=== PATIENT | male | born 1965 | race Caucasian/White ===

== ENCOUNTER 2021-06-20 12:56 | Inpatient (IN) | payer OTHER ==
[2021-06-20 15:21] LABS: Basophils % (A) 1 %; Eosinophils # (A) 0.4 k/uL (0-0.7); Eosinophils % (A) 6 %; HCT 38.7 % (39.0-53.0); Lymphocytes # (A) 1.4 k/uL (1.0-4.8); Lymphocytes % (A) 26 %; MCHC 33.6 g/dL (31.0-37.0); MCV 89.1 fL (80.0-100.0); Mean Platelet Volume 8.9; Monocytes # (A) 0.5 k/uL (0-1.0); Monocytes % (A) 9 %; Neutrophils # (A) 2.9 k/uL (1.3-7.7); Neutrophils % (A) 53 %; Platelet Count 243 k/uL (150-450); RBC 4.34 m/uL (4.30-5.90); RDW 13.2 % (11.5-15.5); WBC 5.4 k/uL (3.8-10.6)
[2021-06-20 15:29] LABS: African American GFR (CKD) >90 (>60 ml/min/1.73 sqM); Anion Gap 6 mmol/L; Blood Urea Nitrogen 20 mg/dL (9-20); Calcium 9.3 mg/dL (8.4-10.2); Carbon Dioxide 25 mmol/L (22-30); Chloride 102 mmol/L (98-107); Glucose 302 mg/dL (74-99); Magnesium 1.9 mg/dL (1.6-2.3); Non-African American GFR(CKD) 86 (>60 ml/min/1.73 sqM); Potassium 4.5 mmol/L (3.5-5.1); Sodium 133 mmol/L (137-145)
[2021-06-20] MEDS ORDERED: NALOXONE 0.4 MG/ML 1 ML VIAL IV PRN (15:55)
[2021-06-20] MEDS ORDERED: ACETAMINOPHEN TAB 325 MG TAB PO PRN (15:55)
[2021-06-20] MEDS ORDERED: VANCOMYCIN IV PER PHARMACY 1 EACH MISC MISCELLANE PRN (16:01)
[2021-06-20 16:58] LABS: Glucose,Whole Blood 332 mg/dL (75-99)
[2021-06-20] MEDS: INSULIN ASPART (NovoLOG) 100 UNIT/ML VIAL SQ SCH (17:01)
--- NOTE | 2021-06-20 17:26 | ED ---
General Adult HPI - General Chief complaint: Recheck/Abnormal Lab/Rx Stated complaint: IV site evaluation Time Seen by Provider: 06/20/21 14:04 Source: patient, RN notes reviewed, old records reviewed Mode of arrival: ambulatory Limitations: no limitations - History of Present Illness Initial comments: Evaluated the patient when he was placed in a room. Patient is a 56-year-old male with past medical history remarkable for insulin dependent diabetes, recent right big toe amputation, osteomyelitis currently with a PICC line in the right upper extremity on home vancomycin presents emergency Department over concern for PICC line malfunction as well as the concern for requiring placement. Patient states he was at home with his 80-year-old mother and states he cannot take care of himself. He was asked to keep all weight off of his right lower ex tremity by his fireboat operator who did the surgery, and he states it is difficult in the house he isn't is no one to help him move around. He states he feels like he cannot take care of himself. He is seeking placement for rehab facility until he can ambulate normally again. He also states that he knows that his PICC line may be slowing down was concerned for malfunction. His no other acute complaints at this time. He has a chronic chest on the right lower extremity. He denies any dyspnea, chest pain, abdominal pain, nausea, vomiting. Denies any sick contacts and fevers, chills. He has been taking his home vancomycin. He is on no other antibiotics. Patient presents for placement. - Related Data Home Medications Medication Instructions Recorded Confirmed Aspirin EC [Ecotrin Low Dose] 81 mg PO DAILY 06/20/21 06/20/21 Cyanocobalamin [Vitamin B-12] 500 mcg PO DAILY 06/20/21 06/20/21 Insulin Aspart [NovoLOG Flexpen] See Protocol SQ AC-TID 06/20/21 06/20/21 Insulin Glargine,Hum.rec.anlog 24 units SQ HS 06/20/21 06/20/21 [Rico Parkinson] metFORMIN HCL [Glucophage] 1,000 mg PO BID 06/20/21 06/20/21 Allergies Allergy/AdvReac Type Severity Reaction Status Date / Time Penicillins Allergy Rapid Verified 06/20/21 14:57 Heart Rate Review of Systems ROS Statement: Those systems with pertinent positive or pertinent negative responses have been documented in the HPI. Review of Systems: CONST: Denies fever EYES: Denies blurry vision ENT: Denies nasal congestion C/V: Denies Chest pain RESP: Denies shortness of breath GI: Denies abdominal pain : Denies dysuria SKIN: Denies rash. MSK: Endorses chronic right lower extremity osteomyelitis. NEURO: Denies headache ROS Other: All systems not noted in ROS Statement are negative. Past Medical History Past Medical History: Diabetes Mellitus History of Any Multi-Drug Resistant Organisms: None Reported Past Surgical History: Orthopedic Surgery Additional Past Surgical History / Comment(s): Foot surgery, PICC line Past Psychological History: No Psychological Hx Reported Smoking Status: Never smoker Past Alcohol Use History: None Reported Past Drug Use History: None Reported General Exam - General Exam Comments Initial Comments: General: Appears in no acute distress. HEAD: Normal with no signs of head trauma. EYES: PERRLA, EOMI, conjunctiva normal, no discharge. ENT: Hearing grossly intact, normal oropharynx. RESPIRATORY: Clear breath sounds bilaterally. No wheezes, rales, or rhonchi. C/V: Regular rate and rhythm. S1 and S2 auscultated, no edema, peripheral pulses 2+ and intact throughout. Patient is a PICC line in the right upper extremity that flushes without difficulty and is working correctly as the vancomycin is currently instilling. No signs of infection or blockage near the picc line site. ABD: Abd is soft, nontender, nondistended EXT: Chronic right big toe amputation. Cast is in place. Good capillary refill distally. No sensory deficits that are acute. Normal range of motion. SKIN: Chronic right big toe amputation. NEURO: Alert and oriented 4. No focal sensory strength deficits. Limitations: no limitations Course Vital Signs 06/20/21 13:21 Temperature 97.5 F L Pulse Rate 74 Respiratory 20 Rate Blood Pressure 118/75 O2 Sat by Pulse 98 Oximetry Medical Decision Making - Medical Decision Making Based on the patient's presentation and physical exam, she is requesting placement at this time. He also given for PICC line malfunction, which seems to self resolved as is now working. Is requesting placement as he is unable to care for himself at home as he is on IV antibiotics and is forced to remain nonweightbearing on the right lower extremity. He is requesting placement. I do believe this is reasonable. He has no help at home, and was within elderly mother. We will obtain basic laboratory studies and admit the patient to hospital. We will continue his home vancomycin in addition to his home medications per patient was in agreement this plan. laboratory studies were remarkable for a mild hyponatremia of 133 in the setting of hyperglycemia with a point of care blood glucose of 302. Insulin sliding scale was ordered for the patient. I spoke with the admitting physician, Dr. Arellano, who was in agreement with this plan. Patient will be admitted in stable condition to the hospital for eventual placement to rehab facility. Patient was therefore admitted in stable condition. - Lab Data Result diagrams: 06/20/21 14:48 06/20/21 14:48 Lab Results 06/20/21 06/20/21 06/20/21 Range/Units 14:48 14:48 16:56 WBC 5.4 (3.8-10.6) k/uL RBC 4.34 (4.30-5.90) m/uL Hgb 13.0 (13.0-17.5) gm/dL Hct 38.7 L (39.0-53.0) % MCV 89.1 (80.0-100.0) fL MCH 30.0 (25.0-35.0) pg MCHC 33.6 (31.0-37.0) g/dL RDW 13.2 (11.5-15.5) % Plt Count 243 (150-450) k/uL MPV 8.9 Neutrophils % 53 % Lymphocytes % 26 % Monocytes % 9 % Eosinophils % 6 % Basophils % 1 % Neutrophils # 2.9 (1.3-7.7) k/uL Lymphocytes # 1.4 (1.0-4.8) k/uL Monocytes # 0.5 (0-1.0) k/uL Eosinophils # 0.4 (0-0.7) k/uL Basophils # 0.0 (0-0.2) k/uL Sodium 133 L (137-145) mmol/L Potassium 4.5 (3.5-5.1) mmol/L Chloride 102 (98-107) mmol/L Carbon Dioxide 25 (22-30) mmol/L Anion Gap 6 mmol/L BUN 20 (9-20) mg/dL Creatinine 0.97 (0.66-1.25) mg/dL Est GFR (CKD-EPI)AfAm >90 (>60 ml/min/1.73 sqM) Est GFR (CKD-EPI)NonAf 86 (>60 ml/min/1.73 sqM) Glucose 302 H (74-99) mg/dL POC Glucose (mg/dL) 332 H (75-99) mg/dL POC Glu Radio Adjuster ID Chaitanya Redd Calcium 9.3 (8.4-10.2) mg/dL Magnesium 1.9 (1.6-2.3) mg/dL Disposition Clinical Impression: Encounter for rehabilitation evaluation, Osteomyelitis, Status post right foot surgery Disposition: ADMITTED IP TO THIS HOSP Condition: Stable Referrals: [facility],Clinic [Primary Care Provider] - 1-2 days
[2021-06-20] MEDS ORDERED: ALPRAZolam 0.25 MG TAB PO PRN (17:30)
[2021-06-20] MEDS ORDERED: HYDROcodone/APAP 5-325MG 1 EACH TAB PO PRN (17:30)
--- NOTE | 2021-06-20 18:15 | HP ---
HISTORY AND PHYSICAL CHIEF COMPLAINTS: Osteomyelitis of the right foot as well as gait dysfunction. HISTORY OF PRESENT ILLNESS: This 56-year-old gentleman with a past history of diabetes, history of DJD, history of foot surgeries, PICC line, being followed by primary physician in [place], had multiple surgeries at [facility] apparently. Patient had a big toe amputation in [facility] in January this year for osteomyelitis and the patient had a PICC line and treatment. Subsequently patient was suspected to have osteomyelitis between the 2nd and 3rd toes and was on 2nd dose of antibiotics with PICC line in the right arm. The patient apparently was supposed to keep off it but the patient was unable to perform the activities of daily living including taking care of elderly mother. The patient also complaining of blockage of the left PICC line because of the IV antibiotics which are gravity driven, not draining completely according to him. There is no history of fever, rigors. No headache, loss consultations or seizures. The patient is being admitted for further evaluation and treatment. The initial labs showed normal CBC and sodium 133 and glucose elevated at 302. There is no history of fever, rigors, chills. PAST MEDICAL HISTORY: History of diabetes mellitus, diabetic peripheral neuropathy, history of DJD, foot surgery, amputation and PICC line and osteomyelitis. MEDICATIONS: NovoLog FlexPen and 24 units subcu q.h.s. Glucophage 1000 mg p.o. b.i.d. vitamin B12 500 mg daily, Ecotrin 81 mg daily. ALLERGIES: Penicillin. FAMILY HISTORY: No history of heart disease or strokes in the family. SOCIAL HISTORY: No smoking, no alcohol intake. REVIEW OF SYSTEMS: ENT: No diminished hearing or diminished vision. CARDIOVASCULAR: No angina. RESPIRATORY: As mentioned earlier. GI: No nausea. : No dysuria. NERVOUS SYSTEM: As mentioned. ALLERGY: No asthma or hayfever. MUSCULOSKELETAL: As mentioned earlier. HEMATOLOGY/ONCOLOGY: As mentioned earlier. CONSTITUTIONAL: As mentioned earlier. DERMATOLOGY: Negative. PSYCHIATRIC: Negative. PHYSICAL EXAMINATION: Patient is alert, oriented x3. Pulse is 74, blood pressure 118/70, respirations 20, temperature 97.4, pulse ox 98% on room air. HEENT: Conjunctivae normal. Oral mucosa moist. NECK: No jugular. No lymph node enlargement. CARDIOVASCULAR: S1 and S2. RESPIRATORY: Breath sounds diminished in the bases. No rhonchi. No crackles. ABDOMEN: Soft, obese, nontender. No mass. LEGS: Bilateral peripheral neuropathy and right foot tenderness in between the 2nd and 3rd toes also present and status post amputation of the right big toe. SKIN: Significant erythema as well as scaling also present on the right foot. PICC Line present on the right. NERVOUS SYSTEM: As mentioned, features of peripheral neuropathy. No focal motor deficit. LYMPHATICS: No lymph nodes palpable in the neck. SKIN: No ulcers. JOINTS: No active deforming arthropathy. LABS: WBC 5.2, hemoglobin sodium 130 potassium 4.5. Glucose 302. ASSESSMENT: 1. Right foot osteomyelitis on IV antibiotics through a right-sided PICC line. 2. Gait dysfunction. 3. Diabetes mellitus type 2 uncontrolled with hyperglycemia. 4. Hyponatremia. 5. Poor social support. 6. Blocked PICC line right side. 7. History of diabetes type 2. 8. Diabetic peripheral neuropathy. 9. History of amputation of the right big toe. 10.History of previous PICC line and 1 course of antibiotics. 11.FULL CODE. RECOMMENDATIONS AND DISCUSSION: This 56-year-old gentleman who presented with multiple complex medical issues, we will monitor the patient closely, continue the current management and treatment. Recommend continue with IV antibiotics. Infectious disease evaluation, PT and OT evaluation, possible ECF rehab. Resume the home medication. Monitor blood sugars closely. Closely hemoglobin A1c. The patient might need tighter control of the blood sugar as well at this time. The prognosis guarded because of multiple complex medical issues. Further recommendations to follow. MMODL / IJN: [id number] /
[2021-06-20 20:00] LABS: ALT 15 U/L (4-49); AST 20 U/L (17-59); African American GFR (CKD) >90 (>60 ml/min/1.73 sqM); Albumin 4.1 g/dL (3.5-5.0); Alkaline Phosphatase 94 U/L (38-126); Anion Gap 11 mmol/L; Blood Urea Nitrogen 19 mg/dL (9-20); Calcium 9.3 mg/dL (8.4-10.2); Carbon Dioxide 25 mmol/L (22-30); Chloride 99 mmol/L (98-107); Glucose 302 mg/dL (74-99); Non-African American GFR(CKD) 81 (>60 ml/min/1.73 sqM); Potassium 4.4 mmol/L (3.5-5.1); Sodium 135 mmol/L (137-145); Total Bilirubin 0.4 mg/dL (0.2-1.3); Total Protein 6.7 g/dL (6.3-8.2)
[2021-06-20] MEDS ORDERED: metFORMIN 500 MG TAB PO SCH (21:00)
[2021-06-20] MEDS: HEPARIN SODIUM,PORCINE/PF 5,000 UNIT/0.5 ML SYRINGE SQ SCH (21:55)
[2021-06-20] MEDS: VANCOMYCIN 1,000 MG in SODIUM CHLORIDE 0.9% 250 ML IVPB SCH (22:06)
[2021-06-20] MEDS: INSULIN DETEMIR (LEVEMIR) 100 UNIT/ML SYR SQ SCH (22:07)
[2021-06-21 00:08] LABS: Glucose,Whole Blood 183 mg/dL (75-99)
[2021-06-21] MEDS: HEPARIN SODIUM,PORCINE/PF 5,000 UNIT/0.5 ML SYRINGE SQ SCH ×4 (00:27→21:48)
[2021-06-21 06:58] LABS: Glucose,Whole Blood 49 mg/dL (75-99)
[2021-06-21 07:22] LABS: Glucose,Whole Blood 64 mg/dL (75-99)
[2021-06-21 07:42] LABS: Glucose,Whole Blood 110 mg/dL (75-99)
[2021-06-21] MEDS: INSULIN ASPART (NovoLOG) 100 UNIT/ML VIAL SQ SCH ×3 (07:44→17:04)
[2021-06-21] MEDS: VANCOMYCIN 1,000 MG in SODIUM CHLORIDE 0.9% 250 ML IVPB SCH (09:51)
[2021-06-21] MEDS: ASPIRIN 81 MG PO SCH (09:51)
[2021-06-21] MEDS: PANTOPRAZOLE 40 MG TABLET PO SCH (09:51)
[2021-06-21] MEDS: CYANOCOBALAMIN 500 MCG TAB PO SCH (09:51)
[2021-06-21] MEDS: metFORMIN 500 MG TAB PO SCH ×2 (09:51→17:04)
[2021-06-21 11:31] LABS: Glucose,Whole Blood 384 mg/dL (75-99)
[2021-06-21] MEDS: MULTIVITAMINS, THERA 1 EACH TAB PO SCH (11:34)
[2021-06-21 12:04] LABS: African American GFR (CKD) 85.3 (60.0-200.0); Anion Gap 8.9 mmol/L (4.00-12.00); BUN/Creat Ratio 15.45 Ratio (12.00-20.00); Calcium 9.8 mg/dL (8.7-10.3); Carbon Dioxide 30.1 mmol/L (21.6-31.8); Non-African American GFR(CKD) 73.6 (60.0-200.0); Potassium 4.2 mmol/L (3.5-5.5)
[2021-06-21 12:49] LABS: Basophils # (A) 0.05 X 10*3/uL (0.00-0.10); Basophils % (A) 1.2 %; Eosinophils # (A) 0.27 X 10*3/uL (0.04-0.35); Eosinophils % (A) 6.6 %; HGB 13.2 g/dL (13.0-17.0); Lymphocytes # (A) 1.45 X 10*3/uL (0.90-5.00); Lymphocytes % (A) 35.5 %; MCH 29.1 pg (27.0-32.0); MCV 88.1 fL (80.0-97.0); Mean Platelet Volume 10.7 fL (9.5-12.2); Monocytes # (A) 0.71 X 10*3/uL (0.20-1.00); Monocytes % (A) 17.4 %; Neutrophils # (A) 1.61 X 10*3/uL (1.80-7.70); Neutrophils % (A) 39.3 %; Platelet Count 246 X 10*3/uL (140-440); RBC 4.54 X 10*6/uL (4.40-5.60); RDW 13.2 % (11.5-14.5); WBC 4.09 X 10*3/uL (4.50-10.00)
[2021-06-21 16:41] LABS: Glucose,Whole Blood 242 mg/dL (75-99)
--- NOTE | 2021-06-21 19:26 | PN ---
PROGRESS NOTE DATE OF SERVICE: 06/21/2021 This 56-year-old gentleman admitted with history of osteomyelitis and gait dysfunction is being closely monitored. No chest pain. No palpitations. The patient had a previous episode of osteomyelitis also. Patient on broad broad-spectrum IV antibiotics. PHYSICAL EXAMINATION: Alert and oriented x3. Pulse 70, blood pressure 127/70, respiration 16, temperature 100.2, pulse ox 94% on room air HEENT: Conjunctivae normal. Oral mucosa moist. NECK: No jugular venous distention. No lymph node enlargement. CARDIOVASCULAR: S1, S2, muffled. No S3, no S4, RESPIRATORY: Diminished breath sounds at the bases. A few scattered rhonchi. ABDOMEN: Soft, nontender. NERVOUS SYSTEM: No focal deficits. LABS: Accu-Cheks 384 and 242. ASSESSMENT: 1. Acute osteomyelitis of the right foot. 2. Continued fever. 3. Diabetes mellitus type 2 uncontrolled with hyperglycemia. 4. Status post PICC line on the right arm. 5. Gait dysfunction. 6. Diabetes mellitus type 2, uncontrolled with hyperglycemia. 7. Hyponatremia. 8. Poor social support. 9. Blocked PICC line on the right arm. 10.History of diabetic peripheral neuropathy. 11.History of amputation of the right big toe from elsewhere. 12.History of previous PICC line on course of antibiotics. 13.FULL CODE. RECOMMENDATIONS: Recommend to continue current management and symptomatic treatment. Otherwise, at this time continue with IV antibiotics, cultures, Infectious Disease evaluation by Dr. Weems, x-rays. Guarded prognosis. Further recommendations to follow. MMODL / IJN: [id number] /
--- NOTE | 2021-06-21 19:35 | XR ---
EXAMINATION TYPE: XR foot complete RT DATE OF EXAM: 06/21/2021 COMPARISON: NONE HISTORY: Osteomyelitis. Swelling. TECHNIQUE: 3 views FINDINGS: There are old ununited fractures of the second and third metatarsal shafts. I see no acute fracture nor dislocation. There is amputation of the big toe at the level of the MP joints. There is soft tissue ossification around the fractures. IMPRESSION: Old metatarsal fractures. No acute fracture seen. No specific sign of osteomyelitis.
[2021-06-21 20:41] LABS: Glucose,Whole Blood 283 mg/dL (75-99)
[2021-06-21] MEDS: VANCOMYCIN 1,750 MG in SODIUM CHLORIDE 0.9% 500 ML 500 ML IVPB SCH (21:38)
[2021-06-21] MEDS: INSULIN DETEMIR (LEVEMIR) 100 UNIT/ML SYR SQ SCH (21:39)
--- NOTE | 2021-06-21 23:49 | P.CONS ---
History of Present Illness - Reason for Consult Consult date: 06/21/21 right foot osteomyelitis Requesting physician: Deisi Arellano - Chief Complaint right foot infection and malfunction of PICC x days - History of Present Illness History of present illness : Patient is a 56-year female with a past medical history significant for right big toe osteomyelitis status post right big toe amputation in this patient apparently also have wound on the right foot concerning for his second and third metatarsal infection and the patient is cu rrently getting IV vancomycin to help with her mood to the right arm PICC line and local wound care is provided by his local pediatric pathologist Dr. Salgado patient presented to the hospital concerning for PICC line malfunction as well as concern for placement as the patient states he stays at home with his 8-year-old mother indicated to care of himself patient asked to keep all weight off his right foot or he will lose his foot patient currently denies having any fever or any chills patient denies having any chest pain no shortness of breath no cough no nausea vomiting no abdominal pain or any diarrhea denies any pain to his right foot wound area Review of system: CONSTITUTIONAL: Positive for weakness, denies any fever. EYES: No complaint. ENT: No complaint. RESPIRATORY: No complaint. CARDIOVASCULAR: No complaint. GENITOURINARY: No complaint. GASTROINTESTINAL: No complaint. MUSCULOSKELETAL: As per history of present illness. INTEGUMENTARY: No complaint. PSYCHOLOGIC: No complaint. ENDOCRINE: No complaint. NEUROLOGIC: No complaint. Past medical history : Reviewed, documented below Past surgical history : Reviewed, documented below Social history: Reviewed, documented below Medications: Reviewed, as documented below EXAMINATION: Vital sigans= Reviewed and documented below GENERAL DESCRIPTION: Middle-aged male lying in bed, no distress. No tachypnea or accessory muscle of respiration use. HEENT: Shows Pallor , no scleral icterus. Oral mucous membrane is dry. NECK: Trachea central, no thyromegaly. LUNGS: Unlabored breathing. Clear to auscultation anteriorly. No wheeze or crackle. HEART: S1, S2, regular rate and rhythm. ABDOMEN: Soft, no tenderness , guarding or rigidity EXTREMITIES: No edema of feet. Right foot is currently dressed in a special dressing with no evidence of any drainage on the dressing SKIN: No rash, no masses palpable. NEUROLOGICAL: The patient is awake, alert, oriented x3, mood and affect normal. LABS AND RADIOLOGY: Reviewed results see below Assessment : Patient with right foot wound underlying osteomyelitis apparently the patient is getting vancomycin through ID physician at [facility] and the local care has been provided by the pediatric pathologist Dr. Salgado patient currently do not have any fever or elevated white count and x-ray did not show any evidence of osteomyelitis Plan: 1-we will obtain inflammatory markers 2-continue with vancomycin pharmacy to dose 3-dressing will be taken off tomorrow to examine the wound and need for further local wound care, patient was interested in getting another opinion regarding amputation or amputation for which Dr Boone should be consulted We will follow on clinical condition and cultures to further adjust medication if needed Thank you for this consultation we will follow the patient along with you Past Medical History Past Medical History: Diabetes Mellitus History of Any Multi-Drug Resistant Organisms: None Reported Past Surgical History: Orthopedic Surgery Additional Past Surgical History / Comment(s): Foot surgery, PICC line Past Psychological History: No Psychological Hx Reported Smoking Status: Never smoker Past Alcohol Use History: None Reported Past Drug Use History: None Reported Medications and Allergies Home Medications Medication Instructions Recorded Confirmed Type Aspirin EC [Ecotrin Low Dose] 81 mg PO DAILY 06/20/21 06/20/21 History Cyanocobalamin [Vitamin B-12] 500 mcg PO DAILY 06/20/21 06/20/21 History Insulin Aspart [NovoLOG Flexpen] See Protocol SQ AC-TID 06/20/21 06/20/21 Histor y Insulin Glargine,Hum.rec.anlog 24 units SQ HS 06/20/21 06/20/21 History [Toujeo Max Solostar] metFORMIN HCL [Glucophage] 1,000 mg PO BID 06/20/21 06/20/21 History Allergies Allergy/AdvReac Type Severity Reaction Status Date / Time Penicillins Allergy Rapid Verified 06/20/21 14:57 Heart Rate Physical Exam Vitals: Vital Signs Temp Pulse Resp BP Pulse Ox 06/21/21 14:00 100.6 F H 73 16 127/76 94 L 06/21/21 08:28 97.5 F L 68 16 120/71 92 L 06/21/21 00:09 97.7 F 60 15 127/74 96 06/20/21 19:13 97.6 F 99 15 142/86 100 Intake and Output 06/21/21 06/21/2121 06:59 14:59 22:59 Intake Total 850 1080 Balance 850 1080 Intake: Intake, IV Titration 250 Amount Vancomycin 1,000 mg In 250 Sodium Chloride 0.9% 250 ml @ 125 mls/hr IVPB Q12H [facility] Rx#:[id number] Oral 600 1080 Other: # Voids 2 3 Results CBC & Chem 7: 06/21/21 05:22 06/21/21 05:22 Labs: Abnormal Lab Results - Last 24 Hours (Table) 06/20/21 06/20/21 06/21/21 Range/Units 16:56 19:35 00:06 WBC (4.50-10.00) X 10*3/uL Neutrophils # (1.80-7.70) X 10*3/uL Sodium 135 L (137-145) mmol/L Glucose 302 H (74-99) mg/dL POC Glucose (mg/dL) 332 H 183 H (75-99) mg/dL 06/21/21 06/21/21 06/21/21 Range/Units 05:22 05:22 06:57 WBC 4.09 L (4.50-10.00) X 10*3/uL Neutrophils # 1.61 L (1.80-7.70) X 10*3/uL Sodium (137-145) mmol/L Glucose 59 L (74-99) mg/dL POC Glucose (mg/dL) 49 L (75-99) mg/dL 06/21/21 06/21/21 06/21/21 Range/Units 07:21 07:40 11:29 WBC (4.50-10.00) X 10*3/uL Neutrophils # (1.80-7.70) X 10*3/uL Sodium (137-145) mmol/L Glucose (74-99) mg/dL POC Glucose (mg/dL) 64 L 110 H 384 H (75-99) mg/dL
[2021-06-22 06:56] LABS: Glucose,Whole Blood 266 mg/dL (75-99)
[2021-06-22] MEDS: ASPIRIN 81 MG PO SCH (07:27)
[2021-06-22] MEDS: metFORMIN 500 MG TAB PO SCH ×2 (07:27→17:26)
[2021-06-22] MEDS: INSULIN ASPART (NovoLOG) 100 UNIT/ML VIAL SQ SCH ×3 (07:27→17:26)
[2021-06-22] MEDS: MULTIVITAMINS, THERA 1 EACH TAB PO SCH (07:28)
[2021-06-22] MEDS: CYANOCOBALAMIN 500 MCG TAB PO SCH (07:28)
[2021-06-22] MEDS: PANTOPRAZOLE 40 MG TABLET PO SCH (07:28)
[2021-06-22] MEDS: HEPARIN SODIUM,PORCINE/PF 5,000 UNIT/0.5 ML SYRINGE SQ SCH ×3 (07:28→23:37)
[2021-06-22] MEDS ORDERED: VANCOMYCIN TROUGH DUE 1 EACH MISC MISCELLANE ONE (08:00)
[2021-06-22 08:09] LABS: African American GFR (CKD) >90 (>60 ml/min/1.73 sqM); Anion Gap 9 mmol/L; Blood Urea Nitrogen 20 mg/dL (9-20); C Reactive Protein 1.2 mg/dL (<1.0); Calcium 9.6 mg/dL (8.4-10.2); Carbon Dioxide 24 mmol/L (22-30); Chloride 102 mmol/L (98-107); Glucose 254 mg/dL (74-99); Non-African American GFR(CKD) >90 (>60 ml/min/1.73 sqM); Potassium 4.4 mmol/L (3.5-5.1); Sodium 135 mmol/L (137-145)
[2021-06-22] MEDS: VANCOMYCIN 1,750 MG in SODIUM CHLORIDE 0.9% 500 ML 500 ML IVPB SCH ×2 (08:29→23:35)
[2021-06-22 10:35] LABS: Basophils # (A) 0.04 X 10*3/uL (0.00-0.10); Eosinophils % (A) 7.2 %; HCT 37.7 % (39.6-50.0); HGB 12.7 g/dL (13.0-17.0); Lymphocytes # (A) 1.25 X 10*3/uL (0.90-5.00); Lymphocytes % (A) 30.2 %; MCH 29.1 pg (27.0-32.0); MCHC 33.7 g/dL (32.0-37.0); MCV 86.5 fL (80.0-97.0); Mean Platelet Volume 10.9 fL (9.5-12.2); Monocytes # (A) 0.59 X 10*3/uL (0.20-1.00); Monocytes % (A) 14.3 %; Neutrophils # (A) 1.95 X 10*3/uL (1.80-7.70); Neutrophils % (A) 47.1 %; Platelet Count 243 X 10*3/uL (140-440); RBC 4.36 X 10*6/uL (4.40-5.60); RDW 12.9 % (11.5-14.5); WBC 4.14 X 10*3/uL (4.50-10.00)
[2021-06-22 11:48] LABS: Glucose,Whole Blood 183 mg/dL (75-99)
[2021-06-22 12:41] LABS: Erythrocyte Sedimentation Rate 10 mm/Hr (0-20)
[2021-06-22 16:16] LABS: Glucose,Whole Blood 278 mg/dL (75-99)
--- NOTE | 2021-06-22 19:35 | PN ---
PROGRESS NOTE DATE OF SERVICE: 06/22/2021 This 56-year-old gentleman who was admitted with acute osteomyelitis of the right foot is being closely monitored. No chest pain. No palpitations. No fever. The PT/OT evaluation for ECF rehab. X-ray of the foot noted. PHYSICAL EXAMINATION: Alert and oriented x3. Pulse is 69, blood pressure 142/66, respiration 17, temperature 98.6, pulse ox 98% on room air. HEENT: Conjunctivae normal. Oral mucosa moist. NECK: No jugular venous distention. No lymph node enlargement. CARDIOVASCULAR: S1, S2, muffled. No S3, no S4, RESPIRATORY: Diminished breath sounds at the bases. A few rhonchi, no crackles. ABDOMEN: Soft, nontender. LEGS: No edema, no swelling. NERVOUS SYSTEM: No focal deficits. LABS: WBC 4.14, hemoglobin 12.7, glucose 278. ASSESSMENT: 1. Acute osteomyelitis of the right foot. 2. Multiple old metatarsal fractures. 3. Continued fever. 4. Diabetes mellitus type 2, uncontrolled with hyperglycemia. 5. Gait dysfunction. 6. Hyponatremia. 7. Poor social support. 8. Blocked PICC line on the right arm. 9. History of diabetic peripheral neuropathy. 10.History of amputation of the right big toe from elsewhere. 11.History of previous PICC line and a course of antibiotics. 12.FULL CODE. RECOMMENDATIONS AND DISCUSSION: Continue current management, continue symptomatic treatment with antibiotics. Closely follow with Infectious Disease. I would also recommend orthopedic evaluation, PT/OT evaluation, possible ECF rehab. Guarded prognosis. Further recommendations to follow. MMODL / IJN: [id number] /
[2021-06-22 21:17] LABS: Glucose,Whole Blood 298 mg/dL (75-99)
[2021-06-22] MEDS: INSULIN DETEMIR (LEVEMIR) 100 UNIT/ML SYR SQ SCH (23:37)
--- NOTE | 2021-06-23 05:45 | PN ---
PROGRESS NOTE DATE OF SERVICE: 06/22/2021 REASON FOR FOLLOWUP: Right foot osteomyelitis. INTERVAL HISTORY: Patient is afebrile. He is breathing comfortably. Patient denies having any chest pain. No shortness of breath or cough. No abdominal pain. No pain to the right foot. PHYSICAL EXAMINATION: Blood pressure 142/66, pulse 69, temperature 98.6. He is 96% on room air. General description is a middle-aged male lying in bed in no distress. Respiratory system: Unlabored breathing, clear to auscultation anteriorly. Heart S1, S2. Regular rate and rhythm. Abdomen soft, no tenderness. Examination of right foot currently there is no wound. There is no swelling. No redness. LABS: White count is 4.14, sed rate is 10. DIAGNOSTIC IMPRESSION/PLAN: Patient with apparently right foot osteomyelitis. This patient has been told that his second and third and infected and is getting vancomycin through his ID physician out of [place] and local care provided by Dr. Salgado. I do not see any signs of cellulitis. There is no wound. The patient did have a normal sedimentation rate that will make osteomyelitis to be less likely. We will obtain a bone scan. Continue vancomycin for now and monitor clinical course closely. MMODL / IJN: [id number] /
[2021-06-23 07:00] LABS: Glucose,Whole Blood 181 mg/dL (75-99)
[2021-06-23] MEDS: metFORMIN 500 MG TAB PO SCH ×2 (07:22→16:54)
[2021-06-23] MEDS: PANTOPRAZOLE 40 MG TABLET PO SCH (07:23)
[2021-06-23] MEDS: HEPARIN SODIUM,PORCINE/PF 5,000 UNIT/0.5 ML SYRINGE SQ SCH ×2 (07:24→15:50)
[2021-06-23] MEDS: INSULIN ASPART (NovoLOG) 100 UNIT/ML VIAL SQ SCH ×3 (07:25→16:54)
[2021-06-23 07:33] LABS: African American GFR (CKD) >90 (>60 ml/min/1.73 sqM); Non-African American GFR(CKD) >90 (>60 ml/min/1.73 sqM)
[2021-06-23] MEDS: VANCOMYCIN 1,750 MG in SODIUM CHLORIDE 0.9% 500 ML 500 ML IVPB SCH ×2 (09:22→20:56)
[2021-06-23] MEDS: CYANOCOBALAMIN 500 MCG TAB PO SCH (09:22)
[2021-06-23] MEDS: ASPIRIN 81 MG PO SCH (09:22)
--- NOTE | 2021-06-23 10:30 | P.CNOR ---
History of Present Illness - [facility] Consult date: 06/23/21 History of present illness: This patient is a 56-year-old male with past medical history of diabetes that presented to [facility] emergency department on 06/22/21 with complaints of a malfunctioning PICC line. 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 He states the toe became infected, and required an amputation and PICC line placement. He has been treating with infectious disease Dr. Marroquin for this. Patient states he the subsequently fractured his metatarsals sometime in May. Patient states Dr. Salgado has told the patient to remain strictly non weight bearing on the right foot, although he finds this difficult as he lives with his elderly mother. He states he presented to [facility] emergency department because he believed his PICC line was not working, and he is having issues taking care of himself at home. He is admitted under the care of internal medicine with a consult placed to orthopedic surgery for evaluation of his right foot. At the time of my exam, the patient states he has no pain in the right foot. He states he has peripheral neuropathy due to his diabetes. He states he otherwise feels well and denies fevers, chills, nausea, vomiting. He denies noticing any erythema or warmth of the foot. He states he was placed into a splint by Dr. Salgado last week, although he has been walking on the splint despite recommendations to stay nonweightbearing. He states he has an appointment with Dr. Salgado next week. There are no additional complaints at this time. Vital signs stable. Past Medical History Past Medical History: Diabetes Mellitus History of Any Multi-Drug Resistant Organisms: None Reported Past Surgical History: Orthopedic Surgery Additional Past Surgical History / Comment(s): Foot surgery, PICC line Past Psychological History: No Psychological Hx Reported Smoking Status: Never smoker Past Alcohol Use History: None Reported Past Drug Use History: None Reported Medications and Allergies Home Medications Medication Instructions Recorded Confirmed Type Aspirin EC [Ecotrin Low Dose] 81 mg PO DAILY 06/20/21 06/20/21 History Cyanocobalamin [Vitamin B-12] 500 mcg PO DAILY 06/20/21 06/20/21 History Insulin Aspart [NovoLOG Flexpen] See Protocol SQ AC-TID 06/20/21 06/20/21 History Insulin Glargine,Hum.rec.anlog 24 units SQ HS 06/20/21 06/20/21 History [Toujeo Max Solostar] metFORMIN HCL [Glucophage] 1,000 mg PO AC-BID 06/20/21 06/22/21 History Heparin (Unkown Dose) 1 dose SQ DIRECTED 06/22/21 06/22/21 History Vancomycin (Unknown Dose) 1 dose IV DIRECTED 06/22/21 06/22/21 History Allergies Allergy/AdvReac Type Severity Reaction Status Date / Time Penicillins Allergy Rapid Verified 06/20/21 14:57 Heart Rate Physical Examination On examination, the patient is sitting up in bed in no apparent distress. He is alert and on the 3. His head appears normocephalic and atraumatic. His breathing appears nonlabored. Focused examination of the right foot is conducted. On examination of the right foot, there is no erythema, warmth. No fluctuance. Very mild swelling. No signs of infection. There has been an amputation of the great toe at the first MTP joint. Healed incision at the 1st MTP joint. No signs of infection. No pain with palpation of the toes, foot, ankle. Calf is soft and non-tender, no evidence of DVT. Motor function intact. Sensory function decreased due to peripheral neuropathy. The foot is warm and well-perfused. Results Right foot x-ray 06/21/21- Displaced, healing 2nd and 3rd metatarsal fractures. There has been an amputation at the 1st MTP joint. - Labs Labs: Abnormal Lab Results - Last 24 Hours (Table) 06/22/21 06/22/21 06/22/21 Range/Units 07:28 11:46 16:15 WBC 4.14 L (4.50-10.00) X 10*3/uL RBC 4.36 L (4.40-5.60) X 10*6/uL Hgb 12.7 L (13.0-17.0) g/dL Hct 37.7 L (39.6-50.0) % POC Glucose (mg/dL) 183 H 278 H (75-99) mg/dL 06/22/21 06/23/21 Range/Units 21:13 06:59 WBC (4.50-10.00) X 10*3/uL RBC (4.40-5.60) X 10*6/uL Hgb (13.0-17.0) g/dL Hct (39.6-50.0) % POC Glucose (mg/dL) 298 H 181 H (75-99) mg/dL Microbiology - Last 24 Hours (Table) 06/20/21 19:35 Blood Culture - Preliminary Blood No Growth after 48 hours H & H 06/20/21 06/21/21 06/22/21 Range/Units 14:48 05:22 07:28 Hgb 13.0 13.2 12.7 L (13.0-17.5) gm/dL Hct 38.7 L 40.0 37.7 L (39.0-53.0) % Result Diagrams: 06/22/21 07:28 06/23/21 06:50 Assessment and Plan Assessment: Displaced, healing 2nd and 3rd metatarsal fractures History of great toe amputation by Dr. Salgado Current PICC line managed by Dr. Marroquin Plan: - Patient was discussed with Dr. Mccarty. No surgical intervention is planned at this time. Patient was instructed to follow-up with Dr. Salgado after discharge for further management of his healing 2nd and 3rd metatarsal fractures. - PICC line and antibiotic management per Dr. Weems. - Recommended immobilization of the right foot in a tall CAM boot, although patient states he does have a tall CAM boot at home. He will wear the splint he presented the the hospital with. - Patient would like rehab on discharge. Discharge planning per admitting team. - We will sign off the patient and he is instructed to follow-up Dr. Salgado after discharge.
[2021-06-23 11:35] LABS: Glucose,Whole Blood 108 mg/dL (75-99)
[2021-06-23] MEDS: MULTIVITAMINS, THERA 1 EACH TAB PO SCH (11:49)
--- NOTE | 2021-06-23 15:12 | NM ---
EXAMINATION TYPE: NM bone 3 phase DATE OF EXAM: 06/23/2021 COMPARISON: 06/21/2021 right foot plain film HISTORY: Right foot osteomyelitis Triple phase bone scintigraphy was performed following the injection of 26.1 mCi Tc 99m MDP. Immedia te images and 6 hours post injection images acquired. FINDINGS: Blood flow: There is slight increased radiotracer accumulation within the mid right foot. Some increa sed flow is also present through the left foot. Blood pool: There is focal radiotracer accumulation within the mid right foot. Delayed images: There is increased radiotracer accumulation at the first metatarsophalangeal joint of the left foot. Distal increased uptake is at the mid right foot. Appears to be prior amputation of t he right great toe. IMPRESSION: 1. Increased blood flow blood pool and static images within the mid right foot compatible with underl ludy osteomyelitis. Differential diagnosis can include fractures.
--- NOTE | 2021-06-23 15:26 | P.PN ---
Subjective Progress Note Date: 06/23/21 This patient is a 56-year-old male who was recently admitted with acute osteomyelitis of the right foot and is being closely monitored. Infectious disease following and patient is currently maintained on IV antibiotics in the form of vancomycin and patient does have a PICC line. Patient was seen and ev aluated by orthopedics recommending conservative management and no plans for surgical intervention at this time. Patient is currently undergoing nuclear bone scan of the right foot to confirm osteomyelitis. PT/OT following the patient and evaluating the patient for possible ECF placement as patient is to remain nonweightbearing of that right foot and has not been doing so. He follows with Dr. Salgado in the outpatient setting. Review of systems: Constitutional: No reports of fatigue, fever, or chills Cardiovascular: No reports of chest pain or palpitations Respiratory: No reports of shortness of breath or cough GI: No reports of nausea, vomiting, or diarrhea : No reports of dysuria or retention Neurovascular: Reports generalized weakness and pain in the right lower extremity All medications have been reviewed Active Medications Acetaminophen (Acetaminophen Tab 325 Mg Tab) 650 mg PO Q6HR PRN PRN Reason: Mild Pain or Fever > 100.5 Hydrocodone Bitart/Acetaminophen (Hydrocodone/Apap 5-325mg 1 Each Tab) 1 each PO Q6HR PRN PRN Reason: Pain Alprazolam (Alprazolam 0.25 Mg Tab) 0.25 mg PO TID PRN PRN Reason: Anxiety Aspirin (Aspirin 81 Mg) 81 mg PO DAILY [facility] Last Admin: 06/23/21 09:22 Dose: 81 mg Documented by: Cyanocobalamin (Cyanocobalamin 500 Mcg Tab) 500 mcg PO DAILY STEFANIE Last Admin: 06/23/21 09:22 Dose: 500 mcg Documented by: Heparin Sodium (Porcine) (Heparin Sodium,Porcine/Pf 5,000 Unit/0.5 Ml Syringe) 5,000 unit SQ Q8HR STEFANIE Last Admin: 06/23/21 07:24 Dose: 5,000 unit Documented by: Vancomycin HCl 1,750 mg/ (Sodium Chloride) 500 mls @ 167 mls/hr IVPB Q12HR STEFANIE Last Admin: 06/23/21 09:22 Dose: 167 mls/hr Documented by: Insulin Aspart (Insulin Aspart (Novolog) 100 Unit/Ml Vial) 0 unit SQ AC-TID STEFANIE; Protocol Last Admin: 06/23/21 11:49 Dose: Not Given Documented by: Insulin Detemir (Insulin Detemir (Levemir) 100 Unit/Ml Syr) 40 unit SQ HS [facility] Last Admin: 06/22/21 23:37 Dose: 40 unit Documented by: Metformin HCl (Metformin 500 Mg Tab) 1,000 mg PO BID-W/MEALS [facility] Last Admin: 06/23/21 07:22 Dose: 1,000 mg Documented by: Miscellaneous Information (Vancomycin Trough Due 1 Each Misc) 1 each MISCELLANE ONCE ONE Stop: 06/24/21 08:01 Multivitamins (Multivitamins, Thera 1 Each Tab) 1 each PO DAILY@1200 [facility] Last Admin: 06/23/21 11:49 Dose: 1 each Documented by: Naloxone HCl (Naloxone 0.4 Mg/Ml 1 Ml Vial) 0.2 mg IV Q2M PRN PRN Reason: Opioid Reversal Pantoprazole Sodium (Pantoprazole 40 Mg Tablet) 40 mg PO AC-BRKFST [facility] Last Admin: 06/23/21 07:23 Dose: Not Given Documented by: Physical exam: Gen: This is a 56-year-old male awake, alert and oriented 3, well-developed, well-nourished. Temp is 97.7F, pulse is 65, respirations are 16, blood pressure is 119/74, oxygen saturation is 95% on room air. HEENT: Head is atraumatic, normocephalic. Pupils equal, round. Sclerae is anicteric. NECK: Supple. No JVD. No lymphadenopathy. No thyromegaly. LUNGS: Diminished breath sounds bilaterally with no wheezing or rhonchi noted. No intercostal retractions. HEART: S1, S2 are muffled ABDOMEN: Soft. Bowel sounds are present. No masses. No tenderness. EXTREMITIES: No pedal edema. No calf tenderness. Right lower extremity great toe amputation healing noted with no surrounding redness or openings in the skin. Minimal swelling noted of the right lower extremity. NEUROLOGICAL: Patient is awake, alert and oriented x3. Diffusely weak Assessment: Acute osteomyelitis of the right foot Multiple old metatarsal fractures Continued fevers diabetes mellitus 2 with uncontrolled hyperglycemia Gait dysfunction Hyponatremia Poor social support Blocked PICC line in the right arm recently History of diabetic peripheral neuropathy History of amputation of the right great toe at [facility] History of previous PICC line and course of antibiotics Full code Plan: Recommend to continue with IV antibiotic therapy in the form of vancomycin and infectious disease following closely. Patient is scheduled to undergo clear bone scan of the right lower extremity today which is currently pending. Patient does have a PICC line and has been receiving IV antibiotic therapy in the outpatient setting and following closely with Dr. Salgado. Case management and social work following working on possible placement at a [place] accepted ECF for IV antibiotic therapy and physical therapy to maintain strict non-weightbearing to that right lower extremity. Patient was seen and evaluated by orthopedics here recommending conservative management and no surgical interventions at this time also recommend outpatient follow-up with Dr. Salgado as previously scheduled. Objective - Vital Signs Vital signs: Vital Signs Temp 97.7 F 06/23/21 06:57 Pulse 65 06/23/21 07:50 Resp 16 06/23/21 07:50 BP 119/74 06/23/21 06:57 Pulse Ox 95 06/23/21 02:23 Intake & Output 06/22/21 06/23/21 06/23/21 18:59 06:59 18:59 Intake Total 240 Balance 240 Intake: Oral 240 Other: Voiding Method Toilet Toilet Toilet Urinal # Voids 4 0 0 # Bowel Movements 0 - Labs CBC & Chem 7: 06/22/21 07:28 06/23/21 06:50 Labs: Abnormal Lab Results - Last 24 Hours (Table) 06/22/21 06/22/21 06/22/21 Range/Units 11:46 16:15 21:13 POC Glucose (mg/dL) 183 H 278 H 298 H (75-99) mg/dL 06/23/21 Range/Units 06:59 POC Glucose (mg/dL) 181 H (75-99) mg/dL Microbiology - Last 24 Hours (Table) 06/20/21 19:35 Blood Culture - Preliminary Blood No Growth after 48 hours
[2021-06-23 16:53] LABS: Glucose,Whole Blood 248 mg/dL (75-99)
--- NOTE | 2021-06-23 17:33 | PN ---
PROGRESS NOTE DATE OF SERVICE: 06/23/2021 REASON FOR FOLLOWUP: Right foot osteomyelitis. INTERVAL HISTORY: The patient is afebrile. The patient is breathing comfortably. Denies having any chest pain, shortness of breath or cough. No abdominal pain or any worsening pain to the right foot area. PHYSICAL EXAMINATION: Blood 130/79 with a pulse of 74, temperature 98.6. He is 95% on room air. GENERAL DESCRIPTION: General description is a middle-aged male lying in bed in no distress. RESPIRATORY SYSTEM: Unlabored breathing. Clear to auscultation anteriorly. HEART: S1, S2. Regular rate and rhythm. ABDOMEN: Soft. No tenderness. Right foot currently with no swelling, no redness, no warmth or any drainage. LABS: Creatinine 0.93. Bone scan has been completed with mention of increased uptake in the mid foot compatible with osteomyelitis versus fracture. DIAGNOSTIC IMPRESSION AND PLAN: Patient with right fracture with concern for osteomyelitis, and the patient is getting vancomycin through his ID physician out of [facility]. Clinically not behaving as such. However, will recommend continuing patient on vancomycin per his infectious disease physician at the other hospital and follow up with him on discharge. Continue with supportive care. MMODL / IJN: [id number] /
[2021-06-23 20:56] LABS: Glucose,Whole Blood 174 mg/dL (75-99)
[2021-06-23] MEDS: INSULIN DETEMIR (LEVEMIR) 100 UNIT/ML SYR SQ SCH (20:57)
[2021-06-24 07:04] LABS: Glucose,Whole Blood 85 mg/dL (75-99)
[2021-06-24] MEDS: metFORMIN 500 MG TAB PO SCH ×2 (07:19→17:22)
[2021-06-24] MEDS: PANTOPRAZOLE 40 MG TABLET PO SCH (07:20)
[2021-06-24] MEDS: HEPARIN SODIUM,PORCINE/PF 5,000 UNIT/0.5 ML SYRINGE SQ SCH ×3 (07:20→17:22)
[2021-06-24] MEDS: INSULIN ASPART (NovoLOG) 100 UNIT/ML VIAL SQ SCH ×3 (07:23→17:17)
[2021-06-24] MEDS ORDERED: VANCOMYCIN TROUGH DUE 1 EACH MISC MISCELLANE ONE (08:00)
[2021-06-24 09:06] LABS: African American GFR (CKD) >90 (>60 ml/min/1.73 sqM); Non-African American GFR(CKD) 86 (>60 ml/min/1.73 sqM)
[2021-06-24] MEDS: CYANOCOBALAMIN 500 MCG TAB PO SCH (09:39)
[2021-06-24] MEDS: ASPIRIN 81 MG PO SCH (09:39)
[2021-06-24] MEDS: VANCOMYCIN 1,750 MG in SODIUM CHLORIDE 0.9% 500 ML 500 ML IVPB SCH ×2 (09:40→17:22)
[2021-06-24] MEDS: MULTIVITAMINS, THERA 1 EACH TAB PO SCH (11:23)
[2021-06-24 11:24] LABS: Glucose,Whole Blood 232 mg/dL (75-99)
--- NOTE | 2021-06-24 15:48 | PN ---
PROGRESS NOTE DATE OF SERVICE: 06/24/2021 REASON FOR FOLLOWUP: Right foot questionable osteomyelitis. INTERVAL HISTORY: The patient is afebrile. The patient is breathing comfortably. Denies having any chest pain, shortness of breath or cough. No vomiting or any worsening pain to the right foot. PHYSICAL EXAMINATION: Blood pressure is 120/79, pulse of 64, temperature 97.5. He is 95% on room air. GENERAL DESCRIPTION: General description is a middle-aged male up in the chair in no distress. RESPIRATORY SYSTEM: Unlabored breathing. Clear to auscultation anteriorly. HEART: S1, S2. Regular rate and rhythm. ABDOMEN: Soft. No tenderness. Right foot currently with no swelling, no redness, no wound or any drainage. LABS: Blood culture has been negative. Creatinine 0.97. Vancomycin level is therapeutic at 14.2. DIAGNOSTIC IMPRESSION AND PLAN: Patient with right second metatarsal fracture and there was a question of osteomyelitis diagnosed at [facility]. I do not have any access to their information. The patient has been advised to continue vancomycin until he follows up with his ID physician in the outpatient setting. Offloading to the right foot to help heal that fracture. Continue with supportive care. MMODL / IJN: [id number] /
[2021-06-24 17:08] LABS: Glucose,Whole Blood 135 mg/dL (75-99)
[2021-06-24 20:12] LABS: Glucose,Whole Blood 355 mg/dL (75-99)
[2021-06-24] MEDS: INSULIN DETEMIR (LEVEMIR) 100 UNIT/ML SYR SQ SCH (20:32)
[2021-06-24 21:05] VITALS: BP 143/77; PULSE 82; RESP 15; TEMP 98
--- NOTE | 2021-06-29 01:59 | P.DS ---
Providers Date of admission: 06/20/21 15:55 Expected date of discharge: 06/24/21 Attending physician: Deisi Arellano Consults: 06/20/21 17:28 Consult Physician Routine Consulting Provider: Jesse Weems Consult Reason/Comments: osteo Do you want consulting provider notified?: Yes 06/22/21 17:35 Consult Physician Routine Consulting Provider: Driss Mccarty Consult Reason/Comments: right foot pain. old fractures Do you want consulting provider notified?: Yes Primary care physician: [facility] Hospital Course: Final Diagnosis Acute osteomyelitis of the right foot Multiple old metatarsal fractures Continued fevers diabetes mellitus 2 with uncontrolled hyperglycemia Gait dysfunction Hyponatremia Poor social support Blocked PICC line in the right arm recently History of diabetic peripheral neuropathy History of amputation of the right great toe at of [facility] History of previous PICC line and course of antibiotics Full code Discharge disposition Patient is being discharged in a stable condition with guarded prognosis to home. Patient will follow-up with Dr. Sexton in the outpatient setting upon discharge. Patient will also follow up with DR. Salgado outpatient. Patient to continue on IV Vanco. Total time taken is greater than 35 minutes. Hospital course This patient is a 56-year-old male who was recently admitted with acute osteomyelitis of the right foot and is being closely monitored. Infectious disease following and patient is currently maintained on IV antibiotics in the form of vancomycin and patient does have a PICC line. Patient was seen and evaluated by orthopedics recommending conservative management and no plans for surgical intervention at this time. Patient is currently undergoing nuclear bone scan of the right foot to confirm osteomyelitis. PT/OT following the patient and evaluating the patient for possible ECF placement as patient is to remain nonweightbearing of that right foot and has not been doing so. He foll ows with Dr. Salgado in the outpatient setting. 06/24/2021 Patient is seen in follow-up with no acute overnight issues noted. Patient completed bone scan and will continue on IV abx in the form of Vanco and will need close follow up with ID out of [facility] and Dr. Salgado on discharge. Home care continued as patient has no coverage for rehab and will follow with the [place] for further assistance. Patient has PICC line. To continue non-weight bearing of the right lower extremity. Currently no reports of chest pain, shortness of breath, or palpitations. Patient is afebrile. No reports of nausea or vomiting and patient is tolerating diet. Patient will be discharged home. Gen: This is a 56-year-old male awake, alert and oriented 3, well-developed, well-nourished. HEENT: Head is atraumatic, normocephalic. Pupils equal, round. Sclerae is anicteric. NECK: Supple. No JVD. No lymphadenopathy. No thyromegaly. LUNGS: Diminished breath sounds bilaterally with no wheezing or rhonchi noted. No intercostal retractions. HEART: S1, S2 are muffled ABDOMEN: Soft. Bowel sounds are present. No masses. No tenderness. EXTREMITIES: No pedal edema. No calf tenderness. Right lower extremity great toe amputation healing noted with no surrounding redness or openings in the skin. Minimal swelling noted of the right lower extremity. NEUROLOGICAL: Patient is awake, alert and oriented x3. Diffusely weak Please refer to medication reconciliation sheet for a list of medications. Patient Condition at Discharge: Stable Plan - Discharge Summary Discharge Rx Participant: No New Discharge Prescriptions: New Vancomycin 1,750 mg IVPB Q12HR each Multivitamins, Thera [Multivitamin (formulary)] 1 each PO DAILY@1200 30 Days #30 tab Continue Cyanocobalamin [Vitamin B-12] 500 mcg PO DAILY metFORMIN HCL [Glucophage] 1,000 mg PO AC-BID Aspirin EC [Ecotrin Low Dose] 81 mg PO DAILY Insulin Aspart [NovoLOG Flexpen] See Protocol SQ AC-TID Heparin (Unkown Dose) 1 dose SQ DIRECTED Changed Insulin Glargine,Hum.rec.anlog [Herlindao Max Solostar] 30 units SQ HS #0 Discontinued Vancomycin (Unknown Dose) 1 dose IV DIRECTED Discharge Medication List Aspirin EC [Ecotrin Low Dose] 81 mg PO DAILY 06/20/21 [History] Cyanocobalamin [Vitamin B-12] 500 mcg PO DAILY 06/20/21 [History] Insulin Aspart [NovoLOG Flexpen] See Protocol SQ AC-TID 06/20/21 [History] metFORMIN HCL [Glucophage] 1,000 mg PO AC-BID 06/20/21 [History] Heparin (Unkown Dose) 1 dose SQ DIRECTED 06/22/21 [History] Insulin Glargine,Hum.rec.anlog [Toujeo Max Solostar] 30 units SQ HS #0 06/24/21 [Rx] Multivitamins, Thera [Multivitamin (formulary)] 1 each PO DAILY@1200 30 Days #30 tab 06/24/21 [Rx] Vancomycin 1,750 mg IVPB Q12HR each 06/24/21 [Rx] Follow up Appointment(s)/Referral(s): [facility] [NON-STAFF] - ([facility] will call you to arrange the time for your first visit. ) Jose E Marroquin MD [REFERRING] - 07/01/21 1:35 pm (Infectious Disease doctor through [facility] [address] [facility] [id number]) [facility] [REFERRING] - ([facility] will deliver infusion supplies to your home. They will call you before delivery. 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
== END 2021-06-24 21:45 | disposition home health service (06) | DRG 638 ==
LOC: EC 12:56 → 4SSUR 15:55
PROVIDERS: ADMIT Hospitalist; ATTEND Hospitalist
DX: E11.69 Type 2 diabetes mellitus with other specified complication (principal); M86.171 Other acute osteomyelitis, right ankle and foot; E87.1 Hypo-osmolality and hyponatremia; T82.898A Other specified complication of vascular prosthetic devices, implants and grafts, initial encounter; Y82.8 Other medical devices associated with adverse incidents; E11.42 Type 2 diabetes mellitus with diabetic polyneuropathy; E11.65 Type 2 diabetes mellitus with hyperglycemia; R26.9 Unspecified abnormalities of gait and mobility; S92.321A Displaced fracture of second metatarsal bone, right foot, initial encounter for closed fracture; S92.333A Displaced fracture of third metatarsal bone, unspecified foot, initial encounter for closed fracture; Z63.8 Other specified problems related to primary support group; Z79.4 Long term (current) use of insulin; Z79.82 Long term (current) use of aspirin; Z89.411 Acquired absence of right great toe; Z20.822 Contact with and (suspected) exposure to COVID-19; Z88.0 Allergy status to penicillin; Z79.899 Other long term (current) drug therapy; Z98.890 Other specified postprocedural states
CPT/HCPCS: 36415; 78315; 80048; 80053; 80202; 82565; 83735; 85025; 85652; 86140; 87040; 87635; 99284

== ENCOUNTER 2021-07-05 08:26 | Inpatient (IN) | payer OTHER ==
[2021-07-05 08:52] LABS: Glucose,Whole Blood 82 mg/dL (75-99)
[2021-07-05] MEDS ORDERED: DEXTROSE 5%-0.9% NACL 1,000 ML IV SCH (09:00)
--- NOTE | 2021-07-05 09:24 | ED ---
General Adult HPI - General Chief complaint: Psychiatric Symptoms Stated complaint: Mental Health Time Seen by Provider: 07/05/21 08:30 Source: patient, EMS, RN notes reviewed, old records reviewed Mode of arrival: EMS Limitations: no limitations - History of Present Illness Initial comments: This is a 56-year-old male who presents emergency department after having made an attempt to kill himself. Patient states she's normally supposed take 18 units of NovoLog and he took 50 this morning to try to kill himself. Patient states he recently he has been a lifelong problem of bad body odor and he is sick of it. Patient denies any other attempt. Patient denies alcohol patient denies any drug use. Patient denies any symptoms currently. - Related Data Home Medications Medication Instructions Recorded Confirmed Aspirin EC [Ecotrin Low Dose] 81 mg PO DAILY 06/20/21 07/05/21 Cyanocobalamin [Vitamin B-12] 500 mcg PO DAILY 06/20/21 07/05/21 Insulin Aspart [NovoLOG Flexpen] See Protocol SQ AC-TID 06/20/21 07/05/21 metFORMIN HCL [Glucophage] 1,000 mg PO AC-BID 06/20/21 07/05/21 Heparin (Unkown Dose) 1 dose SQ DIRECTED 06/22/21 07/05/21 Multivitamins, Thera [Multivitamin 1 tab PO DAILY@1200 07/05/21 07/05/21 (formulary)] Vancomycin 1,750 mg IVPB Q12H 07/05/21 07/05/21 Previous Rx's Medication Instructions Recorded Insulin Glargine,Hum.rec.anlog 30 units SQ HS #0 06/24/21 [Rico Parkinson] Allergies Allergy/AdvReac Type Severity Reaction Status Date / Time Penicillins Allergy Rapid Verified 07/05/21 10:36 Heart Rate Review of Systems ROS Statement: Those systems with pertinent positive or pertinent negative responses have been documented in the HPI. ROS Other: All systems not noted in ROS Statement are negative. Past Medical History Past Medical History: Diabetes Mellitus History of Any Multi-Drug Resistant Organisms: None Reported Past Surgical History: Orthopedic Surgery Additional Past Surgical History / Comment(s): Foot surgery, PICC line Past Psychological History: No Psychological Hx Reported Smoking Status: Never smoker Past Alcohol Use History: None Reported Past Drug Use History: None Reported General Exam - General Exam Comments Initial Comments: GENERAL: Patient is well-developed and well-nourished. Patient is nontoxic and well- hydrated and is in no acute distress. ENT: Neck is soft and supple. No significant lymphadenopathy is noted. Oropharynx is clear. Moist mucous membranes. Neck has full range of motion without eliciting any pain. EYES: The sclera were anicteric and conjunctiva were pink and moist. Extraocular movements were intact and pupils were equal round and reactive to light. Eyelids were unremarkable. PULMONARY: Unlabored respirations. Good breath sounds bilaterally. No audible rales rhonchi or wheezing was noted. CARDIOVASCULAR: There is a regular rate and rhythm without any murmurs gallops or rubs. ABDOMEN: Soft and nontender with normal bowel sounds. SKIN: Skin is clear with no lesions or rashes and otherwise unremarkable. NEUROLOGIC: Patient is alert and oriented x3. Cranial nerves II through XII are grossly intact. Motor and sensory are also intact. Normal speech, volume and content. Symmetrical smile. MUSCULOSKELETAL: Normal extremities with adequate strength and full range of motion. LYMPHATICS: No significant lymphadenopathy is noted PSYCHIATRIC: Patient states he is suicidal and he did attempt to kill himself with insulin this morning. Limitations: no limitations Course Vital Signs 07/05/21 08:29 Temperature 97.9 F Pulse Rate 72 Respiratory 19 Rate Blood Pressure 121/89 O2 Sat by Pulse 97 Oximetry Medical Decision Making - Medical Decision Making I put the patient on D5 0.9 normal saline. Patient also was eating in the emergency department I spoke with Dr. Elizabeth she agreed to admit the patient admitted the patient wrote admitting orders. Psychiatry will be consulted - Lab Data Result diagrams: 07/05/21 09:32 07/05/21 09:32 Lab Results 07/05/21 07/05/21 07/05/21 Range/Units 08:32 09:32 09:32 WBC 7.0 (3.8-10.6) k/uL RBC 4.56 (4.30-5.90) m/uL Hgb 13.8 (13.0-17.5) gm/dL Hct 40.2 (39.0-53.0) % MCV 88.1 (80.0-100.0) fL MCH 30.3 (25.0-35.0) pg MCHC 34.4 (31.0-37.0) g/dL RDW 13.0 (11.5-15.5) % Plt Count 256 (150-450) k/uL MPV 8.2 Sodium (137-145) mmol/L Potassium (3.5-5.1) mmol/L Chloride (98-107) mmol/L Carbon Dioxide (22-30) mmol/L Anion Gap mmol/L BUN (9-20) mg/dL Creatinine (0.66-1.25) mg/dL Est GFR (CKD-EPI)AfAm (>60 ml/min/1.73 sqM) Est GFR (CKD-EPI)NonAf (>60 ml/min/1.73 sqM) Glucose (74-99) mg/dL POC Glucose (mg/dL) 82 (75-99) mg/dL POC Glu Manager Er ID Isis Milton Calcium (8.4-10.2) mg/dL Magnesium (1.6-2.3) mg/dL Total Bilirubin (0.2-1.3) mg/dL AST (17-59) U/L ALT (4-49) U/L Alkaline Phosphatase (38-126) U/L Total Protein (6.3-8.2) g/dL Albumin (3.5-5.0) g/dL Urine Opiates Screen Not Detected (NotDetected) Ur Oxycodone Screen Not Detected (NotDetected) Urine Methadone Screen Not Detected (NotDetected) Ur Propoxyphene Screen Not Detected (NotDetected) Ur Barbiturates Screen Not Detected (NotDetected) U Tricyclic Antidepress Not Detected (NotDetected) Ur Phencyclidine Scrn Not Detected (NotDetected) Ur Amphetamines Screen Not Detected (NotDetected) U Methamphetamines Scrn Not Detected (NotDetected) U Benzodiazepines Scrn Not Detected (NotDetected) Urine Cocaine Screen Not Detected (NotDetected) U Marijuana (THC) Screen Not Detected (NotDetected) 07/05/21 07/05/21 07/05/21 Range/Units 09:32 09:41 10:30 WBC (3.8-10.6) k/uL RBC (4.30-5.90) m/uL Hgb (13.0-17.5) gm/dL Hct (39.0-53.0) % MCV (80.0-100.0) fL MCH (25.0-35.0) pg MCHC (31.0-37.0) g/dL RDW (11.5-15.5) % Plt Count (150-450) k/uL MPV Sodium 139 (137-145) mmol/L Potassium 3.5 (3.5-5.1) mmol/L Chloride 104 (98-107) mmol/L Carbon Dioxide 26 (22-30) mmol/L Anion Gap 9 mmol/L BUN 16 (9-20) mg/dL Creatinine 0.91 (0.66-1.25) mg/dL Est GFR (CKD-EPI)AfAm >90 (>60 ml/min/1.73 sqM) Est GFR (CKD-EPI)NonAf >90 (>60 ml/min/1.73 sqM) Glucose 37 L* (74-99) mg/dL POC Glucose (mg/dL) 70 L 144 H (75-99) mg/dL POC Glu Manager Er ID Yoan, Isis Yoan, Isis Calcium 10.0 (8.4-10.2) mg/dL Magnesium 1.9 (1.6-2.3) mg/dL Total Bilirubin 0.5 (0.2-1.3) mg/dL AST 23 (17-59) U/L ALT 17 (4-49) U/L Alkaline Phosphatase 94 (38-126) U/L Total Protein 7.2 (6.3-8.2) g/dL Albumin 4.2 (3.5-5.0) g/dL Urine Opiates Screen (NotDetected) Ur Oxycodone Screen (NotDetected) Urine Methadone Screen (NotDetected) Ur Propoxyphene Screen (NotDetected) Ur Barbiturates Screen (NotDetected) U Tricyclic Antidepress (NotDetected) Ur Phencyclidine Scrn (NotDetected) Ur Amphetamines Screen (NotDetected) U Methamphetamines Scrn (NotDetected) U Benzodiazepines Scrn (NotDetected) Urine Cocaine Screen (NotDetected) U Marijuana (THC) Screen (NotDetected) Critical Care Time Critical Care Time: Yes Total Critical Care Time: 35 Disposition Clinical Impression: Depression, Suicide attempt, Hypoglycemia, Insulin overdose Disposition: ADMITTED IP TO THIS HOSP Referrals: [facility],Clinic [Primary Care Provider] - 1-2 days Time of Disposition: 10:54
[2021-07-05 09:47] LABS: Glucose,Whole Blood 70 mg/dL (75-99)
[2021-07-05 10:02] LABS: HCT 40.2 % (39.0-53.0); HGB 13.8 gm/dL (13.0-17.5); MCH 30.3 pg (25.0-35.0); MCHC 34.4 g/dL (31.0-37.0); MCV 88.1 fL (80.0-100.0); Mean Platelet Volume 8.2; Platelet Count 256 k/uL (150-450); RBC 4.56 m/uL (4.30-5.90)
[2021-07-05 10:15] LABS: ALT 17 U/L (4-49); AST 23 U/L (17-59); African American GFR (CKD) >90 (>60 ml/min/1.73 sqM); Albumin 4.2 g/dL (3.5-5.0); Alkaline Phosphatase 94 U/L (38-126); Anion Gap 9 mmol/L; Blood Urea Nitrogen 16 mg/dL (9-20); Carbon Dioxide 26 mmol/L (22-30); Chloride 104 mmol/L (98-107); Magnesium 1.9 mg/dL (1.6-2.3); Non-African American GFR(CKD) >90 (>60 ml/min/1.73 sqM); Potassium 3.5 mmol/L (3.5-5.1); Sodium 139 mmol/L (137-145); Total Protein 7.2 g/dL (6.3-8.2)
[2021-07-05 10:17] LABS: Total Bilirubin 0.5 mg/dL (0.2-1.3)
[2021-07-05 10:19] LABS: Amphetamine Screen,Urine Not Detected (NotDetected); Barbiturate Screen,Urine Not Detected (NotDetected); Benzodiazepines Screen,Urine Not Detected (NotDetected); Cocaine Screen,Urine Not Detected (NotDetected); Methadone Screen, Urine Not Detected (NotDetected); Opiate Screen,Urine Not Detected (NotDetected); Oxycodone Screen, Urine Not Detected (NotDetected); Phencyclidine Screen,Urine Not Detected (NotDetected); Tricyclic Antidepressant,Urine Not Detected (NotDetected); Urn Cannabinoid Scrn Not Detected (NotDetected)
[2021-07-05 10:33] LABS: Glucose,Whole Blood 144 mg/dL (75-99)
[2021-07-05 10:34] LABS: Glucose 37 mg/dL (74-99)
[2021-07-05 11:04] LABS: Eosinophils # (M) 0.07 k/uL (0-0.7); Lymphocytes # (M) 1.89 k/uL (1.0-4.8); Monocytes # (M) 0.56 k/uL (0-1.0); Neutrophils # (M) 4.48 k/uL (1.3-7.7); Neutrophils % (M) 64 %; Nucleated Red Blood Cells 0 /100 WBC (0-0); Total Cells Counted 100
[2021-07-05 11:05] LABS: Anisocytosis (M) Present; Poikilocytosis (M) Present
[2021-07-05 14:29] LABS: Glucose,Whole Blood 162 mg/dL (75-99)
[2021-07-05] MEDS ORDERED: VANCOMYCIN 1,000 MG VIAL IVPB SCH (16:30)
--- NOTE | 2021-07-05 16:35 | P.HPIM ---
History of Present Illness H&P Date: 07/05/21 Chief Complaint: Suicide attempt 56-year-old male with history of diabetes mellitus who presents emergency department after having made an attempt to kill himself. Patient states she's normally supposed take 18 units of NovoLog and he took 50 this morning to try to kill himself. Patient states he recently he has been a lifelong problem of bad body odor and he is sick of it. Patient denies any other attempt. Patient denies alcohol patient denies any drug use. Patient denies any symptoms currently. In the ED patient's blood sugar was found to be 37 and was placed on D5 normal saline with 20 closely monitor blood sugars for next few hours; psych is consulted from ED Review of Systems REVIEW OF SYSTEMS: CONSTITUTIONAL: No fever, no malaise, no fatigue. HEENT: No recent visual problems or hearing problems. Denied any sore throat. CARDIOVASCULAR: No chest pain, orthopnea, PND, no palpitations, no syncope. PULMONARY: No shortness of breath, no cough, no hemoptysis. GASTROINTESTINAL: No diarrhea, no nausea, no vomiting, no abdominal pain. NEUROLOGICAL: No headaches, no weakness, no numbness. HEMATOLOGICAL: Denies any bleeding or petechiae. GENITOURINARY: Denies any burning micturition, frequency, or urgency. MUSCULOSKELETAL/RHEUMATOLOGICAL: Denies any joint pain, swelling, or any muscle pain. ENDOCRINE: Denies any polyuria or polydipsia. The rest of the 14-point review of systems is negative. Past Medical History Past Medical History: Diabetes Mellitus History of Any Multi-Drug Resistant Organisms: None Reported Past Surgical History: Orthopedic Surgery Additional Past Surgical History / Comment(s): Foot surgery, PICC line Past Psychological History: No Psychological Hx Reported Smoking Status: Never smoker Past Alcohol Use History: None Reported Past Drug Use History: None Reported Medications and Allergies Home Medications Medication Instructions Recorded Confirmed Type Aspirin EC [Ecotrin Low Dose] 81 mg PO DAILY 06/20/21 07/05/21 History Cyanocobalamin [Vitamin B-12] 500 mcg PO DAILY 06/20/21 07/05/21 History Insulin Aspart [NovoLOG Flexpen] See Protocol SQ AC-TID 06/20/21 07/05/21 History metFORMIN HCL [Glucophage] 1,000 mg PO AC-BID 06/20/21 07/05/21 History Heparin (Unkown Dose) 1 dose SQ DIRECTED 06/22/21 07/05/21 History Insulin Glargine,Hum.rec.anlog 30 units SQ HS #0 06/24/21 07/05/21 Rx [Toukelly Peña Solostar] Multivitamins, Thera [Multivitamin 1 tab PO DAILY@1200 07/05/21 07/05/21 History (formulary)] Vancomycin 1,750 mg IVPB Q12H 07/05/21 07/05/21 History Allergies Allergy/AdvReac Type Severity Reaction Status Date / Time Penicillins Allergy Rapid Verified 07/05/21 10:36 Heart Rate Physical Exam Vitals: Vital Signs Temp Pulse Resp BP Pulse Ox 07/05/21 08:29 97.9 F 72 19 121/89 97 Intake and Output 07/04/21 07/05/21 07/05/21 22:59 06:59 14:59 Other: Weight 99.79 kg - Constitutional General appearance: Present: average body habitus, cooperative, no acute distress - EENT Eyes: Present: anicteric sclerae, EOMI, PERRLA, normal appearance ENT: Present: hearing grossly normal, normal oropharynx Ears: bilateral: normal - Neck Neck: Present: normal ROM. Absent: lymphadenopathy, rigidity, thyromegaly Carotids: negative: bruit present Thyroid: bilateral: normal size, negative: enlarged, nodule - Respiratory Respiratory: bilateral: CTA, negative: rales, rhonchi, wheezing - Cardiovascular Rhythm: regular Heart sounds: normal: S1, S2 Abnormal Heart Sounds: Absent: systolic murmur, diastolic murmur - Gastrointestinal General gastrointestinal: Present: normal bowel sounds, soft. Absent: distended, organomegaly, tenderness - Genitourinary Genitourinary Comment(s): deferred - Integumentary Integumentary: Present: normal turgor. Absent: jaundiced, rash, ulcer - Neurologic Neurologic: Present: CNII-XII intact. Absent: focal deficits - Musculoskeletal Musculoskeletal: Present: gait normal, strength equal bilaterally - Psychiatric Psychiatric: Present: A&O x's 3, appropriate affect, intact judgment & insight Results CBC & Chem 7: 07/05/21 09:32 07/05/21 09:32 Labs: Abnormal Lab Results - Last 24 Hours (Table) 07/05/21 07/05/21 07/05/21 Range/Units 09:32 09:41 10:30 Glucose 37 L* (74-99) mg/dL POC Glucose (mg/dL) 70 L 144 H (75-99) mg/dL Assessment and Plan Assessment: 1. Suicidal attempt; patient reports having 2 try to kill himself with insulin overdose; was found to be hypoglycemic when presented to ED - We will lace patient on suicidal precaution and consult psych for further evaluation 2. Hypoglycemia; history of diabetes; anticipated due to insulin overdose - We will monitor Accu-Cheks before meals and at bedtime and use insulin sliding scale as needed; continue with dextrose-containing IV fluids at this time until blood glucose is improved 3. Vitamin B12 deficiency; continue with B12 supplement 500 mg daily 4. Right foot chronic wound; patient is currently on vancomycin 1750 mg IV every 12 hours; we will continue with current treatment and consult ID for further evaluation; wound care consult DVT prophylaxis; SCDs/subcu Lovenox CODE STATUS; full code
[2021-07-05] MEDS ORDERED: metFORMIN 500 MG TAB PO SCH (17:30)
[2021-07-05 19:10] LABS: Glucose,Whole Blood 358 mg/dL (75-99)
[2021-07-05] MEDS: INSULIN ASPART (NovoLOG) 100 UNIT/ML VIAL SQ SCH (19:30)
[2021-07-05 19:56] LABS: Glucose,Whole Blood 350 mg/dL (75-99)
[2021-07-05] MEDS: VANCOMYCIN 1,750 MG in SODIUM CHLORIDE 0.9% 500 ML 500 ML IVPB SCH (20:30)
[2021-07-05] MEDS ORDERED: INSULIN DETEMIR (LEVEMIR) 100 UNIT/ML SYR SQ SCH (21:00)
[2021-07-05 21:16] LABS: Glucose,Whole Blood 326 mg/dL (75-99)
[2021-07-05 22:06] LABS: Glucose,Whole Blood 312 mg/dL (75-99)
[2021-07-05 23:00] LABS: Glucose,Whole Blood 288 mg/dL (75-99)
--- NOTE | 2021-07-05 23:23 | P.CONS ---
History of Present Illness - Reason for Consult Consult date: 07/05/21 right foot osteomyelitis/wound Requesting physician: Megan Vargas - Chief Complaint intentional insulin overdoes x 1 day - History of Present Illness History of present illness : Patient is 56-year-old male who with a past medical history significant for diabetes mellitus this patient who did have a history of right third and fourth metatarsal fracture and has been her diagnosis with the possible osteomyelitis currently being treated by his infectious disease physician at [facility] and his local oceanographer geological patient has been brought into the hospital as the patient has been making an attempt to kill himself patient currently supposed to take 18 units of NovoLog however he to 50 this morning to try to kill himself patient denies any other attempt and no drug use patient on presentation to the hospital was afebrile and no fever has been recorded subsequently patient did have a blood sugar of 37 on admission, patient did have a normal white count normal kidney function urine drug screen was negative Vanco random was 10 de la fuente PCR was negative patient has been admitted to the hospital has been continued on vancomycin infectious disease was consulted because of his right foot osteomyelitis and continuation of antibiotic therapy, patient currently did have a offloading dressing to his right foot and leg by his oceanographer geological that was applied on last Tuesday patient currently do not have any open wound to the right foot area patient denies h aving any pain there is no swelling no redness and he denies having a problem with his PICC line Review of system: CONSTITUTIONAL: Positive for weakness denies fever. EYES: No complaint. ENT: No complaint. RESPIRATORY: No complaint. CARDIOVASCULAR: No complaint. GENITOURINARY: No complaint. GASTROINTESTINAL: No complaint. MUSCULOSKELETAL: As per history of present illness INTEGUMENTARY: No complaint. PSYCHOLOGIC: No complaint. ENDOCRINE: No complaint. NEUROLOGIC: No complaint. Past medical history : Reviewed, documented below Past surgical history : Reviewed, documented below Social history: Reviewed, documented below Medications: Reviewed, as documented below EXAMINATION: Vital sigans= Reviewed and documented below GENERAL DESCRIPTION: Middle-aged male lying in bed, no distress. No tachypnea or accessory muscle of respiration use. HEENT: Shows Pallor , no scleral icterus. Oral mucous membrane is dry. NECK: Trachea central, no thyromegaly. LUNGS: Unlabored breathing. Clear to auscultation anteriorly. No wheeze or crackle. HEART: S1, S2, regular rate and rhythm. ABDOMEN: Soft, no tenderness , guarding or rigidity EXTREMITIES: Right foot is currently covered in the dressing there is no drainage on the dressing SKIN: No rash, no masses palpable. NEUROLOGICAL: The patient is awake, alert, oriented x3, mood and affect normal. LABS AND RADIOLOGY: Reviewed results see below Assessment : Patient with right second and third metatarsal fracture and there was concern for possible osteomyelitis that was diagnosed at [facility] for the patient is currently getting vancomycin through his infectious disease physician, patient did have a x-rays and the bone scan done on the last visit with a differential of possible related to fracture versus osteomyelitis patient currently do not have any open wound and no cellulitis and we do not have any microbiological data as initial diagnosis was made at [facility] Plan: 1-patient will continue on vancomycin while inpatient pharmacy to dose to keep trough around 15 2-keep the current offloading dressing to his right foot and leg area 3-check a CRP and ESR We will follow on clinical condition and cultures to further adjust medication if needed Thank you for this consultation we will follow the patient along with you Past Medical History Past Medical History: Diabetes Mellitus History of Any Multi-Drug Resistant Organisms: None Reported Past Surgical History: Orthopedic Surgery Additional Past Surgical History / Comment(s): Foot surgery, PICC line Past Psychological History: No Psychological Hx Reported Smoking Status: Never smoker Past Alcohol Use History: None Reported Past Drug Use History: None Reported Medications and Allergies Home Medications Medication Instructions Recorded Confirmed Type Aspirin EC [Ecotrin Low Dose] 81 mg PO DAILY 06/20/21 07/05/21 History Cyanocobalamin [Vitamin B-12] 500 mcg PO DAILY 06/20/21 07/05/21 History Insulin Aspart [NovoLOG Flexpen] See Protocol SQ AC-TID 06/20/21 07/05/21 History metFORMIN HCL [Glucophage] 1,000 mg PO AC-BID 06/20/21 07/05/21 History Heparin (Unkown Dose) 1 dose SQ DIRECTED 06/22/21 07/05/21 History Insulin Glargine,Hum.rec.anlog 30 units SQ HS #0 06/24/21 07/05/21 Rx [Rico Parkinson] Multivitamins, Thera [Multivitamin 1 tab PO DAILY@1200 07/05/21 07/05/21 History (formulary)] Vancomycin 1,750 mg IVPB Q12H 07/05/21 07/05/21 History Allergies Allergy/AdvReac Type Severity Reaction Status Date / Time Penicillins Allergy Rapid Verified 07/05/21 10:36 Heart Rate Physical Exam Vitals: Vital Signs Temp Pulse Resp BP Pulse Ox 07/05/21 11:30 97.6 F 79 18 134/99 07/05/21 08:29 97.9 F 72 19 121/89 97 Intake and Output 07/05/21 07/05/21 07/05/21 06:59 14:59 22:59 Other: Weight 99.79 kg Results CBC & Chem 7: 07/05/21 09:32 07/05/21 09:32 Labs: Abnormal Lab Results - Last 24 Hours (Table) 07/05/21 07/05/21 07/05/21 Range/Units 09:32 09:41 10:30 Glucose 37 L* (74-99) mg/dL POC Glucose (mg/dL) 70 L 144 H (75-99) mg/dL 07/05/21 Range/Units 14:26 Glucose (74-99) mg/dL POC Glucose (mg/dL) 162 H (75-99) mg/dL
[2021-07-06 00:03] LABS: Glucose,Whole Blood 234 mg/dL (75-99)
[2021-07-06 02:08] LABS: Glucose,Whole Blood 213 mg/dL (75-99)
[2021-07-06 03:55] LABS: Glucose,Whole Blood 207 mg/dL (75-99)
[2021-07-06] MEDS: SODIUM CHLORIDE 0.9% 1,000 ML IV SCH ×3 (05:10→21:13)
[2021-07-06 06:04] LABS: Glucose,Whole Blood 243 mg/dL (75-99)
[2021-07-06 07:05] LABS: African American GFR (CKD) >90 (>60 ml/min/1.73 sqM); C Reactive Protein 1.4 mg/dL (<1.0); Non-African American GFR(CKD) >90 (>60 ml/min/1.73 sqM)
[2021-07-06 08:19] LABS: Glucose,Whole Blood 263 mg/dL (75-99)
[2021-07-06] MEDS: CYANOCOBALAMIN 500 MCG TAB PO SCH (08:45)
[2021-07-06] MEDS: INSULIN ASPART (NovoLOG) 100 UNIT/ML VIAL SQ SCH ×4 (08:45→21:31)
[2021-07-06] MEDS: ASPIRIN 81 MG PO SCH (08:45)
[2021-07-06] MEDS: MULTIVITAMINS, THERA 1 EACH TAB PO SCH (08:45)
[2021-07-06] MEDS: VANCOMYCIN 1,750 MG in SODIUM CHLORIDE 0.9% 500 ML 500 ML IVPB SCH ×2 (08:51→19:09)
[2021-07-06] MEDS ORDERED: ENOXAPARIN 30 MG/0.3 ML SYRINGE SQ SCH (09:00)
[2021-07-06 10:57] LABS: Glucose,Whole Blood 312 mg/dL (75-99)
[2021-07-06 12:36] LABS: Glucose,Whole Blood 217 mg/dL (75-99)
--- NOTE | 2021-07-06 14:58 | P.PN ---
Subjective 56-year-old male with history of diabetes mellitus who presents emergency department after having made an attempt to kill himself. Patient states she's normally supposed take 18 units of NovoLog and he took 50 this morning to try to kill himself. Patient states he recently he has been a lifelong problem of bad body odor and he is sick of it. Patient denies any other attempt. Patient denies alcohol patient denies any drug use. Patient denies any symptoms currently. In the ED patient's blood sugar was found to be 37 and was placed on D5 normal saline with 20 closely monitor blood sugars for next few hours; psych is consulted from ED 07/06/2021 Patient today was lying in bed not in distress, sitter at bedside. Patient denies any physical symptoms. Patient took extra doses of insulin trying to suicidal attempt. The sugar was low on admission and he was placed on D5, there is around 200-300. Confirmed to me he takes metformin 1000 twice a day and Lantus 24 units at bedtime. We going to restart his metformin 500 twice a day and Levemir 10 units daily while keeping on insulin sliding scale ID team following the patient for possible osteomyelitis of the right lower extremity, patient currently on IV vancomycin. His ESR is normal at 12 and C-reactive protein is slightly elevated at 1.4. Objective - Vital Signs Vital signs: Vital Signs Temp 98.1 F 07/06/21 08:20 Pulse 80 07/06/21 08:25 Resp 18 07/06/21 08:25 BP 110/68 07/06/21 08:20 Pulse Ox 98 07/06/21 08:20 Intake & Output 07/05/21 07/06/21 07/06/21 18:59 06:59 18:59 Intake Total 300 Balance 300 Weight 99.79 kg Intake: Oral 300 Other: Voiding Method Toilet Toilet # Voids 3 4 - Exam GENERAL: The patient is alert and oriented x3, not in any acute distress. Well developed, well nourished. HEENT: Pupils are round and equally reacting to light. EOMI. No scleral icterus. No conjunctival pallor. Normocephalic, atraumatic. No pharyngeal erythema. No thyromegaly. CARDIOVASCULAR: S1 and S2 present. No murmurs, rubs, or gallops. PULMONARY: Chest is clear to auscultation, no wheezing or crackles. ABDOMEN: Soft, nontender, nondistended, normoactive bowel sounds. No palpable organomegaly. -MUSCULOSKELETAL: No joint swelling or deformity. Right lower extremity is in dressing EXTREMITIES: No cyanosis, clubbing, or pedal edema. NEUROLOGICAL: Gross neurological examination did not reveal any focal deficits. SKIN: No rashes. no petechiae. - Labs CBC & Chem 7: 07/05/21 09:32 07/06/21 06:00 Labs: Abnormal Lab Results - Last 24 Hours (Table) 07/05/21 07/05/21 07/05/21 Range/Units 19:08 19:55 21:14 POC Glucose (mg/dL) 358 H 350 H 326 H (75-99) mg/dL C-Reactive Protein (<1.0) mg/dL 07/05/21 07/05/21 07/06/21 Range/Units 22:04 22:58 00:01 POC Glucose (mg/dL) 312 H 288 H 234 H (75-99) mg/dL C-Reactive Protein (<1.0) mg/dL 07/06/21 07/06/21 07/06/21 Range/Units 02:07 03:54 06:00 POC Glucose (mg/dL) 213 H 207 H (75-99) mg/dL C-Reactive Protein 1.4 H (<1.0) mg/dL 07/06/21 07/06/21 07/06/21 Range/Units 06:02 08:07 10:56 POC Glucose (mg/dL) 243 H 263 H 312 H (75-99) mg/dL C-Reactive Protein (<1.0) mg/dL 07/06/21 Range/Units 12:25 POC Glucose (mg/dL) 217 H (75-99) mg/dL C-Reactive Protein (<1.0) mg/dL Assessment and Plan Assessment: suicidal attempt severe depression hypoglycemia secondary to insulin overdose Type II diabetes mellitus history of vitamin B12 Plan: This is a pleasant 56 years old male who presents with hyperglycemia secondary to suicidal attempt Resume his metformin and long-acting insulin and half the dose and keep insulin sliding scale. Metformin 500 mg instead of 1000 and Levemir 10 units instead of 24 units Psych consult for his mental health problems. Management of mental health problems is deferred to psych team including suicidal attempt and depression keep sitter at bedside Labs and medication were reviewed.. Continue same treatment. Continue with symptomatic treatment. Resume home medication. Monitor lytes and vitals. DVT and GI prophylaxis. Further recommendationsas per clinical course of the patient DVT prophylaxis: Subcutaneous Lovenox GI Prophylaxis: Pepcid Prognosis is guarded
--- NOTE | 2021-07-06 15:12 | P.CN ---
Psychiatric Consult - . Consult date: 07/06/21 Consult:: 07/06/21 13:16 IDENTIFYING DATA: This patient is a 48-year-old male, single and lives in a house with his mother. 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 HISTORY OF PRESENT ILLNESS: The patient presented to the hospital on 07/05 after a suicide attempt reported in the ER. Patient apparently had told the ER that he normally takes 18 units of insulin but took 50 units instead in his attempt to end his life. Patient's UDS is negative. His blood glucose was 37 on admission. Patient has diabetes mellitus and has been followed by Dr. Alfaro with infection disease for osteomyelitis. Patient's nurse claims that patient is not endorsing any suicidal thoughts and has been more appropriate today. Patient isn't on a one-to-one sitter. Patient was agreeable to speak to keno writer at the bedside and claims that he took too much of his NovoLog. He states that he has been having several stressors at home including taking care of his mother who is elderly and harder to take care of. He claims that he also had a recent fracture of his foot at work and claims that he is not able to get any worker's compensation for it for his injury. He states that he has been having problems getting to his infectious disease doctor who was in [place] as he is not able to drive there. He claims that he is not having good family support at this time. He states that he has a "body odor problem" which has been going on for months now however was vague about what this is related to. He also expressed frustrations with the [facility] and obtaining a travel consult to go to his appointments. He claims that initially when he overdosed on the insulin he wanted to "end it all" however states that since then he is regretted it and claims that he is not having depressed mood at this time. He states that he regrets trying to harm himself. When asked about what he is living for he states that he is living for his future and his health. He claims that his sleep has been "on and off". At this time patient denies any current suicidal or homical ideations, intent or plan. Patient denies any auditory, visual hallucinations and denies any paranoia or delusions. Patients admits to using now recreational drugs or cigarettes. PAST PSYCHIATRIC HISTORY: Patient has no apparent psychiatric history. Patient denies being on any psychiatric medications. Patient denies any previous psychiatric hospitalizations. Patient denies any psychiatric outpatient follow- up. Patient denies any history of suicide attempts in the past. Past Medical History: Diabetes Mellitus History of Any Multi-Drug Resistant Organisms: None Reported ALLERGIES: as per EMR. CHEMICAL DEPENDENCY HISTORY: as per HPI. FAMILY PSYCHIATRIC/SUBSTANCE USE HISTORY: denies SOCIAL HISTORY: Patient was born and raised in [facility]. He claims that he was in the [employer] for 15 years in service. He states that he obtained his high school degree and also an associate's degree. He claims that he has never been to long-term or correction. He has no kids and is never . He currently lives with his mother and is single. MENTAL STATUS EXAM: General Appearance: Patient appears to be wearing glasses, stated age is alert, mildly irritable at times, and attempts to be cooperative. Patient appears to have fair hygiene and grooming wearing hospital gown with fair eye contact. Has a cast on his right foot. Behavior: Patient is calmly lying in bed without any agitated behavior. Mildly irritable at times. Speech: Patient's speech is fluent and nonpressured. Mood/Affect: Patient reports their mood is "better now", affect is congruent Suicidality/Homicidality: Patient denies having any suicidal or homicidal ideation intent or plan. Perceptions: Patient denies any visual hallucinations and denies any auditory hallucinations Though content/process: There is no evidence of any delusional thought content and thought process is linear and goal-directed. Rambles at times. Memory and concentration: AOX3, grossly intact for the purposes of this session. Can spell "WORLD" backwards Judgment and insight: poor IMPRESSIONS: Depressive disorder unspecified, rule out adjustment disorder PLAN: -At this time psychiatry will keep on following patient's case to see IF patient will meet criteria for inpatient psychiatric admission or is better suited for rehab. -Would recommend the following medication changes/additions: Start Cymbalta 30 mg daily for mood/anxiety/pain. We'll start trazodone 25 mg daily at bedtime for insomnia/mood. -Continue 1:1 sitter for safety -Cannot leave AMA at this time. Patient will need a petition and certification if attempting to leave AMA. -Continue with medical treatment of patient's infection and other comorbidities. -Communicated plan to patient's nurse -Will continue to follow along -Please contact with any questions. 07/06/21 15:03
[2021-07-06 17:24] LABS: Glucose,Whole Blood 182 mg/dL (75-99)
[2021-07-06] MEDS: INSULIN DETEMIR (LEVEMIR) 100 UNIT/ML SYR SQ SCH (17:47)
[2021-07-06] MEDS: DULoxetine HCL 30 MG CAPSULE.DR PO SCH (17:50)
[2021-07-06 21:29] LABS: Glucose,Whole Blood 321 mg/dL (75-99)
[2021-07-06] MEDS: traZODone HCL 50 MG TAB PO SCH (21:31)
[2021-07-06] MEDS: FAMOTIDINE 20 MG/2 ML VIAL IV SCH ×2 (21:31→21:39)
[2021-07-07] MEDS: SODIUM CHLORIDE 0.9% 1,000 ML IV SCH ×2 (06:14→17:46)
[2021-07-07] MEDS ORDERED: VANCOMYCIN TROUGH DUE 1 EACH MISC MISCELLANE ONE (07:00)
[2021-07-07 07:01] LABS: African American GFR (CKD) >90 (>60 ml/min/1.73 sqM); Non-African American GFR(CKD) >90 (>60 ml/min/1.73 sqM)
[2021-07-07 07:22] LABS: Glucose,Whole Blood 214 mg/dL (75-99)
[2021-07-07] MEDS: FAMOTIDINE 20 MG/2 ML VIAL IV SCH (08:05)
[2021-07-07] MEDS: INSULIN ASPART (NovoLOG) 100 UNIT/ML VIAL SQ SCH ×4 (08:06→20:30)
[2021-07-07] MEDS: ASPIRIN 81 MG PO SCH (08:06)
[2021-07-07] MEDS: INSULIN DETEMIR (LEVEMIR) 100 UNIT/ML SYR SQ SCH (08:06)
[2021-07-07] MEDS: MULTIVITAMINS, THERA 1 EACH TAB PO SCH (08:07)
[2021-07-07] MEDS: CYANOCOBALAMIN 500 MCG TAB PO SCH (08:07)
[2021-07-07] MEDS: DULoxetine HCL 30 MG CAPSULE.DR PO SCH (08:07)
[2021-07-07] MEDS: ENOXAPARIN 40 MG/0.4 ML SYRINGE SQ SCH (08:07)
[2021-07-07] MEDS: VANCOMYCIN 1,750 MG in SODIUM CHLORIDE 0.9% 500 ML 500 ML IVPB SCH ×2 (08:35→20:30)
[2021-07-07] MEDS: metFORMIN 500 MG TAB PO SCH ×2 (11:00→17:45)
--- NOTE | 2021-07-07 11:35 | PN ---
PROGRESS NOTE DATE OF SERVICE: 07/06/2021 REASON FOR FOLLOWUP: Right foot osteomyelitis, infection. INTERVAL HISTORY: The patient is afebrile. The patient is breathing comfortably. Denies having any chest pain, shortness of breath or cough. No abdominal pain or pain to the right foot. PHYSICAL EXAMINATION: Blood pressure 128/73, pulse of 81, temperature 98.3. He is 92% on room air. General description is a middle-aged male lying in bed in no distress. RESPIRATORY SYSTEM: Unlabored breathing. Clear to auscultation anteriorly. HEART: S1, S2. Regular rate and rhythm. ABDOMEN: Soft. No tenderness. Right foot is currently covered with dressing. There is no drainage on the dressing. LABS: No new labs have been obtained today. DIAGNOSTIC IMPRESSION AND PLAN: Patient with right second and third toe metatarsal fracture, concern for underlying osteomyelitis. Currently treated with vancomycin. That will be continued. Continue with offloading, dressing to the foot and continue supportive care. MMODL / IJN: [id number] /
[2021-07-07 11:45] LABS: Glucose,Whole Blood 263 mg/dL (75-99)
--- NOTE | 2021-07-07 13:15 | P.PN ---
Subjective 56-year-old male with history of diabetes mellitus who presents emergency department after having made an attempt to kill himself. Patient states she's normally supposed take 18 units of NovoLog and he took 50 this morning to try to kill himself. Patient states he recently he has been a lifelong problem of bad body odor and he is sick of it. Patient denies any other attempt. Patient denies alcohol patient denies any drug use. Patient denies any symptoms currently. In the ED patient's blood sugar was found to be 37 and was placed on D5 normal saline with 20 closely monitor blood sugars for next few hours; psych is consulted from ED 07/06/2021 Patient today was lying in bed not in distress, sitter at bedside. Patient denies any physical symptoms. Patient took extra doses of insulin trying to suicidal attempt. The sugar was low on admission and he was placed on D5, there is around 200-300. Confirmed to me he takes metformin 1000 twice a day and Lantus 24 units at bedtime. We going to restart his metformin 500 twice a day and Levemir 10 units daily while keeping on insulin sliding scale ID team following the patient for possible osteomyelitis of the right lower extremity, patient currently on IV vancomycin. His ESR is normal at 12 and C-reactive protein is slightly elevated at 1.4. 07/07/2021 Patient denies any specific symptoms medical today. He is lying in bed comfortable. He thinks his depression is improving after he was started on antidepressant, but think he is suicidal today Vitals and labs are reviewed today looks stable. His glucose is elevated to 214-263. He takes metformin 1000 twice a day, were started on 500 and also increase his Levemir 15 units daily compared to 24 units at bedtime at home. Patient states that he supposed to follow up with his ID doctor Jose E Marroquin today or tomorrow but he missed his appointment. Discussed with staff to reschedule his appointment Also I supposed to follow up with his spiral tube winder Dr. Salgado on 07/25 and in the meantime he will try to see Dr. wall until he sees Dr. Salgado as per patient , once his been discharged and that he remains on IV vancomycin for right foot osteomyelitis and creatinine is stable at 0.8 with infectious disease team on the case Follow-up with recommendation by psychiatrist Objective - Vital Signs Vital signs: Vital Signs Temp 98.9 F 07/07/21 12:16 Pulse 74 07/07/21 12:16 Resp 18 07/07/21 12:16 BP 140/78 07/07/21 12:16 Pulse Ox 95 07/07/21 12:16 Intake & Output 07/06/21 07/07/21 07/07/21 18:59 06:59 18:59 Intake Total 240 400 Balance 240 400 Intake: Oral 240 400 Other: Voiding Method Toilet Toilet Toilet # Voids 4 3 - Exam GENERAL: The patient is alert and oriented x3, not in any acute distress. Well developed, well nourished. HEENT: Pupils are round and equally reacting to light. EOMI. No scleral icterus. No conjunctival pallor. Normocephalic, atraumatic. No pharyngeal erythema. No thyromegaly. CARDIOVASCULAR: S1 and S2 present. No murmurs, rubs, or gallops. PULMONARY: Chest is clear to auscultation, no wheezing or crackles. ABDOMEN: Soft, nontender, nondistended, normoactive bowel sounds. No palpable organomegaly. -MUSCULOSKELETAL: No joint swelling or deformity. Right lower extremity is in dressing EXTREMITIES: No cyanosis, clubbing, or pedal edema. NEUROLOGICAL: Gross neurological examination did not reveal any focal deficits. SKIN: No rashes. no petechiae. - Labs CBC & Chem 7: 07/05/21 09:32 07/07/21 06:35 Labs: Abnormal Lab Results - Last 24 Hours (Table) 07/06/21 07/06/21 07/07/21 Range/Units 17:22 21:26 07:21 POC Glucose (mg/dL) 182 H 321 H 214 H (75-99) mg/dL 07/07/21 Range/Units 11:43 POC Glucose (mg/dL) 263 H (75-99) mg/dL Assessment and Plan Assessment: suicidal attempt severe depression hypoglycemia secondary to insulin overdose Type II diabetes mellitus history of vitamin B12 Plan: This is a pleasant 56 years old male who presents with hyperglycemia secondary to suicidal attempt Resume his metformin and long-acting insulin and half the dose and keep insulin sliding scale. Metformin 500 mg instead of 1000 and Levemir 15 units instead of 24 units Psych consult for his mental health problems. Management of mental health problems is deferred to psych team including suicidal attempt and depression keep sitter at bedside, as per psych team Labs and medication were reviewed.. Continue same treatment. Continue with symptomatic treatment. Resume home medication. Monitor lytes and vitals. DVT and GI prophylaxis. Further recommendationsas per clinical course of the patient DVT prophylaxis: Subcutaneous Lovenox GI Prophylaxis: Pepcid Prognosis is guarded
--- NOTE | 2021-07-07 13:17 | P.PN ---
Progress Note - Text Progress Note Date: 07/07/21 Interval History: Patient was seen today for psychiatric follow-up regarding his depression. Thai payne was sitting on his bed beside his one-to-one sitter today. He appeared to have an improvement in his affect and was more engaged with machine sign writer today. He claims that overall he is doing better since yesterday with regards to his mood and anxiety. He claims that he would like to use his phone as he has a bill to pay today. He claims that he is still thinking about some of the stressors at home including taking care of his mother who he believes has dementia now. He states that he believes the medications have been helping with his stress level and his mood. He claims that he is able to sleep fairly last night on the trazodone and wants to remain on the same dose. Nurse taking care of patient states that he is not endorsing any suicidal thoughts. At this time patient denies any suicidal or homical ideations, intent or plan. Patient denies any auditory, visual hallucinations and denies any paranoia or delusions. Patient denies any side effects from the medications and has been compliant with meds. Mental Status Exam: General Appearance: Patient appears to be wearing glasses, stated age is alert, less irritable at times, and attempts to be cooperative. Patient appears to have fair hygiene and grooming wearing hospital gown with fair eye contact. Has a cast on his right foot. Behavior: Patient is calmly lying in bed without any agitated behavior. more cooperative today Speech: Patient's speech is fluent and nonpressured. Mood/Affect: Patient reports their mood is "bit better", affect is congruent Suicidality/Homicidality: Patient denies having any suicidal or homicidal ideation intent or plan. Perceptions: Patient denies any visual hallucinations and denies any auditory hallucinations Though content/process: There is no evidence of any delusional thought content and thought process is linear and goal-directed. Rambles at times. Memory and concentration: AOX3, grossly intact for the purposes of this session. Judgment and insight: Improving mildly Assessment Depressive disorder unspecified, rule out adjustment disorder Plan: -At this time patient is does not meet criteria for inpatient psych admission however psychiatry will continue to follow along with patient to ensure that he is improving psychiatrically. -Would recommend the following medication changes/additions: increase Cymbalta 60 mg daily for mood/anxiety/pain. Continue with trazodone 25 mg daily at bedtime for insomnia/mood. -can discontinue 1:1 sitter today as patient is not making any suicidal threats and is improving psychiatrically. -Continue with medical treatment of patient's infection and other comorbidities. -Communicated plan to patient's nurse -Will continue to follow along tomorrow and likely sign off tomorrow if patient continues to improve. -Please contact with any questions.
[2021-07-07 17:02] LABS: Glucose,Whole Blood 310 mg/dL (75-99)
[2021-07-07 19:57] LABS: Glucose,Whole Blood 274 mg/dL (75-99)
[2021-07-07] MEDS: FAMOTIDINE 20 MG TAB PO SCH (20:30)
[2021-07-07] MEDS: traZODone HCL 50 MG TAB PO SCH (20:30)
--- NOTE | 2021-07-08 06:09 | PN ---
PROGRESS NOTE DATE OF SERVICE: 07/07/2021 REASON FOR FOLLOWUP: Right foot osteomyelitis infection. INTERVAL HISTORY: Patient is afebrile, breathing comfortably. Denies any chest pain, shortness of breath, cough, abdominal pain, no worsening pain in the right foot area. PHYSICAL EXAMINATION: Blood pressure 134/84, pulse of 65. Temperature 98.7. He is 95% on room air. General description is a middle-aged male lying in bed in no distress. Respiratory system: Unlabored breathing, clear to auscultation anteriorly. Heart S1, S2. Regular rate and rhythm. Abdomen soft, no tenderness. The right foot is currently dressed. LABS: Creatinine 0.97. White count Vanco trough is 16.9. DIAGNOSTIC IMPRESSION AND PLAN: Patient with right foot osteomyelitis [QAMARKER the patient is currently getting vancomycin, continue for now while monitor clinical course closely. Continue supportive care. MMODL / IJN: [id number] /
[2021-07-08] MEDS ORDERED: INSULIN DETEMIR (LEVEMIR) 100 UNIT/ML SYR SQ SCH (07:00)
[2021-07-08 07:14] LABS: Glucose,Whole Blood 295 mg/dL (75-99)
[2021-07-08] MEDS: CYANOCOBALAMIN 500 MCG TAB PO SCH (07:57)
[2021-07-08] MEDS: ASPIRIN 81 MG PO SCH (07:57)
[2021-07-08] MEDS: MULTIVITAMINS, THERA 1 EACH TAB PO SCH (07:57)
[2021-07-08] MEDS: VANCOMYCIN 1,750 MG in SODIUM CHLORIDE 0.9% 500 ML 500 ML IVPB SCH (07:57)
[2021-07-08] MEDS: INSULIN ASPART (NovoLOG) 100 UNIT/ML VIAL SQ SCH ×2 (07:59→13:11)
[2021-07-08] MEDS: ENOXAPARIN 40 MG/0.4 ML SYRINGE SQ SCH (08:00)
[2021-07-08] MEDS ORDERED: metFORMIN 500 MG TAB PO SCH ×2 (08:00→17:30)
[2021-07-08] MEDS: FAMOTIDINE 20 MG TAB PO SCH (08:00)
[2021-07-08] MEDS ORDERED: DULoxetine HCL 60 MG CAPSULE.DR PO SCH (09:00)
[2021-07-08] MEDS: metFORMIN 500 MG TAB PO SCH (09:19)
[2021-07-08] MEDS: SODIUM CHLORIDE 0.9% 1,000 ML IV SCH (10:27)
[2021-07-08 12:32] LABS: Glucose,Whole Blood 288 mg/dL (75-99)
[2021-07-08 12:53] VITALS: BP 126/76; PULSE 66; RESP 17; TEMP 97.8
--- NOTE | 2021-07-08 13:57 | P.PN ---
Progress Note - Text Progress Note Date: 07/08/21 Interval History: Patient was seen today for psychiatric follow-up regarding his depression and medication management. Patient was sitting on his bed and watching television. He claims that he is doing better overall today with the medications. He is denying any side effects from the Cymbalta or the trazodone. He states that he was able to sleep fairly last night and wants to remain on the same dose of his medications. He claims that he will be taking his medications regularly when he is discharged. He claims that he feels he is ready to go home today however is concerned about getting a ride home..He appears to be less irritable during conversation and more directable today. At this time patient denies any suicidal or homical ideations, intent or plan. Patient denies any auditory, visual hallucinations and denies any paranoia or delusions. Patient denies any side effects from the medications and has been compliant with meds. Mental Status Exam: General Appearance: Patient appears to be wearing glasses, stated age is alert, attempts to be cooperative. Patient appears to have fair hygiene and grooming wearing hospital gown with fair eye contact. Has a cast on his right foot. Behavior: Patient is calmly lying in bed without any agitated behavior. more cooperative today Speech: Patient's speech is fluent and nonpressured. Mood/Affect: Patient reports their mood is "better", affect is congruent, not irritable today Suicidality/Homicidality: Patient denies having any suicidal or homicidal ideation intent or plan. Perceptions: Patient denies any visual hallucinations and denies any auditory hallucinations Though content/process: There is no evidence of any delusional thought content and thought process is linear and goal-directed. Rambles at times. Memory and concentration: AOX3, grossly intact for the purposes of this session. Judgment and insight: Improving mildly Assessment Depressive disorder unspecified, rule out adjustment disorder Plan: -At this time patient is does NOT meet criteria for inpatient psych admission -Would recommend the following medication changes/additions: Continue with Cymbalta 60 mg daily for mood/anxiety/pain. Continue with trazodone 25 mg daily at bedtime for insomnia/mood. -Communicated plan to patient's nurse -At this time psychiatry will sign off. Please provide patient with referral for outpatient psychiatric follow-up. -Please contact with any questions.
--- NOTE | 2021-07-08 14:43 | PN ---
PROGRESS NOTE DATE OF SERVICE: 07/08/2021 REASON FOR FOLLOWUP: Right foot osteomyelitis. INTERVAL HISTORY: The patient is afebrile. The patient is breathing comfortably. Denies having any chest pain, shortness of breath or cough. No abdominal pain or any worsening pain in the right foot. PHYSICAL EXAMINATION: Blood pressure 126/76, pulse of 66. Temperature is 97.8. He is 94% on room air. General description is a middle-aged male lying in bed in no distress. Respiratory system: Unlabored breathing, clear to auscultation anteriorly. Heart S1, S2. Regular rate and rhythm. Abdomen soft. No tenderness. Right foot is currently covered in offloading dressing. LABS: No new labs have been obtained today. DIAGNOSTIC IMPRESSION AND PLAN: Patient with right foot fracture and has been diagnosed with osteomyelitis at [facility]. The patient is currently getting vancomycin that will continue to finish a 6 week course of therapy. Continue with offloading dressing to the right foot and monitor clinical course closely. MMODL / IJN: [id number] /
--- NOTE | 2021-07-08 21:35 | P.DS ---
Providers Date of admission: 07/07/21 14:51 Attending physician: Megan Vargas MD Consults: 07/05/21 10:54 Consult Physician Urgent Consulting Provider: Vish Noriega Consult Reason/Comments: Depression, suicide attempts Do you want consulting provider notified?: Yes 07/05/21 16:36 Consult Physician Routine Consulting Provider: Jesse Weems Consult Reason/Comments: Right foot wound Do you want consulting provider notified?: Yes Primary care physician: [facility] Hospital Course: Diagnoses suicidal attempt with severe depression. Completely resolved and patient was cleared by psychiatrist for discharge hypoglycemia secondary to insulin overdose. Sugar is better controlled upon discharge Ongoing right ankle osteomyelitis on IV vancomycin from home, to continue upon discharge and follow-up with his ID team as an outpatient Type II diabetes mellitus history of vitamin B12 Hospital course: 56-year-old male with history of diabetes mellitus who presents emergency department after having made an attempt to kill himself. Patient states he's normally supposed take 18 units of NovoLog and he took 50 in the morning to try to kill himself. Patient states he recently he has been a lifelong problem of bad body odor and he is sick of it. Patient denies any other attempt. Patient denies alcohol patient denies any drug use. Patient denies any symptoms currently. Patient was placed on suicidal ideation and sitter was placed at bedside, patient was started on Cymbalta and trazodone for psychiatrist evaluated and followed the patient closely. Patient showed interval improvement and his depression symptoms significantly improved and on the day of discharge he denies any suicidal ideation, no active depressive symptoms and he was cleared by psychiatrist for discharge and follow-up as an outpatient in one week and patient agrees Also patient evaluated by infectious disease team recommended to continue with IV vancomycin until he sees his primary doctor. He follows up with his infectious diseases specialist Dr. Marroquin, office was contacted by our staff and they asked for patient to continue with his IV vancomycin until he sees his ID doctor on 07/21. An earlier appointment made for the patient on 07/15 and 07/16 however he declined these appointments stating he has no transportation. But he agrees that appointment on 07/21. Also he told me he supposed to see his oil and gas recruiter on 07/15 so he wants to keep this appointment and to send off ID team on this day.I discussed the case with Dr. Weems today and he agrees with recommendation to continue with IV vancomycin until he sees his ID doctor on 07/21 Also patient was informed to follow up with his other oil and gas recruiter Dr. Salgado and he stated he has an appointment on 07/25 that he tends to follow-up with. On the day of discharge patient back to baseline and he denies any other symptoms. Denies chest pain or dyspnea. No change in urine or bowel habits. No fever. Patient was cleared for discharge by psychiatrist and ID team Problems and management plan were discussed with the patient and he verbalized understanding and acceptance Patient was found stable and can be discharged home however he needs follow-up as an outpatient. [facility] was [facility] and patient agrees Patient was instructed to follow up with his ID doctor randi on 07/21 and he agrees also he will follow-up with his oil and gas recruiter on 07/15 and 07/25 as above. Physical exam Gen: patient is a AAOx3, no distress CVS: S1-S2, RRR, no murmur Lungs: B/L CTA, no wheezing Abdomen: soft, no distention, no tenderness, positive bowel sounds Extremity: no leg edema or induration. Right ankle is in a dressing Time spent more than 35 minutes Patient Condition at Discharge: Good Plan - Discharge Summary Discharge Rx Participant: No New Discharge Prescriptions: New RX: DULoxetine HCL [Cymbalta] 60 mg PO DAILY #30 tab RX: traZODone HCL [Desyrel] 25 mg PO HS #15 tab Continue RX: Cyanocobalamin [Vitamin B-12] 500 mcg PO DAILY RX: Multivitamins, Thera [Multivitamin (formulary)] 1 tab PO DAILY@1200 RX: metFORMIN HCL [Glucophage] 1,000 mg PO AC-BID RX: Aspirin EC [Ecotrin Low Dose] 81 mg PO DAILY RX: Insulin Aspart [NovoLOG Flexpen] See Protocol SQ AC-TID Heparin (Unkown Dose) 1 dose SQ DIRECTED Changed RX: Insulin Glargine,Hum.rec.anlog [Toujeo Max Solostar] 24 units SQ HS #0 Discontinued RX: Vancomycin/0.9 % Sod Chloride [Vanco 750 mg/250 ml-0.9% NaCl] 750 mg IV Q12H Discharge Medication List RX: Aspirin EC [Ecotrin Low Dose] 81 mg PO DAILY 06/20/21 [History] RX: Cyanocobalamin [Vitamin B-12] 500 mcg PO DAILY 06/20/21 [History] RX: Insulin Aspart [NovoLOG Flexpen] See Protocol SQ AC-TID 06/20/21 [History] RX: metFORMIN HCL [Glucophage] 1,000 mg PO AC-BID 06/20/21 [History] Heparin (Unkown Dose) 1 dose SQ DIRECTED 06/22/21 [History] RX: Multivitamins, Thera [Multivitamin (formulary)] 1 tab PO DAILY@1200 07/05/21 [History] RX: DULoxetine HCL [Cymbalta] 60 mg PO DAILY #30 tab 07/08/21 [Rx] RX: Insulin Glargine,Hum.rec.anlog [Toujeo Max Solostar] 24 units SQ HS #0 07/08/21 [Rx] RX: traZODone HCL [Desyrel] 25 mg PO HS #15 tab 07/08/21 [Rx] Follow up Appointment(s)/Referral(s): [facility] [NON-STAFF] - 1 Week Jose E Marroquin MD [REFERRING] - 07/21/21 1:15 pm (patient will be seen in the [facility] office) [facility],Clinic [Primary Care Provider] - 1-2 days Activity/Diet/Wound Care/Special Instructions: Low carbohydrate 1800 kcal per day Activity is restricted till you see your doctor We recommend to check your glucose 4 times a day, before each meal and at bedtime, keep the results in a log book and bring it to your doctor on your appointment date If her glucose is less than 70 or more than 400 then call 911 and come to emergency room [facility] to resume services with home nursing care. [facility] to continue with pharmacy delivery of antibiotic. per pita Fontanez at [facility]. Discharge Disposition: HOME SELF-CARE
[2021-07-09] MEDS ORDERED: INSULIN DETEMIR (LEVEMIR) 100 UNIT/ML SYR SQ SCH (07:00)
== END 2021-07-08 17:30 | disposition home or self-care (01) | DRG 918 ==
LOC: EC 08:26 → 5NMEDONC 11:09 → OBSVTOIN 07-07 14:51
PROVIDERS: ADMIT Internal Medicine; ATTEND Internal Medicine
DX: T38.3X2A Poisoning by insulin and oral hypoglycemic [antidiabetic] drugs, intentional self-harm, initial encounter (principal); M86.8X7 Other osteomyelitis, ankle and foot; E11.649 Type 2 diabetes mellitus with hypoglycemia without coma; E11.69 Type 2 diabetes mellitus with other specified complication; E53.8 Deficiency of other specified B group vitamins; Z20.822 Contact with and (suspected) exposure to COVID-19; F03.90 Unspecified dementia, unspecified severity, without behavioral disturbance, psychotic disturbance, mood disturbance, and anxiety; F32.9 Major depressive disorder, single episode, unspecified; F41.9 Anxiety disorder, unspecified; Z88.0 Allergy status to penicillin; Z79.82 Long term (current) use of aspirin; Z79.4 Long term (current) use of insulin
CPT/HCPCS: 36415; 80053; 80202; 80306; 82075; 82565; 83735; 85025; 85652; 86140; 87635; 99291

== ENCOUNTER 2021-12-25 17:34 | Emergency (ER) | payer OTHER ==
[2021-12-25 17:54] VITALS: BP 133/75; PULSE 81; RESP 18; TEMP 98.2
[2021-12-25 19:08] LABS: Glucose,Whole Blood 277 mg/dL (75-99)
--- NOTE | 2021-12-25 19:10 | ED ---
Skin/Abscess/FB HPI - General Chief complaint: Skin/Abscess/Foreign Body Stated complaint: cellulitis Time Seen by Provider: 12/25/21 18:53 Source: patient, RN notes reviewed Mode of arrival: ambulatory - History of Present Illness Initial comments: This is a pleasant, 56-year-old diabetic patient presents to emergency department with symptoms of intertrigo which has been present for 2 or 3 weeks. Patient was seen at urgent care and put on antifungal cream as well as a topical steroid. She states that the rash seemed to spread to his buttock area. He still having some irritation and burning. Patient denies any fever or chills. He denies any discharge. Involves his groin area and gluteal fold area to a lesser extent. No headache, no fever or chills, no changes in vision or hearing, no sore throat or difficulty with speech, no neck pain, no chest pain or shortness of breath, no abdominal pain, no nausea or vomiting, no changes in urination or bowel movements, no numbness or tingling, no extremity pain, He states that his blood sugars were running in the 160 range. - Related Data Home Medications Medication Instructions Recorded Confirmed Aspirin EC [Ecotrin Low Dose] 81 mg PO DAILY 06/20/21 07/05/21 Cyanocobalamin [Vitamin B-12] 500 mcg PO DAILY 06/20/21 07/05/21 Insulin Aspart [NovoLOG Flexpen] See Protocol SQ AC-TID 06/20/21 07/05/21 metFORMIN HCL [Glucophage] 1,000 mg PO AC-BID 06/20/21 07/05/21 Heparin (Unkown Dose) 1 dose SQ DIRECTED 06/22/21 07/05/21 Multivitamins, Thera [Multivitamin 1 tab PO DAILY@1200 07/05/21 07/05/21 (formulary)] Previous Rx's Medication Instructions Recorded DULoxetine HCL [Cymbalta] 60 mg PO DAILY #30 tab 07/08/21 Insulin Glargine,Hum.rec.anlog 24 units SQ HS #0 07/08/21 [Toujeo Max Solostar] traZODone HCL [Desyrel] 25 mg PO HS #15 tab 07/08/21 Clotrimazole Cream [Lotrimin Cream] 1 applic TOPICAL TID #45 gm 12/25/21 Fluconazole [Diflucan] 200 mg PO DAILY #3 tab 12/25/21 Allergies Allergy/AdvReac Type Severity Reaction Status Date / Time Penicillins Allergy Rapid Verified 12/25/21 17:54 Heart Rate Review of Systems ROS Statement: Those systems with pertinent positive or pertinent negative responses have been documented in the HPI. ROS Other: All systems not noted in ROS Statement are negative. Past Medical History Past Medical History: Diabetes Mellitus History of Any Multi-Drug Resistant Organisms: None Reported Past Surgical History: Orthopedic Surgery Additional Past Surgical History / Comment(s): Foot surgery, PICC line Past Psychological History: No Psychological Hx Reported Smoking Status: Never smoker Past Alcohol Use History: None Reported Past Drug Use History: None Reported General Exam - General Exam Comments Initial Comments: Patient in no distress. Does not appear to be ill or toxic. Vital signs reviewed. Blood sugar is 277. General appearance: alert, in no apparent distress Head exam: Present: atraumatic, normocephalic, normal inspection Eye exam: Present: normal appearance, EOMI. Absent: scleral icterus, conjunctival injection, periorbital swelling ENT exam: Present: normal exam, mucous membranes moist Neck exam: Present: normal inspection. Absent: tenderness, meningismus, lymphadenopathy Respiratory exam: Present: normal lung sounds bilaterally. Absent: respiratory distress, wheezes, rales, rhonchi, stridor Cardiovascular Exam: Present: regular rate, normal rhythm, normal heart sounds. Absent: systolic murmur, diastolic murmur, rubs, gallop, clicks GI/Abdominal exam: Present: soft, normal bowel sounds. Absent: distended, tenderness, guarding, rebound, rigid exam: Present: circumcision. Absent: testicular tenderness, urethral discharge, scrotal swelling External exam: Absent: swelling, lacerations, ecchymosis Extremities exam: Present: normal inspection, full ROM, normal capillary refill. Absent: tenderness, pedal edema, joint swelling, calf tenderness Back exam: Present: normal inspection Neurological exam: Present: alert, oriented X3, CN II-XII intact Psychiatric exam: Present: normal affect, normal mood Skin exam: Present: warm, dry, intact, rash. Absent: normal color (Patient has a mildly erythematous, well-demarcated rash in the groin and to a lesser centrically across which is bilateral, consistent with tinea cruris.), cyanosis, diaphoretic, erythema, urticaria, vesicles, petechiae, pallor, mottled, abrasion Course Vital Signs 12/25/21 17:50 Temperature 98.2 F Pulse Rate 81 Respiratory 18 Rate Blood Pressure 133/75 O2 Sat by Pulse 98 Oximetry Medical Decision Making - Medical Decision Making I'm going to continue the antifungal cream and have him increase it to 3 times daily. We will also augment with Diflucan 200 mg for 3 days. We'll have him stop the corticosteroid cream. Follow-up with his regular physician regarding the blood sugar. Patient did not appear to be ill or toxic. Concurs with this treatment plan. All questions answered. Disposition Clinical Impression: Tinea corporis Disposition: HOME SELF-CARE Condition: Good Instructions (If sedation given, give patient instructions): Diabetic Hyperglycemia (ED) Additional Instructions: Increase the Clotrimazole cream to 3 times daily. stop betamethsone. Prescriptions: Fluconazole [Diflucan] 200 mg PO DAILY #3 tab Clotrimazole Cream [Lotrimin Cream] 1 applic TOPICAL TID #45 gm Is patient prescribed a controlled substance at d/c from ED?: No Referrals: [facility],Clinic [Primary Care Provider] - 1-2 days Time of Disposition: 19:09
== END 2021-12-25 19:45 | disposition home or self-care (01) ==
LOC: EC 17:34 → SUPCPDRO 17:34 → EC 19:45
DX: B35.4 Tinea corporis (principal); E11.9 Type 2 diabetes mellitus without complications; Z88.0 Allergy status to penicillin
CPT/HCPCS: 36415; 99283

== ENCOUNTER 2022-01-31 11:49 | Emergency (ER) | payer OTHER ==
[2022-01-31] MEDS ORDERED: KETOROLAC 15 MG/ML 1 ML VIAL IVP STA (12:12)
[2022-01-31] MEDS ORDERED: ONDANSETRON 4 MG/2 ML VIAL IVP STA (12:12)
[2022-01-31] MEDS ORDERED: SODIUM CHLORIDE 0.9% 1,000 ML IV STA (12:12)
[2022-01-31 12:26] LABS: Basophils % (A) 0 %; Eosinophils % (A) 0 %; HCT 37.4 % (39.0-53.0); HGB 12.3 gm/dL (13.0-17.5); Lymphocytes # (A) 0.3 k/uL (1.0-4.8); Lymphocytes % (A) 4 %; MCH 29.8 pg (25.0-35.0); MCV 90.3 fL (80.0-100.0); Mean Platelet Volume 8.7; Monocytes # (A) 0.3 k/uL (0-1.0); Monocytes % (A) 3 %; Neutrophils # (A) 6.8 k/uL (1.3-7.7); Neutrophils % (A) 90 %; Platelet Count 159 k/uL (150-450); RBC 4.14 m/uL (4.30-5.90); RDW 12.3 % (11.5-15.5); WBC 7.6 k/uL (3.8-10.6)
--- NOTE | 2022-01-31 12:33 | ED ---
Nausea/Vomiting/Diarrhea HPI - General Chief complaint: Nausea/Vomiting/Diarrhea Stated complaint: Weakness Time Seen by Provider: 01/31/22 11:57 Source: patient, RN notes reviewed Mode of arrival: ambulatory Limitations: no limitations - History of Present Illness Initial comments: This a 56-year-old male presents emergency Department with chief complaint of nausea vomiting. Patient states that he was recently started on Bactrim for 40 infection. Patient states she's taken 2 days and started having emesis. Patient states they also started some [id number] diabetic management is unsure 47 reaction. Patient has no chest pain no shortness of breath no difficulty swelling no semen diarrhea no localized abdominal pain. - Related Data Home Medications Medication Instructions Recorded Confirmed Aspirin EC [Ecotrin Low Dose] 81 mg PO DAILY 06/20/21 07/05/21 Cyanocobalamin [Vitamin B-12] 500 mcg PO DAILY 06/20/21 07/05/21 Insulin Aspart [NovoLOG Flexpen] See Protocol SQ AC-TID 06/20/21 07/05/21 metFORMIN HCL [Glucophage] 1,000 mg PO AC-BID 06/20/21 07/05/21 Heparin (Unkown Dose) 1 dose SQ DIRECTED 06/22/21 07/05/21 Multivitamins, Thera [Multivitamin 1 tab PO DAILY@1200 07/05/21 07/05/21 (formulary)] Previous Rx's Medication Instructions Recorded DULoxetine HCL [Cymbalta] 60 mg PO DAILY #30 tab 07/08/21 Insulin Glargine,Hum.rec.anlog 24 units SQ HS #0 07/08/21 [Tofelisa Parkinson] traZODone HCL [Desyrel] 25 mg PO HS #15 tab 07/08/21 Clotrimazole Cream [Lotrimin Cream] 1 applic TOPICAL TID #45 gm 12/25/21 Fluconazole [Diflucan] 200 mg PO DAILY #3 tab 12/25/21 Cephalexin [Keflex] 500 mg PO Q6HR #40 cap 01/31/22 Ondansetron Odt [Zofran Odt] 4 mg PO Q8HR PRN #10 tab 01/31/22 Allergies Allergy/AdvReac Type Severity Reaction Status Date / Time Penicillins Allergy Rapid Verified 01/31/22 11:56 Heart Rate Review of Systems ROS Statement: Those systems with pertinent positive or pertinent negative responses have been documented in the HPI. ROS Other: All systems not noted in ROS Statement are negative. Past Medical History Past Medical History: Diabetes Mellitus History of Any Multi-Drug Resistant Organisms: None Reported Past Surgical History: Orthopedic Surgery Additional Past Surgical History / Comment(s): Foot surgery, PICC line Past Psychological History: No Psychological Hx Reported Smoking Status: Never smoker Past Alcohol Use History: None Reported Past Drug Use History: None Reported General Exam Limitations: no limitations General appearance: alert, in no apparent distress Head exam: Present: atraumatic, normocephalic, normal inspection Eye exam: Present: normal appearance, PERRL, EOMI. Absent: scleral icterus, conjunctival injection, periorbital swelling ENT exam: Present: normal exam, normal oropharynx, mucous membranes moist Neck exam: Present: normal inspection, full ROM. Absent: tenderness, meningism us, lymphadenopathy Respiratory exam: Present: normal lung sounds bilaterally. Absent: respiratory distress, wheezes, rales, rhonchi, stridor Cardiovascular Exam: Present: regular rate, normal rhythm, normal heart sounds. Absent: systolic murmur, diastolic murmur, rubs, gallop, clicks GI/Abdominal exam: Present: soft, normal bowel sounds. Absent: distended, tenderness, guarding, rebound, rigid Extremities exam: Present: other (Left foot second digit there is mild erythema, minimal tenderness neurovascular intact) Neurological exam: Present: alert, oriented X3 Skin exam: Present: warm, dry, intact, normal color. Absent: rash Course Vital Signs 01/31/22 01/31/22 01/31/22 11:50 12:30 13:00 Temperature 98.7 F Pulse Rate 103 H Respiratory 18 Rate Blood Pressure 119/61 129/68 100/72 O2 Sat by Pulse 96 98 94 L Oximetry 01/31/22 01/31/22 01/31/22 13:23 13:30 14:30 Temperature 99.0 F 98.2 F Pulse Rate 85 82 Respiratory 18 28 H Rate Blood Pressure 104/64 104/64 110/63 O2 Sat by Pulse 95 87 L 97 Oximetry Medical Decision Making - Medical Decision Making 56-year-old male presented from for nausea vomiting this may be medication induced as started when he started the medication. Patient discharged with Zofran, switching antibiotics return parameters were discussed. - Lab Data Result diagrams: 01/31/22 12:18 01/31/22 12:18 Lab Results 01/31/22 01/31/22 01/31/22 Range/Units 12:18 12:18 12:18 WBC 7.6 (3.8-10.6) k/uL RBC 4.14 L (4.30-5.90) m/uL Hgb 12.3 L (13.0-17.5) gm/dL Hct 37.4 L (39.0-53.0) % MCV 90.3 (80.0-100.0) fL MCH 29.8 (25.0-35.0) pg MCHC 33.0 (31.0-37.0) g/dL RDW 12.3 (11.5-15.5) % Plt Count 159 (150-450) k/uL MPV 8.7 Neutrophils % 90 % Lymphocytes % 4 % Monocytes % 3 % Eosinophils % 0 % Basophils % 0 % Neutrophils # 6.8 (1.3-7.7) k/uL Lymphocytes # 0.3 L (1.0-4.8) k/uL Monocytes # 0.3 (0-1.0) k/uL Eosinophils # 0.0 (0-0.7) k/uL Basophils # 0.0 (0-0.2) k/uL Sodium 128 L (137-145) mmol/L Potassium 4.5 (3.5-5.1) mmol/L Chloride 94 L (98-107) mmol/L Carbon Dioxide 22 (22-30) mmol/L Anion Gap 12 mmol/L BUN 21 H (9-20) mg/dL Creatinine 1.29 H (0.66-1.25) mg/dL Est GFR (CKD-EPI)AfAm 70 (>60 ml/min/1.73 sqM) Est GFR (CKD-EPI)NonAf 61 (>60 ml/min/1.73 sqM) Glucose 354 H (74-99) mg/dL POC Glucose (mg/dL) (75-99) mg/dL POC Glu Order Processing Clerk ID Calcium 8.6 (8.4-10.2) mg/dL Total Bilirubin 1.1 (0.2-1.3) mg/dL AST 62 H (17-59) U/L ALT 36 (4-49) U/L Alkaline Phosphatase 99 (38-126) U/L Total Protein 6.5 (6.3-8.2) g/dL Albumin 3.7 (3.5-5.0) g/dL Amylase 45 (30-110) U/L Lipase 152 (23-300) U/L Urine Color Yellow Urine Appearance Clear (Clear) Urine pH 5.5 (5.0-8.0) Ur Specific Sharon 1.031 (1.001-1.035) Urine Protein Trace H (Negative) Urine Glucose (UA) 4+ H (Negative) Urine Ketones 3+ H (Negative) Urine Blood Negative (Negative) Urine Nitrite Negative (Negative) Urine Bilirubin Negative (Negative) Urine Urobilinogen <2.0 (<2.0) mg/dL Ur Leukocyte Esterase Negative (Negative) 01/31/22 Range/Units 14:06 WBC (3.8-10.6) k/uL RBC (4.30-5.90) m/uL Hgb (13.0-17.5) gm/dL Hct (39.0-53.0) % MCV (80.0-100.0) fL MCH (25.0-35.0) pg MCHC (31.0-37.0) g/dL RDW (11.5-15.5) % Plt Count (150-450) k/uL MPV Neutrophils % % Lymphocytes % % Monocytes % % Eosinophils % % Basophils % % Neutrophils # (1.3-7.7) k/uL Lymphocytes # (1.0-4.8) k/uL Monocytes # (0-1.0) k/uL Eosinophils # (0-0.7) k/uL Basophils # (0-0.2) k/uL Sodium (137-145) mmol/L Potassium (3.5-5.1) mmol/L Chloride (98-107) mmol/L Carbon Dioxide (22-30) mmol/L Anion Gap mmol/L BUN (9-20) mg/dL Creatinine (0.66-1.25) mg/dL Est GFR (CKD-EPI)AfAm (>60 ml/min/1.73 sqM) Est GFR (CKD-EPI)NonAf (>60 ml/min/1.73 sqM) Glucose (74-99) mg/dL POC Glucose (mg/dL) 331 H (75-99) mg/dL POC Glu Order Processing Clerk ID Padmini Hicks T Calcium (8.4-10.2) mg/dL Total Bilirubin (0.2-1.3) mg/dL AST (17-59) U/L ALT (4-49) U/L Alkaline Phosphatase (38-126) U/L Total Protein (6.3-8.2) g/dL Albumin (3.5-5.0) g/dL Amylase (30-110) U/L Lipase (23-300) U/L Urine Color Urine Appearance (Clear) Urine pH (5.0-8.0) Ur Specific Sharon (1.001-1.035) Urine Protein (Negative) Urine Glucose (UA) (Negative) Urine Ketones (Negative) Urine Blood (Negative) Urine Nitrite (Negative) Urine Bilirubin (Negative) Urine Urobilinogen (<2.0) mg/dL Ur Leukocyte Esterase (Negative) Disposition Clinical Impression: Nausea & vomiting Disposition: HOME SELF-CARE Condition: Stable Instructions (If sedation given, give patient instructions): Acute Nausea and Vomiting (ED) Additional Instructions: Please return to the Emergency Department if symptoms worsen or any other concerns. Prescriptions: Cephalexin [Keflex] 500 mg PO Q6HR #40 cap Ondansetron Odt [Zofran Odt] 4 mg PO Q8HR PRN #10 tab PRN Reason: Nausea Is patient prescribed a controlled substance at d/c from ED?: No Referrals: [facility],Clinic [Primary Care Provider] - 1-2 days Time of Disposition: 15:23
[2022-01-31 12:40] LABS: Albumin 3.7 g/dL (3.5-5.0); Calcium 8.6 mg/dL (8.4-10.2); Potassium 4.5 mmol/L (3.5-5.1); Total Bilirubin 1.1 mg/dL (0.2-1.3); Total Protein 6.5 g/dL (6.3-8.2)
[2022-01-31] MEDS ORDERED: INSULIN ASPART (NovoLOG) 100 UNIT/ML VIAL SQ ONE (12:45)
[2022-01-31 14:09] LABS: Glucose,Whole Blood 331 mg/dL (75-99)
[2022-01-31 14:36] LABS: Appearance,Urine Clear (Clear); Bilirubin,Urine Negative (Negative); Blood,Urine Negative (Negative); Color,Urine Yellow; Glucose,Urine (UA) 4+ (Negative); Leukocyte Esterase,Urine Negative (Negative); Nitrite,Urine Negative (Negative); PH, Urine 5.5 (5.0-8.0); Protein,Urine Trace (Negative); Specific Gravity,Urine 1.031 (1.001-1.035); Urobilinogen,Urine <2.0 mg/dL (<2.0)
[2022-01-31 14:38] VITALS: TEMP 98.2
[2022-01-31 14:39] LABS: Ketones,Urine 3+ (Negative)
[2022-01-31] MEDS ORDERED: SODIUM CHLORIDE 0.9% 1,000 ML IV ONE (14:44)
[2022-01-31 16:13] VITALS: BP 147/78; PULSE 78; RESP 16
== END 2022-01-31 16:11 | disposition home or self-care (01) ==
LOC: EC 11:49
DX: R11.2 Nausea with vomiting, unspecified (principal); R53.1 Weakness; E11.9 Type 2 diabetes mellitus without complications; Z88.0 Allergy status to penicillin; Z79.4 Long term (current) use of insulin; Z79.84 Long term (current) use of oral hypoglycemic drugs
CPT/HCPCS: 36415; 93005; 80053; 82150; 83690; 85025; 81003; 99285; 96374; 96375; 96361; J2405; J1885

== ENCOUNTER 2022-02-15 16:22 | Inpatient (IN) | payer OTHER ==
[2022-02-16] MEDS ORDERED: VANCOMYCIN IV PER PHARMACY 1 EACH MISC MISCELLANE PRN (04:58)
--- NOTE | 2022-02-16 05:03 | ED ---
Extremity Problem HPI - General Chief complaint: Extremity Problem,Nontraumatic Stated complaint: Left foot infection Time Seen by Provider: 02/16/22 04:50 Source: patient Mode of arrival: wheelchair Limitations: no limitations - History of Present Illness Initial comments: This patient is a 56-year-old man who states he was directed to come here by his physician in relation to a left second toe infection. Patient states this has been going on weeks to months. He had been on antibiotics and his foot was looking better until last week. He states that the infection came back and has worsened over the weekend. He is having some chills, but denies other systemic symptoms. MD Complaint: extremity pain, extremity swelling -: days(s) Location: left, toe History of Same: Yes Quality: dull Consistency: constant Improves with: nothing Worsens with: nothing - Related Data Home Medications Medication Instructions Recorded Confirmed Aspirin EC [Ecotrin Low Dose] 81 mg PO DAILY 06/20/21 07/05/21 Cyanocobalamin [Vitamin B-12] 500 mcg PO DAILY 06/20/21 07/05/21 Insulin Aspart [NovoLOG Flexpen] See Protocol SQ AC-TID 06/20/21 07/05/21 metFORMIN HCL [Glucophage] 1,000 mg PO AC-BID 06/20/21 07/05/21 Heparin (Unkown Dose) 1 dose SQ DIRECTED 06/22/21 07/05/21 Multivitamins, Thera [Multivitamin 1 tab PO DAILY@1200 07/05/21 07/05/21 (formulary)] Previous Rx's Medication Instructions Recorded DULoxetine HCL [Cymbalta] 60 mg PO DAILY #30 tab 07/08/21 Insulin Glargine,Hum.rec.anlog 24 units SQ HS #0 07/08/21 [Toujeo Max Solostar] traZODone HCL [Desyrel] 25 mg PO HS #15 tab 07/08/21 Clotrimazole Cream [Lotrimin Cream] 1 applic TOPICAL TID #45 gm 12/25/21 Fluconazole [Diflucan] 200 mg PO DAILY #3 tab 12/25/21 Cephalexin [Keflex] 500 mg PO Q6HR #40 cap 01/31/22 Ondansetron Odt [Zofran Odt] 4 mg PO Q8HR PRN #10 tab 01/31/22 Allergies Allergy/AdvReac Type Severity Reaction Status Date / Time Penicillins Allergy Rapid Verified 02/15/22 17:46 Heart Rate Review of Systems ROS Statement: Those systems with pertinent positive or pertinent negative responses have been documented in the HPI. ROS Other: All systems not noted in ROS Statement are negative. Constitutional: Reports: chills. Denies: fever, weakness Respiratory: Denies: cough, dyspnea Cardiovascular: Denies: chest pain, palpitations, edema Gastrointestinal: Denies: abdominal pain, vomiting Musculoskeletal: Reports: as per HPI Skin: Reports: change in color. Denies: rash Neurological: Denies: weakness, numbness Past Medical History Past Medical History: Diabetes Mellitus History of Any Multi-Drug Resistant Organisms: None Reported Past Surgical History: Orthopedic Surgery Additional Past Surgical History / Comment(s): Foot surgery, PICC line Past Psychological History: No Psychological Hx Reported Smoking Status: Never smoker Past Alcohol Use History: None Reported Past Drug Use History: None Reported General Exam Limitations: no limitations General appearance: alert, in no apparent distress Head exam: Present: atraumatic, normocephalic Eye exam: Present: normal appearance Respiratory exam: Present: normal lung sounds bilaterally. Absent: respiratory distress, wheezes, rales, rhonchi Cardiovascular Exam: Present: regular rate, normal rhythm, normal heart sounds. Absent: systolic murmur, diastolic murmur, rubs, gallop GI/Abdominal exam: Present: soft. Absent: tenderness Extremities exam: Present: other (Patient has swelling erythema and warmth of the left second toe and to the adjacent forefoot. There is ulceration of the toe as well. ) Neurological exam: Present: alert. Absent: motor sensory deficit Skin exam: Present: warm, dry, erythema. Absent: normal color Course Vital Signs 02/15/22 02/16/22 17:46 03:52 Temperature 97.6 F 97.8 F Pulse Rate 100 83 Respiratory 16 16 Rate Blood Pressure 122/71 133/81 O2 Sat by Pulse 97 98 Oximetry Medical Decision Making - Lab Data Result diagrams: 02/16/22 05:15 Lab Results 02/16/22 Range/Units 05:15 WBC 8.9 (3.8-10.6) k/uL RBC 3.70 L (4.30-5.90) m/uL Hgb 10.9 L (13.0-17.5) gm/dL Hct 33.9 L (39.0-53.0) % MCV 91.6 (80.0-100.0) fL MCH 29.4 (25.0-35.0) pg MCHC 32.1 (31.0-37.0) g/dL RDW 12.3 (11.5-15.5) % Plt Count 375 D (150-450) k/uL MPV 8.7 Neutrophils % 65 % Lymphocytes % 20 % Monocytes % 9 % Eosinophils % 2 % Basophils % 1 % Neutrophils # 5.8 (1.3-7.7) k/uL Lymphocytes # 1.8 (1.0-4.8) k/uL Monocytes # 0.8 (0-1.0) k/uL Eosinophils # 0.2 (0-0.7) k/uL Basophils # 0.1 (0-0.2) k/uL Disposition Clinical Impression: Diabetic infection of left foot Disposition: ADMITTED IP TO THIS HOSP Condition: Fair Is patient prescribed a controlled substance at d/c from ED?: No Referrals: [facility],Clinic [Primary Care Provider] - 1-2 days
[2022-02-16] MEDS ORDERED: VANCOMYCIN 1,500 MG in SODIUM CHLORIDE 0.9% 250 ML IVPB ONE (05:15)
--- NOTE | 2022-02-16 05:23 | XR ---
EXAMINATION TYPE: XR foot limited LT DATE OF EXAM: 02/16/2022 COMPARISON: NONE HISTORY: Infection TECHNIQUE: 2 views FINDINGS: There is soft tissue swelling around the second toe. There is some soft tissue air also hiral und the proximal phalanx. I see no fracture nor dislocation. There is soft tissue swelling on the darron sum of the foot. IMPRESSION: Soft tissue swelling and air consistent with cellulitis. No focal bone destruction.
[2022-02-16] MEDS ORDERED: HYDROcodone/APAP 5-325MG 1 EACH TAB PO PRN (06:08)
[2022-02-16] MEDS ORDERED: NALOXONE 0.4 MG/ML 1 ML VIAL IV PRN (06:08)
[2022-02-16] MEDS ORDERED: MORPHINE SULFATE 4 MG/ML SYRINGE IV PRN (06:08)
[2022-02-16] MEDS ORDERED: ACETAMINOPHEN TAB 325 MG TAB PO PRN (06:08)
[2022-02-16] MEDS ORDERED: ONDANSETRON 4 MG/2 ML VIAL IVP PRN (06:08)
[2022-02-16] MEDS ORDERED: ONDANSETRON ODT 4 MG TAB PO PRN (06:10)
[2022-02-16 06:14] LABS: Basophils # (A) 0.1 k/uL (0-0.2); Basophils % (A) 1 %; Eosinophils # (A) 0.2 k/uL (0-0.7); Eosinophils % (A) 2 %; HCT 33.9 % (39.0-53.0); HGB 10.9 gm/dL (13.0-17.5); Lymphocytes # (A) 1.8 k/uL (1.0-4.8); Lymphocytes % (A) 20 %; MCH 29.4 pg (25.0-35.0); MCHC 32.1 g/dL (31.0-37.0); MCV 91.6 fL (80.0-100.0); Mean Platelet Volume 8.7; Monocytes # (A) 0.8 k/uL (0-1.0); Monocytes % (A) 9 %; Neutrophils # (A) 5.8 k/uL (1.3-7.7); Neutrophils % (A) 65 %; RDW 12.3 % (11.5-15.5); WBC 8.9 k/uL (3.8-10.6)
[2022-02-16 06:18] LABS: Platelet Count 375 k/uL (150-450)
[2022-02-16] MEDS: SODIUM CHLORIDE 0.9% 1,000 ML IV SCH ×2 (06:31→19:38)
[2022-02-16 06:33] LABS: African American GFR (CKD) >90 (>60 ml/min/1.73 sqM); Anion Gap 11 mmol/L; Blood Urea Nitrogen 21 mg/dL (9-20); Calcium 8.6 mg/dL (8.4-10.2); Carbon Dioxide 21 mmol/L (22-30); Chloride 96 mmol/L (98-107); Glucose 427 mg/dL (74-99); Non-African American GFR(CKD) >90 (>60 ml/min/1.73 sqM); Potassium 4.9 mmol/L (3.5-5.1); Sodium 128 mmol/L (137-145)
[2022-02-16] MEDS: metFORMIN 500 MG TAB PO SCH ×2 (07:03→19:16)
[2022-02-16 07:13] LABS: C Reactive Protein 21.6 mg/dL (<1.0)
[2022-02-16] MEDS: ASPIRIN 81 MG PO SCH (08:30)
[2022-02-16] MEDS ORDERED: CYANOCOBALAMIN 500 MCG TAB PO SCH (09:00)
[2022-02-16] MEDS ORDERED: DULoxetine HCL 60 MG CAPSULE.DR PO SCH (09:00)
[2022-02-16] MEDS ORDERED: FLUCONAZOLE 100 MG TAB PO SCH (09:00)
--- NOTE | 2022-02-16 10:18 | P.CNOR ---
History of Present Illness - HPI Consult date: 02/16/22 History of present illness: This patient is a 56-year-old male with past medical history of diabetes that presented to [facility] emergency department yesterday with complaints of a left second toe infection. The patient states he follows with Dr. Salgado at [facility] weekly every . Patient states he was being followed for a healing ulceration to the dorsal second toe. He states he has been dealing with this ulceration for a few months now. He states he has been on antibiotics including Bactrim and clindamycin. Patient states the ulcer was healing very well up until this past week. He states over the weekend, he developed increased swelling and erythema, as well as drainage to the dorsal second toe. He states there is no injury he is aware of. He states he works 8 hours a day on his feet. He states Dr. Salgado was out of town this past , and he was not evaluated until this Tuesday by another stave bolt equalizer in her office. They recommended the patient present immediately to the emergency department. Upon presentation to the emergency department, the patient was started on vancomycin and admitted to the care of internal medicine with a consult placed to infectious disease and orthopedic surgery. At the time of my exam, the patient is resting comfortably in bed. He states he is not having any pain in the left foot as he has diabetic peripheral neuropathy. He states he otherwise feels well and denies fevers, chills, nausea, vomiting, generalized malaise. WBC is normal on admission, he is afebrile. Vital signs stable. Past Medical History Past Medical History: Diabetes Mellitus History of Any Multi-Drug Resistant Organisms: None Reported Past Surgical History: Orthopedic Surgery Additional Past Surgical History / Comment(s): Foot surgery, PICC line Past Psychological History: No Psychological Hx Reported Smoking Status: Never smoker Past Alcohol Use History: None Reported Past Drug Use History: None Reported Medications and Allergies Home Medications Medication Instructions Recorded Confirmed Type Aspirin EC [Ecotrin Low Dose] 81 mg PO DAILY 06/20/21 02/16/22 History Insulin Aspart [NovoLOG Flexpen] See Protocol SQ AC-TID 06/20/21 02/16/22 History metFORMIN HCL [Glucophage] 1,000 mg PO AC-BID 06/20/21 02/16/22 History Multivitamins, Thera [Multivitamin 1 tab PO DAILY 07/05/21 02/16/22 History (formulary)] Cephalexin [Keflex] 500 mg PO Q6HR #40 cap 01/31/22 02/16/22 Rx Insulin Glargine,Hum.rec.anlog 26 unit SQ HS 02/16/22 02/16/22 History [Lantus Solostar Pen] Allergies Allergy/AdvReac Type Severity Reaction Status Date / Time Penicillins Allergy Rash/Hives Verified 02/16/22 07:11 Physical Examination On examination, the patient is sitting up in bed in no apparent distress. He is alert and oriented 3. His head appears normocephalic and atraumatic. His breathing appears nonlabored. A focused examination of the left foot is conducted. On inspection of the left foot, there is diffuse swelling and robson thema localized to the second toe and dorsal foot. No fluctuance with palpation of the foot. No pain with palpation of the foot secondary to diabetic peripheral neuropathy. There is ulceration to the dorsal second toe. The foot and second toe are warm and well perfused with brisk capillary refill. Motor and sensory function intact LLE. Calf is soft and nontender to palpation. Results left foot x-ray 02/14/22: No acute fractures. No evidence of osteomyelitis. - Labs Labs: Abnormal Lab Results - Last 24 Hours (Table) 02/16/22 02/16/22 Range/Units 05:15 05:15 RBC 3.70 L (4.30-5.90) m/uL Hgb 10.9 L (13.0-17.5) gm/dL Hct 33.9 L (39.0-53.0) % Sodium 128 L (137-145) mmol/L Chloride 96 L (98-107) mmol/L Carbon Dioxide 21 L (22-30) mmol/L BUN 21 H (9-20) mg/dL Glucose 427 H (74-99) mg/dL C-Reactive Protein 21.6 H (<1.0) mg/dL H & H 02/16/22 Range/Units 05:15 Hgb 10.9 L (13.0-17.5) gm/dL Hct 33.9 L (39.0-53.0) % Result Diagrams: 02/16/22 05:15 02/16/22 05:15 Assessment and Plan Assessment: Diabetic left 2nd toe infection Plan: - The patient was discussed in detail with Dr. Mccarty. We have no plans for surgical intervention. Antibiotics and local wound care per infectious disease. Patient should follow closely with Dr. Salgado following discharge. - If surgical intervention is requested by primary team during this hospital stay, recommend consultation with vascular surgery.
--- NOTE | 2022-02-16 11:35 | P.HPIM ---
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 Patient states that he noticed the wound on his left toe second digit 4 days ago and it was worsening yesterday so he went to go see his tear down worker would then told to come in. Patient states that he has neuropathy so does not feel any pain. Patient is also not aware of any trauma. Patient denies any fever chills nausea vomiting. Patient states that at home his blood glucose ranges in the 200s and 300s. Patient states that he was once on topical penicillin cream and it causes some irritation so he was told by the doctor that is ALLERGIC to penicillins. Patient denies any drug ALLERGY with anaphylaxis or hives. Review of Systems 10 ROS reviewed and are negative except as noted in HPI Past Medical History Past Medical History: Diabetes Mellitus History of Any Multi-Drug Resistant Organisms: None Reported Past Surgical History: Orthopedic Surgery Additional Past Surgical History / Comment(s): Foot surgery, PICC line Past Psychological History: No Psychological Hx Reported Smoking Status: Never smoker Past Alcohol Use History: None Reported Past Drug Use History: None Reported Medications and Allergies Home Medications Medication Instructions Recorded Confirmed Type Aspirin EC [Ecotrin Low Dose] 81 mg PO DAILY 06/20/21 02/16/22 History Insulin Aspart [NovoLOG Flexpen] See Protocol SQ AC-TID 06/20/21 02/16/22 History metFORMIN HCL [Glucophage] 1,000 mg PO AC-BID 06/20/21 02/16/22 History Multivitamins, Thera [Multivitamin 1 tab PO DAILY 07/05/21 02/16/22 History (formulary)] Cephalexin [Keflex] 500 mg PO Q6HR #40 cap 01/31/22 02/16/22 Rx Insulin Glargine,Hum.rec.anlog 26 unit SQ HS 02/16/22 02/16/22 History [Lantus Solostar Pen] Allergies Allergy/AdvReac Type Severity Reaction Status Date / Time Penicillins Allergy Rash/Hives Verified 02/16/22 07:11 Physical Exam Osteopathic Statement: *. No significant issues noted on an osteopathic structural exam other than those noted in the History and Physical/Consult. Vitals: Vital Signs Temp Pulse Resp BP Pulse Ox 02/16/22 08:30 80 18 122/76 96 02/16/22 06:48 83 16 124/75 99 02/16/22 03:52 97.8 F 83 16 133/81 98 02/15/22 17:46 97.6 F 100 16 122/71 97 Intake and Output 02/15/22 02/16/22 02/16/22 22:59 06:59 14:59 Other: Weight 96.615 kg General: [Alert and oriented, well nourished, no acute distress]. Eye: [PERRL, EOMI, normal conjunctiva]. HENT: [Normocephalic, clear tympanic membranes, normal hearing, moist oral mucosa, no scleral icterus, no sinus tenderness]. Neck: [Supple, non-tender, no carotid bruits, no JVD, no lymphadenopathy]. Lungs: [Clear to auscultation and percussion, non-labored respiration]. Heart: [Normal rate, regular rhythm, no murmur, gallop or edema]. Abdomen: [Soft, non-tender, non-distended, normal bowel sounds, no masses]. Musculoskeletal: [Normal range of motion and strength, no tenderness or swelling]. Skin: [(digit with ulcer on the plantar aspect that has purulent drainage. Thai payne also has a ulcer on the dorsal side. There is surrounding erythema that extends to the ankle.]. Neurologic: [Awake, alert, and oriented X3, CN II-XII intact]. Psychiatric: [Cooperative, appropriate mood and affect]. Results CBC & Chem 7: 02/16/22 05:15 02/16/22 05:15 Labs: Abnormal Lab Results - Last 24 Hours (Table) 02/16/22 02/16/22 Range/Units 05:15 05:15 RBC 3.70 L (4.30-5.90) m/uL Hgb 10.9 L (13.0-17.5) gm/dL Hct 33.9 L (39.0-53.0) % Sodium 128 L (137-145) mmol/L Chloride 96 L (98-107) mmol/L Carbon Dioxide 21 L (22-30) mmol/L BUN 21 H (9-20) mg/dL Glucose 427 H (74-99) mg/dL C-Reactive Protein 21.6 H (<1.0) mg/dL Assessment and Plan Assessment: Left toe diabetic ulcer with cellulitis -Resume IV vancomycin. Will add cefepime and Flagyl. Doubt patient has a true penicillin ALLERGY -Obtain wound cultures -Follow up on blood cultures -Patient possibly needs amputation. We'll consult vascular surgery. Unfortunately patient's primary tear down worker does not come to the hospital. -I will also consult infectious disease. -Check bone scan to rule out osteomyelitis. -Tylenol for pain Diabetes mellitus -Uncontrolled -Resume Levemir and sliding scale insulin Mild pseudohyponatremia -We'll fluid improved by controlling blood glucose - Trend BMP DVT prophylaxis Subcu heparin CODE STATUS:full code DVT prophylaxis: Subcu heparin Discussed with: Patient, ER, rn Anticipated length of stay > than [address]: home A total of 50 minutes was spent on the care of this complex patient more than 50% of the time was spent in counseling and care coordination.
[2022-02-16] MEDS ORDERED: CEFEPIME 1 GM in SODIUM CHLORIDE 0.9% 50 ML IVPB SCH (12:00)
[2022-02-16 12:38] LABS: Glucose,Whole Blood 401 mg/dL (75-99)
[2022-02-16] MEDS: INSULIN ASPART (NovoLOG) 100 UNIT/ML VIAL SQ SCH ×3 (13:25→21:54)
--- NOTE | 2022-02-16 14:58 | P.GSCN ---
History of Present Illness Consult date: 02/16/22 Reason for Consult: Diabetic foot ulcer Requesting physician: Domonique Abreu History of present illness: This is a 56-year-old male with past medical history of diabetes mellitus who was sent in by his web site admin for infected diabetic ulcer. Has a past medical history of diabetes mellitus with neuropathy. He has undergone a right great toe amputation related to a broken toe with infected hardware. This occurred approximately one year ago. He has been following with his web site admin Dr. Salgado on for a diabetic ulcer. States he's had the ulcer for a couple months now however a few days ago he started noticing it becoming more red and swelling with increased drainage. He denies any fevers or chills. No shortness of breath chest pain or abdominal pain. No nausea or vomiting. Vascular surger y was consulted for diabetic foot ulcer. Foot x-ray reported soft tissue swelling around the second toe and air consistent with cellulitis. No focal bony distraction. Review of Systems A 14 point review systems was completed all pertinent positives and negatives as stated in the HPI. Past Medical History Past Medical History: Diabetes Mellitus History of Any Multi-Drug Resistant Organisms: None Reported Past Surgical History: Orthopedic Surgery Additional Past Surgical History / Comment(s): Foot surgery, PICC line Past Psychological History: No Psychological Hx Reported Smoking Status: Never smoker Past Alcohol Use History: None Reported Past Drug Use History: None Reported Medications and Allergies Home Medications Medication Instructions Recorded Confirmed Type Aspirin EC [Ecotrin Low Dose] 81 mg PO DAILY 06/20/21 02/16/22 History Insulin Aspart [NovoLOG Flexpen] See Protocol SQ AC-TID 06/20/21 02/16/22 History metFORMIN HCL [Glucophage] 1,000 mg PO AC-BID 06/20/21 02/16/22 History Multivitamins, Thera [Multivitamin 1 tab PO DAILY 07/05/21 02/16/22 History (formulary)] Cephalexin [Keflex] 500 mg PO Q6HR #40 cap 01/31/22 02/16/22 Rx Insulin Glargine,Hum.rec.anlog 26 unit SQ HS 02/16/22 02/16/22 History [Lantus Solostar Pen] Allergies Allergy/AdvReac Type Severity Reaction Status Date / Time Penicillins Allergy Rash/Hives Verified 02/16/22 07:11 Surgical - Exam Vital Signs Temp Pulse Resp BP Pulse Ox 97.6 F 100 16 122/71 97 02/15/22 17:46 02/15/22 17:46 02/15/22 17:46 02/15/22 17:46 02/15/22 17:46 General appearance: The patient is alert, oriented, appears in no acute distress. HET: Head is normocephalic and atraumatic. Pupils are equal and reactive. Neck: Supple without lymphadenopathy. Trachea midline. No audible carotid bruit. Heart: S1 S2. Regular rate and rhythm. Lungs: Clear to auscultation bilaterally. Abdomen: Soft, nontender, nondistended. Extremities: Normal skin color and turgor. Left foot diffuse swelling and erythema localized to the second toe and mid dorsal and plantar foot. Diabetic ulcer noted to the dorsal aspect of the second toe, as well as plantar aspect with drainage noted. Right great toe amputation. Palpable bilateral +2 dorsalis pedis pulses. Good capillary refill, warm to the touch. Neurological: No focal deficits. Decreased sensation to bilateral feet due to peripheral neuropathy. Results - Labs 02/16/22 05:15 02/16/22 05:15 Abnormal Lab Results - Last 24 Hours (Table) 02/16/22 02/16/22 02/16/22 Range/Units 05:15 05:15 12:37 RBC 3.70 L (4.30-5.90) m/uL Hgb 10.9 L (13.0-17.5) gm/dL Hct 33.9 L (39.0-53.0) % Sodium 128 L (137-145) mmol/L Chloride 96 L (98-107) mmol/L Carbon Dioxide 21 L (22-30) mmol/L BUN 21 H (9-20) mg/dL Glucose 427 H (74-99) mg/dL POC Glucose (mg/dL) 401 H (75-99) mg/dL C-Reactive Protein 21.6 H (<1.0) mg/dL Diabetes panel 02/16/22 Range/Units 05:15 Sodium 128 L (137-145) mmol/L Potassium 4.9 (3.5-5.1) mmol/L Chloride 96 L (98-107) mmol/L Carbon Dioxide 21 L (22-30) mmol/L BUN 21 H (9-20) mg/dL Creatinine 0.86 (0.66-1.25) mg/dL Glucose 427 H (74-99) mg/dL Calcium 8.6 (8.4-10.2) mg/dL Calcium panel 02/16/22 Range/Units 05:15 Calcium 8.6 (8.4-10.2) mg/dL Pituitary panel 02/16/22 Range/Units 05:15 Sodium 128 L (137-145) mmol/L Potassium 4.9 (3.5-5.1) mmol/L Chloride 96 L (98-107) mmol/L Carbon Dioxide 21 L (22-30) mmol/L BUN 21 H (9-20) mg/dL Creatinine 0.86 (0.66-1.25) mg/dL Glucose 427 H (74-99) mg/dL Calcium 8.6 (8.4-10.2) mg/dL Adrenal panel 02/16/22 Range/Units 05:15 Sodium 128 L (137-145) mmol/L Potassium 4.9 (3.5-5.1) mmol/L Chloride 96 L (98-107) mmol/L Carbon Dioxide 21 L (22-30) mmol/L BUN 21 H (9-20) mg/dL Creatinine 0.86 (0.66-1.25) mg/dL Glucose 427 H (74-99) mg/dL Calcium 8.6 (8.4-10.2) mg/dL - Imaging Comments: Foot x-ray reported soft tissue swelling around the second toe and air consistent with cellulitis. No focal bony distraction. Assessment and Plan Assessment: 1. Infected Diabetic ulcer to the left second toe 2. Diabetes mellitus with peripheral neuropathy Plan: 1. Antibiotics and local wound care per recommendations from infectious disease 2. Elevate left lower extremity 3. Plan for amputation of left second toe on . Will obtain deep tissue cultures. Thank you for this consultation, we will continue to follow. The impression and plan of care has been dictated as directed. I performed a history and examination of this patient, discussed the same with the dictator. I agree with the dictator's note ,documented as a scribe. Any additional findings or plans will be noted.
[2022-02-16] MEDS ORDERED: CEFEPIME 1 GM in SODIUM CHLORIDE 0.9% 50 ML IVPB ONE (16:00)
[2022-02-16] MEDS: metroNIDAZOLE-NS PMX 500 MG in SALINE 1 100ML.BAG IVPB SCH ×2 (17:27→23:10)
[2022-02-16] MEDS: HEPARIN SODIUM,PORCINE/PF 5,000 UNIT/0.5 ML SYRINGE SQ SCH ×2 (19:16→23:05)
[2022-02-16 19:35] LABS: Glucose,Whole Blood 394 mg/dL (75-99)
[2022-02-16] MEDS: VANCOMYCIN 1,500 MG in SODIUM CHLORIDE 0.9% 250 ML IVPB SCH (19:55)
[2022-02-16] MEDS ORDERED: traZODone HCL 50 MG TAB PO SCH (21:00)
[2022-02-16] MEDS ORDERED: NON FORMULARY DRUG (Insulin Glargine,Hum.Rec.Anlog [Lantus Solostar Pen] 100 UNIT/ML Each) SQ SCH (21:00)
[2022-02-16 21:08] LABS: Glucose,Whole Blood 352 mg/dL (75-99)
[2022-02-16] MEDS: INSULIN DETEMIR (LEVEMIR) 100 UNIT/ML SYR SQ SCH (21:53)
[2022-02-16] MEDS: CEFEPIME 2 GM in SODIUM CHLORIDE 0.9% 100 ML IVPB SCH (23:04)
[2022-02-17 05:49] LABS: Basophils % (A) 1 %; Eosinophils # (A) 0.3 k/uL (0-0.7); Eosinophils % (A) 5 %; HCT 31.3 % (39.0-53.0); HGB 10.2 gm/dL (13.0-17.5); Lymphocytes # (A) 0.8 k/uL (1.0-4.8); Lymphocytes % (A) 13 %; MCH 29.8 pg (25.0-35.0); MCHC 32.4 g/dL (31.0-37.0); MCV 91.8 fL (80.0-100.0); Mean Platelet Volume 7.6; Monocytes # (A) 0.4 k/uL (0-1.0); Monocytes % (A) 6 %; Neutrophils # (A) 4.4 k/uL (1.3-7.7); Neutrophils % (A) 72 %; Platelet Count 380 k/uL (150-450); RBC 3.41 m/uL (4.30-5.90); RDW 12.2 % (11.5-15.5); WBC 6.1 k/uL (3.8-10.6)
[2022-02-17 05:57] LABS: African American GFR (CKD) >90 (>60 ml/min/1.73 sqM); Anion Gap 8 mmol/L; Blood Urea Nitrogen 18 mg/dL (9-20); Calcium 8.6 mg/dL (8.4-10.2); Carbon Dioxide 24 mmol/L (22-30); Chloride 102 mmol/L (98-107); Glucose 179 mg/dL (74-99); Non-African American GFR(CKD) >90 (>60 ml/min/1.73 sqM); Potassium 4.3 mmol/L (3.5-5.1); Sodium 134 mmol/L (137-145)
[2022-02-17] MEDS: VANCOMYCIN 1,500 MG in SODIUM CHLORIDE 0.9% 250 ML IVPB SCH ×2 (06:09→16:45)
[2022-02-17 07:01] LABS: Glucose,Whole Blood 168 mg/dL (75-99)
--- NOTE | 2022-02-17 07:03 | P.CONS ---
History of Present Illness - Reason for Consult Consult date: 02/16/22 - History of Present Illness Patient is a 56-year male with a past medical history significant for diabetes mellitus presenting to the ER early this morning for evaluation of a left second toe infection this patient apparently started having a problem with the left second toe more than a week ago and apparently has been on antibiotic by his primary care physician however the patient did not have any improvement hence he was sent to the ER patient denies having history of any trauma has been complaining of pain to the left second toe more of a sharp iris except in orientation with associated swelling redness and drainage on presentation to the hospital patient was afebrile and no fever had been recorded subsequently patient did have a normal white count kidney function was normal CRP was elevated blood cultures were drawn which are currently pending patient did have a x-ray of the foot soft tissue swelling and air consistent with cellulitis no focal bone destruction patient was started on cefepime and vancomycin admitted to the hospital infectious disease consulted for further management of antibio tic therapy has been evaluated by foot and ankle surgery Past Medical History Past Medical History: Diabetes Mellitus History of Any Multi-Drug Resistant Organisms: None Reported Past Surgical History: Orthopedic Surgery Additional Past Surgical History / Comment(s): Foot surgery, PICC line Past Psychological History: No Psychological Hx Reported Smoking Status: Never smoker Past Alcohol Use History: None Reported Past Drug Use History: None Reported - Past Family History Father Family Medical History: Cancer Additional Family Medical History / Comment(s): stomach and lung CA, smoker Medications and Allergies Home Medications Medication Instructions Recorded Confirmed Type Aspirin EC [Ecotrin Low Dose] 81 mg PO DAILY 06/20/21 02/16/22 History Insulin Aspart [NovoLOG Flexpen] See Protocol SQ AC-TID 06/20/21 02/16/22 History metFORMIN HCL [Glucophage] 1,000 mg PO AC-BID 06/20/21 02/16/22 History Multivitamins, Thera [Multivitamin 1 tab PO DAILY 07/05/21 02/16/22 History (formulary)] Cephalexin [Keflex] 500 mg PO Q6HR #40 cap 01/31/22 02/16/22 Rx Insulin Glargine,Hum.rec.anlog 26 unit SQ HS 02/16/22 02/16/22 History [Lantus Solostar Pen] Allergies Allergy/AdvReac Type Severity Reaction Status Date / Time Penicillins Allergy Rash/Hives Verified 02/16/22 07:11 Physical Exam Vitals: Vital Signs Temp Pulse Resp BP Pulse Ox 02/16/22 08:30 80 18 122/76 96 02/16/22 06:48 83 16 124/75 99 02/16/22 03:52 97.8 F 83 16 133/81 98 02/15/22 17:46 97.6 F 100 16 122/71 97 Intake and Output 02/15/22 02/16/22 02/16/22 22:59 06:59 14:59 Other: Weight 96.615 kg Results CBC & Chem 7: 02/17/22 05:28 02/17/22 05:28 Labs: Abnormal Lab Results - Last 24 Hours (Table) 02/16/22 02/16/22 Range/Units 05:15 05:15 RBC 3.70 L (4.30-5.90) m/uL Hgb 10.9 L (13.0-17.5) gm/dL Hct 33.9 L (39.0-53.0) % Sodium 128 L (137-145) mmol/L Chloride 96 L (98-107) mmol/L Carbon Dioxide 21 L (22-30) mmol/L BUN 21 H (9-20) mg/dL Glucose 427 H (74-99) mg/dL C-Reactive Protein 21.6 H (<1.0) mg/dL Assessment and Plan Plan: 1patient presented to hospital with extensive left diabetic foot infection involving his left second toe concerning for underlying osteomyelitis and a deep abscess need to cover for the polymicrobial onesimo usually associated with diabetic foot infection. 2penicillin allergy that would limit the number of antibiotics safe to use. 3await surgical evaluation and drainage of this abscess along with deep culture. 4vancomycin pharmacy to dose target trough of 15 while watching kidney f unction and vancomycin trough closely increase the dose of cefepime to 2 g every 8 hour. We will follow on clinical condition and cultures to further adjust medication if needed Thank you for this consultation will follow this patient along with you
[2022-02-17] MEDS: HEPARIN SODIUM,PORCINE/PF 5,000 UNIT/0.5 ML SYRINGE SQ SCH ×3 (07:38→23:03)
[2022-02-17] MEDS: INSULIN ASPART (NovoLOG) 100 UNIT/ML VIAL SQ SCH ×4 (08:13→20:59)
[2022-02-17] MEDS: MULTIVITAMINS, THERA 1 EACH TAB PO SCH (08:14)
[2022-02-17] MEDS: ASPIRIN 81 MG PO SCH (08:14)
[2022-02-17] MEDS: metFORMIN 500 MG TAB PO SCH ×2 (08:14→17:56)
[2022-02-17] MEDS: metroNIDAZOLE-NS PMX 500 MG in SALINE 1 100ML.BAG IVPB SCH ×3 (08:15→23:03)
[2022-02-17] MEDS: CEFEPIME 2 GM in SODIUM CHLORIDE 0.9% 100 ML IVPB SCH ×3 (10:22→23:03)
[2022-02-17 11:57] LABS: Glucose,Whole Blood 328 mg/dL (75-99)
[2022-02-17] MEDS: SODIUM CHLORIDE 0.9% 1,000 ML IV SCH ×2 (12:47→23:03)
--- NOTE | 2022-02-17 13:36 | P.PN ---
Subjective Progress Note Date: 02/17/22 Principal diagnosis: L foot Osteomyelitis Patient denies any acute complaints today. He is overweight that the plan is for amputation tomorrow. Patient denies any fever or chills. He is wondering when he can return to work after the surgery. I told him it depend on how well he recovers from the surgery. Objective - Vital Signs Vital signs: Vital Signs Temp 98.1 F 02/17/22 12:19 Pulse 79 02/17/22 12:19 Resp 16 02/17/22 12:19 BP 122/78 02/17/22 12:19 Pulse Ox 100 02/17/22 12:19 Intake & Output 02/16/22 02/17/22 02/17/22 18:59 06:59 18:59 Weight 96.615 kg Other: # Voids 1 - Exam General examination - Alert and Oriented 3 in NAD Heart - + S1S2 no murmurs Lungs - Clear to auscultation Abdomen soft NT ND +ve BS Extremities - left foot second digit erythematous and swollen with erythema extending to mid foot. Patient has a ulcer on the dorsal aspect that is not draining. Patient also has an ulcer on the plantar aspect that is draining purulent. SHOVELER - Moving all 4 extremities spontaneously Psych - Calm and cooperative - Labs CBC & Chem 7: 02/17/22 05:28 02/17/22 05:28 Labs: Abnormal Lab Results - Last 24 Hours (Table) 02/16/22 02/16/22 02/17/22 Range/Units 19:33 21:04 05:28 RBC (4.30-5.90) m/uL Hgb (13.0-17.5) gm/dL Hct (39.0-53.0) % Lymphocytes # (1.0-4.8) k/uL Sodium 134 L (137-145) mmol/L Glucose 179 H (74-99) mg/dL POC Glucose (mg/dL) 394 H 352 H (75-99) mg/dL 02/17/22 02/17/22 02/17/22 Range/Units 05:28 06:59 11:55 RBC 3.41 L (4.30-5.90) m/uL Hgb 10.2 L (13.0-17.5) gm/dL Hct 31.3 L (39.0-53.0) % Lymphocytes # 0.8 L (1.0-4.8) k/uL Sodium (137-145) mmol/L Glucose (74-99) mg/dL POC Glucose (mg/dL) 168 H 328 H (75-99) mg/dL Microbiology - Last 24 Hours (Table) 02/16/22 05:15 Blood Culture - Preliminary Blood No Growth after 24 hours 02/16/22 05:30 Blood Culture - Preliminary Blood No Growth after 24 hours Assessment and Plan Assessment: Left toe diabetic ulcer with cellulitis -Resume IV vancomycin and cefepime and Flagyl (penicillin ALLERGY) -Obtain wound cultures -Follow up on blood cultures -Patient scheduled for amputation tomorrow -I will also consult infectious disease. -Check bone scan to rule out osteomyelitis. -Tylenol for pain Diabetes mellitus -Uncontrolled -Resume Levemir and sliding scale insulin Mild pseudohyponatremia -Resolved DVT prophylaxis Subcu heparin CODE STATUS:full code DVT prophylaxis: Subcu heparin Anticipated length of stay > than [address]: home A total of 50 minutes was spent on the care of this complex patient more than 50% of the time was spent in counseling and care coordination.
--- NOTE | 2022-02-17 14:04 | NM ---
EXAMINATION TYPE: NM bone 3 phase DATE OF EXAM: 02/17/2022 COMPARISON: 02/16/2022 three-view x-ray, bone scan 06/23/2021 HISTORY: Osteomyelitis Triple phase bone scintigraphy was performed following the injection of 23.8 mCi Tc 99m MDP. Immedia te images and 5 hours post injection images acquired. FINDINGS: Blood flow: There is increased radiotracer to the distal left forefoot compared to the left on blood flow images. Blood pool: There is focal increased radiotracer accumulation within the distal left foot compared to the right Static images: There is focal radiotracer accumulation in the region of the second or third metatarsa l and phalanx of the left foot compared to the right. Some increased radiotracer accumulation at the first metatarsophalangeal joint space may be degenerative in nature. COMPARISON: This appears more focal and increased suspicion compared to the prior bone scan. IMPRESSION: 1. Increased radiotracer accumulation within the distal left foot on 3 phase bone scan can be compati ble with acute osteomyelitis.
--- NOTE | 2022-02-17 15:45 | P.PN ---
Subjective Progress Note Date: 02/17/22 Principal diagnosis: Infected Diabetic ulcer Patient seen and examined is a follow-up for diabetic foot ulcer. On 3 phase bone scan can be compatible with acute osteomyelitis. He is currently on cefepime, vancomycin and Flagyl. Objective - Vital Signs Vital signs: Vital Signs Temp 98.1 F 02/17/22 12:19 Pulse 79 02/17/22 12:19 Resp 16 02/17/22 12:19 BP 122/78 02/17/22 12:19 Pulse Ox 100 02/17/22 12:19 Intake & Output 02/16/22 02/17/22 02/17/22 18:59 06:59 18:59 Weight 96.615 kg Other: # Voids 1 - Exam General appearance: The patient is alert, oriented, appears in no acute distress. HET: Head is normocephalic and atraumatic. Pupils are equal and reactive. Neck: Supple without lymphadenopathy. Trachea midline. Extremities: Normal skin color and turgor. Left foot diffuse swelling and erythema localized to the second toe and mid dorsal and plantar foot. Diabetic ulcer noted to the dorsal aspect of the second toe, as well as plantar aspect with drainage noted. Right great toe amputation. Palpable bilateral +2 d orsalis pedis pulses. Good capillary refill, warm to the touch. Neurological: No focal deficits. Decreased sensation to bilateral feet due to peripheral neuropathy. - Labs CBC & Chem 7: 02/17/22 05:28 02/17/22 05:28 Labs: Abnormal Lab Results - Last 24 Hours (Table) 02/16/22 02/16/22 02/17/22 Range/Units 19:33 21:04 05:28 RBC (4.30-5.90) m/uL Hgb (13.0-17.5) gm/dL Hct (39.0-53.0) % Lymphocytes # (1.0-4.8) k/uL Sodium 134 L (137-145) mmol/L Glucose 179 H (74-99) mg/dL POC Glucose (mg/dL) 394 H 352 H (75-99) mg/dL 02/17/22 02/17/22 02/17/22 Range/Units 05:28 06:59 11:55 RBC 3.41 L (4.30-5.90) m/uL Hgb 10.2 L (13.0-17.5) gm/dL Hct 31.3 L (39.0-53.0) % Lymphocytes # 0.8 L (1.0-4.8) k/uL Sodium (137-145) mmol/L Glucose (74-99) mg/dL POC Glucose (mg/dL) 168 H 328 H (75-99) mg/dL Microbiology - Last 24 Hours (Table) 02/16/22 05:15 Blood Culture - Preliminary Blood No Growth after 24 hours 02/16/22 05:30 Blood Culture - Preliminary Blood No Growth after 24 hours Assessment and Plan Assessment: 1. Infected Diabetic ulcer to the left second toe, osteomyelitis 2. Diabetes mellitus with peripheral neuropathy Plan: 1. Antibiotics and local wound care per recommendations from infectious disease 2. Elevate left lower extremity 3. Plan for amputation of left second toe on . Will obtain deep tissue cultures. 4. Nothing by mouth after midnight Thank you for this consultation, we will continue to follow. The above dictated assessment and findings were discussed with Dr. Burgess. The impression and plan of care have been directed as dictated.
[2022-02-17 17:03] LABS: Glucose,Whole Blood 187 mg/dL (75-99)
[2022-02-17 20:43] LABS: Glucose,Whole Blood 197 mg/dL (75-99)
[2022-02-17] MEDS: INSULIN DETEMIR (LEVEMIR) 100 UNIT/ML SYR SQ SCH (20:59)
[2022-02-18] MEDS ORDERED: VANCOMYCIN TROUGH DUE 1 EACH MISC MISCELLANE ONE (05:00)
[2022-02-18] MEDS: VANCOMYCIN 1,500 MG in SODIUM CHLORIDE 0.9% 250 ML IVPB SCH ×3 (05:45→22:25)
[2022-02-18 05:50] LABS: Basophils # (A) 0.1 k/uL (0-0.2); Basophils % (A) 2 %; Eosinophils # (A) 0.2 k/uL (0-0.7); Eosinophils % (A) 5 %; HGB 11.7 gm/dL (13.0-17.5); Lymphocytes # (A) 0.7 k/uL (1.0-4.8); Lymphocytes % (A) 15 %; MCH 29.3 pg (25.0-35.0); MCHC 32.5 g/dL (31.0-37.0); MCV 90.4 fL (80.0-100.0); Mean Platelet Volume 8.1; Monocytes # (A) 0.5 k/uL (0-1.0); Monocytes % (A) 10 %; Neutrophils % (A) 65 %; Platelet Count 335 k/uL (150-450); RBC 3.99 m/uL (4.30-5.90); RDW 12.1 % (11.5-15.5); WBC 4.6 k/uL (3.8-10.6)
[2022-02-18 06:05] LABS: African American GFR (CKD) >90 (>60 ml/min/1.73 sqM); Anion Gap 9 mmol/L; Blood Urea Nitrogen 14 mg/dL (9-20); Calcium 8.7 mg/dL (8.4-10.2); Carbon Dioxide 21 mmol/L (22-30); Chloride 105 mmol/L (98-107); Glucose 206 mg/dL (74-99); Non-African American GFR(CKD) >90 (>60 ml/min/1.73 sqM); Sodium 135 mmol/L (137-145)
[2022-02-18 06:33] LABS: Potassium 4.8 mmol/L (3.5-5.1)
[2022-02-18 07:09] LABS: Glucose,Whole Blood 150 mg/dL (75-99)
[2022-02-18] MEDS: HEPARIN SODIUM,PORCINE/PF 5,000 UNIT/0.5 ML SYRINGE SQ SCH ×2 (07:51→17:01)
[2022-02-18] MEDS: INSULIN ASPART (NovoLOG) 100 UNIT/ML VIAL SQ SCH ×4 (09:07→20:46)
[2022-02-18] MEDS: metFORMIN 500 MG TAB PO SCH ×2 (09:07→17:45)
[2022-02-18] MEDS: ASPIRIN 81 MG PO SCH (09:08)
[2022-02-18] MEDS: MULTIVITAMINS, THERA 1 EACH TAB PO SCH (09:08)
[2022-02-18] MEDS: metroNIDAZOLE-NS PMX 500 MG in SALINE 1 100ML.BAG IVPB SCH ×2 (09:09→17:01)
[2022-02-18] MEDS: CEFEPIME 2 GM in SODIUM CHLORIDE 0.9% 100 ML IVPB SCH ×2 (10:14→18:10)
[2022-02-18 11:51] LABS: Glucose,Whole Blood 159 mg/dL (75-99)
[2022-02-18] MEDS: SODIUM CHLORIDE 0.9% 1,000 ML IV SCH (13:37)
--- NOTE | 2022-02-18 13:42 | P.PN ---
Subjective Progress Note Date: 02/18/22 Principal diagnosis: Infected Diabetic ulcer Patient seen and examined is a follow-up for diabetic foot ulcer. She was scheduled to undergo left second toe amputation however the operating room is back On cases today. Patient is rescheduled for tomorrow. Continue IV antibiotics. Continue elevating the lower extremity. Objective - Vital Signs Vital signs: Vital Signs Temp 97.8 F 02/18/22 05:00 Pulse 67 02/18/22 05:00 Resp 18 02/18/22 05:00 BP 124/78 02/18/22 05:00 Pulse Ox 96 02/18/22 05:00 Intake & Output 02/17/22 02/18/22 02/18/22 18:59 06:59 18:59 Intake Total 450 Balance 450 Intake: Intake, IV Titration 450 Amount Cefepime 2 gm In Sodium 100 Chloride 0.9% 100 ml @ 25 mls/hr IVPB Q8HR [facility] Rx# :[id number] Vancomycin 1,500 mg In 250 Sodium Chloride 0.9% 250 ml @ 125 mls/hr IVPB Q12H [facility] Rx#:[id number] metroNIDAZOLE-NS PMX 500 100 mg In Saline 1 100ml.bag @ 100 mls/hr IVPB Q8HR [facility] Rx#:[id number] Other: # Voids 4 3 - Exam General appearance: The patient is alert, oriented, appears in no acute distres s. HET: Head is normocephalic and atraumatic. Pupils are equal and reactive. Neck: Supple without lymphadenopathy. Trachea midline. Extremities: Normal skin color and turgor. Left foot diffuse swelling and erythema localized to the second toe and mid dorsal and plantar foot. Diabetic ulcer noted to the dorsal aspect of the second toe, as well as plantar aspect with drainage noted. Right great toe amputation. Palpable bilateral +2 dorsalis pedis pulses. Good capillary refill, warm to the touch. Neurological: No focal deficits. Decreased sensation to bilateral feet due to peripheral neuropathy. - Labs CBC & Chem 7: 02/18/22 05:06 02/18/22 05:06 Labs: Abnormal Lab Results - Last 24 Hours (Table) 02/17/22 02/17/22 02/18/22 Range/Units 17:01 20:41 05:06 RBC (4.30-5.90) m/uL Hgb (13.0-17.5) gm/dL Hct (39.0-53.0) % Lymphocytes # (1.0-4.8) k/uL Sodium 135 L (137-145) mmol/L Carbon Dioxide 21 L (22-30) mmol/L Glucose 206 H (74-99) mg/dL POC Glucose (mg/dL) 187 H 197 H (75-99) mg/dL 02/18/22 02/18/22 02/18/22 Range/Units 05:06 07:07 11:50 RBC 3.99 L (4.30-5.90) m/uL Hgb 11.7 L (13.0-17.5) gm/dL Hct 36.0 L (39.0-53.0) % Lymphocytes # 0.7 L (1.0-4.8) k/uL Sodium (137-145) mmol/L Carbon Dioxide (22-30) mmol/L Glucose (74-99) mg/dL POC Glucose (mg/dL) 150 H 159 H (75-99) mg/dL Microbiology - Last 24 Hours (Table) 02/16/22 05:15 Blood Culture - Preliminary Blood No Growth after 48 hours 02/16/22 05:30 Blood Culture - Preliminary Blood No Growth after 48 hours Assessment and Plan Assessment: 1. Infected Diabetic ulcer to the left second toe, osteomyelitis 2. Diabetes mellitus with peripheral neuropathy Plan: 1. Antibiotics and local wound care per recommendations from infectious disease 2. Elevate left lower extremity 3. Plan for amputation of left second toe tomorrow. Will obtain deep tissue cultures. 4. Nothing by mouth after midnight Thank you for this consultation, we will continue to follow. The impression and plan of care has been dictated as directed. Dr. Burgess I performed a history and examination of this patient, discussed the same with the dictator. I agree with the dictator's note ,documented as a scribe. Any additional findings or plans will be noted.
--- NOTE | 2022-02-18 14:09 | P.PN ---
Subjective Progress Note Date: 02/18/22 Principal diagnosis: L foot Osteomyelitis Patient denies any acute complaints. No acute issues now overnight. Patient states that he is nothing by mouth for surgery today. He states that he is 98 anything since this morning. Objective - Vital Signs Vital signs: Vital Signs Temp 98.3 F 02/18/22 13:00 Pulse 87 02/18/22 13:00 Resp 16 02/18/22 13:00 BP 130/89 02/18/22 13:00 Pulse Ox 98 02/18/22 13:00 Intake & Output 02/17/22 02/18/22 02/18/22 18:59 06:59 18:59 Intake Total 450 Balance 450 Intake: Intake, IV Titration 450 Amount Cefepime 2 gm In Sodium 100 Chloride 0.9% 100 ml @ 25 mls/hr IVPB Q8HR [facility] Rx# :[id number] Vancomycin 1,500 mg In 250 Sodium Chloride 0.9% 250 ml @ 125 mls/hr IVPB Q12H [facility] Rx#:[id number] metroNIDAZOLE-NS PMX 500 100 mg In Saline 1 100ml.bag @ 100 mls/hr IVPB Q8HR [facility] Rx#:[id number] Other: # Voids 4 3 - Exam General examination - Alert and Oriented 3 in NAD Heart - + S1S2 no murmurs Lungs - Clear to auscultation Abdomen soft NT ND +ve BS Extremities - left foot second digit erythematous and swollen with erythema extending to mid foot. Patient has a ulcer on the dorsal aspect that is not draining. Patient also has an ulcer on the plantar aspect that is draining purulent. 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 Psych - Calm and cooperative - Labs CBC & Chem 7: 02/18/22 05:06 02/18/22 05:06 Labs: Abnormal Lab Results - Last 24 Hours (Table) 02/17/22 02/17/22 02/18/22 Range/Units 17:01 20:41 05:06 RBC (4.30-5.90) m/uL Hgb (13.0-17.5) gm/dL Hct (39.0-53.0) % Lymphocytes # (1.0-4.8) k/uL Sodium 135 L (137-145) mmol/L Carbon Dioxide 21 L (22-30) mmol/L Glucose 206 H (74-99) mg/dL POC Glucose (mg/dL) 187 H 197 H (75-99) mg/dL 02/18/22 02/18/22 02/18/22 Range/Units 05:06 07:07 11:50 RBC 3.99 L (4.30-5.90) m/uL Hgb 11.7 L (13.0-17.5) gm/dL Hct 36.0 L (39.0-53.0) % Lymphocytes # 0.7 L (1.0-4.8) k/uL Sodium (137-145) mmol/L Carbon Dioxide (22-30) mmol/L Glucose (74-99) mg/dL POC Glucose (mg/dL) 150 H 159 H (75-99) mg/dL Microbiology - Last 24 Hours (Table) 02/16/22 05:15 Blood Culture - Preliminary Blood No Growth after 48 hours 02/16/22 05:30 Blood Culture - Preliminary Blood No Growth after 48 hours Assessment and Plan Assessment: Left toe diabetic ulcer with cellulitis -Resume IV vancomycin and cefepime and Flagyl (penicillin ALLERGY) -Obtain wound cultures -Follow up on blood cultures -Patient scheduled for amputation tomorrow -Infectious disease on board and manage antibiotics -Scan positive for osteomyelitis -Tylenol for pain Diabetes mellitus -Uncontrolled -Resume Levemir and sliding scale insulin Mild pseudohyponatremia -Resolved DVT prophylaxis Subcu heparin CODE STATUS:full code DVT prophylaxis: Subcu heparin Anticipated length of stay > than [address]: home A total of 50 minutes was spent on the care of this complex patient more than 50% of the time was spent in counseling and care coordination.
[2022-02-18 17:39] LABS: Glucose,Whole Blood 218 mg/dL (75-99)
[2022-02-18 19:59] LABS: Glucose,Whole Blood 280 mg/dL (75-99)
[2022-02-18] MEDS: INSULIN DETEMIR (LEVEMIR) 100 UNIT/ML SYR SQ SCH (20:46)
[2022-02-19] MEDS: HEPARIN SODIUM,PORCINE/PF 5,000 UNIT/0.5 ML SYRINGE SQ SCH ×3 (00:42→17:15)
[2022-02-19] MEDS: metroNIDAZOLE-NS PMX 500 MG in SALINE 1 100ML.BAG IVPB SCH ×4 (00:42→21:32)
[2022-02-19] MEDS: CEFEPIME 2 GM in SODIUM CHLORIDE 0.9% 100 ML IVPB SCH ×3 (01:44→17:16)
[2022-02-19] MEDS ORDERED: VANCOMYCIN TROUGH DUE 1 EACH MISC MISCELLANE ONE (05:00)
[2022-02-19] MEDS: VANCOMYCIN 1,500 MG in SODIUM CHLORIDE 0.9% 250 ML IVPB SCH ×3 (06:21→22:55)
[2022-02-19 06:58] LABS: African American GFR (CKD) >90 (>60 ml/min/1.73 sqM); Anion Gap 8 mmol/L; Blood Urea Nitrogen 12 mg/dL (9-20); Calcium 8.7 mg/dL (8.4-10.2); Carbon Dioxide 25 mmol/L (22-30); Chloride 103 mmol/L (98-107); Glucose 170 mg/dL (74-99); Non-African American GFR(CKD) >90 (>60 ml/min/1.73 sqM); Potassium 4.5 mmol/L (3.5-5.1); Sodium 136 mmol/L (137-145)
[2022-02-19 07:17] LABS: Glucose,Whole Blood 172 mg/dL (75-99)
[2022-02-19] MEDS: ASPIRIN 81 MG PO SCH (07:24)
[2022-02-19 08:49] LABS: Basophils # (A) 0.05 X 10*3/uL (0.00-0.10); Basophils % (A) 1.2 %; Eosinophils # (A) 0.21 X 10*3/uL (0.04-0.35); Eosinophils % (A) 5.1 %; HCT 32.4 % (39.6-50.0); HGB 10.5 g/dL (13.0-17.0); Immature Grans, Automated 0.7 %; Lymphocytes # (A) 0.88 X 10*3/uL (0.90-5.00); Lymphocytes % (A) 21.5 %; MCH 28.7 pg (27.0-32.0); MCHC 32.4 g/dL (32.0-37.0); MCV 88.5 fL (80.0-97.0); Mean Platelet Volume 9.9 fL (9.5-12.2); Monocytes # (A) 0.43 X 10*3/uL (0.20-1.00); Monocytes % (A) 10.5 %; NRBC Per 100 WBC 0 /100 WBCS (0.0-0.0); Platelet Count 402 X 10*3/uL (140-440); RBC 3.66 X 10*6/uL (4.40-5.60); RDW 12.3 % (11.5-14.5)
[2022-02-19] MEDS: LACTATED RINGERS 1,000 ML IV SCH (09:18)
[2022-02-19] MEDS: INSULIN ASPART (NovoLOG) 100 UNIT/ML VIAL SQ SCH ×4 (09:18→21:31)
[2022-02-19] MEDS: SODIUM CHLORIDE 0.9% 1,000 ML IV SCH ×3 (09:19→21:32)
[2022-02-19] MEDS: metFORMIN 500 MG TAB PO SCH ×2 (09:26→17:18)
[2022-02-19] MEDS: MULTIVITAMINS, THERA 1 EACH TAB PO SCH (10:13)
[2022-02-19] MEDS ORDERED: IV FLUID CONTINUATION 1,000 ML IV ONE (10:26)
[2022-02-19 10:42] LABS: Glucose,Whole Blood 138 mg/dL (75-99)
[2022-02-19] MEDS ORDERED: ONDANSETRON 4 MG/2 ML VIAL ONE (10:49)
[2022-02-19] MEDS ORDERED: ONDANSETRON 4 MG/2 ML VIAL IVP ONE (10:51)
[2022-02-19] MEDS ORDERED: KETAMINE 10 MG/ML 20 ML VIAL ONE (11:03)
[2022-02-19] MEDS ORDERED: PROPOFOL 10 MG/ML 20 ML VIAL IV ONE (11:03)
[2022-02-19] MEDS ORDERED: fentaNYL (PF) 50 MCG/ML 2 ML AMP ONE (11:03)
[2022-02-19] MEDS ORDERED: MIDAZOLAM 2 MG/2 ML VIAL ONE (11:03)
[2022-02-19] MEDS ORDERED: LIDOCAINE 2% INJ 20 MG/ML SQ ONE ×2 (11:21)
--- NOTE | 2022-02-19 11:59 | P.OP ---
Date of Procedure: 02/19/22 Preoperative Diagnosis: Irreversible ischemia left second toe. Postoperative Diagnosis: Same. Procedure(s) Performed: Transmetatarsal amputation left second toe. Implants: None. Anesthesia: MAC (With 2% Xylocaine for local anesthesia.) Surgeon: Ck Burgess Estimated Blood Loss (ml): 5 Urine output (ml): 0 Pathology: other (Amputated second toe left foot) Condition: stable Disposition: no change Indications for Procedure: Patient is a 56-year-old male with a long-standing history of diabetes mellitus who presented with irreversible ischemia of the second toe left foot. Overall the patient has good perfusion of the foot with palpable posterior tibial pulse. It is felt the patient does not require any additional revascularization and that the amputation site should heal Description of Procedure: Patient was brought the upper and placed in the supine position and administered attended anesthesia delivered by the department of anesthesiology. The patient's left foot was sterilely prepped and draped in usual manner. Patient was maintained on his current IV antibiotic regimen. Racquet-type incision was made and carried down through the subcutaneous tissues. Hemostasis was achieved using electrocautery. The incision was deepened to the level of bone. The bone was then transected with a bone cutter. [place] was then utilized to complete the amputation. Tendons were removed as far proximally as possible. The wound was then irrigated. Hemostasis was felt to be appropriate. The wound was closed with 3-0 nylon suture. Proper dressings were applied. Patient tolerated the procedure well and was taken to the recovery area in satisfactory and stable condition.
[2022-02-19 12:04] LABS: Glucose,Whole Blood 132 mg/dL (75-99)
--- NOTE | 2022-02-19 13:27 | P.PN ---
Subjective Progress Note Date: 02/19/22 Principal diagnosis: L foot Osteomyelitis Patient denies any acute complaints. No acute issues overnight. Patient is scheduled for surgery today Objective - Vital Signs Vital signs: Vital Signs Temp 97.1 F L 02/19/22 11:53 Pulse 72 02/19/22 12:30 Resp 16 02/19/22 12:30 BP 109/79 02/19/22 12:30 Pulse Ox 100 02/19/22 12:30 Intake & Output 02/18/22 02/19/22 02/19/22 18:59 06:59 18:59 Intake Total 1200 500 Output Total 10 Balance 1200 490 Weight 96.615 kg Intake: IV 500 Intake, IV Titration 1200 Amount Cefepime 2 gm In Sodium 200 Chloride 0.9% 100 ml @ 25 mls/hr IVPB Q8HR [facility] Rx# :[id number] Sodium Chloride 0.9% 1, 300 000 ml @ 75 mls/hr IV . [id number] [facility] Rx#:[id number] Vancomycin 1,500 mg In 500 Sodium Chloride 0.9% 250 ml @ 125 mls/hr IVPB Q8H [facility] Rx#:[id number] metroNIDAZOLE-NS PMX 500 200 mg In Saline 1 100ml.bag @ 100 mls/hr IVPB Q8HR [facility] Rx#:[id number] Output: Estimated Blood Loss 10 Other: # Voids 6 3 # Bowel Movements 2 - Exam General examination - Alert and Oriented 3 in NAD Heart - + S1S2 no murmurs Lungs - Clear to auscultation Abdomen soft NT ND +ve BS Extremities - left foot second digit erythematous and swollen with erythema extending to mid foot. Patient has a ulcer on the dorsal aspect that is not draining. Patient also has an ulcer on the plantar aspect that is draining purulent. 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 Psych - Calm and cooperative - Labs CBC & Chem 7: 02/19/22 06:12 02/19/22 06:12 Labs: Abnormal Lab Results - Last 24 Hours (Table) 02/18/22 02/18/22 02/19/22 Range/Units 17:38 19:58 06:12 WBC (4.50-10.00) X 10*3/uL RBC (4.40-5.60) X 10*6/uL Hgb (13.0-17.0) g/dL Hct (39.6-50.0) % Lymphocytes # (0.90-5.00) X 10*3/uL Sodium 136 L (137-145) mmol/L Glucose 170 H (74-99) mg/dL POC Glucose (mg/dL) 218 H 280 H (75-99) mg/dL 02/19/22 02/19/22 02/19/22 Range/Units 06:12 07:16 10:39 WBC 4.10 L (4.50-10.00) X 10*3/uL RBC 3.66 L (4.40-5.60) X 10*6/uL Hgb 10.5 L (13.0-17.0) g/dL Hct 32.4 L (39.6-50.0) % Lymphocytes # 0.88 L (0.90-5.00) X 10*3/uL Sodium (137-145) mmol/L Glucose (74-99) mg/dL POC Glucose (mg/dL) 172 H 138 H (75-99) mg/dL 02/19/22 Range/Units 12:03 WBC (4.50-10.00) X 10*3/uL RBC (4.40-5.60) X 10*6/uL Hgb (13.0-17.0) g/dL Hct (39.6-50.0) % Lymphocytes # (0.90-5.00) X 10*3/uL Sodium (137-145) mmol/L Glucose (74-99) mg/dL POC Glucose (mg/dL) 132 H (75-99) mg/dL Microbiology - Last 24 Hours (Table) 02/16/22 05:15 Blood Culture - Preliminary Blood No Growth after 72 hours 02/16/22 05:30 Blood Culture - Preliminary Blood No Growth after 72 hours Assessment and Plan Assessment: Left toe diabetic ulcer with cellulitis -Resume IV vancomycin and cefepime and Flagyl (penicillin ALLERGY) -Obtain wound cultures -Follow up on blood cultures -Patient scheduled for amputation today -Infectious disease on board and manage antibiotics -Bone Scan positive for osteomyelitis -Tylenol for pain Diabetes mellitus -Uncontrolled -Resume Levemir and sliding scale insulin Mild pseudohyponatremia -Resolved DVT prophylaxis Subcu heparin CODE STATUS:full code DVT prophylaxis: Subcu heparin Anticipated length of stay > than [address]: home .
[2022-02-19 17:12] LABS: Glucose,Whole Blood 306 mg/dL (75-99)
[2022-02-19 20:29] LABS: Glucose,Whole Blood 338 mg/dL (75-99)
[2022-02-19] MEDS: INSULIN DETEMIR (LEVEMIR) 100 UNIT/ML SYR SQ SCH (21:31)
[2022-02-20] MEDS: CEFEPIME 2 GM in SODIUM CHLORIDE 0.9% 100 ML IVPB SCH ×3 (01:24→15:01)
[2022-02-20] MEDS: HEPARIN SODIUM,PORCINE/PF 5,000 UNIT/0.5 ML SYRINGE SQ SCH ×3 (01:25→15:24)
[2022-02-20] MEDS: VANCOMYCIN 1,500 MG in SODIUM CHLORIDE 0.9% 250 ML IVPB SCH ×3 (05:41→22:20)
[2022-02-20] MEDS: LACTATED RINGERS 1,000 ML IV SCH (05:41)
[2022-02-20 07:04] LABS: Glucose,Whole Blood 86 mg/dL (75-99)
[2022-02-20] MEDS: metroNIDAZOLE-NS PMX 500 MG in SALINE 1 100ML.BAG IVPB SCH ×3 (07:41→20:31)
[2022-02-20] MEDS: MULTIVITAMINS, THERA 1 EACH TAB PO SCH (07:41)
[2022-02-20] MEDS: metFORMIN 500 MG TAB PO SCH ×2 (07:41→17:46)
[2022-02-20] MEDS: ASPIRIN 81 MG PO SCH (07:42)
[2022-02-20] MEDS: INSULIN ASPART (NovoLOG) 100 UNIT/ML VIAL SQ SCH ×6 (07:42→20:30)
[2022-02-20 11:25] LABS: Glucose,Whole Blood 322 mg/dL (75-99)
--- NOTE | 2022-02-20 12:14 | P.PN ---
Subjective Progress Note Date: 02/20/22 Principal diagnosis: L foot Osteomyelitis Patient is wondering how much weight he can put on his leg and is also wondering when he is safe to return to work. I told him to discuss this with vascular surgery. Patient otherwise denies any acute complaints. Objective - Vital Signs Vital signs: Vital Signs Temp 97.9 F 02/20/22 05:00 Pulse 77 02/20/22 05:00 Resp 18 02/20/22 05:00 BP 119/76 02/20/22 05:00 Pulse Ox 97 02/20/22 05:00 Intake & Output 02/19/22 02/20/22 02/20/22 18:59 06:59 18:59 Intake Total 1300 1800 Output Total 10 Balance 1290 1800 Weight 96.615 kg Intake: IV 500 Intake, IV Titration 1050 Amount Cefepime 2 gm In Sodium 100 Chloride 0.9% 100 ml @ 25 mls/hr IVPB Q8HR [facility] Rx# :[id number] Sodium Chloride 0.9% 1, 600 000 ml @ 75 mls/hr IV . 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 Psych - Calm and cooperative - Labs CBC & Chem 7: 02/19/22 06:12 02/19/22 06:12 Labs: Abnormal Lab Results - Last 24 Hours (Table) 02/19/22 02/19/22 02/20/22 Range/Units 17:11 20:20 11:18 POC Glucose (mg/dL) 306 H 338 H 322 H (75-99) mg/dL Microbiology - Last 24 Hours (Table) 02/19/22 11:44 Gram Stain - Preliminary Toe - Left Second Tissue Culture - Preliminary 02/16/22 05:15 Blood Culture - Preliminary Blood No Growth after 96 hours 02/16/22 05:30 Blood Culture - Preliminary Blood No Growth after 96 hours 02/19/22 11:44 Anaerobic Culture - Preliminary Toe - Left Second Assessment and Plan Assessment: Left toe diabetic ulcer with cellulitis and osteomyelitis -Resume IV vancomycin and cefepime and Flagyl (penicillin ALLERGY) -Follow up on blood cultures -Bone Scan positive for osteomyelitis -Status post amputation of second digit left foot -Follow up on deep cultures from surgery -Infectious disease on board and manage antibiotics -Tylenol for pain Diabetes mellitus -Uncontrolled -Resume Levemir and sliding scale insulin -Increase Levemir and add additional 5 units aspart with each meal Mild pseudohyponatremia -Resolved DVT prophylaxis Subcu heparin Awaiting for deep cultures to finalize. CODE STATUS:full code DVT prophylaxis: Subcu heparin Anticipated length of stay > than [address]: home .
[2022-02-20] MEDS ORDERED: ACETAMINOPHEN TAB 325 MG TAB PO PRN (12:15)
[2022-02-20 12:35] LABS: Basophils # (A) 0.04 X 10*3/uL (0.00-0.10); Basophils % (A) 0.7 %; Eosinophils # (A) 0.28 X 10*3/uL (0.04-0.35); Eosinophils % (A) 5.2 %; HCT 33.8 % (39.6-50.0); HGB 10.8 g/dL (13.0-17.0); Immature Grans, Automated 0.6 %; Lymphocytes % (A) 22.4 %; MCH 28.5 pg (27.0-32.0); MCV 89.2 fL (80.0-97.0); Mean Platelet Volume 10.1 fL (9.5-12.2); Monocytes # (A) 0.65 X 10*3/uL (0.20-1.00); Monocytes % (A) 12.1 %; NRBC Per 100 WBC 0 /100 WBCS (0.0-0.0); Neutrophils # (A) 3.15 X 10*3/uL (1.80-7.70); Platelet Count 412 X 10*3/uL (140-440); RBC 3.79 X 10*6/uL (4.40-5.60); RDW 12.3 % (11.5-14.5); WBC 5.35 X 10*3/uL (4.50-10.00)
[2022-02-20 12:47] LABS: African American GFR (CKD) 108.2 (60.0-200.0); Anion Gap 9.9 mmol/L (10.00-18.00); BUN/Creat Ratio 10.02 Ratio (12.00-20.00); Blood Urea Nitrogen 9.1 mg/dL (9.0-27.0); Calcium 9.2 mg/dL (8.7-10.3); Carbon Dioxide 25.1 mmol/L (20.0-27.5); Non-African American GFR(CKD) 93.3 (60.0-200.0); Potassium 4.4 mmol/L (3.5-5.5)
[2022-02-20 13:14] VITALS: BMI 28.8
[2022-02-20 17:00] LABS: Glucose,Whole Blood 266 mg/dL (75-99)
[2022-02-20] MEDS: SODIUM CHLORIDE 0.9% 1,000 ML IV SCH ×2 (17:49→22:20)
[2022-02-20 20:16] LABS: Glucose,Whole Blood 241 mg/dL (75-99)
[2022-02-20] MEDS: INSULIN DETEMIR (LEVEMIR) 100 UNIT/ML SYR SQ SCH (20:31)
--- NOTE | 2022-02-20 23:11 | P.PN ---
Subjective Progress Note Date: 02/17/22 Principal diagnosis: Left diabetic foot infection Patient is a 50-year-old male presenting to the hospital with left second toe pain swelling redness and drainage has been diagnosed with diabetic foot infection concerning for underlying abscess symptomsOsteomyelitis. On today's evaluation that is 02/17/2022, the patient denies having any fever or any chills, patient pain to the left second toe is currently controlled no chest pain shortness of breath or cough no nausea no vomiting no abdominal pain or diarrhea Objective - Vital Signs Vital signs: Vital Signs Temp 97.8 F 02/17/22 06:16 Pulse 77 02/17/22 06:16 Resp 18 02/17/22 06:16 BP 117/73 02/17/22 06:16 Pulse Ox 96 02/17/22 06:16 Intake & Output 02/16/22 02/17/22 02/17/22 18:59 06:59 18:59 Weight 96.615 kg Other: # Voids 1 - Exam GENERAL DESCRIPTION: Middle-aged male lying in bed in no distress RESPIRATORY SYSTEM: Unlabored breathing , decreased breath sounds at bases HEART: S1 S2 regular rate and rhythm , ABDOMEN: Soft , no tenderness EXTREMITIES: Left second toe swollen and red with some fluctuance At the base and drainage - Labs CBC & Chem 7: 02/20/22 06:30 02/20/22 06:30 Labs: Abnormal Lab Results - Last 24 Hours (Table) 02/16/22 02/16/22 02/16/22 Range/Units 12:37 19:33 21:04 RBC (4.30-5.90) m/uL Hgb (13.0-17.5) gm/dL Hct (39.0-53.0) % Lymphocytes # (1.0-4.8) k/uL Sodium (137-145) mmol/L Glucose (74-99) mg/dL POC Glucose (mg/dL) 401 H 394 H 352 H (75-99) mg/dL 02/17/22 02/17/22 02/17/22 Range/Units 05:28 05:28 06:59 RBC 3.41 L (4.30-5.90) m/uL Hgb 10.2 L (13.0-17.5) gm/dL Hct 31.3 L (39.0-53.0) % Lymphocytes # 0.8 L (1.0-4.8) k/uL Sodium 134 L (137-145) mmol/L Glucose 179 H (74-99) mg/dL POC Glucose (mg/dL) 168 H (75-99) mg/dL 02/17/22 Range/Units 11:55 RBC (4.30-5.90) m/uL Hgb (13.0-17.5) gm/dL Hct (39.0-53.0) % Lymphocytes # (1.0-4.8) k/uL Sodium (137-145) mmol/L Glucose (74-99) mg/dL POC Glucose (mg/dL) 328 H (75-99) mg/dL Microbiology - Last 24 Hours (Table) 02/16/22 05:15 Blood Culture - Preliminary Blood No Growth after 24 hours 02/16/22 05:30 Blood Culture - Preliminary Blood No Growth after 24 hours Assessment and Plan (1) Diabetic infection of left foot Current Visit: Yes Status: Acute Code(s): E11.628 - TYPE 2 DIABETES MELLITUS WITH OTHER SKIN COMPLICATIONS; L08.9 - LOCAL INFECTION OF THE SKIN AND SUBCUTANEOUS TISSUE, UNSP SNOMED Code(s): 21169164 Plan: 1patient presented to hospital with extensive left diabetic foot infection involving his left second toe concerning for underlying osteomyelitis and a deep abscess need to cover for the polymicrobial onesimo usually associated with diabetic foot infection. 2penicillin allergy that would limit the number of antibiotics safe to use. 3await surgical evaluation and drainage of this abscess along with deep cultu re. 4patient continue with vancomycin pharmacy to dose target trough of 15 while watching kidney function and vancomycin trough closely along with cefepime to 2 g every 8 hour and Flagyl Time with Patient: Less than 30
--- NOTE | 2022-02-20 23:14 | P.PN ---
Subjective Progress Note Date: 02/18/22 Principal diagnosis: Left diabetic foot infection Patient is a 50-year-old male presenting to the hospital with left second toe pain swelling redness and drainage has been diagnosed with diabetic foot infection concerning for underlying abscess symptomsOsteomyelitis. On today's evaluation that is 02/18/2022, the patient remains to be afebrile, patient denies any worsening pain to the left second toe, the patient denies chest pain shortness of breath or cough no nausea no vomiting no abdominal pain or diarrhea Objective - Vital Signs Vital signs: Vital Signs Temp 98.3 F 02/18/22 13:00 Pulse 87 02/18/22 13:00 Resp 16 02/18/22 13:00 BP 130/89 02/18/22 13:00 Pulse Ox 98 02/18/22 13:00 Intake & Output 02/17/22 02/18/22 02/18/22 18:59 06:59 18:59 Intake Total 450 Balance 450 Intake: Intake, IV Titration 450 Amount Cefepime 2 gm In Sodium 100 Chloride 0.9% 100 ml @ 25 mls/hr IVPB Q8HR [facility] Rx# :[id number] Vancomycin 1,500 mg In 250 Sodium Chloride 0.9% 250 ml @ 125 mls/hr IVPB Q12H [facility] Rx#:[id number] metroNIDAZOLE-NS PMX 500 100 mg In Saline 1 100ml.bag @ 100 mls/hr IVPB Q8HR [facility] Rx#:[id number] Other: # Voids 4 3 - Exam GENERAL DESCRIPTION: Middle-aged male lying in bed in no distress RESPIRATORY SYSTEM: Unlabored breathing , decreased breath sounds at bases HEART: S1 S2 regular rate and rhythm , ABDOMEN: Soft , no tenderness EXTREMITIES: Left second toe swollen and red with some drainage - Labs CBC & Chem 7: 02/20/22 06:30 02/20/22 06:30 Labs: Abnormal Lab Results - Last 24 Hours (Table) 02/17/22 02/17/22 02/18/22 Range/Units 17:01 20:41 05:06 RBC (4.30-5.90) m/uL Hgb (13.0-17.5) gm/dL Hct (39.0-53.0) % Lymphocytes # (1.0-4.8) k/uL Sodium 135 L (137-145) mmol/L Carbon Dioxide 21 L (22-30) mmol/L Glucose 206 H (74-99) mg/dL POC Glucose (mg/dL) 187 H 197 H (75-99) mg/dL 02/18/22 02/18/22 02/18/22 Range/Units 05:06 07:07 11:50 RBC 3.99 L (4.30-5.90) m/uL Hgb 11.7 L (13.0-17.5) gm/dL Hct 36.0 L (39.0-53.0) % Lymphocytes # 0.7 L (1.0-4.8) k/uL Sodium (137-145) mmol/L Carbon Dioxide (22-30) mmol/L Glucose (74-99) mg/dL POC Glucose (mg/dL) 150 H 159 H (75-99) mg/dL Microbiology - Last 24 Hours (Table) 02/16/22 05:15 Blood Culture - Preliminary Blood No Growth after 48 hours 02/16/22 05:30 Blood Culture - Preliminary Blood No Growth after 48 hours Assessment and Plan (1) Diabetic infection of left foot Current Visit: Yes Status: Acute Code(s): E11.628 - TYPE 2 DIABETES MELLITUS WITH OTHER SKIN COMPLICATIONS; L08.9 - LOCAL INFECTION OF THE SKIN AND SUBCUTANEOUS TISSUE, UNSP SNOMED Code(s): 73549625 Plan: 1patient presented to hospital with extensive left diabetic foot infection involving his left second toe concerning for underlying osteomyelitis and a deep abscess need to cover for the polymicrobial onesimo usually associated with diabetic foot infection. 2penicillin allergy that would limit the number of antibiotics safe to use. 3patient has been evaluated by vascular surgery planning for surgical drainage possible amputation tomorrow 4patient continue with vancomycin pharmacy to dose target trough of 15 while watching kidney function and vancomycin trough closely along with cefepime to 2 g every 8 hour and Flagyl, continue local wound care as ordered Time with Patient: Less than 30
--- NOTE | 2022-02-20 23:16 | P.PN ---
Subjective Progress Note Date: 02/19/22 Principal diagnosis: Left diabetic foot infection Patient is a 50-year-old male presenting to the hospital with left second toe pain swelling redness and drainage has been diagnosed with diabetic foot infection concerning for underlying abscess/Osteomyelitis. Patient is status post transmetatarsal amputation of the left second toe amputated on 02/19/2022 On today's evaluation that is 02/19/2022, the patient is afebrile, patient pain to the left second toe amputation site is currently controlled, the patient denies chest pain shortness of breath or cough no nausea no vomiting no abdominal pain or diarrhea Objective - Vital Signs Vital signs: Vital Signs Temp 97.1 F L 02/19/22 11:53 Pulse 72 02/19/22 12:30 Resp 16 02/19/22 12:30 BP 109/79 02/19/22 12:30 Pulse Ox 100 02/19/22 12:30 Intake & Output 02/18/22 02/19/22 02/19/22 18:59 06:59 18:59 Intake Total 1200 500 Output Total 10 Balance 1200 490 Weight 96.615 kg Intake: IV 500 Intake, IV Titration 1200 Amount Cefepime 2 gm In Sodium 200 Chloride 0.9% 100 ml @ 25 mls/hr IVPB Q8HR [facility] Rx# :[id number] Sodium Chloride 0.9% 1, 300 000 ml @ 75 mls/hr IV . [id number] [facility] Rx#:[id number] Vancomycin 1,500 mg In 500 Sodium Chloride 0.9% 250 ml @ 125 mls/hr IVPB Q8H [facility] Rx#:[id number] metroNIDAZOLE-NS PMX 500 200 mg In Saline 1 100ml.bag @ 100 mls/hr IVPB Q8HR [facility] Rx#:[id number] Output: Estimated Blood Loss 10 Other: # Voids 6 3 # Bowel Movements 2 - Exam GENERAL DESCRIPTION: Middle-aged male lying in bed in no distress RESPIRATORY SYSTEM: Unlabored breathing , decreased breath sounds at bases HEART: S1 S2 regular rate and rhythm , ABDOMEN: Soft , no tenderness EXTREMITIES: Left second toe swollen and red with some drainage - Labs CBC & Chem 7: 02/20/22 06:30 02/20/22 06:30 Labs: Abnormal Lab Results - Last 24 Hours (Table) 02/18/22 02/18/22 02/19/22 Range/Units 17:38 19:58 06:12 WBC (4.50-10.00) X 10*3/uL RBC (4.40-5.60) X 10*6/uL Hgb (13.0-17.0) g/dL Hct (39.6-50.0) % Lymphocytes # (0.90-5.00) X 10*3/uL Sodium 136 L (137-145) mmol/L Glucose 170 H (74-99) mg/dL POC Glucose (mg/dL) 218 H 280 H (75-99) mg/dL 02/19/22 02/19/22 02/19/22 Range/Units 06:12 07:16 10:39 WBC 4.10 L (4.50-10.00) X 10*3/uL RBC 3.66 L (4.40-5.60) X 10*6/uL Hgb 10.5 L (13.0-17.0) g/dL Hct 32.4 L (39.6-50.0) % Lymphocytes # 0.88 L (0.90-5.00) X 10*3/uL Sodium (137-145) mmol/L Glucose (74-99) mg/dL POC Glucose (mg/dL) 172 H 138 H (75-99) mg/dL 02/19/22 Range/Units 12:03 WBC (4.50-10.00) X 10*3/uL RBC (4.40-5.60) X 10*6/uL Hgb (13.0-17.0) g/dL Hct (39.6-50.0) % Lymphocytes # (0.90-5.00) X 10*3/uL Sodium (137-145) mmol/L Glucose (74-99) mg/dL POC Glucose (mg/dL) 132 H (75-99) mg/dL Microbiology - Last 24 Hours (Table) 02/16/22 05:15 Blood Culture - Preliminary Blood No Growth after 72 hours 02/16/22 05:30 Blood Culture - Preliminary Blood No Growth after 72 hours Assessment and Plan (1) Diabetic infection of left foot Current Visit: Yes Status: Acute Code(s): E11.628 - TYPE 2 DIABETES MELLITUS WITH OTHER SKIN COMPLICATIONS; L08.9 - LOCAL INFECTION OF THE SKIN AND SUBCUTANEOUS TISSUE, UNSP SNOMED Code(s): 09400967 Plan: 1patient presented to hospital with extensive left diabetic foot infection involving his left second toe concerning for underlying osteomyelitis and a deep abscess need to cover for the polymicrobial onesimo usually associated with diabetic foot infection. 2penicillin allergy that would limit the number of antibiotics safe to use. 3patient has been evaluated by vascular surgery and is status post transmetatarsal amputation of the left second toe along with deep cultures which are currently pending 4patient continue with vancomycin pharmacy to dose target trough of 15 while watching kidney function and vancomycin trough closely along with cefepime to 2 g every 8 hour and Flagyl, while waiting for the culture to be finalize Time with Patient: Less than 30
--- NOTE | 2022-02-20 23:18 | P.PN ---
Subjective Progress Note Date: 02/20/22 Principal diagnosis: Left diabetic foot infection Patient is a 50-year-old male presenting to the hospital with left second toe pain swelling redness and drainage has been diagnosed with diabetic foot infection concerning for underlying abscess/Osteomyelitis. Patient is status post transmetatarsal amputation of the left second toe amputated on 02/19/2022 On today's evaluation that is 02/20/2022, the patient remains to be afebrile, patient denies any worsening pain to the left second toe amputation site, the patient denies chest pain shortness of breath or cough no nausea no vomiting no abdominal pain or diarrhea with antibiotic therapy Objective - Vital Signs Vital signs: Vital Signs Temp 97.5 F L 02/20/22 12:24 Pulse 71 02/20/22 12:24 Resp 16 02/20/22 12:24 BP 126/83 02/20/22 12:24 Pulse Ox 96 02/20/22 12:24 Intake & Output 02/20/22 02/20/22 02/21/22 06:59 18:59 06:59 Intake Total 1800 825 Balance 1800 825 Weight 96.615 kg Intake: Intake, IV Titration 1050 825 Amount Cefepime 2 gm In Sodium 100 100 Chloride 0.9% 100 ml @ 25 mls/hr IVPB Q8HR [facility] Rx# :[id number] Sodium Chloride 0.9% 1, 600 375 000 ml @ 75 mls/hr IV . [id number] [facility] Rx#:[id number] Vancomycin 1,500 mg In 250 250 Sodium Chloride 0.9% 250 ml @ 125 mls/hr IVPB Q8H [facility] Rx#:[id number] metroNIDAZOLE-NS PMX 500 100 100 mg In Saline 1 100ml.bag @ 100 mls/hr IVPB Q8H [facility] Rx#:[id number] Oral 750 Other: Voiding Method Toilet # Voids 3 - Exam GENERAL DESCRIPTION: Middle-aged male lying in bed in no distress RESPIRATORY SYSTEM: Unlabored breathing , decreased breath sounds at bases HEART: S1 S2 regular rate and rhythm , ABDOMEN: Soft , no tenderness EXTREMITIES: Left second toe amputation site is currently dressed no drainage on the dressing - Labs CBC & Chem 7: 02/20/22 06:30 02/20/22 06:30 Labs: Abnormal Lab Results - Last 24 Hours (Table) 02/20/22 02/20/22 02/20/22 Range/Units 06:30 06:30 11:18 RBC 3.79 L (4.40-5.60) X 10*6/uL Hgb 10.8 L (13.0-17.0) g/dL Hct 33.8 L (39.6-50.0) % Anion Gap 9.90 L (10.00-18.00) mmol/L BUN/Creatinine Ratio 10.02 L (12.00-20.00) Ratio POC Glucose (mg/dL) 322 H (75-99) mg/dL 02/20/22 02/20/22 Range/Units 16:55 20:01 RBC (4.40-5.60) X 10*6/uL Hgb (13.0-17.0) g/dL Hct (39.6-50.0) % Anion Gap (10.00-18.00) mmol/L BUN/Creatinine Ratio (12.00-20.00) Ratio POC Glucose (mg/dL) 266 H 241 H (75-99) mg/dL Microbiology - Last 24 Hours (Table) 02/19/22 11:44 Gram Stain - Preliminary Toe - Left Second Tissue Culture - Preliminary 02/16/22 05:15 Blood Culture - Preliminary Blood No Growth after 96 hours 02/16/22 05:30 Blood Culture - Preliminary Blood No Growth after 96 hours 02/19/22 11:44 Anaerobic Culture - Preliminary Toe - Left Second Assessment and Plan (1) Diabetic infection of left foot Current Visit: Yes Status: Acute Code(s): E11.628 - TYPE 2 DIABETES MELLITUS WITH OTHER SKIN COMPLICATIONS; L08.9 - LOCAL INFECTION OF THE SKIN AND SUBCUTANEOUS TISSUE, UNSP SNOMED Code(s): 88689772 Plan: 1patient presented to hospital with extensive left diabetic foot infection involving his left second toe concerning for underlying osteomyelitis and a deep abscess need to cover for the polymicrobial onesimo usually associated with diabetic foot infection. 2penicillin allergy that would limit the number of antibiotics safe to use. 3patient has been evaluated by vascular surgery and is status post transmetatarsal amputation of the left second toe along with deep cultures which are so far pending 4patient will continue with vancomycin pharmacy to dose along with cefepime to 2 g every 8 hour and Flagyl, while waiting for the culture to be finalize Time with Patient: Less than 30
[2022-02-21] MEDS: HEPARIN SODIUM,PORCINE/PF 5,000 UNIT/0.5 ML SYRINGE SQ SCH ×4 (01:25→23:34)
[2022-02-21] MEDS: CEFEPIME 2 GM in SODIUM CHLORIDE 0.9% 100 ML IVPB SCH ×4 (01:27→23:34)
[2022-02-21] MEDS: metroNIDAZOLE-NS PMX 500 MG in SALINE 1 100ML.BAG IVPB SCH ×2 (04:29→13:30)
[2022-02-21] MEDS ORDERED: VANCOMYCIN TROUGH DUE 1 EACH MISC MISCELLANE ONE (05:00)
[2022-02-21] MEDS: VANCOMYCIN 1,500 MG in SODIUM CHLORIDE 0.9% 250 ML IVPB SCH ×2 (06:01→21:22)
[2022-02-21] MEDS: LACTATED RINGERS 1,000 ML IV SCH (06:02)
[2022-02-21 06:45] LABS: African American GFR (CKD) >90 (>60 ml/min/1.73 sqM); Anion Gap 6 mmol/L; Blood Urea Nitrogen 10 mg/dL (9-20); Calcium 8.7 mg/dL (8.4-10.2); Carbon Dioxide 28 mmol/L (22-30); Chloride 102 mmol/L (98-107); Glucose 59 mg/dL (74-99); Non-African American GFR(CKD) >90 (>60 ml/min/1.73 sqM); Potassium 4.2 mmol/L (3.5-5.1); Sodium 136 mmol/L (137-145)
[2022-02-21 07:13] LABS: Glucose,Whole Blood 60 mg/dL (75-99)
[2022-02-21] MEDS: INSULIN ASPART (NovoLOG) 100 UNIT/ML VIAL SQ SCH ×7 (07:16→21:19)
[2022-02-21 07:29] LABS: Glucose,Whole Blood 66 mg/dL (75-99)
[2022-02-21 07:42] LABS: Glucose,Whole Blood 85 mg/dL (75-99)
[2022-02-21] MEDS: metFORMIN 500 MG TAB PO SCH ×2 (08:46→17:31)
[2022-02-21] MEDS: MULTIVITAMINS, THERA 1 EACH TAB PO SCH (08:48)
[2022-02-21] MEDS: ASPIRIN 81 MG PO SCH (08:48)
[2022-02-21 09:34] LABS: Basophils # (A) 0.04 X 10*3/uL (0.00-0.10); Basophils % (A) 0.7 %; Eosinophils # (A) 0.29 X 10*3/uL (0.04-0.35); Eosinophils % (A) 5.4 %; HCT 33.2 % (39.6-50.0); HGB 10.8 g/dL (13.0-17.0); Immature Grans, Automated 0.6 %; Lymphocytes % (A) 18.6 %; MCH 28.8 pg (27.0-32.0); MCHC 32.5 g/dL (32.0-37.0); MCV 88.5 fL (80.0-97.0); Mean Platelet Volume 9.7 fL (9.5-12.2); Monocytes # (A) 0.62 X 10*3/uL (0.20-1.00); Monocytes % (A) 11.5 %; NRBC Per 100 WBC 0 /100 WBCS (0.0-0.0); Neutrophils % (A) 63.2 %; Platelet Count 387 X 10*3/uL (140-440); RBC 3.75 X 10*6/uL (4.40-5.60); RDW 12.4 % (11.5-14.5); WBC 5.38 X 10*3/uL (4.50-10.00)
[2022-02-21 12:37] LABS: Glucose,Whole Blood 287 mg/dL (75-99)
--- NOTE | 2022-02-21 13:10 | P.PN ---
Subjective Progress Note Date: 02/21/22 Principal diagnosis: L foot Osteomyelitis Patient denies any acute complaints. No acute issues overnight. Objective - Vital Signs Vital signs: Vital Signs Temp 98.1 F 02/21/22 04:29 Pulse 79 02/21/22 04:29 Resp 18 02/21/22 04:29 BP 111/71 02/21/22 04:29 Pulse Ox 93 L 02/21/22 04:29 Intake & Output 02/20/22 02/21/22 02/21/22 18:59 06:59 18:59 Intake Total 825 2200 118 Balance 825 2200 118 Weight 96.615 kg Intake: Intake, IV Titration 825 1700 Amount Cefepime 2 gm In Sodium 100 100 Chloride 0.9% 100 ml @ 25 mls/hr IVPB Q8HR [facility] Rx# :[id number] Sodium Chloride 0.9% 1, 375 900 000 ml @ 75 mls/hr IV . 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 Psych - Calm and cooperative - Labs CBC & Chem 7: 02/21/22 05:38 02/21/22 05:38 Labs: Abnormal Lab Results - Last 24 Hours (Table) 02/20/22 02/20/22 02/21/22 Range/Units 16:55 20:01 05:38 RBC (4.40-5.60) X 10*6/uL Hgb (13.0-17.0) g/dL Hct (39.6-50.0) % Sodium 136 L (137-145) mmol/L Glucose 59 L (74-99) mg/dL POC Glucose (mg/dL) 266 H 241 H (75-99) mg/dL 02/21/22 02/21/22 02/21/22 Range/Units 05:38 07:11 07:25 RBC 3.75 L (4.40-5.60) X 10*6/uL Hgb 10.8 L (13.0-17.0) g/dL Hct 33.2 L (39.6-50.0) % Sodium (137-145) mmol/L Glucose (74-99) mg/dL POC Glucose (mg/dL) 60 L 66 L (75-99) mg/dL 02/21/22 Range/Units 12:34 RBC (4.40-5.60) X 10*6/uL Hgb (13.0-17.0) g/dL Hct (39.6-50.0) % Sodium (137-145) mmol/L Glucose (74-99) mg/dL POC Glucose (mg/dL) 287 H (75-99) mg/dL Microbiology - Last 24 Hours (Table) 02/16/22 05:30 Blood Culture - Preliminary Blood No Growth after 120 hours 02/16/22 05:15 Blood Culture - Preliminary Blood No Growth after 120 hours Assessment and Plan Assessment: Left toe diabetic ulcer with cellulitis and osteomyelitis -Resume IV vancomycin and cefepime and Flagyl (penicillin ALLERGY) -Follow up on blood cultures -Bone Scan positive for osteomyelitis -Status post amputation of second digit left foot -Follow up on deep cultures from surgery -Infectious disease on board and managing antibiotics -> ID will wait for the deep cultures to be finalized before making antibiotic recommendations then we will need to wait for 2 more days to have the [facility] -Tylenol for pain Diabetes mellitus -Uncontrolled -Resume Levemir and sliding scale insulin -Increase Levemir and add additional 5 units aspart with each meal Mild pseudohyponatremia -Resolved DVT prophylaxis Subcu heparin Awaiting for deep cultures to finalize. CODE STATUS:full code DVT prophylaxis: Subcu heparin Anticipated length of stay > than [address]: home .
--- NOTE | 2022-02-21 16:23 | P.PN ---
Subjective Progress Note Date: 02/21/22 Principal diagnosis: left 2nd toe ischemia, diabetic wound doing well. Pain controlled. No fevers, chills, chest pain or shortness of breath. Objective - Vital Signs Vital signs: Vital Signs Temp 98.3 F 02/21/22 13:59 Pulse 75 02/21/22 13:59 Resp 18 02/21/22 13:59 BP 133/84 02/21/22 13:59 Pulse Ox 99 02/21/22 13:59 Intake & Output 02/20/22 02/21/22 02/21/22 18:59 06:59 18:59 Intake Total 825 2200 236 Balance 825 2200 236 Weight 96.615 kg Intake: Intake, IV Titration 825 1700 Amount Cefepime 2 gm In Sodium 100 100 Chloride 0.9% 100 ml @ 25 mls/hr IVPB Q8HR [facility] Rx# :[id number] Sodium Chloride 0.9% 1, 375 900 000 ml @ 75 mls/hr IV . [id number] [facility] Rx#:[id number] Vancomycin 1,500 mg In 250 500 Sodium Chloride 0.9% 250 ml @ 125 mls/hr IVPB Q8H [facility] Rx#:[id number] metroNIDAZOLE-NS PMX 500 100 200 mg In Saline 1 100ml.bag @ 100 mls/hr IVPB Q8H [facility] Rx#:[id number] Oral 500 236 Other: Voiding Method Toilet Toilet # Voids 3 - Exam left 2nd toe amputation site with sutures intact, minimal oozing. Good capillary refill. Palpable dp and pt pulses. - Labs CBC & Chem 7: 02/21/22 05:38 02/21/22 05:38 Labs: Abnormal Lab Results - Last 24 Hours (Table) 02/20/22 02/20/22 02/21/22 Range/Units 16:55 20:01 05:38 RBC (4.40-5.60) X 10*6/uL Hgb (13.0-17.0) g/dL Hct (39.6-50.0) % Sodium 136 L (137-145) mmol/L Glucose 59 L (74-99) mg/dL POC Glucose (mg/dL) 266 H 241 H (75-99) mg/dL 02/21/22 02/21/22 02/21/22 Range/Units 05:38 07:11 07:25 RBC 3.75 L (4.40-5.60) X 10*6/uL Hgb 10.8 L (13.0-17.0) g/dL Hct 33.2 L (39.6-50.0) % Sodium (137-145) mmol/L Glucose (74-99) mg/dL POC Glucose (mg/dL) 60 L 66 L (75-99) mg/dL 02/21/22 Range/Units 12:34 RBC (4.40-5.60) X 10*6/uL Hgb (13.0-17.0) g/dL Hct (39.6-50.0) % Sodium (137-145) mmol/L Glucose (74-99) mg/dL POC Glucose (mg/dL) 287 H (75-99) mg/dL Microbiology - Last 24 Hours (Table) 02/19/22 11:44 Anaerobic Culture - Preliminary Toe - Left Second 02/19/22 11:44 Gram Stain - Preliminary Toe - Left Second Tissue Culture - Preliminary Enterobacter aerogenes Strep agalactiae - (group b) Group D Enterococcus 02/16/22 05:30 Blood Culture - Preliminary Blood No Growth after 120 hours 02/16/22 05:15 Blood Culture - Preliminary Blood No Growth after 120 hours Assessment and Plan Assessment: 1. Left 2nd toe gangrene and reversible ischemia 2. POD 2 left 2nd toe amputation 3. DM Plan: Off load left foot. Dressings changed today. Awaiting final cultures. ID recs. No further surgical intervention at this time.
[2022-02-21 17:10] LABS: Glucose,Whole Blood 164 mg/dL (75-99)
--- NOTE | 2022-02-21 17:28 | P.PN ---
Subjective Progress Note Date: 02/21/22 Principal diagnosis: Left diabetic foot infection Patient is a 50-year-old male presenting to the hospital with left second toe pain swelling redness and drainage has been diagnosed with diabetic foot infection concerning for underlying abscess/Osteomyelitis. Patient is status post transmetatarsal amputation of the left second toe amputated on 02/19/2022 On today's evaluation that is 02/21/2022, the patient continues to be afebrile, patient pain to the left second toe amputation site is currently controlled, the patient denies chest pain shortness of breath or cough no nausea no vomiting no abdominal pain or diarrhea with antibiotic therapy Objective - Vital Signs Vital signs: Vital Signs Temp 98.3 F 02/21/22 13:59 Pulse 75 02/21/22 13:59 Resp 18 02/21/22 13:59 BP 133/84 02/21/22 13:59 Pulse Ox 99 02/21/22 13:59 Intake & Output 02/20/22 02/21/22 02/21/22 18:59 06:59 18:59 Intake Total 825 2200 236 Balance 825 2200 236 Weight 96.615 kg Intake: Intake, IV Titration 825 1700 Amount Cefepime 2 gm In Sodium 100 100 Chloride 0.9% 100 ml @ 25 mls/hr IVPB Q8HR [facility] Rx# :[id number] Sodium Chloride 0.9% 1, 375 900 000 ml @ 75 mls/hr IV . [id number] [facility] Rx#:[id number] Vancomycin 1,500 mg In 250 500 Sodium Chloride 0.9% 250 ml @ 125 mls/hr IVPB Q8H [facility] Rx#:[id number] metroNIDAZOLE-NS PMX 500 100 200 mg In Saline 1 100ml.bag @ 100 mls/hr IVPB Q8H [facility] Rx#:[id number] Oral 500 236 Other: Voiding Method Toilet Toilet # Voids 3 - Exam GENERAL DESCRIPTION: Middle-aged male lying in bed in no distress RESPIRATORY SYSTEM: Unlabored breathing , decreased breath sounds at bases HEART: S1 S2 regular rate and rhythm , ABDOMEN: Soft , no tenderness EXTREMITIES: Left second toe amputation site wound stitches intact with minimal wheezing per the vascular notes - Labs CBC & Chem 7: 02/21/22 05:38 02/21/22 05:38 Labs: Abnormal Lab Results - Last 24 Hours (Table) 02/20/22 02/20/22 02/21/22 Range/Units 16:55 20:01 05:38 RBC (4.40-5.60) X 10*6/uL Hgb (13.0-17.0) g/dL Hct (39.6-50.0) % Sodium 136 L (137-145) mmol/L Glucose 59 L (74-99) mg/dL POC Glucose (mg/dL) 266 H 241 H (75-99) mg/dL 02/21/22 02/21/22 02/21/22 Range/Units 05:38 07:11 07:25 RBC 3.75 L (4.40-5.60) X 10*6/uL Hgb 10.8 L (13.0-17.0) g/dL Hct 33.2 L (39.6-50.0) % Sodium (137-145) mmol/L Glucose (74-99) mg/dL POC Glucose (mg/dL) 60 L 66 L (75-99) mg/dL 02/21/22 Range/Units 12:34 RBC (4.40-5.60) X 10*6/uL Hgb (13.0-17.0) g/dL Hct (39.6-50.0) % Sodium (137-145) mmol/L Glucose (74-99) mg/dL POC Glucose (mg/dL) 287 H (75-99) mg/dL Microbiology - Last 24 Hours (Table) 02/19/22 11:44 Anaerobic Culture - Preliminary Toe - Left Second 02/19/22 11:44 Gram Stain - Preliminary Toe - Left Second Tissue Culture - Preliminary Enterobacter aerogenes Strep agalactiae - (group b) Group D Enterococcus 02/16/22 05:30 Blood Culture - Preliminary Blood No Growth after 120 hours 02/16/22 05:15 Blood Culture - Preliminary Blood No Growth after 120 hours Assessment and Plan (1) Diabetic infection of left foot Current Visit: Yes Status: Acute Code(s): E11.628 - TYPE 2 DIABETES MELLITUS WITH OTHER SKIN COMPLICATIONS; L08.9 - LOCAL INFECTION OF THE SKIN AND SUBCUTANEOUS TISSUE, UNSP SNOMED Code(s): 30696586 Plan: 1patient presented to hospital with extensive left diabetic foot infection involving his left second toe concerning for underlying osteomyelitis and a deep abscess need to cover for the polymicrobial onesimo usually associated with diabetic foot infection. 2penicillin allergy that would limit the number of antibiotics safe to use. 3patient has been evaluated by vascular surgery and is status post transmetatarsal amputation of the left second toe along with deep cultures which are growing Klebsiella strep and enterococcus 4patient will continue with vancomycin pharmacy to dose along with cefepime to 2 g every 8 hour and Flagyl, will benefit from a short course of IV antibiotic on discharge Time with Patient: Less than 30
[2022-02-21] MEDS: INSULIN DETEMIR (LEVEMIR) 100 UNIT/ML SYR SQ SCH (21:21)
[2022-02-21] MEDS: metroNIDAZOLE 500 MG TAB PO SCH (21:21)
[2022-02-21 21:23] LABS: Glucose,Whole Blood 62 mg/dL (75-99)
[2022-02-21 21:23] LABS: Glucose,Whole Blood 66 mg/dL (75-99)
[2022-02-21] MEDS: SODIUM CHLORIDE 0.9% 1,000 ML IV SCH (21:23)
[2022-02-21 21:35] LABS: Glucose,Whole Blood 54 mg/dL (75-99)
[2022-02-21 21:51] LABS: Glucose,Whole Blood 60 mg/dL (75-99)
[2022-02-21 22:15] LABS: Glucose,Whole Blood 75 mg/dL (75-99)
[2022-02-22 02:07] LABS: Glucose,Whole Blood 196 mg/dL (75-99)
[2022-02-22] MEDS: metroNIDAZOLE 500 MG TAB PO SCH ×3 (06:10→20:56)
[2022-02-22 07:14] LABS: Glucose,Whole Blood 82 mg/dL (75-99)
[2022-02-22] MEDS: MULTIVITAMINS, THERA 1 EACH TAB PO SCH (07:50)
[2022-02-22] MEDS: ASPIRIN 81 MG PO SCH (07:50)
[2022-02-22] MEDS: metFORMIN 500 MG TAB PO SCH ×2 (07:50→17:37)
[2022-02-22] MEDS: INSULIN ASPART (NovoLOG) 100 UNIT/ML VIAL SQ SCH ×5 (07:50→20:55)
[2022-02-22] MEDS: HEPARIN SODIUM,PORCINE/PF 5,000 UNIT/0.5 ML SYRINGE SQ SCH ×2 (07:50→16:32)
[2022-02-22] MEDS: CEFEPIME 2 GM in SODIUM CHLORIDE 0.9% 100 ML IVPB SCH ×2 (07:50→16:32)
[2022-02-22] MEDS: LACTATED RINGERS 1,000 ML IV SCH (07:54)
--- NOTE | 2022-02-22 10:54 | P.PN ---
Subjective Progress Note Date: 02/22/22 Principal diagnosis: L foot Osteomyelitis Patient denies any acute complaints. No acute issues overnight. Patient is wondering how long he can take off from work. I told him that he cannot go to work until he completes his antibiotics. I told that awaiting for ID to give recommendations on the duration of antibiotics. Patient states that he spoke to vascular surgery who told him to put as much pressure on his heels when he walks. Objective - Vital Signs Vital signs: Vital Signs Temp 98.4 F 02/22/22 05:00 Pulse 85 02/22/22 05:00 Resp 18 02/22/22 05:00 BP 109/66 02/22/22 05:00 Pulse Ox 96 02/22/22 05:00 FiO2 Intake & Output 02/21/22 02/22/22 02/22/22 18:59 06:59 18:59 Intake Total 1454 800 Balance 1454 800 Intake: Intake, IV Titration 1100 Amount Cefepime 2 gm In Sodium 100 Chloride 0.9% 100 ml @ 25 mls/hr IVPB Q8HR [facility] Rx# :[id number] Sodium Chloride 0.9% 1, 900 000 ml @ 75 mls/hr IV . 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 Psych - Calm and cooperative - Labs CBC & Chem 7: 02/21/22 05:38 02/21/22 05:38 Labs: Abnormal Lab Results - Last 24 Hours (Table) 02/21/22 02/21/22 02/21/22 Range/Units 12:34 17:08 21:05 POC Glucose (mg/dL) 287 H 164 H 66 L (75-99) mg/dL C-Reactive Protein (0.00-0.80) mg/dL 02/21/22 02/21/22 02/21/22 Range/Units 21:08 21:25 21:41 POC Glucose (mg/dL) 62 L 54 L 60 L (75-99) mg/dL C-Reactive Protein (0.00-0.80) mg/dL 02/22/22 02/22/22 Range/Units 02:02 05:39 POC Glucose (mg/dL) 196 H (75-99) mg/dL C-Reactive Protein 2.10 H (0.00-0.80) mg/dL Microbiology - Last 24 Hours (Table) 02/19/22 11:44 Gram Stain - Preliminary Toe - Left Second Tissue Culture - Preliminary Enterobacter aerogenes Strep agalactiae - (group b) Group D Enterococcus Coagulase Negative Staph 02/16/22 05:15 Blood Culture - Final Blood No Growth after 144 hours 02/16/22 05:30 Blood Culture - Final Blood No Growth after 144 hours 02/19/22 11:44 Anaerobic Culture - Preliminary Toe - Left Second Assessment and Plan Assessment: Left toe diabetic ulcer with cellulitis and osteomyelitis -Resume IV vancomycin and cefepime and Flagyl (penicillin ALLERGY) -Follow up on blood cultures -Bone Scan positive for osteomyelitis -Status post amputation of second digit left foot -Follow up on deep cultures from surgery -Infectious disease on board and managing antibiotics -> ID will wait for the deep cultures to be finalized before making antibiotic recommendations then we will need to wait for 2 more days to have [facility] -Tylenol for pain Diabetes mellitus -Uncontrolled -Resume Levemir and sliding scale insulin -Increase Levemir and add additional 5 units aspart with each meal Mild pseudohyponatremia -Resolved DVT prophylaxis Subcu heparin Awaiting for deep cultures to finalize. CODE STATUS:full code DVT prophylaxis: Subcu heparin Anticipated length of stay > than [address]: home .
[2022-02-22] MEDS: SODIUM CHLORIDE 0.9% 1,000 ML IV SCH ×2 (11:16→20:55)
[2022-02-22 11:44] LABS: Glucose,Whole Blood 124 mg/dL (75-99)
--- NOTE | 2022-02-22 11:45 | P.PN ---
Subjective Progress Note Date: 02/22/22 Principal diagnosis: Infected Diabetic ulcer Patient is seen as a follow-up for a left second toe ischemia, status postop day #34 second toe amputation. Patient overall is doing well. Has dressing clean dry and intact. He's been afebrile. Await recommendations from infectious disease on antibiotic therapy based on tissue culture. Patient states pain is well managed. Objective - Vital Signs Vital signs: Vital Signs Temp 98.4 F 02/22/22 05:00 Pulse 85 02/22/22 05:00 Resp 18 02/22/22 05:00 BP 109/66 02/22/22 05:00 Pulse Ox 96 02/22/22 05:00 FiO2 Intake & Output 02/21/22 02/22/22 02/22/22 18:59 06:59 18:59 Intake Total 1454 800 Balance 1454 800 Intake: Intake, IV Titration 1100 Amount Cefepime 2 gm In Sodium 100 Chloride 0.9% 100 ml @ 25 mls/hr IVPB Q8HR [facility] Rx# :[id number] Sodium Chloride 0.9% 1, 900 000 ml @ 75 mls/hr IV . [id number] [facility] Rx#:[id number] metroNIDAZOLE-NS PMX 500 100 mg In Saline 1 100ml.bag @ 100 mls/hr IVPB Q8H [facility] Rx#:[id number] Oral 354 800 Other: Voiding Method Toilet Toilet # Voids 2 - Exam General appearance: The patient is alert, oriented, appears in no acute distress. HET: Head is normocephalic and atraumatic. Pupils are equal and reactive. Neck: Supple without lymphadenopathy. Trachea midline. Extremities: Left foot with dressing clean dry and intact. Good capillary refill. Toes warm to touch. Neurological: No focal deficits. Decreased sensation to bilateral feet due to peripheral neuropathy. - Labs CBC & Chem 7: 02/21/22 05:38 02/21/22 05:38 Labs: Abnormal Lab Results - Last 24 Hours (Table) 02/21/22 02/21/22 02/21/22 Range/Units 12:34 17:08 21:05 ESR (0-20) mm/Hr POC Glucose (mg/dL) 287 H 164 H 66 L (75-99) mg/dL C-Reactive Protein (0.00-0.80) mg/dL 02/21/22 02/21/22 02/21/22 Range/Units 21:08 21:25 21:41 ESR (0-20) mm/Hr POC Glucose (mg/dL) 62 L 54 L 60 L (75-99) mg/dL C-Reactive Protein (0.00-0.80) mg/dL 02/22/22 02/22/22 02/22/22 Range/Units 02:02 05:39 05:39 ESR 49 H (0-20) mm/Hr POC Glucose (mg/dL) 196 H (75-99) mg/dL C-Reactive Protein 2.10 H (0.00-0.80) mg/dL Microbiology - Last 24 Hours (Table) 02/19/22 11:44 Gram Stain - Preliminary Toe - Left Second Tissue Culture - Preliminary Enterobacter aerogenes Strep agalactiae - (group b) Group D Enterococcus Coagulase Negative Staph 02/16/22 05:15 Blood Culture - Final Blood No Growth after 144 hours 02/16/22 05:30 Blood Culture - Final Blood No Growth after 144 hours 02/19/22 11:44 Anaerobic Culture - Preliminary Toe - Left Second Assessment and Plan Assessment: 1. Postop day #3 for left second toe amputation 2. Infected Diabetic ulcer, left second toe ischemia 3. Diabetes mellitus with peripheral neuropathy Plan: 1. Antibiotics per recommendations from infectious disease 2. Offload left foot. 3. Dressing change with the Adaptic, 4 x 4 with gauze daily 4. Physical therapy ordered to assist with the offloading on left foot 5. Patient is cleared for discharge from vascular surgery once otherwise medically stable and infectious disease clears patient Thank you for this consultation, we will continue to follow. The impression and plan of care has been dictated as directed. Dr. Noonan I performed a history and examination of this patient, discussed the same with the dictator. I agree with the dictator's note ,documented as a scribe. Any additional findings or plans will be noted.
[2022-02-22] MEDS: VANCOMYCIN 1,500 MG in SODIUM CHLORIDE 0.9% 250 ML IVPB SCH ×2 (12:19→20:56)
[2022-02-22 17:36] LABS: Glucose,Whole Blood 378 mg/dL (75-99)
[2022-02-22 20:23] LABS: Glucose,Whole Blood 365 mg/dL (75-99)
[2022-02-22] MEDS: INSULIN DETEMIR (LEVEMIR) 100 UNIT/ML SYR SQ SCH (20:56)
[2022-02-23] MEDS: HEPARIN SODIUM,PORCINE/PF 5,000 UNIT/0.5 ML SYRINGE SQ SCH ×4 (01:16→23:40)
[2022-02-23] MEDS: CEFEPIME 2 GM in SODIUM CHLORIDE 0.9% 100 ML IVPB SCH ×4 (01:17→23:39)
[2022-02-23] MEDS: metroNIDAZOLE 500 MG TAB PO SCH ×3 (04:59→20:42)
[2022-02-23] MEDS: LACTATED RINGERS 1,000 ML IV SCH (05:00)
[2022-02-23 05:37] LABS: Glucose,Whole Blood 44 mg/dL (75-99)
[2022-02-23 05:58] LABS: Glucose,Whole Blood 58 mg/dL (75-99)
[2022-02-23 06:18] LABS: Glucose,Whole Blood 79 mg/dL (75-99)
[2022-02-23 06:51] LABS: African American GFR (CKD) >90 (>60 ml/min/1.73 sqM); Non-African American GFR(CKD) 89 (>60 ml/min/1.73 sqM)
[2022-02-23 07:27] LABS: Glucose,Whole Blood 205 mg/dL (75-99)
--- NOTE | 2022-02-23 07:27 | P.PN ---
Subjective Progress Note Date: 02/22/22 Principal diagnosis: Left diabetic foot infection Patient is a 50-year-old male presenting to the hospital with left second toe pain swelling redness and drainage has been diagnosed with diabetic foot infection concerning for underlying abscess/Osteomyelitis. Patient is status post transmetatarsal amputation of the left second toe amputated on 02/19/2022 On today's evaluation that is 02/22/2022, the patient remains to be afebrile, patient pain to the left second toe amputation site is currently controlled, the patient denies chest pain shortness of breath or cough the patient denies nausea no vomiting no abdominal pain or diarrhea with antibiotic therapy Objective - Vital Signs Vital signs: Vital Signs Temp 98.4 F 02/22/22 05:00 Pulse 85 02/22/22 05:00 Resp 18 02/22/22 05:00 BP 109/66 02/22/22 05:00 Pulse Ox 96 02/22/22 05:00 FiO2 Intake & Output 02/21/22 02/22/22 02/22/22 18:59 06:59 18:59 Intake Total 1454 800 Balance 1454 800 Intake: Intake, IV Titration 1100 Amount Cefepime 2 gm In Sodium 100 Chloride 0.9% 100 ml @ 25 mls/hr IVPB Q8HR [facility] Rx# :[id number] Sodium Chloride 0.9% 1, 900 000 ml @ 75 mls/hr IV . [id number] [facility] Rx#:[id number] metroNIDAZOLE-NS PMX 500 100 mg In Saline 1 100ml.bag @ 100 mls/hr IVPB Q8H [facility] Rx#:[id number] Oral 354 800 Other: Voiding Method Toilet Toilet # Voids 2 - Exam GENERAL DESCRIPTION: Middle-aged male lying in bed in no distress RESPIRATORY SYSTEM: Unlabored breathing , decreased breath sounds at bases HEART: S1 S2 regular rate and rhythm , ABDOMEN: Soft , no tenderness EXTREMITIES: Left second toe amputation site wound stitches intact with minimal wheezing per the vascular notes - Labs CBC & Chem 7: 02/21/22 05:38 02/23/22 05:56 Labs: Abnormal Lab Results - Last 24 Hours (Table) 02/21/22 02/21/22 02/21/22 Range/Units 17:08 21:05 21:08 ESR (0-20) mm/Hr POC Glucose (mg/dL) 164 H 66 L 62 L (75-99) mg/dL C-Reactive Protein (0.00-0.80) mg/dL 02/21/22 02/21/22 02/22/22 Range/Units 21:25 21:41 02:02 ESR (0-20) mm/Hr POC Glucose (mg/dL) 54 L 60 L 196 H (75-99) mg/dL C-Reactive Protein (0.00-0.80) mg/dL 02/22/22 02/22/22 02/22/22 Range/Units 05:39 05:39 11:42 ESR 49 H (0-20) mm/Hr POC Glucose (mg/dL) 124 H (75-99) mg/dL C-Reactive Protein 2.10 H (0.00-0.80) mg/dL Microbiology - Last 24 Hours (Table) 02/19/22 11:44 Gram Stain - Preliminary Toe - Left Second Tissue Culture - Preliminary Enterobacter aerogenes Strep agalactiae - (group b) Group D Enterococcus Coagulase Negative Staph 02/16/22 05:15 Blood Culture - Final Blood No Growth after 144 hours 02/16/22 05:30 Blood Culture - Final Blood No Growth after 144 hours 02/19/22 11:44 Anaerobic Culture - Preliminary Toe - Left Second Assessment and Plan (1) Diabetic infection of left foot Current Visit: Yes Status: Acute Code(s): E11.628 - TYPE 2 DIABETES MELLITUS WITH OTHER SKIN COMPLICATIONS; L08.9 - LOCAL INFECTION OF THE SKIN AND SUBCUTANEOUS TISSUE, UNSP SNOMED Code(s): 14080973 Plan: 1patient presented to hospital with extensive left diabetic foot infection invo lving his left second toe concerning for underlying osteomyelitis and a deep abscess need to cover for the polymicrobial onesimo usually associated with diabetic foot infection. 2penicillin allergy that would limit the number of antibiotics safe to use. 3patient has been evaluated by vascular surgery and is status post transmetatarsal amputation of the left second toe along with deep cultures which are growing Klebsiella strep and enterococcus with sensitivities currently pending 4patient will continue with vancomycin pharmacy to dose along with cefepime to 2 g every 8 hour and Flagyl, will benefit from a short course of IV antibiotic on discharge for the PICC line will be placed Time with Patient: Less than 30
[2022-02-23] MEDS: ASPIRIN 81 MG PO SCH (09:38)
[2022-02-23] MEDS: metFORMIN 500 MG TAB PO SCH ×2 (09:39→17:31)
[2022-02-23] MEDS: MULTIVITAMINS, THERA 1 EACH TAB PO SCH (09:39)
[2022-02-23] MEDS: INSULIN ASPART (NovoLOG) 100 UNIT/ML VIAL SQ SCH ×4 (09:43→20:41)
[2022-02-23] MEDS ORDERED: LIDOCAINE 1% INJ 10MG/ML (5 ML VIAL-PF) SQ ONE (10:13)
--- NOTE | 2022-02-23 10:27 | P.PN ---
Subjective Progress Note Date: 02/23/22 Principal diagnosis: Infected Diabetic ulcer Patient is seen as a follow-up for a left second toe ischemia, status postop day #4 second toe amputation. Patient overall is doing well. Has dressing clean dry and intact. He's been afebrile. Deep tissue cultures growing Klebsiella strep and enterococcus with sensitivities currently pending. Patient scheduled to undergo PICC line placement. He remains on IV antibiotics per recommendations from infectious disease. Objective - Vital Signs Vital signs: Vital Signs Temp 98.5 F 02/23/22 05:00 Pulse 72 02/23/22 05:00 Resp 16 02/23/22 05:00 BP 116/65 02/23/22 05:00 Pulse Ox 97 02/23/22 05:00 FiO2 Intake & Output 02/22/22 02/23/22 02/23/22 18:59 06:59 18:59 Intake Total 900 Balance 900 Intake: Intake, IV Titration 900 Amount Sodium Chloride 0.9% 1, 900 000 ml @ 75 mls/hr IV . [id number] [facility] Rx#:[id number] Other: Voiding Method Toilet # Voids 3 - Exam General appearance: The patient is alert, oriented, appears in no acute distress. HET: Head is normocephalic and atraumatic. Pupils are equal and reactive. Neck: Supple without lymphadenopathy. Trachea midline. Extremities: Left second toe amputation site well approximated with sutures. No erythema. Minimal serosanguineous drainage. Neurological: No focal deficits. Decreased sensation to bilateral feet due to peripheral neuropathy. - Labs CBC & Chem 7: 02/21/22 05:38 02/23/22 05:56 Labs: Abnormal Lab Results - Last 24 Hours (Table) 02/22/22 02/22/22 02/22/22 Range/Units 05:39 05:39 11:42 ESR 49 H (0-20) mm/Hr POC Glucose (mg/dL) 124 H (75-99) mg/dL C-Reactive Protein 2.10 H (0.00-0.80) mg/dL 02/22/22 02/22/22 02/23/22 Range/Units 17:34 20:21 05:36 ESR (0-20) mm/Hr POC Glucose (mg/dL) 378 H 365 H 44 L (75-99) mg/dL C-Reactive Protein (0.00-0.80) mg/dL 02/23/22 02/23/22 02/23/22 Range/Units 05:56 07:25 07:25 ESR (0-20) mm/Hr POC Glucose (mg/dL) 58 L 205 H 205 H (75-99) mg/dL C-Reactive Protein (0.00-0.80) mg/dL Microbiology - Last 24 Hours (Table) 02/19/22 11:44 Gram Stain - Final Toe - Left Second Tissue Culture - Final Enterobacter aerogenes Strep agalactiae - (group b) Enterococcus faecalis Coagulase Negative Staph 02/16/22 05:15 Blood Culture - Final Blood No Growth after 144 hours 02/16/22 05:30 Blood Culture - Final Blood No Growth after 144 hours Assessment and Plan Assessment: 1. Postop day #4 for left second toe amputation 2. Infected Diabetic ulcer, left second toe ischemia 3. Diabetes mellitus with peripheral neuropathy Plan: 1. Antibiotics per recommendations from infectious disease 2. Offload left foot. 3. Dressing change with the Adaptic, 4 x 4 with gauze daily 4. Physical therapy ordered to assist with the offloading on left foot 5. Patient is cleared for discharge from vascular surgery once otherwise medically stable and infectious disease clears patient Thank you for this consultation. The impression and plan of care has been dictated as directed. Dr. Noonan I performed a history and examination of this patient, discussed the same with the dictator. I agree with the dictator's note ,documented as a scribe. Any additional findings or plans will be noted.
[2022-02-23] MEDS: VANCOMYCIN 1,500 MG in SODIUM CHLORIDE 0.9% 250 ML IVPB SCH ×2 (10:55→20:42)
--- NOTE | 2022-02-23 10:57 | IR ---
EXAMINATION TYPE: IR cvc insert >=5 years DATE OF EXAM: 02/23/2022 COMPARISON: NONE CLINICAL HISTORY: Infection Needs long-term intravenous access for antibiotics. PROCEDURE: Hand hygiene obtained with soap and water and alcohol-based hand rub. After informed consent, the skin overlying the right basilic vein was localized with ultrasound and n oted to be compressible and patent. An ultrasound image was obtained and submitted on the patient's chart. The overlying skin was prepped and draped and Lidocaine was used for local anesthesia. A ski n khushbu was made with a scalpel. Access was gained to the vein under ultrasound guidance with a 21 ga uge needle and a 0.018 inch wire was advanced. Access site was dilated with Peel-Away sheath and cat heter tailored to the appropriate length and advanced such that the distal tip is at the cavoatrial j unction. Spot image was obtained verifying placement. Catheter was fixed to the skin and a sterile dressing was placed following hemostasis. Catheter was aspirated and flushed with saline. Patient w as discharged in stable condition without complication.Maximal barrier technique is utilized. Ultras ound image is documented on the chart. Ultrasound used with sterile technique. Fluoro time and fluoroscopic images submitted to document procedure: 122 intraoperative C-arm images, 0.4 minutes fluoroscopy time IMPRESSION: STATUS POST ULTRASOUND AND FLUOROSCOPIC GUIDED PICC LINE PLACEMENT, READY FOR USE. THIS PROCEDURE WAS PERFORMED BY THE UNDERSIGNED.
[2022-02-23] MEDS: SODIUM CHLORIDE 0.9% 1,000 ML IV SCH ×2 (11:09→23:40)
[2022-02-23 11:42] LABS: Glucose,Whole Blood 238 mg/dL (75-99)
--- NOTE | 2022-02-23 13:46 | P.PN ---
Subjective Progress Note Date: 02/23/22 Feels okay today, no chest pain no abdominal pain nausea no vomiting no dizziness no shortness of breath. Remains afebrile Received PICC line today. Objective - Vital Signs Vital signs: Vital Signs Temp 98.3 F 02/23/22 11:38 Pulse 74 02/23/22 11:38 Resp 18 02/23/22 11:38 BP 113/77 02/23/22 11:38 Pulse Ox 97 02/23/22 11:38 FiO2 Intake & Output 02/22/22 02/23/22 02/23/22 18:59 06:59 18:59 Intake Total 900 Balance 900 Intake: Intake, IV Titration 900 Amount Sodium Chloride 0.9% 1, 900 000 ml @ 75 mls/hr IV . [id number] [facility] Rx#:[id number] Other: Voiding Method Toilet Toilet # Voids 3 1 - Exam General examination - Alert and Oriented 3 in NAD Heart - + S1S2 no murmurs Lungs - Clear to auscultation Abdomen soft NT ND +ve BS, no wheezing. 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 Psych - Calm and cooperative - Labs CBC & Chem 7: 02/21/22 05:38 02/23/22 05:56 Labs: Abnormal Lab Results - Last 24 Hours (Table) 02/22/22 02/22/22 02/23/22 Range/Units 17:34 20:21 05:36 POC Glucose (mg/dL) 378 H 365 H 44 L (75-99) mg/dL 02/23/22 02/23/22 02/23/22 Range/Units 05:56 07:25 07:25 POC Glucose (mg/dL) 58 L 205 H 205 H (75-99) mg/dL 02/23/22 Range/Units 11:40 POC Glucose (mg/dL) 238 H (75-99) mg/dL Microbiology - Last 24 Hours (Table) 02/19/22 11:44 Anaerobic Culture - Final Toe - Left Second 02/19/22 11:44 Gram Stain - Final Toe - Left Second Tissue Culture - Final Enterobacter aerogenes Strep agalactiae - (group b) Enterococcus faecalis Coagulase Negative Staph Assessment and Plan Plan: Left toe diabetic ulcer with cellulitis and osteomyelitis -Continue IV vancomycin and cefepime and Flagyl (penicillin ALLERGY) -Follow up on blood cultures -Bone Scan positive for osteomyelitis -Status post amputation of second digit left foot -Follow up on deep cultures from surgery -Infectious disease on board and managing antibiotics -> ID growing Klebsiella strep and enterococcus , continue Vanc and cefepime pending [facility] for the antibiotics -Tylenol for pain Diabetes mellitus type 2 -Uncontrolled -Resume Levemir and sliding scale insulin -Increase Levemir and add additional 5 units aspart with each meal Mild pseudohyponatremia -Resolved DVT prophylaxis Subcu heparin CODE STATUS:full code DVT prophylaxis: Subcu heparin Anticipated length of stay > than [address]: home
--- NOTE | 2022-02-23 15:15 | XR ---
EXAMINATION TYPE: XR chest 1V DATE OF EXAM: 02/23/2022 COMPARISON: PICC line placement same date HISTORY: PICC line placement TECHNIQUE: Single frontal view of the chest is obtained. FINDINGS: There is no focal air space opacity, pleural effusion, or pneumothorax seen. The cardiac silhouette size is within normal limits. PICC line shows the distal tip at the cavoatrial junction as previously reported. There is eventration of the right hemidiaphragm. The osseous structures are in tact. IMPRESSION: No acute process. PICC line ready for use.
[2022-02-23 17:12] LABS: Glucose,Whole Blood 238 mg/dL (75-99)
[2022-02-23 20:31] LABS: Glucose,Whole Blood 222 mg/dL (75-99)
[2022-02-23] MEDS: INSULIN DETEMIR (LEVEMIR) 100 UNIT/ML SYR SQ SCH (20:41)
[2022-02-24 04:31] LABS: Glucose,Whole Blood 85 mg/dL (75-99)
[2022-02-24] MEDS: metroNIDAZOLE 500 MG TAB PO SCH ×3 (05:52→21:11)
[2022-02-24] MEDS: LACTATED RINGERS 1,000 ML IV SCH (05:54)
[2022-02-24 07:02] LABS: Glucose,Whole Blood 77 mg/dL (75-99)
[2022-02-24] MEDS: INSULIN ASPART (NovoLOG) 100 UNIT/ML VIAL SQ SCH ×4 (07:21→21:10)
[2022-02-24] MEDS: metFORMIN 500 MG TAB PO SCH ×2 (07:55→16:40)
[2022-02-24] MEDS: HEPARIN SODIUM,PORCINE/PF 5,000 UNIT/0.5 ML SYRINGE SQ SCH ×2 (07:56→16:39)
[2022-02-24] MEDS: CEFEPIME 2 GM in SODIUM CHLORIDE 0.9% 100 ML IVPB SCH ×2 (07:56→16:38)
[2022-02-24] MEDS: ASPIRIN 81 MG PO SCH (07:56)
[2022-02-24] MEDS: MULTIVITAMINS, THERA 1 EACH TAB PO SCH (07:56)
[2022-02-24] MEDS ORDERED: VANCOMYCIN TROUGH DUE 1 EACH MISC MISCELLANE ONE (09:00)
--- NOTE | 2022-02-24 09:11 | P.PN ---
Subjective Progress Note Date: 02/24/22 Principal diagnosis: Infected Diabetic ulcer Patient is seen today as a follow-up for left second toe amputation. Still awaiting sensitivities from deep tissue culture. He's been seen and evaluated by physical therapy recommended to offload left foot and given a walker. Patie nt's been afebrile. Pain is well controlled. Objective - Vital Signs Vital signs: Vital Signs Temp 97.8 F 02/24/22 04:19 Pulse 66 02/24/22 04:19 Resp 17 02/24/22 04:19 BP 113/70 02/24/22 04:19 Pulse Ox 99 02/24/22 04:19 FiO2 Intake & Output 02/23/22 02/24/22 02/24/22 18:59 06:59 18:59 Intake Total 450 800 Balance 450 800 Intake: Intake, IV Titration 450 800 Amount Cefepime 2 gm In Sodium 200 100 Chloride 0.9% 100 ml @ 25 mls/hr IVPB Q8HR [facility] Rx# :[id number] Sodium Chloride 0.9% 1, 450 000 ml @ 75 mls/hr IV . [id number] [facility] Rx#:[id number] Vancomycin 1,500 mg In 250 250 Sodium Chloride 0.9% 250 ml @ 125 mls/hr IVPB Q12H [facility] Rx#:[id number] Other: Voiding Method Toilet Toilet Toilet # Voids 1 - Exam General appearance: The patient is alert, oriented, appears in no acute distress. HET: Head is normocephalic and atraumatic. Pupils are equal and reactive. Neck: Supple without lymphadenopathy. Trachea midline. Extremities: Left foot with dressing clean dry and intact. Neurological: No focal deficits. Decreased sensation to bilateral feet due to peripheral neuropathy. - Labs CBC & Chem 7: 02/21/22 05:38 02/23/22 05:56 Labs: Abnormal Lab Results - Last 24 Hours (Table) 02/23/22 02/23/22 02/23/22 Range/Units 11:40 17:11 20:30 POC Glucose (mg/dL) 238 H 238 H 222 H (75-99) mg/dL Microbiology - Last 24 Hours (Table) 02/19/22 11:44 Anaerobic Culture - Final Toe - Left Second Assessment and Plan Assessment: 1. Postop day #5 for left second toe amputation 2. Infected Diabetic ulcer, left second toe ischemia 3. Diabetes mellitus with peripheral neuropathy Plan: 1. Antibiotics per recommendations from infectious disease 2. Offload left foot. 3. Dressing change with the Adaptic, 4 x 4 with gauze daily 4. Physical therapy ordered to assist with the offloading on left foot 5. Patient is cleared for discharge from vascular surgery once otherwise medically stable and infectious disease clears patient Thank you for this consultation. The impression and plan of care has been dictated as directed. Dr. Ventura I performed a history and examination of this patient, discussed the same with the dictator. I agree with the dictator's note ,documented as a scribe. Any additional findings or plans will be noted.
[2022-02-24 09:17] LABS: Basophils % (A) 1 %; Eosinophils # (A) 0.4 k/uL (0-0.7); Eosinophils % (A) 7 %; HCT 40.6 % (39.0-53.0); HGB 12.8 gm/dL (13.0-17.5); Lymphocytes # (A) 1.4 k/uL (1.0-4.8); Lymphocytes % (A) 23 %; MCH 28.9 pg (25.0-35.0); MCHC 31.6 g/dL (31.0-37.0); MCV 91.4 fL (80.0-100.0); Mean Platelet Volume 7.4; Monocytes # (A) 0.4 k/uL (0-1.0); Monocytes % (A) 6 %; Neutrophils # (A) 3.6 k/uL (1.3-7.7); Neutrophils % (A) 60 %; Platelet Count 386 k/uL (150-450); RBC 4.44 m/uL (4.30-5.90); RDW 13.3 % (11.5-15.5); WBC 6.1 k/uL (3.8-10.6)
[2022-02-24 09:23] LABS: ALT 27 U/L (4-49); AST 36 U/L (17-59); African American GFR (CKD) >90 (>60 ml/min/1.73 sqM); Albumin 3.8 g/dL (3.5-5.0); Albumin/Globulin Ratio 1.1; Alkaline Phosphatase 108 U/L (38-126); Anion Gap 8 mmol/L; Blood Urea Nitrogen 11 mg/dL (9-20); Calcium 9.2 mg/dL (8.4-10.2); Carbon Dioxide 28 mmol/L (22-30); Chloride 100 mmol/L (98-107); Globulin 3.4 g/dL; Glucose 72 mg/dL (74-99); Non-African American GFR(CKD) >90 (>60 ml/min/1.73 sqM); Sodium 136 mmol/L (137-145); Total Bilirubin 0.4 mg/dL (0.2-1.3); Total Protein 7.2 g/dL (6.3-8.2)
[2022-02-24 09:45] LABS: Potassium 4.5 mmol/L (3.5-5.1)
[2022-02-24 11:17] LABS: Glucose,Whole Blood 237 mg/dL (75-99)
[2022-02-24] MEDS: VANCOMYCIN 1,500 MG in SODIUM CHLORIDE 0.9% 250 ML IVPB SCH ×2 (11:23→21:12)
[2022-02-24] MEDS: SODIUM CHLORIDE 0.9% 1,000 ML IV SCH (14:35)
--- NOTE | 2022-02-24 14:40 | P.PN ---
Subjective Progress Note Date: 02/24/22 Pt doing well, pending insurance auth prior to abx. Gen: awake, alert HEENT: normocephalic, atraumatic, good hearing acuity, moist mucous membranes Resp: good air exchange, breathing comfortably with no accessory muscle use CVS: good distal perfusion x 4, GI: soft, NTTP, ND : no SPT, no CVAT, angel catheter not present MSK: no pitting edema, no clubbing Neuro: non-focal, moving all extremities Psych: cooperative, euthymic mood Assessment/plan: Left toe diabetic ulcer with cellulitis and osteomyelitis -Continue IV vancomycin and cefepime and Flagyl (penicillin ALLERGY) -Follow up on blood cultures -Bone Scan positive for osteomyelitis -Status post amputation of second digit left foot -Follow up on deep cultures from surgery -Infectious disease on board and managing antibiotics -> ID growing Klebsiella strep and enterococcus , continue Vanc and cefepime pending [facility] approval for the antibiotics -Tylenol for pain Diabetes mellitus type 2 -Uncontrolled -Resume Levemir and sliding scale insulin -Increase Levemir and add additional 5 units aspart with each meal Mild pseudohyponatremia -Resolved DVT prophylaxis Subcu heparin CODE STATUS:full code DVT prophylaxis: Subcu heparin Anticipated length of stay > than [address]: home Objective - Vital Signs Vital signs: Vital Signs Temp 98.4 F 02/24/22 12:38 Pulse 86 02/24/22 12:38 Resp 14 02/24/22 12:38 BP 122/75 02/24/22 12:38 Pulse Ox 98 02/24/22 12:38 FiO2 Intake & Output 02/23/22 02/24/22 02/24/22 18:59 06:59 18:59 Intake Total 450 800 Balance 450 800 Intake: Intake, IV Titration 450 800 Amount Cefepime 2 gm In Sodium 200 100 Chloride 0.9% 100 ml @ 25 mls/hr IVPB Q8HR [facility] Rx# :[id number] Sodium Chloride 0.9% 1, 450 000 ml @ 75 mls/hr IV . [id number] [facility] Rx#:[id number] Vancomycin 1,500 mg In 250 250 Sodium Chloride 0.9% 250 ml @ 125 mls/hr IVPB Q12H [facility] Rx#:[id number] Other: Voiding Method Toilet Toilet Toilet # Voids 1 - Labs CBC & Chem 7: 02/24/22 08:19 02/24/22 08:19 Labs: Abnormal Lab Results - Last 24 Hours (Table) 02/23/22 02/23/22 02/24/22 Range/Units 17:11 20:30 08:19 Hgb 12.8 L (13.0-17.5) gm/dL Sodium (137-145) mmol/L Glucose (74-99) mg/dL POC Glucose (mg/dL) 238 H 222 H (75-99) mg/dL 02/24/22 02/24/22 Range/Units 08:19 11:14 Hgb (13.0-17.5) gm/dL Sodium 136 L (137-145) mmol/L Glucose 72 L (74-99) mg/dL POC Glucose (mg/dL) 237 H (75-99) mg/dL Microbiology - Last 24 Hours (Table) 02/19/22 11:44 Anaerobic Culture - Final Toe - Left Second
[2022-02-24 17:08] LABS: Glucose,Whole Blood 283 mg/dL (75-99)
[2022-02-24 20:46] LABS: Glucose,Whole Blood 289 mg/dL (75-99)
[2022-02-24] MEDS: INSULIN DETEMIR (LEVEMIR) 100 UNIT/ML SYR SQ SCH (21:10)
[2022-02-25] MEDS: HEPARIN SODIUM,PORCINE/PF 5,000 UNIT/0.5 ML SYRINGE SQ SCH ×3 (00:25→17:17)
[2022-02-25] MEDS: CEFEPIME 2 GM in SODIUM CHLORIDE 0.9% 100 ML IVPB SCH ×3 (00:27→17:18)
[2022-02-25] MEDS: metroNIDAZOLE 500 MG TAB PO SCH ×3 (04:24→21:24)
[2022-02-25] MEDS: SODIUM CHLORIDE 0.9% 1,000 ML IV SCH ×2 (04:25→17:18)
[2022-02-25] MEDS: LACTATED RINGERS 1,000 ML IV SCH (05:25)
[2022-02-25 07:04] LABS: Glucose,Whole Blood 95 mg/dL (75-99)
[2022-02-25] MEDS: INSULIN ASPART (NovoLOG) 100 UNIT/ML VIAL SQ SCH ×4 (07:23→21:24)
[2022-02-25] MEDS: metFORMIN 500 MG TAB PO SCH ×2 (08:08→17:18)
[2022-02-25] MEDS: ASPIRIN 81 MG PO SCH (08:08)
[2022-02-25] MEDS: MULTIVITAMINS, THERA 1 EACH TAB PO SCH (08:08)
--- NOTE | 2022-02-25 08:25 | P.PN ---
Subjective Progress Note Date: 02/23/22 Principal diagnosis: Left diabetic foot infection Patient is a 50-year-old male presenting to the hospital with left second toe pain swelling redness and drainage has been diagnosed with diabetic foot infection concerning for underlying abscess/Osteomyelitis. Patient is status post transmetatarsal amputation of the left second toe amputated on 02/19/2022 On today's evaluation that is 02/23/2022, the patient continues to be afebrile, patient denies pain to the left second toe amputation site, the patient denies chest pain shortness of breath or cough the patient denies nausea no vomiting no abdominal pain and no diarrhea with antibiotic therapy Objective - Vital Signs Vital signs: Vital Signs Temp 98.5 F 02/23/22 05:00 Pulse 72 02/23/22 05:00 Resp 16 02/23/22 05:00 BP 116/65 02/23/22 05:00 Pulse Ox 97 02/23/22 05:00 FiO2 Intake & Output 02/22/22 02/23/22 02/23/22 18:59 06:59 18:59 Intake Total 900 Balance 900 Intake: Intake, IV Titration 900 Amount Sodium Chloride 0.9% 1, 900 000 ml @ 75 mls/hr IV . [id number] [facility] Rx#:[id number] Other: Voiding Method Toilet Toilet # Voids 3 1 - Exam GENERAL DESCRIPTION: Middle-aged male lying in bed in no distress RESPIRATORY SYSTEM: Unlabored breathing , decreased breath sounds at bases HEART: S1 S2 regular rate and rhythm , ABDOMEN: Soft , no tenderness EXTREMITIES: Left second toe amputation site wound stitches intact with minimal wheezing per the vascular notes - Labs CBC & Chem 7: 02/24/22 08:19 02/24/22 08:19 Labs: Abnormal Lab Results - Last 24 Hours (Table) 02/22/22 02/22/22 02/23/22 Range/Units 17:34 20:21 05:36 POC Glucose (mg/dL) 378 H 365 H 44 L (75-99) mg/dL 02/23/22 02/23/22 02/23/22 Range/Units 05:56 07:25 07:25 POC Glucose (mg/dL) 58 L 205 H 205 H (75-99) mg/dL 02/23/22 Range/Units 11:40 POC Glucose (mg/dL) 238 H (75-99) mg/dL Microbiology - Last 24 Hours (Table) 02/19/22 11:44 Gram Stain - Final Toe - Left Second Tissue Culture - Final Enterobacter aerogenes Strep agalactiae - (group b) Enterococcus faecalis Coagulase Negative Staph Assessment and Plan (1) Diabetic infection of left foot Current Visit: Yes Status: Acute Code(s): E11.628 - TYPE 2 DIABETES MELLITUS WITH OTHER SKIN COMPLICATIONS; L08.9 - LOCAL INFECTION OF THE SKIN AND SUBCUTANEOUS TISSUE, UNSP SNOMED Code(s): 21385626 Plan: 1patient presented to hospital with extensive left diabetic foot infection involving his left second toe concerning for underlying osteomyelitis and a deep abscess need to cover for the polymicrobial onesimo usually associated with diabetic foot infection. 2penicillin allergy that would limit the number of antibiotics safe to use. 3patient has been evaluated by vascular surgery and is status post transmetatarsal amputation of the left second toe along with deep cultures which are growing Klebsiella strep and enterococcus, patient did have penicillin ALLERGY 4patient will continue with vancomycin pharmacy to dose along with cefepime to 2 g every 8 hour and Flagyl, and two-week course of IV antibiotic therapy on discharged Time with Patient: Less than 30
--- NOTE | 2022-02-25 08:27 | P.PN ---
Subjective Progress Note Date: 02/24/22 Principal diagnosis: Left diabetic foot infection Patient is a 50-year-old male presenting to the hospital with left second toe pain swelling redness and drainage has been diagnosed with diabetic foot infection concerning for underlying abscess/Osteomyelitis. Patient is status post transmetatarsal amputation of the left second toe amputated on 02/19/2022 On today's evaluation that is 02/24/2022, the patient remains to be afebrile, patient denies pain to the left second toe amputation site, the patient denies chest pain shortness of breath or cough the patient denies nausea no vomiting no abdominal pain and no diarrhea Objective - Vital Signs Vital signs: Vital Signs Temp 97.8 F 02/24/22 04:19 Pulse 66 02/24/22 04:19 Resp 17 02/24/22 04:19 BP 113/70 02/24/22 04:19 Pulse Ox 99 02/24/22 04:19 FiO2 Intake & Output 02/23/22 02/24/22 02/24/22 18:59 06:59 18:59 Intake Total 450 800 Balance 450 800 Intake: Intake, IV Titration 450 800 Amount Cefepime 2 gm In Sodium 200 100 Chloride 0.9% 100 ml @ 25 mls/hr IVPB Q8HR [facility] Rx# :[id number] Sodium Chloride 0.9% 1, 450 000 ml @ 75 mls/hr IV . [id number] [facility] Rx#:[id number] Vancomycin 1,500 mg In 250 250 Sodium Chloride 0.9% 250 ml @ 125 mls/hr IVPB Q12H [facility] Rx#:[id number] Other: Voiding Method Toilet Toilet Toilet # Voids 1 - Exam GENERAL DESCRIPTION: Middle-aged male lying in bed in no distress RESPIRATORY SYSTEM: Unlabored breathing , decreased breath sounds at bases HEART: S1 S2 regular rate and rhythm , ABDOMEN: Soft , no tenderness EXTREMITIES: Left second toe amputation site wound stitches intact with minimal wheezing per the vascular notes - Labs CBC & Chem 7: 02/24/22 08:19 02/24/22 08:19 Labs: Abnormal Lab Results - Last 24 Hours (Table) 02/23/22 02/23/22 02/23/22 Range/Units 11:40 17:11 20:30 Hgb (13.0-17.5) gm/dL Sodium (137-145) mmol/L Glucose (74-99) mg/dL POC Glucose (mg/dL) 238 H 238 H 222 H (75-99) mg/dL 02/24/22 02/24/22 02/24/22 Range/Units 08:19 08:19 11:14 Hgb 12.8 L (13.0-17.5) gm/dL Sodium 136 L (137-145) mmol/L Glucose 72 L (74-99) mg/dL POC Glucose (mg/dL) 237 H (75-99) mg/dL Microbiology - Last 24 Hours (Table) 02/19/22 11:44 Anaerobic Culture - Final Toe - Left Second Assessment and Plan (1) Diabetic infection of left foot Current Visit: Yes Status: Acute Code(s): E11.628 - TYPE 2 DIABETES MELLITUS WITH OTHER SKIN COMPLICATIONS; L08.9 - LOCAL INFECTION OF THE SKIN AND SUBCUTANEOUS TISSUE, UNSP SNOMED Code(s): 25019684 Plan: 1patient presented to hospital with extensive left diabetic foot infection involving his left second toe concerning for underlying osteomyelitis and a deep abscess need to cover for the polymicrobial onesimo usually associated with d iabetic foot infection. 2penicillin allergy that would limit the number of antibiotics safe to use. 3patient has been evaluated by vascular surgery and is status post transmetatarsal amputation of the left second toe along with deep cultures which are growing Klebsiella strep and enterococcus, patient did have penicillin ALLERGY 4patient has shown clinical improvement and will continue with vancomycin pharmacy to dose along with cefepime to 2 g every 8 hour and Flagyl, currently waiting for outpatient IV antibiotic arrangement Time with Patient: Less than 30
[2022-02-25] MEDS: VANCOMYCIN 1,500 MG in SODIUM CHLORIDE 0.9% 250 ML IVPB SCH ×2 (09:34→21:56)
[2022-02-25] MEDS ORDERED: metroNIDAZOLE 500 MG TAB ONE (14:00)
[2022-02-25 14:49] LABS: Glucose,Whole Blood 226 mg/dL (75-99)
--- NOTE | 2022-02-25 16:44 | P.PN ---
Subjective Progress Note Date: 02/25/22 Pt doing well, pending insurance auth prior to abx. Gen: awake, alert HEENT: normocephalic, atraumatic, good hearing acuity, moist mucous membranes Resp: good air exchange, breathing comfortably with no accessory muscle use CVS: good distal perfusion x 4, GI: soft, NTTP, ND : no SPT, no CVAT, angel catheter not present MSK: no pitting edema, no clubbing Neuro: non-focal, moving all extremities Psych: cooperative, euthymic mood Assessment/plan: Left toe diabetic ulcer with cellulitis and osteomyelitis -Continue IV vancomycin and cefepime and Flagyl (penicillin ALLERGY) -Follow up on blood cultures -Bone Scan positive for osteomyelitis -Status post amputation of second digit left foot -Follow up on deep cultures from surgery -Infectious disease on board and managing antibiotics -> ID growing Klebsiella strep and enterococcus , continue Vanc and cefepime pending [facility] approval for the antibiotics -Tylenol for pain Diabetes mellitus type 2 -Uncontrolled -Resume Levemir and sliding scale insulin -Increase Levemir and add additional 5 units aspart with each meal Mild pseudohyponatremia -Resolved DVT prophylaxis Subcu heparin CODE STATUS:full code DVT prophylaxis: Subcu heparin Anticipated length of stay > than [address]: home Objective - Vital Signs Vital signs: Vital Signs Temp 97.7 F 02/25/22 04:29 Pulse 65 02/25/22 04:29 Resp 18 02/25/22 04:29 BP 118/71 02/25/22 04:29 Pulse Ox 96 02/25/22 04:29 FiO2 Intake & Output 02/24/22 02/25/22 02/25/22 18:59 06:59 18:59 Intake Total 450 800 Balance 450 800 Intake: Intake, IV Titration 450 800 Amount Cefepime 2 gm In Sodium 200 100 Chloride 0.9% 100 ml @ 25 mls/hr IVPB Q8HR [facility] Rx# :[id number] Sodium Chloride 0.9% 1, 450 000 ml @ 75 mls/hr IV . [id number] [facility] Rx#:[id number] Vancomycin 1,500 mg In 250 250 Sodium Chloride 0.9% 250 ml @ 125 mls/hr IVPB Q12H [facility] Rx#:[id number] Other: Voiding Method Toilet Toilet Toilet - Labs CBC & Chem 7: 02/24/22 08:19 02/24/22 08:19 Labs: Abnormal Lab Results - Last 24 Hours (Table) 02/24/22 02/24/22 02/25/22 Range/Units 17:07 20:45 11:41 POC Glucose (mg/dL) 283 H 289 H 226 H (75-99) mg/dL
[2022-02-25 17:10] LABS: Glucose,Whole Blood 285 mg/dL (75-99)
[2022-02-25 21:04] LABS: Glucose,Whole Blood 288 mg/dL (75-99)
[2022-02-25] MEDS: INSULIN DETEMIR (LEVEMIR) 100 UNIT/ML SYR SQ SCH (21:24)
[2022-02-25 22:03] VITALS: RESP 16
[2022-02-26] MEDS: HEPARIN SODIUM,PORCINE/PF 5,000 UNIT/0.5 ML SYRINGE SQ SCH ×2 (00:34→07:52)
[2022-02-26] MEDS: CEFEPIME 2 GM in SODIUM CHLORIDE 0.9% 100 ML IVPB SCH ×2 (00:34→07:54)
[2022-02-26 04:47] VITALS: BP 119/74; PULSE 77; TEMP 98.1
[2022-02-26] MEDS: metroNIDAZOLE 500 MG TAB PO SCH (05:59)
[2022-02-26 06:08] LABS: African American GFR (CKD) >90 (>60 ml/min/1.73 sqM); Non-African American GFR(CKD) >90 (>60 ml/min/1.73 sqM)
[2022-02-26 07:05] LABS: Glucose,Whole Blood 108 mg/dL (75-99)
[2022-02-26] MEDS: INSULIN ASPART (NovoLOG) 100 UNIT/ML VIAL SQ SCH (07:40)
[2022-02-26] MEDS: metFORMIN 500 MG TAB PO SCH (07:52)
[2022-02-26] MEDS: MULTIVITAMINS, THERA 1 EACH TAB PO SCH (07:52)
[2022-02-26] MEDS: ASPIRIN 81 MG PO SCH (07:52)
[2022-02-26] MEDS: SODIUM CHLORIDE 0.9% 1,000 ML IV SCH (07:53)
[2022-02-26] MEDS: LACTATED RINGERS 1,000 ML IV SCH (07:53)
--- NOTE | 2022-02-26 08:12 | P.DS ---
Providers Date of admission: 02/16/22 11:49 Expected date of discharge: 02/26/22 Attending physician: Darius Vargas MD Consults: 02/16/22 06:08 Consult Physician Routine Consulting Provider: Driss Mccarty Consult Reason/Comments: Diabetic foot infection Do you want consulting provider notified?: Yes 02/16/22 07:30 Consult Physician Routine Consulting Provider: Jesse Weems Consult Reason/Comments: diabetic foot infection Do you want consulting provider notified?: Yes 02/16/22 11:23 Consult Physician Routine Consulting Provider: Isacc Noonan Consult Reason/Comments: diabetic foot ulcer Do you want consulting provider notified?: Yes Primary care physician: [facility] Hospital Course: Discharge Diagnosis: Hospital Course: Patient is a very pleasant 38-year-old male with a past medical history of alcohol abuse disorder with last reported alcoholic beverage being consumed October 2021, and alcoholic liver cirrhosis. He presented to the emergency department on 03/26/22 with a chief complaint of abdominal pain and distention. He underwent full evaluation in the emergency department and was found to have mild leukocytosis with WBC count of 15.3,mild hyponatremia with sodium 133, elevated bilirubin 5.1, AST 115, ALT 34, and alkaline phosphatase of 163 with an elevated ammonia level of 53. CT abdomen and pelvis revealed massive abdominal ascites with edema around the umbilicus, infiltrate and atelectasis at bilateral lung bases, and splenomegaly. Patient's MELD score is 21. Patient is admitted under services with consultation to gastroenterology and interventional radiology for paracentesis. Patient underwent paracentesis 02/24/22 with removal of a reported 10.5 L of serous fluid. Physical exam: Patient was seen and fully evaluated at bedside this afternoon. Patient reports continued fatigue and slight left-sided abdominal pain/decreased discomfort remainin WBCs were elevated yesterday at 18.45, awaiting ascites culture results. Due to elevation in WBCs, will give patient a prophylactic dose of Rocephin pending culture results. Repeat CBC and CMP were ordered and awaiting results at this time. Patient is tolerating oral intake and denies having any episodes of nausea or vomiting, denies any chest pain, palpitations, or shortn ess of breath. Patient remains afebrile with vital signs stable. Vital signs reviewed and stable. General: Nontoxic, no distress and appears stated age. Derm: Skin warm and dry, normal coloration for ethnicity. Head: Atraumatic, normocephalic and symmetric. Eyes: EOMs intact, no lid lag, and icteric sclera Mouth: no lip lesions, mucus membranes moist Cardiovascular: regular rate and rhythm with normal S1S2, no murmur, positive posterior tibial pulses bilaterally, and cap refill < 2 seconds. Lungs: Respirations even, regular, and unlabored on room air. Lungs CTA bilaterally, no rhonchi, no rales, no wheezing, and no accessory muscle usage. Abdominal: Cirrhotic abdomen that is distended. nontender to palpation, no guarding, no appreciable organomegaly Ext: ROM intact. No gross muscle atrophy, no edema, no contractures Neuro: Speech clear, face symmetrical and CN II-XII grossly intact with no noted focal neuro deficits Psych: Alert and oriented to person, place, time, and situation. Appropriate and pleasant affect. Assessment and Plan of Care: Abdominal pain Decompensated alcoholic liver cirrhosis with ascites Hyperammonemia Splenomegaly -MELD score is 21 -IR consulted, patient underwent paracentesis 02/24/22 with removal of 10.5 L of fluid -IV antibiotics: Rocephin may discontinue if ascites culture results are negative. -GI consulted, agreed with paracentesis and continuation of lactulose/spironolactone/Lasix and recommending outpatient follow-up in their office. -Continue spironolactone and Lasix -Continue daily lactulose -Morphine for pain control Alcohol abuse disorder -Continue to encourage cessation, patient reports last drink October 2021 -Recommend outpatient follow-up with armed security professional to be evaluated for possibility of transplant in the future CODE STATUS: full code DVT prophylaxis: heparin Discussed with: patient and RN Anticipated discharge date: clinical course to determine, likely tomorrow morning Anticipated discharge place: home A total of 35 minutes was spent on the care of this complex patient more than 50% of the time was spent in counseling and care coordination. A total of [ ] minutes of time were spent preparing this complex discharge summary. Pt was discharged on [ ] at [ ] Patient Condition at Discharge: Stable Plan - Discharge Summary Discharge Rx Participant: No New Discharge Prescriptions: New Cefepime [Maxipime] 2 gm IVPB Q8H #42 each Vancomycin HCl in 5 % Dextrose [Vancomycin 1 Gram/250 ml-D5w] 1.5 gm IV Q12HR #28 each Discontinued Cephalexin [Keflex] 500 mg PO Q6HR #40 cap No Action Multivitamins, Thera [Multivitamin (formulary)] 1 tab PO DAILY Insulin Glargine,Hum.rec.anlog [Lantus Solostar Pen] 26 unit SQ HS metFORMIN HCL [Glucophage] 1,000 mg PO AC-BID Aspirin EC [Ecotrin Low Dose] 81 mg PO DAILY Insulin Aspart [NovoLOG Flexpen] See Protocol SQ AC-TID Discharge Medication List Aspirin EC [Ecotrin Low Dose] 81 mg PO DAILY 06/20/21 [History] Insulin Aspart [NovoLOG Flexpen] See Protocol SQ AC-TID 06/20/21 [History] metFORMIN HCL [Glucophage] 1,000 mg PO AC-BID 06/20/21 [History] Multivitamins, Thera [Multivitamin (formulary)] 1 tab PO DAILY 07/05/21 [History] Insulin Glargine,Hum.rec.anlog [Lantus Solostar Pen] 26 unit SQ HS 02/16/22 [History] Cefepime [Maxipime] 2 gm IVPB Q8H #42 each 02/23/22 [Rx] Vancomycin HCl in 5 % Dextrose [Vancomycin 1 Gram/250 ml-D5w] 1.5 gm IV Q12HR #28 each 02/23/22 [Rx] Follow up Appointment(s)/Referral(s): [facility] [NON-STAFF] - 1 Week Ck Burgess DO [Doctor of Osteopathic Medicine] - 03/11/22 9:15 am Jesse Weems MD [STAFF PHYSICIAN] - 1 Week [facility] [Primary Care Provider] - 1-2 days Activity/Diet/Wound Care/Special Instructions: Pascualeleazar larose -
[2022-02-26] MEDS: VANCOMYCIN 1,500 MG in SODIUM CHLORIDE 0.9% 250 ML IVPB SCH (09:47)
--- NOTE | 2022-02-26 11:32 | P.DS ---
Providers Date of admission: 02/16/22 11:49 Expected date of discharge: 02/26/22 Attending physician: Darius Vargas MD Consults: 02/16/22 06:08 Consult Physician Routine Consulting Provider: Driss Mccarty Consult Reason/Comments: Diabetic foot infection Do you want consulting provider notified?: Yes 02/16/22 07:30 Consult Physician Routine Consulting Provider: Jesse Weems Consult Reason/Comments: diabetic foot infection Do you want consulting provider notified?: Yes Primary care physician: 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 Pt underwent nuclear medicine exam which showed evidence of acute osteomyelitis. Pt was seen in consultation with ID and surgery. He underwent transmetatarsal second toe amputation on 02/19 with good results. ID recommended ongoing vancomycin and cefepime bc of polymicrobial growth from OR culture. Pt d/c'd home with home abx. Doing well overall. F/u with PCP and ID arranged. I spent 32 minutes coordinating this discharge. Gen: awake, alert HEENT: normocephalic, atraumatic, good hearing acuity, moist mucous membranes Resp: good air exchange, breathing comfortably with no accessory muscle use CVS: good distal perfusion x 4, GI: soft, NTTP, ND : no SPT, no CVAT, angel catheter not present MSK: no pitting edema, no clubbing Neuro: non-focal, moving all extremities Psych: cooperative, euthymic mood Patient Condition at Discharge: Good Plan - Discharge Summary Discharge Rx Participant: No New Discharge Prescriptions: New Cefepime [Maxipime] 2 gm IVPB Q8H #42 each metroNIDAZOLE [Flagyl] 500 mg PO Q8H #42 tab Vancomycin HCl in 5 % Dextrose [Vancomycin 1 Gram/250 ml-D5w] 1.5 gm IV Q12HR #28 each Acetaminophen Tab [Tylenol] 650 mg PO Q6HR PRN tab PRN Reason: Mild Pain Or Fever > 100.5 Continue Multivitamins, Thera [Multivitamin (formulary)] 1 tab PO DAILY metFORMIN HCL [Glucophage] 1,000 mg PO AC-BID Aspirin EC [Ecotrin Low Dose] 81 mg PO DAILY Insulin Aspart [NovoLOG Flexpen] See Protocol SQ AC-TID Changed Insulin Glargine,Hum.rec.anlog [Lantus Solostar Pen] 35 unit SQ HS #0 Discontinued Cephalexin [Keflex] 500 mg PO Q6HR #40 cap Discharge Medication List Aspirin EC [Ecotrin Low Dose] 81 mg PO DAILY 06/20/21 [History] Insulin Aspart [NovoLOG Flexpen] See Protocol SQ AC-TID 06/20/21 [History] metFORMIN HCL [Glucophage] 1,000 mg PO AC-BID 06/20/21 [History] Multivitamins, Thera [Multivitamin (formulary)] 1 tab PO DAILY 07/05/21 [History] Cefepime [Maxipime] 2 gm IVPB Q8H #42 each 02/23/22 [Rx] Vancomycin HCl in 5 % Dextrose [Vancomycin 1 Gram/250 ml-D5w] 1.5 gm IV Q12HR #28 each 02/23/22 [Rx] Acetaminophen Tab [Tylenol] 650 mg PO Q6HR PRN tab 02/26/22 [Rx] Insulin Glargine,Hum.rec.anlog [Lantus Solostar Pen] 35 unit SQ HS #0 02/26/22 [Rx] metroNIDAZOLE [Flagyl] 500 mg PO Q8H #42 tab 02/26/22 [Rx] Follow up Appointment(s)/Referral(s): [facility] [NON-STAFF] - 1 Week Ck Burgess DO [Doctor of Osteopathic Medicine] - 03/11/22 9:15 am Jesse Weems MD [STAFF PHYSICIAN] - 1 Week [facility] [Primary Care Provider] - 1-2 days Activity/Diet/Wound Care/Special Instructions: Pascual larose - Discharge Disposition: HOME WITH HOME HEALTH SERVICES
[2022-02-27] MEDS ORDERED: VANCOMYCIN TROUGH DUE 1 EACH MISC MISCELLANE ONE (09:00)
== END 2022-02-26 12:01 | disposition home health service (06) | DRG 617 ==
LOC: EC 16:22 → 6NMEDSUR 02-16 06:08 → OBSVTOIN 02-16 11:49 → 5NMEDONC 02-16 11:50
PROVIDERS: ADMIT Internal Medicine; ATTEND Internal Medicine
PROC: 0Y6N0ZB Detachment at Left Foot, Partial 2nd Ray, Open Approach (ICD-10-PCS; principal; 2022-02-19 11:00)
PROC: 02HV33Z Insertion of Infusion Device into Superior Vena Cava, Percutaneous Approach (ICD-10-PCS; 2022-02-23)
DX: E11.69 Type 2 diabetes mellitus with other specified complication (principal); M86.172 Other acute osteomyelitis, left ankle and foot; E11.52 Type 2 diabetes mellitus with diabetic peripheral angiopathy with gangrene; E11.621 Type 2 diabetes mellitus with foot ulcer; E11.42 Type 2 diabetes mellitus with diabetic polyneuropathy; E11.628 Type 2 diabetes mellitus with other skin complications; L97.529 Non-pressure chronic ulcer of other part of left foot with unspecified severity; E11.65 Type 2 diabetes mellitus with hyperglycemia; L03.032 Cellulitis of left toe; B95.1 Streptococcus, group B, as the cause of diseases classified elsewhere; Z89.411 Acquired absence of right great toe; Z79.4 Long term (current) use of insulin; B95.2 Enterococcus as the cause of diseases classified elsewhere; B96.1 Klebsiella pneumoniae [K. pneumoniae] as the cause of diseases classified elsewhere; E66.3 Overweight; Z68.28 Body mass index [BMI] 28.0-28.9, adult; Z79.82 Long term (current) use of aspirin; Z79.84 Long term (current) use of oral hypoglycemic drugs; Z79.899 Other long term (current) drug therapy; Z87.39 Personal history of other diseases of the musculoskeletal system and connective tissue; Z98.890 Other specified postprocedural states; Z71.3 Dietary counseling and surveillance; Z88.0 Allergy status to penicillin; Z80.1 Family history of malignant neoplasm of trachea, bronchus and lung; Z80.0 Family history of malignant neoplasm of digestive organs; Z81.2 Family history of tobacco abuse and dependence
CPT/HCPCS: 36415; 36573; 71045; 78315; 80048; 80053; 80202; 82565; 85025; 85652; 86140; 87040; 87070; 87075; 87077; 87186; 87205; 96365; 96366; 96367; 96368; 99285

== ENCOUNTER 2022-02-28 02:53 | Emergency (ER) | payer OTHER ==
[2022-02-28 03:01] VITALS: RESP 18; TEMP 98.3
[2022-02-28] MEDS ORDERED: DEXAMETHASONE SOD PHOSPHATE 10 MG/ML 1 ML VIAL IM STA (03:45)
[2022-02-28] MEDS ORDERED: TRIAMCINOLONE 0.1% CREAM 80 GM TUBE TOPICAL STA (03:45)
[2022-02-28] MEDS ORDERED: hydrOXYzine HCL 25 MG TAB PO STA (03:45)
[2022-02-28] MEDS ORDERED: FAMOTIDINE 20 MG TAB PO STA (03:45)
--- NOTE | 2022-02-28 03:47 | ED ---
Skin/Abscess/FB HPI - General Chief complaint: Skin/Abscess/Foreign Body Stated complaint: Rash Time Seen by Provider: 02/28/22 03:29 Source: patient, RN notes reviewed, old records reviewed Mode of arrival: ambulatory Limitations: no limitations - History of Present Illness Initial comments: This is a 56-year-old male to the emergency department for evaluation patient resents today for evaluation regarding rash rash anterior chest mildly and arms. Recent started on multiple different antibiotics no shortness of breath, no weakness. No other significant complaints recently of want hospital admission and again denying current antibiotic treatment. Had no problems with his antibiotics in the hospital. Rashes began it is itchy is the anterior neck and chest. MD complaint: rash -: hour(s) Tetanus Up to Date: yes Location: chest, back, LUE, RUE Severity: mild Severity scale (1-10): 2 Quality: other (Itching) Consistency: constant Improves with: none Worsens with: none Context: new medication Associated symptoms: denies other symptoms Treatments Prior to Arrival: none - Related Data Home Medications Medication Instructions Recorded Confirmed Aspirin EC [Ecotrin Low Dose] 81 mg PO DAILY 06/20/21 02/16/22 Insulin Aspart [NovoLOG Flexpen] See Protocol SQ AC-TID 06/20/21 02/16/22 metFORMIN HCL [Glucophage] 1,000 mg PO AC-BID 06/20/21 02/16/22 Multivitamins, Thera [Multivitamin 1 tab PO DAILY 07/05/21 02/16/22 (formulary)] Previous Rx's Medication Instructions Recorded Cefepime [Maxipime] 2 gm IVPB Q8H #42 each 02/23/22 Vancomycin HCl in 5 % Dextrose 1.5 gm IV Q12HR #28 each 02/23/22 [Vancomycin 1 Gram/250 ml-D5w] Acetaminophen Tab [Tylenol] 650 mg PO Q6HR PRN tab 02/26/22 Insulin Glargine,Hum.rec.anlog 35 unit SQ HS #0 02/26/22 [Lantus Solostar Pen] metroNIDAZOLE [Flagyl] 500 mg PO Q8H #42 tab 02/26/22 Famotidine [Pepcid] 20 mg PO BID #28 tablet 02/28/22 hydrOXYzine HCL [Atarax] 25 mg PO TID PRN #15 tab 02/28/22 Allergies Allergy/AdvReac Type Severity Reaction Status Date / Time Penicillins Allergy Rash/Hives Verified 02/16/22 07:11 Review of Systems ROS Statement: Those systems with pertinent positive or pertinent negative responses have been documented in the HPI. ROS Other: All systems not noted in ROS Statement are negative. Past Medical History Past Medical History: Diabetes Mellitus History of Any Multi-Drug Resistant Organisms: None Reported Past Surgical History: Orthopedic Surgery Additional Past Surgical History / Comment(s): Foot surgery, PICC line Past Anesthesia/Blood Transfusion Reactions: No Reported Reaction Past Psychological History: No Psychological Hx Reported Smoking Status: Never smoker Past Alcohol Use History: None Reported Past Drug Use History: None Reported - Past Family History Father Family Medical History: Cancer Additional Family Medical History / Comment(s): stomach and lung CA, smoker General Exam - General Exam Comments Initial Comments: Urticarial reaction to the anterior chest Limitations: no limitations General appearance: alert, in no apparent distress Head exam: Present: atraumatic, normocephalic, normal inspection Eye exam: Present: normal appearance, PERRL, EOMI. Absent: scleral icterus, conjunctival injection, periorbital swelling ENT exam: Present: normal exam, mucous membranes moist Neck exam: Present: normal inspection. Absent: tenderness, meningismus, lymphadenopathy Respiratory exam: Present: normal lung sounds bilaterally. Absent: respiratory distress, wheezes, rales, rhonchi, stridor Cardiovascular Exam: Present: regular rate, normal rhythm, normal heart sounds. Absent: systolic murmur, diastolic murmur, rubs, gallop, clicks GI/Abdominal exam: Present: soft, normal bowel sounds. Absent: distended, tenderness, guarding, rebound, rigid Extremities exam: Present: normal inspection, full ROM, normal capillary refill. Absent: tenderness, pedal edema, joint swelling, calf tenderness Back exam: Present: normal inspection Neurological exam: Present: alert, oriented X3, CN II-XII intact Psychiatric exam: Present: normal affect, normal mood Skin exam: Present: warm, dry, intact, normal color. Absent: rash Course Vital Signs 02/28/22 02/28/22 02:55 04:11 Temperature 98.3 F Pulse Rate 101 H 76 Respiratory 18 18 Rate Blood Pressure 119/78 145/67 O2 Sat by Pulse 98 97 Oximetry - Reevaluation(s) Reevaluation #1: 02/28/22 Medical record is reviewed Reevaluation #2: 02/28/22 Patient informed of results and questions answered Reevaluation #3: 02/28/22 Patient feels good for discharge home Patient continue on ANTIBIOTICS Medical Decision Making - Medical Decision Making 56 male to the emergency department for evaluation of ALLERGIC reaction or ur ticarial reaction, symptoms are improved here in the ER the can be discharged home Disposition Clinical Impression: Urticaria, Allergic reaction Disposition: HOME SELF-CARE Condition: Good Instructions (If sedation given, give patient instructions): Urticaria (ED) Prescriptions: hydrOXYzine HCL [Atarax] 25 mg PO TID PRN #15 tab PRN Reason: Itching Famotidine [Pepcid] 20 mg PO BID #28 tablet Is patient prescribed a controlled substance at d/c from ED?: No Referrals: [facility] [Primary Care Provider] - 1-2 days Time of Disposition: 04:00
[2022-02-28 04:12] VITALS: BP 145/67; PULSE 76
== END 2022-02-28 04:27 | disposition home or self-care (01) ==
LOC: EC 02:53
DX: T78.40XA Allergy, unspecified, initial encounter (principal); L50.9 Urticaria, unspecified; E11.9 Type 2 diabetes mellitus without complications; Z88.0 Allergy status to penicillin
CPT/HCPCS: 99282; 96372; J1100

== ENCOUNTER 2022-03-15 10:17 | Emergency (ER) | payer OTHER ==
[2022-03-15 10:46] VITALS: RESP 18
--- NOTE | 2022-03-15 12:48 | ED ---
General Adult HPI - General Chief complaint: Recheck/Abnormal Lab/Rx Stated complaint: PICC line problems Time Seen by Provider: 03/15/22 12:04 Source: patient Mode of arrival: ambulatory Limitations: no limitations - History of Present Illness Initial comments: 56-year-old male with past medical history of diabetes mellitus presents to the emergency department after he pulled his PICC line out. He reported that he received his infusion last night and had no issues. He awoke this morning, took a shower and when he got out he noted that his PICC line was externalized approximately 8 cm. He receives vancomycin twice daily for a wound on his left second toe. Denies any missed doses currently. His home care nurse instructed him to come to the emergency department after they were unable to facilitate his PICC line at home. The patient denies any fevers, chills, increased pain or pustular drainage from his surgical site. No other alleviating, precipitating or modifying factors - Related Data Home Medications Medication Instructions Recorded Confirmed Aspirin EC [Ecotrin Low Dose] 81 mg PO DAILY 06/20/21 03/15/22 Insulin Aspart [NovoLOG Flexpen] See Protocol SQ AC-TID 06/20/21 03/15/22 metFORMIN HCL [Glucophage] 1,000 mg PO AC-BID 06/20/21 03/15/22 Multivitamins, Thera [Multivitamin 1 tab PO DAILY 07/05/21 03/15/22 (formulary)] Previous Rx's Medication Instructions Recorded Vancomycin HCl in 5 % Dextrose 1.5 gm IV Q12HR #28 each 02/23/22 [Vancomycin 1 Gram/250 ml-D5w] Acetaminophen Tab [Tylenol] 650 mg PO Q6HR PRN tab 02/26/22 Insulin Glargine,Hum.rec.anlog 35 unit SQ HS #0 02/26/22 [Lantus Solostar Pen] Allergies Allergy/AdvReac Type Severity Reaction Status Date / Time Penicillins Allergy Rash/Hives Verified 03/15/22 12:55 Review of Systems ROS Statement: Those systems with pertinent positive or pertinent negative responses have been documented in the HPI. ROS Other: All systems not noted in ROS Statement are negative. Past Medical History Past Medical History: Diabetes Mellitus History of Any Multi-Drug Resistant Organisms: None Reported Past Surgical History: Orthopedic Surgery Additional Past Surgical History / Comment(s): Foot surgery, PICC line Past Anesthesia/Blood Transfusion Reactions: No Reported Reaction Past Psychological History: No Psychological Hx Reported Smoking Status: Never smoker Past Alcohol Use History: None Reported Past Drug Use History: None Reported - Past Family History Father Family Medical History: Cancer Additional Family Medical History / Comment(s): stomach and lung CA, smoker General Exam Limitations: no limitations General appearance: alert, in no apparent distress Head exam: Present: atraumatic, normocephalic, normal inspection Eye exam: Present: normal appearance, PERRL, EOMI. Absent: scleral icterus, conjunctival injection, periorbital swelling ENT exam: Present: normal exam, mucous membranes moist Neck exam: Present: normal inspection. Absent: tenderness, meningismus, lymphadenopathy Respiratory exam: Present: normal lung sounds bilaterally. Absent: respiratory distress, wheezes, rales, rhonchi, stridor Cardiovascular Exam: Present: regular rate, normal rhythm, normal heart sounds. Absent: systolic murmur, diastolic murmur, rubs, gallop, clicks GI/Abdominal exam: Present: soft, normal bowel sounds. Absent: distended, tenderness, guarding, rebound, rigid Extremities exam: Present: full ROM, normal capillary refill, other (PICC line right upper extremity. Mild redness around insertion site. Externalized 8 cm.). Absent: tenderness, pedal edema, joint swelling, calf tenderness Back exam: Present: normal inspection Neurological exam: Present: alert, oriented X3, CN II-XII intact Psychiatric exam: Present: normal affect, normal mood Skin exam: Present: warm, dry, intact, normal color. Absent: rash Course Vital Signs 03/15/22 03/15/22 10:41 12:51 Temperature 98.0 F 97.3 F L Pulse Rate 73 71 Respiratory 18 18 Rate Blood Pressure 116/79 120/78 O2 Sat by Pulse 97 98 Oximetry Medical Decision Making - Medical Decision Making Upon arrival the patient is placed into room 29. We did call the [facility] was able to facilitate the patient's PICC line and one hour. Patient is discharged and instructed to infuse twice today once PICC line is in place. Follow up with his doctor in 2-4 days and return for any new or worsening symptoms. He agreed to plan was discharged home in stable condition Disposition Clinical Impression: Diabetic infection of left foot, PICC line infiltration Disposition: HOME SELF-CARE Condition: Stable Instructions (If sedation given, give patient instructions): PICC (Peripherally Inserted Central Catheter) (DC) Additional Instructions: Please do your infusion today. Follow up with your doctor and return for any new or worsening symptoms. Is patient prescribed a controlled substance at d/c from ED?: No Referrals: [facility],Clinic [Primary Care Provider] - 1-2 days Time of Disposition: 12:48
[2022-03-15 12:51] VITALS: BP 120/78; PULSE 71; TEMP 97.3
[2022-03-15] MEDS ORDERED: LIDOCAINE 1% INJ 10MG/ML (5 ML VIAL-PF) SQ ONE (13:49)
--- NOTE | 2022-03-16 11:04 | IR ---
EXAMINATION TYPE: IR cvc insert >=5 years DATE OF EXAM: 03/15/2022 COMPARISON: NONE CLINICAL HISTORY: Infection Needs long-term intravenous access for antibiotics. PROCEDURE: Hand hygiene obtained with soap and water and alcohol-based hand rub. After informed consent, the skin overlying the right basilic vein was localized with ultrasound and n oted to be compressible and patent. An ultrasound image was obtained and submitted on the patient's chart. The overlying skin was prepped and draped and Lidocaine was used for local anesthesia. A ski n khushbu was made with a scalpel. Access was gained to the vein under ultrasound guidance with a 21 ga uge needle and a 0.018 inch wire was advanced. Access site was dilated with Peel-Away sheath and cat heter tailored to the appropriate length and advanced such that the distal tip is at the cavoatrial j unction. Spot image was obtained verifying placement. Catheter was fixed to the skin and a sterile dressing was placed following hemostasis. Catheter was aspirated and flushed with saline. Patient w as discharged in stable condition without complication.Maximal barrier technique is utilized. Ultras ound image is documented on the chart. Ultrasound used with sterile technique. Fluoro time and fluoroscopic images submitted to document procedure: 11 intraoperative C-arm images, 0.8 minutes fluoroscopy time IMPRESSION: STATUS POST ULTRASOUND AND FLUOROSCOPIC GUIDED PICC LINE PLACEMENT, READY FOR USE. THIS PROCEDURE WAS PERFORMED BY THE UNDERSIGNED.
== END 2022-03-15 14:17 | disposition home or self-care (01) ==
LOC: EC 10:17
DX: T82.594A Other mechanical complication of infusion catheter, initial encounter (principal); E11.621 Type 2 diabetes mellitus with foot ulcer; E11.9 Type 2 diabetes mellitus without complications; Z88.0 Allergy status to penicillin
CPT/HCPCS: 99283; J2001; 36573

== ENCOUNTER 2022-03-29 02:43 | Emergency (ER) | payer OTHER ==
[2022-03-29 02:58] VITALS: BP 128/81; TEMP 98.1
--- NOTE | 2022-03-29 05:10 | ED ---
URI HPI - General Chief Complaint: Upper Respiratory Infection Stated Complaint: Scratchy throat Time Seen by Provider: 03/29/22 03:10 Source: patient Mode of arrival: ambulatory Limitations: no limitations - History of Present Illness MD Complaint: sore throat, rhinorrhea -: days(s) Severity: moderate Quality: burning Consistency: constant Improves With: nothing Worsens With: nothing - Related Data Home Medications Medication Instructions Recorded Confirmed Aspirin EC [Ecotrin Low Dose] 81 mg PO DAILY 06/20/21 03/15/22 Insulin Aspart [NovoLOG Flexpen] See Protocol SQ AC-TID 06/20/21 03/15/22 metFORMIN HCL [Glucophage] 1,000 mg PO AC-BID 06/20/21 03/15/22 Multivitamins, Thera [Multivitamin 1 tab PO DAILY 07/05/21 03/15/22 (formulary)] Previous Rx's Medication Instructions Recorded Vancomycin HCl in 5 % Dextrose 1.5 gm IV Q12HR #28 each 02/23/22 [Vancomycin 1 Gram/250 ml-D5w] Acetaminophen Tab [Tylenol] 650 mg PO Q6HR PRN tab 02/26/22 Insulin Glargine,Hum.rec.anlog 35 unit SQ HS #0 02/26/22 [Lantus Solostar Pen] Allergies Allergy/AdvReac Type Severity Reaction Status Date / Time Penicillins Allergy Rash/Hives Verified 03/29/22 02:54 Review of Systems ROS Statement: Those systems with pertinent positive or pertinent negative responses have been documented in the HPI. ROS Other: All systems not noted in ROS Statement are negative. Constitutional: Denies: fever, chills ENT: Reports: throat pain, congestion Respiratory: Denies: cough, dyspnea, wheezes Cardiovascular: Denies: chest pain Gastrointestinal: Denies: abdominal pain, vomiting Skin: Denies: rash Neurological: Denies: headache Past Medical History Past Medical History: Diabetes Mellitus History of Any Multi-Drug Resistant Organisms: None Reported Past Surgical History: Orthopedic Surgery Additional Past Surgical History / Comment(s): Foot surgery, PICC line, toe amputation Past Anesthesia/Blood Transfusion Reactions: No Reported Reaction Past Psychological History: No Psychological Hx Reported Smoking Status: Never smoker Past Alcohol Use History: None Reported Past Drug Use History: None Reported - Past Family History Father Family Medical History: Cancer Additional Family Medical History / Comment(s): stomach and lung CA, smoker General Exam Limitations: no limitations General appearance: alert, in no apparent distress Head exam: Present: atraumatic, normocephalic Eye exam: Present: normal appearance. Absent: scleral icterus, conjunctival injection ENT exam: Present: other (Mild injection of the pharynx. Uvula midline with no edema.) Neck exam: Present: normal inspection, full ROM, lymphadenopathy. Absent: tenderness, meningismus Respiratory exam: Present: normal lung sounds bilaterally. Absent: respiratory distress, wheezes, rales, rhonchi, stridor Cardiovascular Exam: Present: regular rate, normal rhythm, normal heart sounds. Absent: systolic murmur, diastolic murmur, rubs, gallop Skin exam: Present: warm, dry, intact, normal color. Absent: rash Course Vital Signs 03/29/22 03/29/22 02:54 05:56 Temperature 98.1 F Pulse Rate 90 85 Respiratory 16 18 Rate Blood Pressure 128/81 O2 Sat by Pulse 97 97 Oximetry Medical Decision Making - Lab Data Lab Results 03/29/22 03/29/22 Range/Units 03:00 04:27 Coronavirus (PCR) Not Detected (Not Detectd) Group A Strep Rapid Negative (Negative) Disposition Clinical Impression: Pharyngitis Disposition: HOME SELF-CARE Condition: Good Instructions (If sedation given, give patient instructions): Pharyngitis (ED) Is patient prescribed a controlled substance at d/c from ED?: No Referrals: [facility],Clinic [Primary Care Provider] - 1-2 days
[2022-03-29 05:57] VITALS: PULSE 85; RESP 18
== END 2022-03-29 05:57 | disposition home or self-care (01) ==
LOC: EC 02:43
DX: J02.9 Acute pharyngitis, unspecified (principal); Z20.822 Contact with and (suspected) exposure to COVID-19; E11.9 Type 2 diabetes mellitus without complications; Z79.84 Long term (current) use of oral hypoglycemic drugs; Z79.4 Long term (current) use of insulin; Z88.0 Allergy status to penicillin
CPT/HCPCS: 87081; 87430; 87635; 99283

== ENCOUNTER → 2022-05-18 | Outpatient (CLI) | payer OTHER ==
--- NOTE | 2022-05-19 02:43 | MR ---
EXAMINATION TYPE: MR foot RT wo con DATE OF EXAM: 05/18/2022 COMPARISON: None HISTORY: Evaluate for 2nd toe osteomyelitis. 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 Multiplanar multiecho imaging of the right foot without contrast. There is increased soft tissue fluid signal in the forefoot involving the second and third metatarsal s. There is amputation deformity of the big toe. The metatarsals are intact. On the STIR images there is increased signal in the tuft of the distal phalanx of the second toe best seen on the sagittal ST IR images and measures 6 mm. The tarsal bones appear intact. No fracture line seen. There are small d egenerative cysts in the anterior calcaneus. Achilles tendon is intact. Plantar fascia is intact. The medial and lateral flexor tendons are intact. IMPRESSION: Amputation deformity of the big toe. Mild increased signal in the tuft of the distal phalanx of the s econd toe suspicious for focal osteomyelitis. Mild subcutaneous edema in the dorsum of the forefoot. There is some mild soft tissue edema around th e mid shaft of the second and third metatarsals.
== END | disposition home or self-care (01) ==
LOC: RADMRIMAIN 14:51
PROVIDERS: ATTEND Podiatrist Foot & Ankle Surgery
DX: M86.9 Osteomyelitis, unspecified (principal)

== ENCOUNTER 2022-09-02 06:33 | Emergency (ER) | payer OTHER ==
[2022-09-02 07:11] VITALS: RESP 18
--- NOTE | 2022-09-02 07:43 | ED ---
General Adult HPI - General Chief complaint: ENT Stated complaint: cough,sore throat Time Seen by Provider: 09/02/22 07:06 Source: patient Mode of arrival: ambulatory Limitations: no limitations - History of Present Illness Initial comments: Dictation was produced using [employer] dictation software. please excuse any grammatical, word or spelling errors. Chief Complaint: 57-year-old male past medical history diabetes presents emergency department for sore throat and chest congestion History of Present Illness: Is 57-year-old male who presents with 2 days of sore throat and chest congestion. It is a slight cough that is nonproductive. Patient complains of chills. Denies any fevers. No other complaints at this time. The ROS documented in this emergency department record has been reviewed and confirmed by me. Those systems with pertinent positive or negative responses have been documented in the HPI. All other systems are other negative and/or noncontributory. PHYSICAL EXAM: General Impression: Alert and oriented x3, not in acute distress HEENT: Normocephalic atraumatic, extra-ocular movements intact, pupils equal and reactive to light bilaterally, mucous membranes moist, no tonsillar swelling, mild oropharyngeal erythema, no exudates Cardiovascular: Heart regular rate and rhythm Chest: Able to complete full sentences, no retractions, no tachypnea Abdomen: abdomen soft, non-tender, non-distended, no organomegaly Musculoskeletal: Pulses present and equal in all extremities, no peripheral edema Motor: no focal deficits noted Neurological: CN II-XII grossly intact, no focal motor or sensory deficits noted Skin: Intact with no visualized rashes Psych: Normal affect and mood ED course: 27-year-old well-appearing male presents emergency department for 1-2 days of scratchy throat, cough congestion. Vital Signs upon arrival are within acceptable limits. Physical examination shows well-appearing male with mild oropharyngeal erythema. He has clear lung sounds. Nursing notes and chart review was performed Patient positive for coronavirus. Negative for influenza, RSV and strep. Patient reevaluated bedside a 40 5 AM found with stable medical condition. Patient hypoxic not showing signs of respiratory distress. Patient given prescription for antivirals discharge. Return precautions discussed. Patient is agreeable. Critical Care: no Critical Care time: n/a - Related Data Home Medications Medication Instructions Recorded Confirmed Aspirin EC [Ecotrin Low Dose] 81 mg PO DAILY 06/20/21 03/15/22 Insulin Aspart [NovoLOG Flexpen] See Protocol SQ AC-TID 06/20/21 03/15/22 metFORMIN HCL [Glucophage] 1,000 mg PO AC-BID 06/20/21 03/15/22 Multivitamins, Thera [Multivitamin 1 tab PO DAILY 07/05/21 03/15/22 (formulary)] Previous Rx's Medication Instructions Recorded Vancomycin HCl in 5 % Dextrose 1.5 gm IV Q12HR #28 each 02/23/22 [Vancomycin 1 Gram/250 ml-D5w] Acetaminophen Tab [Tylenol] 650 mg PO Q6HR PRN tab 02/26/22 Insulin Glargine,Hum.rec.anlog 35 unit SQ HS #0 02/26/22 [Lantus Solostar Pen] Molnupiravir [Lagevrio (Eua)] 800 mg PO BID 5 Days #40 cap 09/02/22 Allergies Allergy/AdvReac Type Severity Reaction Status Date / Time Penicillins Allergy Rash/Hives Verified 09/02/22 07:11 Review of Systems ROS Statement: Those systems with pertinent positive or pertinent negative responses have been documented in the HPI. ROS Other: All systems not noted in ROS Statement are negative. Past Medical History Past Medical History: Diabetes Mellitus History of Any Multi-Drug Resistant Organisms: None Reported Past Surgical History: Orthopedic Surgery Additional Past Surgical History / Comment(s): Foot surgery, PICC line, toe amputation Past Anesthesia/Blood Transfusion Reactions: No Reported Reaction Past Psychological History: No Psychological Hx Reported Smoking Status: Never smoker Past Alcohol Use History: None Reported Past Drug Use History: None Reported - Past Family History Father Family Medical History: Cancer Additional Family Medical History / Comment(s): stomach and lung CA, smoker General Exam Limitations: no limitations Course Vital Signs 09/02/22 07:07 Temperature 98.2 F Pulse Rate 96 Respiratory 18 Rate Blood Pressure 119/78 O2 Sat by Pulse 96 Oximetry Medical Decision Making - Lab Data Lab Results 09/02/22 09/02/22 Range/Units 07:20 07:20 Influenza Type A (PCR) Not Detected (Not Detectd) Influenza Type B (PCR) Not Detected (Not Detectd) RSV (PCR) Not Detected (Not Detectd) SARS-CoV-2 (PCR) Detected A (Not Detectd) Group A Strep (PCR) NOT DETECTED (Not Detectd) Disposition Clinical Impression: Coronavirus infection Disposition: HOME SELF-CARE Condition: Good Instructions (If sedation given, give patient instructions): Coronavirus Disease 2019 (COVID-19) Prescriptions: Molnupiravir [Lagevrio (Eua)] 800 mg PO BID 5 Days #40 cap Is patient prescribed a controlled substance at d/c from ED?: No Referrals: [facility],Clinic [Primary Care Provider] - 1-2 days Time of Disposition: 08:47
[2022-09-02 09:27] VITALS: BP 131/79; PULSE 84; TEMP 98.3
== END 2022-09-02 09:27 | disposition home or self-care (01) ==
LOC: EC 06:33
DX: U07.1 COVID-19 (principal); E11.9 Type 2 diabetes mellitus without complications; Z88.0 Allergy status to penicillin; Z79.82 Long term (current) use of aspirin; Z79.4 Long term (current) use of insulin; Z79.84 Long term (current) use of oral hypoglycemic drugs
CPT/HCPCS: 87636; 87651; 99283

== ENCOUNTER 2022-09-19 11:48 | Emergency (ER) | payer OTHER ==
[2022-09-19] MEDS ORDERED: ACETAMINOPHEN TAB 500 MG TAB PO STA (12:04)
--- NOTE | 2022-09-19 12:27 | ED ---
General Adult HPI - General Chief complaint: Upper Respiratory Infection Stated complaint: Vomiting,L hand numbness Time Seen by Provider: 09/19/22 11:57 Source: patient, RN notes reviewed, old records reviewed Mode of arrival: ambulatory Limitations: no limitations - History of Present Illness Initial comments: Patient is a 57-year-old male with past medical history remarkable for diabetes, current right toe infection on Bactrim who presents to the emergency Department complaining of cough, congestion for multiple days. Does have history diabetes. Denies sick contacts. He endorses mild fever. Endorses mild nasal congestion. Denies shortness of breath, chest pain, abdominal pain, diarrhea. States one episode of emesis that was clear, nonbloody, nonbilious. His no other acute complaints at this time. Denies chest pain. Presents for further evaluation due to his upper respiratory symptoms. He was vaccinated for COVID-19 and flu. - Related Data Home Medications Medication Instructions Recorded Confirmed Aspirin EC [Ecotrin Low Dose] 81 mg PO DAILY 06/20/21 03/15/22 Insulin Aspart [NovoLOG Flexpen] See Protocol SQ AC-TID 06/20/21 03/15/22 metFORMIN HCL [Glucophage] 1,000 mg PO AC-BID 06/20/21 03/15/22 Multivitamins, Thera [Multivitamin 1 tab PO DAILY 07/05/21 03/15/22 (formulary)] Previous Rx's Medication Instructions Recorded Vancomycin HCl in 5 % Dextrose 1.5 gm IV Q12HR #28 each 02/23/22 [Vancomycin 1 Gram/250 ml-D5w] Acetaminophen Tab [Tylenol] 650 mg PO Q6HR PRN tab 02/26/22 Insulin Glargine,Hum.rec.anlog 35 unit SQ HS #0 02/26/22 [Lantus Solostar Pen] Molnupiravir [Lagevrio (Eua)] 800 mg PO BID 5 Days #40 cap 09/02/22 Allergies Allergy/AdvReac Type Severity Reaction Status Date / Time Penicillins Allergy Rash/Hives Verified 09/19/22 11:55 Review of Systems ROS Statement: Those systems with pertinent positive or pertinent negative responses have been documented in the HPI. Review of Systems: CONST: Endorses fever EYES: Denies blurry vision ENT: Endorses nasal congestion C/V: Denies Chest pain RESP: Denies shortness of breath GI: Denies abdominal pain : Denies dysuria SKIN: Endorses right toe infection. MSK: Denies joint pain. NEURO: Denies headache ROS Other: All systems not noted in ROS Statement are negative. Past Medical History Past Medical History: Diabetes Mellitus History of Any Multi-Drug Resistant Organisms: None Reported Past Surgical History: Orthopedic Surgery Additional Past Surgical History / Comment(s): Foot surgery, PICC line, toe amputation Past Anesthesia/Blood Transfusion Reactions: No Reported Reaction Past Psychological History: No Psychological Hx Reported Smoking Status: Never smoker Past Alcohol Use History: None Reported Past Drug Use History: None Reported - Past Family History Father Family Medical History: Cancer Additional Family Medical History / Comment(s): stomach and lung CA, smoker General Exam - General Exam Comments Initial Comments: General: Appears in no acute distress. Febrile. HEAD: Normal with no signs of head trauma. EYES: EOMI ENT: Hearing grossly intact, normal oropharynx. RESPIRATORY: Clear breath sounds bilaterally. No wheezes, rales, or rhonchi. No hypoxia. No respiratory distress. C/V: Regular rate and rhythm. S1 and S2 auscultated, no edema, peripheral pulses 2+ and intact throughout ABD: Abd is soft, nontender, nondistended EXT: Normal range of motion, no obvious deformity. Right great toe amputation. SKIN: Wound over the right second toe, clean. No surrounding erythema or fluctuance. Already on antibiotics. NEURO: Alert and oriented 4. No focal deficits. Limitations: no limitations Course Vital Signs 09/19/22 09/19/22 09/19/22 11:52 13:26 14:00 Temperature 100.8 F H 101.5 F H 99.7 F H Pulse Rate 102 H 90 Respiratory 18 16 Rate Blood Pressure 128/70 111/65 O2 Sat by Pulse 96 97 Oximetry Medical Decision Making - Medical Decision Making Based on the patient's presentation and physical exam, I'm concerned for upper respiratory infection at this time. Would like to obtain a chest x-ray as well as viral swabs. Patient was in agreement this plan. He will be given Tylenol for his low-grade fever. Vital signs within acceptable limits except for fever. Patient was in agreement with this plan.Chest x-ray as interpreted by myself reveals no evidence of acute cardio pulmonary process, infiltrate. Patient's viral swabs are remarkable for positive Covid test. Negative flu and RSV. On reevaluation, patient is feeling improved. I did discuss with him his workup. Fever is improved at this time as well. Patient declines Paxlovid therapy at this time. He'll be given a single dose of Decadron prior to discharge and discharged home with strict return precautions. Patient was in agreement this plan. I answered all questions that he had. I did recommend quarantine for 5 days from symptom onset, and then ensure that he is 24 hours fever free. Expressed understanding. Recommended obtain pulse oximeter as well. I instructed the patient to follow up with their PCP in the next 1-3 days. I explained that the patient should return to the emergency department if they experience any worsening symptoms. Strict return precautions were discussed with the patient. The patient expressed understanding of these instructions. I answered all questions that the patient had. The patient was discharged home in good condition with their prescriptions and follow up information. - Lab Data Lab Results 09/19/22 Range/Units 12:42 Influenza Type A (PCR) Not Detected (Not Detectd) Influenza Type B (PCR) Not Detected (Not Detectd) RSV (PCR) Not Detected (Not Detectd) SARS-CoV-2 (PCR) Detected A (Not Detectd) Disposition Clinical Impression: COVID-19 Disposition: HOME SELF-CARE Condition: Good Instructions (If sedation given, give patient instructions): Upper Respiratory Infection (ED), COVID-19 (Coronavirus Disease 2019) (ED) Is patient prescribed a controlled substance at d/c from ED?: No Referrals: [facility],Clinic [Primary Care Provider] - 1-2 days Time of Disposition: 13:40
--- NOTE | 2022-09-19 13:07 | XR ---
EXAMINATION TYPE: XR chest 2V DATE OF EXAM: 09/19/2022 1:01 PM COMPARISON: Chest radiographs from 02/23/2022 TECHNIQUE: XR chest 2V Frontal and lateral views of the chest. CLINICAL INDICATION:Male, 57 years old with history of cough; FINDINGS: Lungs/Pleura: There is no evidence of pleural effusion, focal consolidation, or pneumothorax. Pulmonary vascularity: Unremarkable. Heart/mediastinum: Cardiomediastinal silhouette is unremarkable. Musculoskeletal: No acute osseous pathology. IMPRESSION: No acute cardiopulmonary disease/process.
[2022-09-19] MEDS ORDERED: dexAMETHasone 4 MG TAB PO STA (13:57)
[2022-09-19 14:04] VITALS: BP 111/65; PULSE 90; RESP 16; TEMP 99.7
== END 2022-09-19 14:09 | disposition home or self-care (01) ==
LOC: EC 11:48
DX: U07.1 COVID-19 (principal); E11.9 Type 2 diabetes mellitus without complications; Z88.0 Allergy status to penicillin; Z79.4 Long term (current) use of insulin; Z79.84 Long term (current) use of oral hypoglycemic drugs
CPT/HCPCS: 87636; 71046; 99284; J8540

== ENCOUNTER 2022-09-21 12:55 | Emergency (ER) | payer OTHER ==
[2022-09-21 13:24] VITALS: RESP 18
--- NOTE | 2022-09-21 13:31 | XR ---
EXAMINATION TYPE: XR chest 2V DATE OF EXAM: 09/21/2022 COMPARISON: 09/19/2022 INDICATION: Difficulty in breathing cough congestion TECHNIQUE: Frontal and lateral views of the chest are obtained. FINDINGS: The heart size is normal. The pulmonary vasculature is normal. The lungs are clear. IMPRESSION: 1. No acute pulmonary process.
--- NOTE | 2022-09-21 13:48 | ED ---
General Adult HPI - General Chief complaint: Upper Respiratory Infection Stated complaint: URI Time Seen by Provider: 09/21/22 13:00 Source: patient, RN notes reviewed, old records reviewed Mode of arrival: ambulatory Limitations: no limitations - History of Present Illness Initial comments: This a 57-year-old male presents emergency department stating that he was recently diagnosed with COVID and given one dose of steroid and he was feeling little bit better but he was not sent home with any steroid he's continued to have a cough and just feeling a little worse so he came in to get reevaluated. Patient denies shortness of breath or chest pain. Patient denies any fevers states she's just coughing and still not feeling quite back to his baseline. Patient states he does have a sore throat. Patient denies any other issues at this time. - Related Data Home Medications Medication Instructions Recorded Confirmed Aspirin EC [Ecotrin Low Dose] 81 mg PO DAILY 06/20/21 03/15/22 Insulin Aspart [NovoLOG Flexpen] See Protocol SQ AC-TID 06/20/21 03/15/22 metFORMIN HCL [Glucophage] 1,000 mg PO AC-BID 06/20/21 03/15/22 Multivitamins, Thera [Multivitamin 1 tab PO DAILY 07/05/21 03/15/22 (formulary)] Previous Rx's Medication Instructions Recorded Vancomycin HCl in 5 % Dextrose 1.5 gm IV Q12HR #28 each 02/23/22 [Vancomycin 1 Gram/250 ml-D5w] Acetaminophen Tab [Tylenol] 650 mg PO Q6HR PRN tab 02/26/22 Insulin Glargine,Hum.rec.anlog 35 unit SQ HS #0 02/26/22 [Lantus Solostar Pen] Molnupiravir [Lagevrio (Eua)] 800 mg PO BID 5 Days #40 cap 09/02/22 Allergies Allergy/AdvReac Type Severity Reaction Status Date / Time Penicillins Allergy Rash/Hives Verified 09/19/22 11:55 Review of Systems ROS Statement: Those systems with pertinent positive or pertinent negative responses have been documented in the HPI. ROS Other: All systems not noted in ROS Statement are negative. Past Medical History Past Medical History: Diabetes Mellitus History of Any Multi-Drug Resistant Organisms: None Reported Past Surgical History: Orthopedic Surgery Additional Past Surgical History / Comment(s): Foot surgery, PICC line, toe amputation Past Anesthesia/Blood Transfusion Reactions: No Reported Reaction Past Psychological History: No Psychological Hx Reported Smoking Status: Never smoker Past Alcohol Use History: None Reported Past Drug Use History: None Reported - Past Family History Father Family Medical History: Cancer Additional Family Medical History / Comment(s): stomach and lung CA, smoker General Exam - General Exam Comments Initial Comments: GENERAL: Patient is well-developed and well-nourished. Patient is nontoxic and well- hydrated and is in no acute distress. ENT: Neck is soft and supple. No significant lymphadenopathy is noted. Oropharynx is clear. Moist mucous membranes. Neck has full range of motion without eliciting any pain. EYES: The sclera were anicteric and conjunctiva were pink and moist. Extraocular movements were intact and pupils were equal round and reactive to light. Eyelids were unremarkable. PULMONARY: Unlabored respirations. Good breath sounds bilaterally. No audible rales rhonchi or wheezing was noted. CARDIOVASCULAR: There is a regular rate and rhythm without any murmurs gallops or rubs. ABDOMEN: Soft and nontender with normal bowel sounds. SKIN: Skin is clear with no lesions or rashes and otherwise unremarkable. NEUROLOGIC: Patient is alert and oriented x3. Cranial nerves II through XII are grossly intact. Motor and sensory are also intact. Normal speech, volume and content. Symmetrical smile. MUSCULOSKELETAL: Normal extremities with adequate strength and full range of motion. LYMPHATICS: No significant lymphadenopathy is noted PSYCHIATRIC: Normal psychiatric evaluation Limitations: no limitations Course Vital Signs 09/21/22 09/21/22 12:56 13:19 Temperature 98 F Pulse Rate 64 Respiratory 16 18 Rate Blood Pressure 120/74 O2 Sat by Pulse 93 L Oximetry Medical Decision Making - Medical Decision Making I interpreted the chest x-ray showed no acute abnormality. Patient stated that the steroid seemed to help a little so I will give him 1 dose. Prior to discharge. Disposition Clinical Impression: COVID-19 Disposition: HOME SELF-CARE Condition: Good Instructions (If sedation given, give patient instructions): COVID-19 (Coronavirus Disease 2019) (ED) Is patient prescribed a controlled substance at d/c from ED?: No Referrals: [facility],Clinic [Primary Care Provider] - 1-2 days Time of Disposition: 13:54
[2022-09-21] MEDS ORDERED: dexAMETHasone 2 MG TAB PO STA (14:14)
[2022-09-21 14:22] VITALS: BP 113/72; PULSE 96; TEMP 98.4
== END 2022-09-21 14:22 | disposition home or self-care (01) ==
LOC: EC 12:55
DX: U07.1 COVID-19 (principal); E11.9 Type 2 diabetes mellitus without complications; Z88.0 Allergy status to penicillin; Z79.4 Long term (current) use of insulin; Z79.84 Long term (current) use of oral hypoglycemic drugs; Z79.899 Other long term (current) drug therapy
CPT/HCPCS: 71046; 99283; J8540

== ENCOUNTER 2022-10-19 06:47 | Emergency (ER) | payer OTHER ==
[2022-10-19] MEDS ORDERED: ONDANSETRON ODT 4 MG TAB PO STA (07:22)
--- NOTE | 2022-10-19 07:37 | ED ---
General Adult HPI - General Chief complaint: Recheck/Abnormal Lab/Rx Stated complaint: Nausea Time Seen by Provider: 10/19/22 07:00 Source: patient, RN notes reviewed, old records reviewed Mode of arrival: ambulatory Limitations: no limitations - History of Present Illness Initial comments: This a 57-year-old male presents emergency Department complaining of nausea since been patient denies any vomiting or diarrhea. Patient's abdominal pain. Patient any difficulty breathing shortness of breath per patient denies any cough or sore throat. Patient states he mainly came in because he's had cold before and lacerating feeling" he wanted to be checked out. Patient denies headache patient denies numbness weakness. Patient denies any back pain. Pa tient denies lightheadedness or near syncopal episode. Patient denies any chest pain or palpitations. - Related Data Home Medications Medication Instructions Recorded Confirmed Aspirin EC [Ecotrin Low Dose] 81 mg PO DAILY 06/20/21 03/15/22 Insulin Aspart [NovoLOG Flexpen] See Protocol SQ AC-TID 06/20/21 03/15/22 metFORMIN HCL [Glucophage] 1,000 mg PO AC-BID 06/20/21 03/15/22 Multivitamins, Thera [Multivitamin 1 tab PO DAILY 07/05/21 03/15/22 (formulary)] Previous Rx's Medication Instructions Recorded Vancomycin HCl in 5 % Dextrose 1.5 gm IV Q12HR #28 each 02/23/22 [Vancomycin 1 Gram/250 ml-D5w] Acetaminophen Tab [Tylenol] 650 mg PO Q6HR PRN tab 02/26/22 Insulin Glargine,Hum.rec.anlog 35 unit SQ HS #0 02/26/22 [Lantus Solostar Pen] Molnupiravir [Lagevrio (Eua)] 800 mg PO BID 5 Days #40 cap 09/02/22 Allergies Allergy/AdvReac Type Severity Reaction Status Date / Time Penicillins Allergy Rash/Hives Verified 10/19/22 06:50 Review of Systems ROS Statement: Those systems with pertinent positive or pertinent negative responses have been documented in the HPI. ROS Other: All systems not noted in ROS Statement are negative. Past Medical History Past Medical History: Diabetes Mellitus History of Any Multi-Drug Resistant Organisms: None Reported Past Surgical History: Orthopedic Surgery Additional Past Surgical History / Comment(s): Foot surgery, PICC line, toe amputation Past Anesthesia/Blood Transfusion Reactions: No Reported Reaction Past Psychological History: No Psychological Hx Reported Smoking Status: Never smoker Past Alcohol Use History: None Reported Past Drug Use History: None Reported - Past Family History Father Family Medical History: Cancer Additional Family Medical History / Comment(s): stomach and lung CA, smoker General Exam - General Exam Comments Initial Comments: GENERAL: Patient is well-developed and well-nourished. Patient is nontoxic and well- hydrated and is in no acute distress. ENT: Neck is soft and supple. No significant lymphadenopathy is noted. Oropharynx is clear. Moist mucous membranes. Neck has full range of motion without eliciting any pain. EYES: The sclera were anicteric and conjunctiva were pink and moist. Extraocular movements were intact and pupils were equal round and reactive to light. Eyelids were unremarkable. PULMONARY: Unlabored respirations. Good breath sounds bilaterally. No audible rales rhonchi or wheezing was noted. CARDIOVASCULAR: There is a regular rate and rhythm without any murmurs gallops or rubs. ABDOMEN: Soft and nontender with normal bowel sounds. SKIN: Skin is clear with no lesions or rashes and otherwise unremarkable. NEUROLOGIC: Patient is alert and oriented x3. Cranial nerves II through XII are grossly intact. Motor and sensory are also intact. Normal speech, volume and content. Symmetrical smile. MUSCULOSKELETAL: Normal extremities with adequate strength and full range of motion. No lower extremity swelling or edema. No calf tenderness. LYMPHATICS: No significant lymphadenopathy is noted PSYCHIATRIC: Normal psychiatric evaluation. Limitations: no limitations Course Vital Signs 10/19/22 06:50 Temperature 98.1 F Pulse Rate 85 Respiratory 16 Rate Blood Pressure 152/92 O2 Sat by Pulse 97 Oximetry Medical Decision Making - Medical Decision Making Was pt. sent in by a medical professional or institution (, [facility], [facility], urgent care, hospital, or senior living...) When possible be specific @ -No Did you speak to anyone other than the patient for history (EMS, parent, family, police, friend...)? What history was obtained from this source @ -No Did you review nursing and triage notes (agree or disagree)? Why? @ -I reviewed and agree with nursing and triage notes Were old charts reviewed (outside hosp., previous admission, EMS record, old EKG, old radiological studies, urgent care reports/EKG's, senior living records)? Report findings @ -I did review patient's old admission charts. Differential Diagnosis (chest pain, altered mental status, abdominal pain women, abdominal pain men, vaginal bleeding, weakness, fever, dyspnea, syncope, headache, dizziness, GI bleed, back pain, seizure, CVA, palpatations, mental health)? @ -Differential Abdominal Pain Men: Appendicitis, cholecystitis, diverticulosis, ischemic bowel, pancreatitis, he patitis, UTI, gastroenteritis, AAA, incarcerated hernia, bowel obstruction, constipation, inflammatory bowel, hepatitis, peptic ulcer disease, splenic infarction, perforated viscus, testicular torsion, this is not meant to be an all-inclusive list EKG interpreted by me (3pts min.). @ -As above X-rays interpreted by me (1pt min.). @ -None done CT interpreted by me (1pt min.). @ -None done U/S interpreted by me (1pt. min.). @ -None done What testing was considered but not performed or refused? (CT, X-rays, U/S, labs)? Why? @ -None What meds were considered but not given or refused? Why? @ -None Did you discuss the management of the patient with other professionals (professionals i.e. , PA, [facility], lab, RT, psych nurse, director of social services, account review specialist, teacher, energy control officer, pillowcase sewer)? Give summary @ -No Was smoking cessation discussed for >3mins.? @ -No Was critical care preformed (if so, how long)? @ -No Were there social determinants of health that impacted care today? How? (Homelessness, low income, unemployed, alcoholism, drug addiction, transportation, low edu. Level, literacy, decrease access to med. care, halfway, rehab)? @ -No Was there de-escalation of care discussed even if they declined (Discuss DNR or withdrawal of care, Hospice)? DNR status @ -No What co-morbidities impacted this encounter? (DM, HTN, Smoking, COPD, CAD, Cancer, CVA, ARF, Chemo, Hep., AIDS, mental health diagnosis, sleep apnea, morbid obesity)? @ -None Was patient admitted / discharged? Hospital course, mention meds given and route , prescriptions, significant lab abnormalities, going to OR and other pertinent info. @ -Patient's only complaint was nausea since midnight so patient did receive some Zofran. Patient was asking for coffee but we didn't give any coughing emergency department. Patient also wanted to test for COVID which turned out to be negative. Patient was sent home with some Zofran Undiagnosed new problem with uncertain prognosis? @ -No Drug Therapy requiring intensive monitoring for toxicity (Heparin, Nitro, Insulin, Cardizem)? @ -No Were any procedures done? @ -No Diagnosis/symptom? @ -Acute nausea Acute, or Chronic, or Acute on Chronic? @ -Acute Uncomplicated (without systemic symptoms) or Complicated (systemic symptoms)? @ -Uncomplicated Side effects of treatment? @ -No Exacerbation, Progression, or Severe Exacerbation? @ -No Poses a threat to life or bodily function? How? (Chest pain, [place], [place], pneumonia, PE, COPD, DKA, ARF, appy, cholecystitis, CVA, Diverticulitis, Homicidal, Suicidal, threat to staff... and all critical care pts) @ -No - Lab Data Lab Results 10/19/22 10/19/22 Range/Units 07:15 07:15 Coronavirus (PCR) Not Detected (Not Detectd) Influenza Type A RNA Not Detected (Not Detectd) Influenza Type B (PCR) Not Detected (Not Detectd) Disposition Clinical Impression: Nausea Disposition: HOME SELF-CARE Condition: Good Additional Instructions: Patient should take Zofran as prescribed Is patient prescribed a controlled substance at d/c from ED?: No Referrals: [facility],Clinic [Primary Care Provider] - 1-2 days Time of Disposition: 08:02
[2022-10-19] MEDS ORDERED: ONDANSETRON 4 MG ODT STARTER PACK 2 TAB BTL PO STA (08:02)
[2022-10-19 08:16] VITALS: BP 116/70; PULSE 77; RESP 18; TEMP 98
== END 2022-10-19 08:12 | disposition home or self-care (01) ==
LOC: EC 06:47
DX: R11.0 Nausea (principal); E11.9 Type 2 diabetes mellitus without complications; Z79.4 Long term (current) use of insulin; Z79.82 Long term (current) use of aspirin; Z79.84 Long term (current) use of oral hypoglycemic drugs; Z88.0 Allergy status to penicillin; Z79.899 Other long term (current) drug therapy; Z20.822 Contact with and (suspected) exposure to COVID-19
CPT/HCPCS: 87502; 87635; 99283; S0119

== ENCOUNTER 2022-12-18 10:59 | Emergency (ER) | payer OTHER, BC ==
[2022-12-18 11:14] VITALS: BP 127/77; PULSE 70; RESP 18; TEMP 97.6
--- NOTE | 2022-12-18 11:50 | ED ---
Recheck HPI - General Chief Complaint: Recheck/Abnormal Lab/Rx Stated Complaint: Needs bloodwork for Dr Time Seen by Provider: 12/18/22 11:17 Source: patient, RN notes reviewed Mode of arrival: ambulatory Limitations: no limitations - History of Present Illness Initial Comments: This is a 57-year-old male who presents to the emergency department requesting blood work. Patient states that he is unable to get blood work done today at the [facility], and requests that it be done here. States that he needs his hemoglobin A1c and cholesterol checked as part of this. He is currently being treated for diabetes. Patient otherwise denies any concerns or complaints. Denies any fevers, chills, sore throat, cough, dyspnea, chest pain, palpitations, abdominal pain, nausea, vomiting, diarrhea, back pain, or headaches. MD Complaint: other (Requests blood work) - Related Data Home Medications Medication Instructions Recorded Confirmed Aspirin EC [Ecotrin Low Dose] 81 mg PO DAILY 06/20/21 03/15/22 Insulin Aspart [NovoLOG Flexpen] See Protocol SQ AC-TID 06/20/21 03/15/22 metFORMIN HCL [Glucophage] 1,000 mg PO AC-BID 06/20/21 03/15/22 Multivitamins, Thera [Multivitamin 1 tab PO DAILY 07/05/21 03/15/22 (formulary)] Previous Rx's Medication Instructions Recorded Vancomycin HCl in 5 % Dextrose 1.5 gm IV Q12HR #28 each 02/23/22 [Vancomycin 1 Gram/250 ml-D5w] Acetaminophen Tab [Tylenol] 650 mg PO Q6HR PRN tab 02/26/22 Insulin Glargine,Hum.rec.anlog 35 unit SQ HS #0 02/26/22 [Lantus Solostar Pen] Molnupiravir [Lagevrio (Eua)] 800 mg PO BID 5 Days #40 cap 09/02/22 Allergies Allergy/AdvReac Type Severity Reaction Status Date / Time Penicillins Allergy Rash/Hives Verified 12/18/22 11:14 Review of Systems ROS Statement: Those systems with pertinent positive or pertinent negative responses have been documented in the HPI. ROS Other: All systems not noted in ROS Statement are negative. Past Medical History Past Medical History: Diabetes Mellitus History of Any Multi-Drug Resistant Organisms: None Reported Past Surgical History: Orthopedic Surgery Additional Past Surgical History / Comment(s): Foot surgery, PICC line, toe amputation Past Anesthesia/Blood Transfusion Reactions: No Reported Reaction Past Psychological History: No Psychological Hx Reported Smoking Status: Never smoker Past Alcohol Use History: Occasional Past Drug Use History: None Reported - Past Family History Father Family Medical History: Cancer Additional Family Medical History / Comment(s): stomach and lung CA, smoker General Exam Limitations: no limitations General appearance: alert, in no apparent distress Head exam: Present: atraumatic, normocephalic, normal inspection Respiratory exam: Present: normal lung sounds bilaterally. Absent: respiratory distress, wheezes, rales, rhonchi, stridor Cardiovascular Exam: Present: regular rate, normal rhythm, normal heart sounds. Absent: systolic murmur, diastolic murmur, rubs, gallop, clicks Neurological exam: Present: alert, oriented X3, CN II-XII intact Psychiatric exam: Present: normal affect, normal mood Skin exam: Present: warm, dry, intact, normal color. Absent: rash Course Vital Signs 12/18/22 12/18/22 11:12 12:06 Temperature 97.6 F 97.6 F Pulse Rate 70 70 Respiratory 18 18 Rate Blood Pressure 127/77 127/77 O2 Sat by Pulse 99 99 Oximetry Medical Decision Making - Medical Decision Making This is a 57-year-old male who presents to the emergency department requesting blood work. Was pt. sent in by a medical professional or institution? @ -No Did you speak to anyone other than the patient for history? @ -No Did you review nursing and triage notes? @ -Yes, and I agree, it is accurate with regards to the patient's symptoms. Were old charts reviewed? @ -No Differential Diagnosis? @ -Not applicable What testing was considered but not performed? (CT, X-rays, U/S, labs)? Why? @ -None What meds were considered but not given? Why? @ -None Did you discuss the management of the patient with other professionals? @ -No Did you reconcile home meds? @ -No Was smoking cessation discussed for >3mins.? @ -No Was critical care preformed (if so, how long)? @ -No Were there social determinants of health that impacted care today? How? (Homelessness, low income, unemployed, alcoholism, drug addiction, transportation, low edu. Level, literacy, decrease access to med. care, snf, rehab)? @ -No Was there de-escalation of care discussed even if they declined? (Discuss DNR or withdrawal of care, Hospice)? @ -No What co-morbidities impacted this encounter? (DM, HTN, Smoking, COPD, CAD, Cancer, CVA, Hep., AIDS, mental health diagnosis, sleep apnea, morbid obesity)? @ -DM Was patient admitted / discharged? @ -Discharged. Screening lab work obtained including a CBC, CMP, hemoglobin A1c, and lipid panel. Advised the patient that I am unable to follow-up on these results for him and he needs to request that they be sent to his primary care provider or view them in the patient portal. Patient expresses understanding and was discharged home. Undiagnosed new problem with uncertain prognosis? @ -None Drug Therapy requiring intensive monitoring for toxicity (Heparin, Nitro, I nsulin, Cardizem)? @ -None Were any procedures done? @ -None Diagnosis/symptom? @ -DM Acute, or Chronic, or Acute on Chronic? @ -Chronic Uncomplicated (without systemic symptoms) or Complicated (systemic symptoms)? @ -Uncomplicated Side effects of treatment? @ -None Exacerbation, Progression, or Severe Exacerbation] @ -Not applicable Poses a threat to life or bodily function? @ -Not at this time Diagnosis/symptom? @ -Encounter for routine laboratory testing Acute, or Chronic, or Acute on Chronic? @ -Acute Uncomplicated (without systemic symptoms) or Complicated (systemic symptoms)? @ -Uncomplicated Side effects of treatment? @ -None Exacerbation, Progression, or Severe Exacerbation] @ -Not applicable Poses a threat to life or bodily function? @ -No Return precautions reviewed in depth, the patient is instructed to return to the emergency department with any new, worsening, or concerning symptoms. Patient verbalized understanding. This case was discussed in detail with the attending ED physician, Dr. Rice. Presentation, findings, and treatment plan discussed in detail as well. - Lab Data Result diagrams: 12/18/22 11:53 12/18/22 11:53 Lab Results 12/18/22 12/18/22 Range/Units 11:53 11:53 WBC 5.8 (3.8-10.6) k/uL RBC 4.48 (4.30-5.90) m/uL Hgb 13.7 (13.0-17.5) gm/dL Hct 40.7 (39.0-53.0) % MCV 90.9 (80.0-100.0) fL MCH 30.6 (25.0-35.0) pg MCHC 33.7 (31.0-37.0) g/dL RDW 13.1 (11.5-15.5) % Plt Count 245 (150-450) k/uL MPV 8.4 Neutrophils % 56 % Lymphocytes % 31 % Monocytes % 6 % Eosinophils % 4 % Basophils % 1 % Neutrophils # 3.2 (1.3-7.7) k/uL Lymphocytes # 1.8 (1.0-4.8) k/uL Monocytes # 0.3 (0-1.0) k/uL Eosinophils # 0.2 (0-0.7) k/uL Basophils # 0.0 (0-0.2) k/uL Sodium 136 L (137-145) mmol/L Potassium 4.5 (3.5-5.1) mmol/L Chloride 103 (98-107) mmol/L Carbon Dioxide 26 (22-30) mmol/L Anion Gap 7 mmol/L BUN 17 (9-20) mg/dL Creatinine 0.71 (0.66-1.25) mg/dL Est GFR (CKD-EPI)AfAm >90 (>60 ml/min/1.73 sqM) Est GFR (CKD-EPI)NonAf >90 (>60 ml/min/1.73 sqM) Glucose 300 H (74-99) mg/dL Calcium 9.1 (8.4-10.2) mg/dL Total Bilirubin 0.4 (0.2-1.3) mg/dL AST 18 (17-59) U/L ALT 18 (4-49) U/L Alkaline Phosphatase 78 (38-126) U/L Total Protein 6.7 (6.3-8.2) g/dL Albumin 4.1 (3.5-5.0) g/dL Disposition Clinical Impression: Encounter for routine laboratory testing, Diabetes mellitus Disposition: HOME SELF-CARE Is patient prescribed a controlled substance at d/c from ED?: No Referrals: [facility],Clinic [Primary Care Provider] - 1-2 days
[2022-12-18 12:10] LABS: Basophils % (A) 1 %; Eosinophils # (A) 0.2 k/uL (0-0.7); Eosinophils % (A) 4 %; HCT 40.7 % (39.0-53.0); HGB 13.7 gm/dL (13.0-17.5); Lymphocytes # (A) 1.8 k/uL (1.0-4.8); Lymphocytes % (A) 31 %; MCH 30.6 pg (25.0-35.0); MCHC 33.7 g/dL (31.0-37.0); MCV 90.9 fL (80.0-100.0); Mean Platelet Volume 8.4; Monocytes # (A) 0.3 k/uL (0-1.0); Monocytes % (A) 6 %; Neutrophils # (A) 3.2 k/uL (1.3-7.7); Neutrophils % (A) 56 %; Platelet Count 245 k/uL (150-450); RBC 4.48 m/uL (4.30-5.90); RDW 13.1 % (11.5-15.5); WBC 5.8 k/uL (3.8-10.6)
[2022-12-18 12:17] LABS: ALT 18 U/L (4-49); AST 18 U/L (17-59); African American GFR (CKD) >90 (>60 ml/min/1.73 sqM); Albumin 4.1 g/dL (3.5-5.0); Alkaline Phosphatase 78 U/L (38-126); Anion Gap 7 mmol/L; Blood Urea Nitrogen 17 mg/dL (9-20); Calcium 9.1 mg/dL (8.4-10.2); Carbon Dioxide 26 mmol/L (22-30); Chloride 103 mmol/L (98-107); Glucose 300 mg/dL (74-99); Non-African American GFR(CKD) >90 (>60 ml/min/1.73 sqM); Potassium 4.5 mmol/L (3.5-5.1); Sodium 136 mmol/L (137-145); Total Bilirubin 0.4 mg/dL (0.2-1.3); Total Protein 6.7 g/dL (6.3-8.2)
[2022-12-18 22:51] LABS: Chol/HDL Ratio 3.33 Ratio; LDL Cholesterol,Calculated 114.8 mg/dL (0.0-131.0)
== END 2022-12-18 12:07 | disposition home or self-care (01) ==
LOC: EC 10:59
DX: Z00.00 Encounter for general adult medical examination without abnormal findings (principal); E11.9 Type 2 diabetes mellitus without complications; Z79.84 Long term (current) use of oral hypoglycemic drugs; Z79.4 Long term (current) use of insulin; Z79.82 Long term (current) use of aspirin; Z88.0 Allergy status to penicillin
CPT/HCPCS: 36415; 80053; 80061; 83036; 85025; 99283

== ENCOUNTER 2023-10-23 08:05 | Emergency (ER) | payer BC, OTHER ==
[2023-10-23 08:48] VITALS: BP 123/70; PULSE 94; RESP 18; TEMP 98.1
--- NOTE | 2023-10-23 09:01 | ED ---
General Adult HPI - General Chief complaint: Recheck/Abnormal Lab/Rx Stated complaint: fatigue runny nose Time Seen by Provider: 10/23/23 08:09 Source: patient, RN notes reviewed, old records reviewed Mode of arrival: ambulatory Limitations: no limitations - History of Present Illness Initial comments: 58-year-old male presenting with rhinorrhea, cough, chest congestion and fatigue. Symptoms have been present for the past 24 hours. Denies central chest pain. Denies measured fever. No vomiting. No chest or abdominal pain. - Related Data Home Medications Medication Instructions Recorded Confirmed Aspirin EC [Ecotrin Low Dose] 81 mg PO DAILY 06/20/21 03/15/22 Insulin Aspart [NovoLOG Flexpen] See Protocol SQ AC-TID 06/20/21 03/15/22 metFORMIN HCL [Glucophage] 1,000 mg PO AC-BID 06/20/21 03/15/22 Multivitamins, Thera [Multivitamin 1 tab PO DAILY 07/05/21 03/15/22 (formulary)] Previous Rx's Medication Instructions Recorded Vancomycin HCl in 5 % Dextrose 1.5 gm IV Q12HR #28 each 02/23/22 [Vancomycin 1 Gram/250 ml-D5w] Acetaminophen Tab [Tylenol] 650 mg PO Q6HR PRN tab 02/26/22 Insulin Glargine,Hum.rec.anlog 35 unit SQ HS #0 02/26/22 [Lantus Solostar Pen] Molnupiravir [Lagevrio (Eua)] 800 mg PO BID 5 Days #40 cap 09/02/22 Nirmatrelvir/Ritonavir [Paxlovid 1 each PO BID #1 each 10/23/23 300-100 mg Pack (Eua)] Allergies Allergy/AdvReac Type Severity Reaction Status Date / Time Penicillins Allergy Rash/Hives Verified 10/23/23 08:25 Review of Systems ROS Statement: Those systems with pertinent positive or pertinent negative responses have been documented in the HPI. ROS Other: All systems not noted in ROS Statement are negative. Past Medical History Past Medical History: Diabetes Mellitus History of Any Multi-Drug Resistant Organisms: None Reported Past Surgical History: Orthopedic Surgery Additional Past Surgical History / Comment(s): Foot surgery, PICC line, toe amputation Past Anesthesia/Blood Transfusion Reactions: No Reported Reaction Past Psychological History: No Psychological Hx Reported Smoking Status: Never smoker Past Alcohol Use History: Occasional Past Drug Use History: None Reported - Past Family History Father Family Medical History: Cancer Additional Family Medical History / Comment(s): stomach and lung CA, smoker General Exam Limitations: no limitations General appearance: alert, in no apparent distress Head exam: Present: atraumatic, normocephalic Eye exam: Present: normal appearance, PERRL ENT exam: Present: mucous membranes moist Neck exam: Present: normal inspection. Absent: tenderness, meningismus Respiratory exam: Present: normal lung sounds bilaterally. Absent: respiratory distress, wheezes Cardiovascular Exam: Present: regular rate, normal rhythm GI/Abdominal exam: Present: soft. Absent: distended, tenderness, guarding Extremities exam: Present: normal inspection, normal capillary refill Neurological exam: Present: alert, oriented X3, CN II-XII intact. Absent: motor sensory deficit Psychiatric exam: Present: normal affect, normal mood Skin exam: Present: warm, dry, intact. Absent: cyanosis, diaphoretic Course Vital Signs 10/23/23 08:22 Temperature 98.1 F Pulse Rate 94 Respiratory 18 Rate Blood Pressure 123/70 O2 Sat by Pulse 94 L Oximetry Medical Decision Making - Medical Decision Making Was pt. sent in by a medical professional or institution (, JADA, DATABASE DESIGN ANALYST, urgent care, hospital, or senior care...) When possible be specific @ -No Did you speak to anyone other than the patient for history (EMS, parent, family, police, friend...)? What history was obtained from this source @ -No Did you review nursing and triage notes (agree or disagree)? Why? @ -I reviewed and agree with nursing and triage notes Were old charts reviewed (outside hosp., previous admission, EMS record, old EKG, old radiological studies, urgent care reports/EKG's, senior care records)? Report findings @ -No old charts were reviewed Differential Diagnosis (chest pain, altered mental status, abdominal pain women, abdominal pain men, vaginal bleeding, weakness, fever, dyspnea, syncope, headache, dizziness, GI bleed, back pain, seizure, CVA, palpatations, mental health, musculoskeletal)? @ -Differential Weakness: Hypoglycemia, shock, sepsis, hyponatremia, anemia, infection, TN, ETOH, adverse medicine reaction, overdose, stroke, this is not meant to be an all-inclusive list. EKG interpreted by me (3pts min.). @ -As above X-rays interpreted by me (1pt min.). @cxr x-ray negative for focal pneumonia CT interpreted by me (1pt min.). @ -None done U/S interpreted by me (1pt. min.). @ -None done What testing was considered but not performed or refused? (CT, X-rays, U/S, labs)? Why? @ -None What meds were considered but not given or refused? Why? @ -None Did you discuss the management of the patient with other professionals (professionals i.e. , PA, DATABASE DESIGN ANALYST, lab, RT, psych nurse, community mental health social worker, finding fastener, teacher, geographic area intelligence officer, case management coordinator)? Give summary @ -No Was smoking cessation discussed for >3mins.? @ -No Was critical care preformed (if so, how long)? @ -No Were there social determinants of health that impacted care today? How? (Homelessness, low income, unemployed, alcoholism, drug addiction, transportation, low edu. Level, literacy, decrease access to med. care, fpc, rehab)? @ -No Was there de-escalation of care discussed even if they declined (Discuss DNR or withdrawal of care, Hospice)? DNR status @ -No What co-morbidities impacted this encounter? (DM, HTN, Smoking, COPD, CAD, Cancer, CVA, ARF, Chemo, Hep., AIDS, mental health diagnosis, sleep apnea, mor bid obesity)? @ -[Diabetes Was patient admitted / discharged? Hospital course, mention meds given and route, prescriptions, significant lab abnormalities, going to OR and other pertinent info. @58-year-old male with upper respiratory symptoms and fatigue. Patient has positive for coronavirus. Will be treated with oral antivirals. Return p arameters discussed. Undiagnosed new problem with uncertain prognosis? @ -No Drug Therapy requiring intensive monitoring for toxicity (Heparin, Nitro, Insulin, Cardizem)? @ -No Were any procedures done? @ -No Diagnosis/symptom? @ -COVID-19 Acute, or Chronic, or Acute on Chronic? @Acute Uncomplicated (without systemic symptoms) or Complicated (systemic symptoms)? @ -default Side effects of treatment? @ -No Exacerbation, Progression, or Severe Exacerbation? @ -No Poses a threat to life or bodily function? How? (Chest pain, USA, [place], pneumonia, PE, COPD, DKA, ARF, appy, cholecystitis, CVA, Diverticulitis, Homicidal, Suicidal, threat to staff... and all critical care pts) @Low risk at this time - Lab Data Lab Results 10/23/23 Range/Units 08:41 Influenza Type A (PCR) Not Detected (Not Detectd) Influenza Type B (PCR) Not Detected (Not Detectd) RSV (PCR) Not Detected (Not Detectd) SARS-CoV-2 (PCR) Detected A (Not Detectd) Disposition Clinical Impression: COVID-19 Disposition: HOME SELF-CARE Condition: Good Instructions (If sedation given, give patient instructions): COVID-19 (Coronavirus Disease 2019) (ED) Prescriptions: Nirmatrelvir/Ritonavir [Paxlovid 300-100 mg Pack (Eua)] 1 each PO BID #1 each Is patient prescribed a controlled substance at d/c from ED?: No Referrals: [facility],Clinic [Primary Care Provider] - 1-2 days Time of Disposition: 09:54
--- NOTE | 2023-10-23 09:07 | XR ---
EXAMINATION TYPE: XR chest 2V DATE OF EXAM: 10/23/2023 COMPARISON: 09/21/2022 HISTORY: Cough TECHNIQUE: Frontal and lateral views of the chest are obtained. FINDINGS: There is no focal air space opacity, pleural effusion, or pneumothorax seen. The cardiac silhouette size is within normal limits. The osseous structures are intact. IMPRESSION: No acute cardiopulmonary process.
== END 2023-10-23 10:42 | disposition home or self-care (01) ==
LOC: EC 08:05
DX: U07.1 COVID-19 (principal); E11.9 Type 2 diabetes mellitus without complications; Z79.4 Long term (current) use of insulin; Z79.84 Long term (current) use of oral hypoglycemic drugs; Z88.0 Allergy status to penicillin
CPT/HCPCS: 71046; 87636; 99283

== ENCOUNTER 2023-10-30 18:11 | Emergency (ER) | payer OTHER ==
--- NOTE | 2023-10-30 20:41 | ED ---
General Adult HPI - General Source: patient Mode of arrival: ambulatory Limitations: no limitations <Ángel Robles - Last Filed: 10/30/23 20:42> <Soheila Chase - Last Filed: 10/31/23 00:14> - General Chief complaint: Nausea/Vomiting/Diarrhea Stated complaint: nasal drainage; sour stomach Time Seen by Provider: 10/30/23 20:40 - History of Present Illness Initial comments: 58-year-old male presenting to the ED with a chief complaint of nausea States he started to experience this while at rest today. Also notes some post nasal drainage. Denies changes in bowel or bladder habits. Denies abdominal pain. (Ángel Robles) Uziel is a healthy 58-year-old male who presents to the emergency department today via private vehicle for treatment of nausea. Patient states he woke up between 10 and 11 AM, he did dishes and not to the grocery store upon returning home he began to feel nauseated. Patient states that he just has persistent nausea he feels like he is going to throw up though he has not vomited. Patient states he hasn't tried to eat since the onset of this. He did have a normal bowel movement approximately 30 minutes prior to my evaluation. He denies any pain in the abdomen. Denies any chest pain palpitations or shortness of breath. Patient has no previous abdominal surgeries no previous abdominal pathology or inflammatory or irritable bowel disease. She denies any suspicious food intake states that he ate his usual oatmeal for breakfast. (Soheila Chase) - Related Data Home Medications Medication Instructions Recorded Confirmed Aspirin EC [Ecotrin Low Dose] 81 mg PO DAILY 06/20/21 03/15/22 Insulin Aspart [NovoLOG Flexpen] See Protocol SQ AC-TID 06/20/21 03/15/22 metFORMIN HCL [Glucophage] 1,000 mg PO AC-BID 06/20/21 03/15/22 Multivitamins, Thera [Multivitamin 1 tab PO DAILY 07/05/21 03/15/22 (formulary)] Previous Rx's Medication Instructions Recorded Vancomycin HCl in 5 % Dextrose 1.5 gm IV Q12HR #28 each 02/23/22 [Vancomycin 1 Gram/250 ml-D5w] Acetaminophen Tab [Tylenol] 650 mg PO Q6HR PRN tab 02/26/22 Insulin Glargine,Hum.rec.anlog 35 unit SQ HS #0 02/26/22 [Lantus Solostar Pen] Molnupiravir [Lagevrio (Eua)] 800 mg PO BID 5 Days #40 cap 09/02/22 Nirmatrelvir/Ritonavir [Paxlovid 1 each PO BID #1 each 10/23/23 300-100 mg Pack (Eua)] Ondansetron Odt [Zofran Odt] 4 mg PO Q8HR PRN #12 tab 10/30/23 Allergies Allergy/AdvReac Type Severity Reaction Status Date / Time Penicillins Allergy Rash/Hives Verified 10/30/23 18:54 Review of Systems ROS Other: All systems not noted in ROS Statement are negative. <Ángel Robles - Last Filed: 10/30/23 20:42> ROS Other: All systems not noted in ROS Statement are negative. <Soheila Chase - Last Filed: 10/31/23 00:14> ROS Statement: Those systems with pertinent positive or pertinent negative responses have been documented in the HPI. Past Medical History Past Medical History: Diabetes Mellitus History of Any Multi-Drug Resistant Organisms: None Reported Past Surgical History: Orthopedic Surgery Additional Past Surgical History / Comment(s): Foot surgery, PICC line, toe amputation Past Anesthesia/Blood Transfusion Reactions: No Reported Reaction Past Psychological History: No Psychological Hx Reported Smoking Status: Never smoker Past Alcohol Use History: Occasional Past Drug Use History: None Reported - Past Family History Father Family Medical History: Cancer Additional Family Medical History / Comment(s): stomach and lung CA, smoker <Ángel Robles - Last Filed: 10/30/23 20:42> General Exam Limitations: no limitations <Ángel Robles - Last Filed: 10/30/23 20:42> General appearance: alert, in no apparent distress Head exam: Present: atraumatic, normocephalic Eye exam: Present: normal appearance ENT exam: Present: normal exam Respiratory exam: Present: normal lung sounds bilaterally. Absent: respiratory distress Cardiovascular Exam: Present: regular rate, normal rhythm GI/Abdominal exam: Present: soft, normal bowel sounds. Absent: distended, tenderness, guarding, rebound Rectal exam: Present: deferred Neurological exam: Present: alert, oriented X3 Psychiatric exam: Present: normal affect, normal mood Skin exam: Present: warm, dry, intact <Soheila Chase - Last Filed: 10/31/23 00:14> - General Exam Comments Initial Comments: Visual Physical Exam Vital signs reviewed General: Well-appearing, nontoxic, no acute distress. Head: Normocephalic, atraumatic Eyes: PERRLA, EOMI ENT: Airway patent Chest: Nonlabored breathing Skin: No visual rash, normal skin tone Neuro: Alert and oriented 3 Musculoskeletal: No gross abnormalities (Ángel Robles) Course Vital Signs 10/30/23 10/30/23 18:50 21:33 Temperature 98.1 F 98.3 F Pulse Rate 75 70 Respiratory 16 18 Rate Blood Pressure 149/89 136/94 O2 Sat by Pulse 97 98 Oximetry EKG Findings - EKG Comments: EKG Findings:: EKG interpreted by me, EKG obtained due to complaint of nausea, EKG obtained at -24 rate is 66 rhythm is sinus there is a normal axis, normal intervals, AL 169, QRS 96, QTC 390, there are no acute ST elevations or depressions there is no evidence of acute ischemia or infarction <Soheila Chase - Last Filed: 10/31/23 00:14> Medical Decision Making <Ángel Robles - Last Filed: 10/30/23 20:42> - Lab Data Result diagrams: 10/30/23 22:20 10/30/23 22:20 <Soheila Chase - Last Filed: 10/31/23 00:14> - Medical Decision Making Quicknote portion performed. Signed Ángel Robles PA-C (Ángel Robles) Was pt. sent in by a medical professional or institution (, PA, ENGLISH HORN PLAYER, urgent care, hospital, or half-way...) When possible be specific @ -No Did you speak to anyone other than the patient for history (EMS, parent, family, police, friend...)? What history was obtained from this source @ -No Did you review nursing and triage notes (agree or disagree)? Why? @ -I reviewed and agree with nursing and triage notes Were old charts reviewed (outside hosp., previous admission, EMS record, old E KG, old radiological studies, urgent care reports/EKG's, half-way records)? Report findings @ -No old charts were reviewed Differential Diagnosis (chest pain, altered mental status, abdominal pain women, abdominal pain men, vaginal bleeding, weakness, fever, dyspnea, syncope, headache, dizziness, GI bleed, back pain, seizure, CVA, palpatations, mental hea lth)? @ -Differential Abdominal Pain Men: Appendicitis, cholecystitis, diverticulosis, ischemic bowel, pancreatitis, hepatitis, UTI, gastroenteritis, AAA, incarcerated hernia, bowel obstruction, constipation, inflammatory bowel, hepatitis, peptic ulcer disease, splenic infarction, perforated viscus, testicular torsion, this is not meant to be an all-inclusive list EKG interpreted by me (3pts min.). @ -As above X-rays interpreted by me (1pt min.). @ -None done CT interpreted by me (1pt min.). @ -None done U/S interpreted by me (1pt. min.). @ -None done What testing was considered but not performed or refused? (CT, X-rays, U/S, labs)? Why? @ -None What meds were considered but not given or refused? Why? @ -None Did you discuss the management of the patient with other professionals (professionals i.e. , PA, ENGLISH HORN PLAYER, lab, RT, psych nurse, criminal justice social worker, chief controller tower, teacher, legal officer, case checker)? Give summary @ -No Was smoking cessation discussed for >3mins.? @ -No Was critical care preformed (if so, how long)? @ -No Were there social determinants of health that impacted care today? How? (Homelessness, low income, unemployed, alcoholism, drug addiction, transportation, low edu. Level, literacy, decrease access to med. care, correction, rehab)? @ -No Was there de-escalation of care discussed even if they declined (Discuss DNR or withdrawal of care, Hospice)? DNR status @ -No What co-morbidities impacted this encounter? (DM, HTN, Smoking, COPD, CAD, Cancer, CVA, ARF, Chemo, Hep., AIDS, mental health diagnosis, sleep apnea, morb id obesity)? @ -None Was patient admitted / discharged? Hospital course, mention meds given and route, prescriptions, significant lab abnormalities, going to OR and other pertinent info. @ -Discharged home The patient was seen and evaluated in exam room 7, patient with hours of nausea without vomiting. No chest pain palpitations or shortness of breath. EKG was nonischemic. Labs were unremarkable. Patient's symptoms resolved with Zofran and he was comfortable with plan for discharge home with when necessary Zofran. Undiagnosed new problem with uncertain prognosis? @ -No Drug Therapy requiring intensive monitoring for toxicity (Heparin, Nitro, Insulin, Cardizem)? @ -No Were any procedures done? @ -No Diagnosis/symptom? @ -Nausea Acute, or Chronic, or Acute on Chronic? @ -Acute Uncomplicated (without systemic symptoms) or Complicated (systemic symptoms)? @ -Uncomplicated Side effects of treatment? @ -No Exacerbation, Progression, or Severe Exacerbation? @ -No Poses a threat to life or bodily function? How? (Chest pain, [place], [place], pneumonia, PE, COPD, DKA, ARF, appy, cholecystitis, CVA, Diverticulitis, Homicidal, Suicidal, threat to staff... and all critical care pts) @ -No (Soheila Chase) - Lab Data Lab Results 10/30/23 10/30/23 10/30/23 Range/Units 21:32 22:20 22:20 WBC 5.7 (3.8-10.6) k/uL RBC 4.37 (4.30-5.90) m/uL Hgb 13.2 (13.0-17.5) gm/dL Hct 38.2 L (39.0-53.0) % MCV 87.6 (80.0-100.0) fL MCH 30.1 (25.0-35.0) pg MCHC 34.4 (31.0-37.0) g/dL RDW 12.5 (11.5-15.5) % Plt Count 214 (150-450) k/uL MPV 9.1 Neutrophils % 43 % Lymphocytes % 44 % Monocytes % 6 % Eosinophils % 5 % Basophils % 1 % Neutrophils # 2.4 (1.3-7.7) k/uL Lymphocytes # 2.5 (1.0-4.8) k/uL Monocytes # 0.3 (0-1.0) k/uL Eosinophils # 0.3 (0-0.7) k/uL Basophils # 0.0 (0-0.2) k/uL Sodium 133 L (137-145) mmol/L Potassium 4.0 (3.5-5.1) mmol/L Chloride 102 (98-107) mmol/L Carbon Dioxide 24 (22-30) mmol/L Anion Gap 7 mmol/L BUN 15 (9-20) mg/dL Creatinine 0.79 (0.66-1.25) mg/dL Est GFR (CKD-EPI)AfAm >90 (>60 ml/min/1.73 sqM) Est GFR (CKD-EPI)NonAf >90 (>60 ml/min/1.73 sqM) Glucose 119 H (74-99) mg/dL Calcium 9.1 (8.4-10.2) mg/dL Total Bilirubin 0.5 (0.2-1.3) mg/dL AST 21 (17-59) U/L ALT 21 (4-49) U/L Alkaline Phosphatase 112 (38-126) U/L Troponin I (0.000-0.034) ng/mL Total Protein 6.8 (6.3-8.2) g/dL Albumin 3.9 (3.5-5.0) g/dL Influenza Type A (PCR) Not Detected (Not Detectd) Influenza Type B (PCR) Not Detected (Not Detectd) RSV (PCR) Not Detected (Not Detectd) SARS-CoV-2 (PCR) Not Detected (Not Detectd) 10/30/23 Range/Units 22:20 WBC (3.8-10.6) k/uL RBC (4.30-5.90) m/uL Hgb (13.0-17.5) gm/dL Hct (39.0-53.0) % MCV (80.0-100.0) fL MCH (25.0-35.0) pg MCHC (31.0-37.0) g/dL RDW (11.5-15.5) % Plt Count (150-450) k/uL MPV Neutrophils % % Lymphocytes % % Monocytes % % Eosinophils % % Basophils % % Neutrophils # (1.3-7.7) k/uL Lymphocytes # (1.0-4.8) k/uL Monocytes # (0-1.0) k/uL Eosinophils # (0-0.7) k/uL Basophils # (0-0.2) k/uL Sodium (137-145) mmol/L Potassium (3.5-5.1) mmol/L Chloride (98-107) mmol/L Carbon Dioxide (22-30) mmol/L Anion Gap mmol/L BUN (9-20) mg/dL Creatinine (0.66-1.25) mg/dL Est GFR (CKD-EPI)AfAm (>60 ml/min/1.73 sqM) Est GFR (CKD-EPI)NonAf (>60 ml/min/1.73 sqM) Glucose (74-99) mg/dL Calcium (8.4-10.2) mg/dL Total Bilirubin (0.2-1.3) mg/dL AST (17-59) U/L ALT (4-49) U/L Alkaline Phosphatase (38-126) U/L Troponin I <0.012 (0.000-0.034) ng/mL Total Protein (6.3-8.2) g/dL Albumin (3.5-5.0) g/dL Influenza Type A (PCR) (Not Detectd) Influenza Type B (PCR) (Not Detectd) RSV (PCR) (Not Detectd) SARS-CoV-2 (PCR) (Not Detectd) Disposition <Ángel Robles - Last Filed: 10/30/23 20:42> Is patient prescribed a controlled substance at d/c from ED?: No <Soheila Chase - Last Filed: 10/31/23 00:14> Clinical Impression: Nausea Disposition: HOME SELF-CARE Condition: Stable Instructions (If sedation given, give patient instructions): Acute Nausea and Vomiting (ED) Prescriptions: Ondansetron Odt [Zofran Odt] 4 mg PO Q8HR PRN #12 tab PRN Reason: Nausea Referrals: [facility],Clinic [Primary Care Provider] - 1-2 days
[2023-10-30] MEDS ORDERED: SODIUM CHLORIDE 0.9% 1,000 ML IV ONE (21:51)
[2023-10-30] MEDS ORDERED: ONDANSETRON 4 MG/2 ML VIAL IVP STA (21:51)
[2023-10-30 22:21] VITALS: BP 136/94; PULSE 70; RESP 18; TEMP 98.3
[2023-10-30 22:50] LABS: Basophils % (A) 1 %; Eosinophils # (A) 0.3 k/uL (0-0.7); Eosinophils % (A) 5 %; HCT 38.2 % (39.0-53.0); HGB 13.2 gm/dL (13.0-17.5); Lymphocytes # (A) 2.5 k/uL (1.0-4.8); Lymphocytes % (A) 44 %; MCH 30.1 pg (25.0-35.0); MCHC 34.4 g/dL (31.0-37.0); MCV 87.6 fL (80.0-100.0); Mean Platelet Volume 9.1; Monocytes # (A) 0.3 k/uL (0-1.0); Monocytes % (A) 6 %; Neutrophils # (A) 2.4 k/uL (1.3-7.7); Neutrophils % (A) 43 %; Platelet Count 214 k/uL (150-450); RBC 4.37 m/uL (4.30-5.90); RDW 12.5 % (11.5-15.5); WBC 5.7 k/uL (3.8-10.6)
[2023-10-30 23:05] LABS: ALT 21 U/L (4-49); AST 21 U/L (17-59); African American GFR (CKD) >90 (>60 ml/min/1.73 sqM); Albumin 3.9 g/dL (3.5-5.0); Alkaline Phosphatase 112 U/L (38-126); Anion Gap 7 mmol/L; Blood Urea Nitrogen 15 mg/dL (9-20); Calcium 9.1 mg/dL (8.4-10.2); Carbon Dioxide 24 mmol/L (22-30); Chloride 102 mmol/L (98-107); Glucose 119 mg/dL (74-99); Non-African American GFR(CKD) >90 (>60 ml/min/1.73 sqM); Sodium 133 mmol/L (137-145); Total Bilirubin 0.5 mg/dL (0.2-1.3); Total Protein 6.8 g/dL (6.3-8.2)
[2023-10-30] MEDS ORDERED: ONDANSETRON 4 MG ODT STARTER PACK 2 TAB BTL PO STA (23:47)
== END 2023-10-31 00:11 | disposition home or self-care (01) ==
LOC: EC 18:11
DX: R11.0 Nausea (principal); E11.9 Type 2 diabetes mellitus without complications; Z20.822 Contact with and (suspected) exposure to COVID-19; Z79.4 Long term (current) use of insulin; Z79.84 Long term (current) use of oral hypoglycemic drugs; Z88.0 Allergy status to penicillin
CPT/HCPCS: 36415; 93005; 80053; 84484; 85025; 87636; 99284; 96374; 96361; J2405

== ENCOUNTER 2023-12-25 00:22 | Emergency (ER) | payer OTHER ==
--- NOTE | 2023-12-25 00:51 | XR ---
EXAMINATION TYPE: XR chest 2V DATE OF EXAM: 12/25/2023 COMPARISON: Prior chest x-ray October 23, 2023 HISTORY: Cough TECHNIQUE: Frontal and lateral views of the chest are obtained. FINDINGS: There is no suspicious focal air space opacity, pleural effusion, or pneumothorax seen. E ventration of right hemidiaphragm redemonstrated. The cardiac silhouette size is stable and within no rmal limits. The osseous structures are intact. IMPRESSION: No acute pulmonary infiltrate. No significant change from prior.
[2023-12-25 00:56] VITALS: RESP 18; TEMP 97.9
--- NOTE | 2023-12-25 01:48 | ED ---
URI HPI - General Chief Complaint: Upper Respiratory Infection Stated Complaint: runny nose cough Time Seen by Provider: 12/25/23 01:34 Source: patient, RN notes reviewed, old records reviewed Mode of arrival: ambulatory Limitations: no limitations - History of Present Illness Initial Comments: This is a 58-year-old male presenting with son for cough and congestion runny nose persistent cough and congestion tonight and coughing up significant amount of phlegm and sputum. No travel history no sick contacts no history of similar complaints. Patient symptoms been going on for few weeks now and are progressively worsening MD Complaint: cough, sore throat, nasal congestion -: hour(s) Severity: mild Severity scale (1-10): 2 Quality: burning, sharp, dull Consistency: intermittent Improves With: nothing Worsens With: nothing Associated Symptoms: nasal congestion, cough Treatments Prior to Arrival: none - Related Data Home Medications Medication Instructions Recorded Confirmed Aspirin EC [Ecotrin Low Dose] 81 mg PO DAILY 06/20/21 03/15/22 Insulin Aspart [NovoLOG Flexpen] See Protocol SQ AC-TID 06/20/21 03/15/22 metFORMIN HCL [Glucophage] 1,000 mg PO AC-BID 06/20/21 03/15/22 Multivitamins, Thera [Multivitamin 1 tab PO DAILY 07/05/21 03/15/22 (formulary)] Previous Rx's Medication Instructions Recorded Vancomycin HCl in 5 % Dextrose 1.5 gm IV Q12HR #28 each 02/23/22 [Vancomycin 1 Gram/250 ml-D5w] Acetaminophen Tab [Tylenol] 650 mg PO Q6HR PRN tab 02/26/22 Insulin Glargine,Hum.rec.anlog 35 unit SQ HS #0 02/26/22 [Lantus Solostar Pen] Molnupiravir [Lagevrio (Eua)] 800 mg PO BID 5 Days #40 cap 09/02/22 Nirmatrelvir/Ritonavir [Paxlovid 1 each PO BID #1 each 10/23/23 300-100 mg Pack (Eua)] Ondansetron Odt [Zofran Odt] 4 mg PO Q8HR PRN #12 tab 10/30/23 Azithromycin [Zithromax] 500 mg PO DAILY #5 tab 12/25/23 Benzonatate [Tessalon Perles] 100 mg PO TID PRN #15 capsule 12/25/23 Loratadine-Pseudoeph 10-240 mg 1 tab PO DAILY #14 tab 12/25/23 [Claritin-D 24 Hour] Allergies Allergy/AdvReac Type Severity Reaction Status Date / Time Penicillins Allergy Rash/Hives Verified 10/30/23 18:54 Review of Systems ROS Statement: Those systems with pertinent positive or pertinent negative responses have been documented in the HPI. ROS Other: All systems not noted in ROS Statement are negative. Past Medical History Past Medical History: Diabetes Mellitus History of Any Multi-Drug Resistant Organisms: None Reported Past Surgical History: Orthopedic Surgery Additional Past Surgical History / Comment(s): Foot surgery, PICC line, toe amputation Past Anesthesia/Blood Transfusion Reactions: No Reported Reaction Past Psychological History: No Psychological Hx Reported Smoking Status: Never smoker Past Alcohol Use History: Occasional Past Drug Use History: None Reported - Past Family History Father Family Medical History: Cancer Additional Family Medical History / Comment(s): stomach and lung CA, smoker General Exam Limitations: no limitations General appearance: alert, in no apparent distress Head exam: Present: atraumatic, normocephalic, normal inspection Eye exam: Present: normal appearance, PERRL, EOMI. Absent: scleral icterus, conjunctival injection, periorbital swelling ENT exam: Present: normal exam, mucous membranes moist Neck exam: Present: normal inspection. Absent: tenderness, meningismus, lymphadenopathy Respiratory exam: Present: normal lung sounds bilaterally. Absent: respiratory distress, wheezes, rales, rhonchi, stridor Cardiovascular Exam: Present: regular rate, normal rhythm, normal heart sounds. Absent: systolic murmur, diastolic murmur, rubs, gallop, clicks GI/Abdominal exam: Present: soft, normal bowel sounds. Absent: distended, tenderness, guarding, rebound, rigid Extremities exam: Present: normal inspection, full ROM, normal capillary refill. Absent: tenderness, pedal edema, joint swelling, calf tenderness Back exam: Present: normal inspection Neurological exam: Present: alert, oriented X3, CN II-XII intact Psychiatric exam: Present: normal affect, normal mood Skin exam: Present: warm, dry, intact, normal color. Absent: rash Course Vital Signs 12/25/23 12/25/23 00:29 02:21 Temperature 97.9 F Pulse Rate 71 65 Respiratory 18 18 Rate Blood Pressure 147/89 136/87 O2 Sat by Pulse 97 97 Oximetry - Reevaluation(s) Reevaluation #1: 12/25/23 01:47 Medical records reviewed Reevaluation #2: 12/25/23 01:47 Patient symptoms improved Reevaluation #3: 12/25/23 01:47 Patient informed of results and questions answered Reevaluation #4: Was pt. sent in by a medical professional or institution (JADA Estrada, OUTPATIENT SCHEDULER, urgent care, hospital, or intermediate...) When possible be specific @ -no Did you speak to anyone other than the patient for history (EMS, parent, family, police, friend...)? What history was obtained from this source @ -no Did you review nursing and triage notes (agree or disagree)? Why? @ -agree Are old charts reviewed (outside hosp., previous admission, EMS record, old EKG, old radiological studies, urgent care reports/EKG's, intermediate records)? Report findings @ -yes Differential Diagnosis (chest pain, altered mental status, abdominal pain women, abdominal pain men, vaginal bleeding, weakness, fever, dyspnea, syncope, headache, dizziness, GI bleed, back pain, seizure, CVA, palpatations, mental health, musculoskeletal)? @ -prior EKG interpreted by me (3pts min.). @ no X-rays interpreted by me (1pt min.). @ -yes negative for acute disease CT interpreted by me (1pt min.). @ -no U/S interpreted by me (1pt. min.). @ -no What testing was considered but not performed or refused? (CT, X-rays, U/S, labs)? Why? @ -none What meds were considered but not given or refused? Why? @ -none Did you discuss the management of the patient with other professionals (professionals i.e. JADA Estrada, OUTPATIENT SCHEDULER, lab, RT, psych nurse, social welfare clerk, pay station attendant, teacher, global chief experience officer, counseling case manager)? Give summary @ -no Was smoking cessation discussed for >3mins.? @ -no Was critical care preformed (if so, how long)? @ -no Were there social determinants of health that impacted care today? How? (Homelessness, low income, unemployed, alcoholism, drug addiction, transportation, low edu. Level, literacy, decrease access to med. care, group home, rehab)? @ -none Was there de-escalation of care discussed even if they declined (Discuss DNR or withdrawal of care, Hospice)? DNR status @ -no What co-morbidities impacted this encounter? (DM, HTN, Smoking, COPD, CAD, Cancer, CVA, ARF, Chemo, Hep., AIDS, mental health diagnosis, sleep apnea, morbid obesity)? @ -none Was patient admitted / discharged? Hospital course, mention meds given and route, prescriptions, significant lab abnormalities, going to OR and other pertinent info. @ - 58 male with persistent runny nose and cough. Patient will be placed on oral antibiotics and symptomatic therapy for significant symptoms here in the ER. Patient has no change in symptoms here in the ER but has normal viral testing and x-ray can be discharged home Discharge Undiagnosed new problem with uncertain prognosis? @ -no Drug Therapy requiring intensive monitoring for toxicity (Heparin, Nitro, Insulin, Cardizem)? @ -no Were any procedures done? @ -no Diagnosis/symptom? @ -A pressure infection, pneumonia Acute, or Chronic, or Acute on Chronic? @ -Acute Uncomplicated (without systemic symptoms) or Complicated (systemic symptoms)? @ -Complicated Side effects of treatment? @ -no Exacerbation, Progression, or Severe Exacerbation? @ -exacerbation Poses a threat to life or bodily function? How? (Chest pain, [place], [place], pneumonia, PE, COPD, DKA, ARF, appy, cholecystitis, CVA, Diverticulitis, Homicidal, Suicidal, threat to staff... and all critical care pts) @ -no Medical Decision Making - Medical Decision Making 58 male with persistent runny nose and cough. Patient will be placed on oral antibiotics and symptomatic therapy for significant symptoms here in the ER. Patient has no change in symptoms here in the ER but has normal viral testing and x-ray can be discharged home - Lab Data Lab Results 12/25/23 Range/Units 00:30 Influenza Type A (PCR) Not Detected (Not Detectd) Influenza Type B (PCR) Not Detected (Not Detectd) RSV (PCR) Not Detected (Not Detectd) SARS-CoV-2 (PCR) Not Detected (Not Detectd) - Radiology Data Radiology results: report reviewed (Chest x-ray is negative for acute disease), image reviewed Disposition Clinical Impression: Acute upper respiratory infection Disposition: HOME SELF-CARE Instructions (If sedation given, give patient instructions): Upper Respiratory Infection (ED) Prescriptions: Loratadine-Pseudoeph 10-240 mg [Claritin-D 24 Hour] 1 tab PO DAILY #14 tab Benzonatate [Tessalon Perles] 100 mg PO TID PRN #15 capsule PRN Reason: Cough Azithromycin [Zithromax] 500 mg PO DAILY #5 tab Is patient prescribed a controlled substance at d/c from ED?: No Referrals: [facility],Clinic [Primary Care Provider] - 1-2 days Time of Disposition: 01:45
[2023-12-25] MEDS: AZITHROMYCIN 500 MG TAB PO STA (02:12)
[2023-12-25] MEDS: PSEUDOEPHEDRINE 30 MG TAB PO STA (02:12)
[2023-12-25] MEDS: BENZONATATE 100 MG CAP PO STA (02:12)
[2023-12-25 02:53] VITALS: BP 136/87; PULSE 65
== END 2023-12-25 02:22 | disposition home or self-care (01) ==
LOC: EC 00:22
DX: J06.9 Acute upper respiratory infection, unspecified (principal); Z88.0 Allergy status to penicillin
CPT/HCPCS: 71046; 87636; 99284

== ENCOUNTER 2024-01-15 15:08 | Emergency (ER) | payer OTHER ==
--- NOTE | 2024-01-15 15:33 | ED ---
Skin/Abscess/FB HPI - General Source: patient, RN notes reviewed Mode of arrival: ambulatory Limitations: no limitations <Katlin Estrada - Last Filed: 01/15/24 15:32> - General Source: patient, RN notes reviewed, old records reviewed <Toño Jj - Last Filed: 01/15/24 21:28> - General Stated complaint: Rash Time Seen by Provider: 01/15/24 15:32 - History of Present Illness Initial comments: Quick note: 58-year-old male presented to the ER with chief complaint of a rash. He states this been an ongoing problem. He reports his rash is on his eyelids and bilateral inner thighs. Rashes not painful. (Katlin Estrada) Patient originally evaluated as a quick note. He is a 58-year-old male presents emergency department with acute on chronic rash on his inner thighs. Has been on his eyelids in the past as well as is in his armpits but currently worse in his groin region. Has been on antifungals, steroid creams. Minimal improvement in symptoms. Presents for further evaluation at this time as he states that the became "welts" on the inner thighs. Denies any fevers, chills, abdominal pain. No nausea or vomiting or diarrhea. No known sick contacts. Follows up with sort worker next week. Presents for further evaluation. Rashes do not hurt. They are a little pruritic. I evaluated the patient when he was placed in a room. (Toño Jj) - Related Data Home Medications Medication Instructions Recorded Confirmed Aspirin EC [Ecotrin Low Dose] 81 mg PO DAILY 06/20/21 03/15/22 Insulin Aspart [NovoLOG Flexpen] See Protocol SQ AC-TID 06/20/21 03/15/22 metFORMIN HCL [Glucophage] 1,000 mg PO AC-BID 06/20/21 03/15/22 Multivitamins, Thera [Multivitamin 1 tab PO DAILY 07/05/21 03/15/22 (formulary)] Previous Rx's Medication Instructions Recorded Vancomycin HCl in 5 % Dextrose 1.5 gm IV Q12HR #28 each 02/23/22 [Vancomycin 1 Gram/250 ml-D5w] Acetaminophen Tab [Tylenol] 650 mg PO Q6HR PRN tab 02/26/22 Insulin Glargine,Hum.rec.anlog 35 unit SQ HS #0 02/26/22 [Lantus Solostar Pen] Molnupiravir [Lagevrio (Eua)] 800 mg PO BID 5 Days #40 cap 09/02/22 Nirmatrelvir/Ritonavir [Paxlovid 1 each PO BID #1 each 10/23/23 300-100 mg Pack (Eua)] Ondansetron Odt [Zofran Odt] 4 mg PO Q8HR PRN #12 tab 10/30/23 Azithromycin [Zithromax] 500 mg PO DAILY #5 tab 12/25/23 Benzonatate [Tessalon Perles] 100 mg PO TID PRN #15 capsule 12/25/23 Loratadine-Pseudoeph 10-240 mg 1 tab PO DAILY #14 tab 12/25/23 [Claritin-D 24 Hour] Cephalexin [Keflex] 500 mg PO Q12HR 5 Days #10 cap 01/15/24 Allergies Allergy/AdvReac Type Severity Reaction Status Date / Time Penicillins Allergy Rash/Hives Verified 10/30/23 18:54 Review of Systems ROS Other: All systems not noted in ROS Statement are negative. <Katlin Estrada - Last Filed: 01/15/24 15:32> ROS Other: All systems not noted in ROS Statement are negative. <Toño Jj - Last Filed: 01/15/24 21:28> ROS Statement: Those systems with pertinent positive or pertinent negative responses have been documented in the HPI. Review of Systems: CONST: Denies fever EYES: Denies blurry vision ENT: Denies nasal congestion C/V: Denies Chest pain RESP: Denies shortness of breath GI: Denies abdominal pain : Denies dysuria SKIN: Endorses chronic rash MSK: Denies joint pain. NEURO: Denies headache (Toño Jj) Past Medical History Past Medical History: Diabetes Mellitus History of Any Multi-Drug Resistant Organisms: None Reported Past Surgical History: Orthopedic Surgery Additional Past Surgical History / Comment(s): Foot surgery, PICC line, toe ampu tation Past Anesthesia/Blood Transfusion Reactions: No Reported Reaction Past Psychological History: No Psychological Hx Reported Smoking Status: Never smoker Past Alcohol Use History: Occasional Past Drug Use History: None Reported - Past Family History Father Family Medical History: Cancer Additional Family Medical History / Comment(s): stomach and lung CA, smoker <Katlin Estrada - Last Filed: 01/15/24 15:32> General Exam <Katlin Estrada - Last Filed: 01/15/24 15:32> <Toño Jj - Last Filed: 01/15/24 21:28> - General Exam Comments Initial Comments: Visual Physical Exam Vital signs reviewed General: Well-appearing, nontoxic, no acute distress. Head: Normocephalic, atraumatic Eyes: PERRLA, EOMI ENT: Airway patent Chest: Nonlabored breathing Skin: No visual rash, normal skin tone Neuro: Alert and oriented 3 Musculoskeletal: No gross abnormalities (Katlin Estrada) General: Appears in no acute distress. HEAD: Normal with no signs of head trauma. EYES: EOMI. ENT: Hearing grossly intact. RESPIRATORY: No respiratory distress. C/V: Regular rate and rhythm. ABD: Abdomen is nondistended. EXT: No obvious deformity. SKIN: Patient has erythematous plaques located on the inner aspect the crease region of his groin. These seem to be more contact dermatitis in nature. The left one seems to be indurated. Slightly tender on the left. NEURO: Alert and oriented. (Toño Jj) Course Vital Signs 01/15/24 01/15/24 15:41 20:12 Temperature 97.7 F Pulse Rate 80 74 Respiratory 20 16 Rate Blood Pressure 134/77 144/87 O2 Sat by Pulse 97 97 Oximetry Medical Decision Making <Katlin Estrada - Last Filed: 01/15/24 15:32> - Lab Data Result diagrams: 01/15/24 17:11 01/15/24 17:11 <Toño Jj - Last Filed: 01/15/24 21:28> - Medical Decision Making I performed the quick note portion of this chart. Electronically signed by Katlin Estrada PA-C (Katlin Estrada) Was pt. sent in by a medical professional or institution (JADA Estrada, SUPERVISOR [employer]ANGING, urgent care, hospital, or assisted...) When possible be specific @ -No Did you speak to anyone other than the patient for history (EMS, parent, family, police, friend...)? What history was obtained from this source @ -No Did you review nursing and triage notes (agree or disagree)? Why? @ -I reviewed and agree with nursing and triage notes Were old charts reviewed (outside hosp., previous admission, EMS record, old EKG, old radiological studies, urgent care reports/EKG's, assisted records)? Report findings @ -Old charts reviewed Differential Diagnosis (chest pain, altered mental status, abdominal pain women, abdominal pain men, vaginal bleeding, weakness, fever, dyspnea, syncope, headache, dizziness, GI bleed, back pain, seizure, CVA, palpatations, mental health, musculoskeletal)? @ -Contact dermatitis, cellulitis, abscess. This list is not all inclusive. EKG interpreted by me (3pts min.). @ -None done X-rays interpreted by me (1pt min.). @ -None done CT interpreted by me (1pt min.). @ -None done U/S interpreted by me (1pt. min.). @ -Ultrasound negative for any obvious evidence of abscess. What testing was considered but not performed or refused? (CT, X-rays, U/S, labs)? Why? @ -None What meds were considered but not given or refused? Why? @ -None Did you discuss the management of the patient with other professionals (professionals i.e. , PA, SUPERVISOR [employer]ING, lab, RT, psych nurse, mental health social worker, aircraft systems technician, teacher, targeting acquisition officer, case sealer)? Give summary @ -No Was smoking cessation discussed for >3mins.? @ -No Was critical care preformed (if so, how long)? @ -No Were there social determinants of health that impacted care today? How? (Homelessness, low income, unemployed, alcoholism, drug addiction, transportation, low edu. Level, literacy, decrease access to med. care, snf, rehab)? @ -No Was there de-escalation of care discussed even if they declined (Discuss DNR or withdrawal of care, Hospice)? DNR status @ -No What co-morbidities impacted this encounter? (DM, HTN, Smoking, COPD, CAD, Cancer, CVA, ARF, Chemo, Hep., AIDS, mental health diagnosis, sleep apnea, morbid obesity)? @ -Diabetes Was patient admitted / discharged? Hospital course, mention meds given and route, prescriptions, significant lab abnormalities, going to OR and other pertinent info. @ -Based on the patient's presentation and physical exam, presents emergency department complaining of a worsening of a rash that is chronic for the patient. Discussed with him as he is a diabetic that we will obtain basic labs as well as an ultrasound to evaluate for any evidence of abscess. He was in agreement this plan. Likely contact dermatitis. Laboratory studies within acceptable limits. No evidence of DKA. Mildly dehydrated but patient is drinking plenty of water here in the department. Ultrasound negative for abscess. At this time, I did discuss with the patient we will empirically treat the patient for possible cellulitis with Keflex. Patient was in agreement this plan. Recommended he follow-up with his dermatology appointment next week. I will provide the patient with a prescription for Keflex. I instructed the elisa ent to follow up with their PCP in the next 1-3 days.. I explained that the patient should return to the emergency department if they experience any worsening symptoms. Strict return precautions were discussed with the patient. The patient expressed understanding of these instructions. I answered all questions that the patient had. The patient was discharged home in good condition with their prescriptions and follow up information. Undiagnosed new problem with uncertain prognosis? @ -No Drug Therapy requiring intensive monitoring for toxicity (Heparin, Nitro, Insulin, Cardizem)? @ -No Were any procedures done? @ -No Diagnosis/symptom? @ -Contact dermatitis, possible cellulitis Acute, or Chronic, or Acute on Chronic? @ -Acute on chronic Uncomplicated (without systemic symptoms) or Complicated (systemic symptoms)? @ -Uncomplicated Side effects of treatment? @ -No Exacerbation, Progression, or Severe Exacerbation? @ -No Poses a threat to life or bodily function? How? (Chest pain, [place], [place], pneumonia, PE, COPD, DKA, ARF, appy, cholecystitis, CVA, Diverticulitis, Homicidal, Suicid al, threat to staff... and all critical care pts) @ -No (Toño Jj) - Lab Data Lab Results 01/15/24 01/15/24 01/15/24 Range/Units 17:11 17:11 17:11 WBC 6.1 (3.8-10.6) k/uL RBC 4.36 (4.30-5.90) m/uL Hgb 13.2 (13.0-17.5) gm/dL Hct 40.3 (39.0-53.0) % MCV 92.4 (80.0-100.0) fL MCH 30.3 (25.0-35.0) pg MCHC 32.8 (31.0-37.0) g/dL RDW 12.7 (11.5-15.5) % Plt Count 290 (150-450) k/uL MPV 8.2 Neutrophils % 58 % Lymphocytes % 28 % Monocytes % 5 % Eosinophils % 6 % Basophils % 1 % Neutrophils # 3.6 (1.3-7.7) k/uL Lymphocytes # 1.7 (1.0-4.8) k/uL Monocytes # 0.3 (0-1.0) k/uL Eosinophils # 0.4 (0-0.7) k/uL Basophils # 0.0 (0-0.2) k/uL Sodium 132 L (137-145) mmol/L Potassium 4.7 (3.5-5.1) mmol/L Chloride 98 (98-107) mmol/L Carbon Dioxide 25 (22-30) mmol/L Anion Gap 9 mmol/L BUN 18 (9-20) mg/dL Creatinine 0.77 (0.66-1.25) mg/dL Est GFR (CKD-EPI)AfAm >90 (>60 ml/min/1.73 sqM) Est GFR (CKD-EPI)NonAf >90 (>60 ml/min/1.73 sqM) Glucose 334 H (74-99) mg/dL POC Glucose (mg/dL) (70-110) mg/dL POC Glu Project Landscape Architect ID Lactic Ac Sepsis Rflx Plasma Lactic Acid Chris 2.5 H* (0.7-2.0) mmol/L Calcium 9.5 (8.4-10.2) mg/dL Total Bilirubin 0.4 (0.2-1.3) mg/dL AST 20 (17-59) U/L ALT 17 (4-49) U/L Alkaline Phosphatase 155 H (38-126) U/L Total Protein 7.1 (6.3-8.2) g/dL Albumin 4.1 (3.5-5.0) g/dL Acetone, Qual Negative (Negative) 01/15/24 01/15/24 Range/Units 17:19 17:56 WBC (3.8-10.6) k/uL RBC (4.30-5.90) m/uL Hgb (13.0-17.5) gm/dL Hct (39.0-53.0) % MCV (80.0-100.0) fL MCH (25.0-35.0) pg MCHC (31.0-37.0) g/dL RDW (11.5-15.5) % Plt Count (150-450) k/uL MPV Neutrophils % % Lymphocytes % % Monocytes % % Eosinophils % % Basophils % % Neutrophils # (1.3-7.7) k/uL Lymphocytes # (1.0-4.8) k/uL Monocytes # (0-1.0) k/uL Eosinophils # (0-0.7) k/uL Basophils # (0-0.2) k/uL Sodium (137-145) mmol/L Potassium (3.5-5.1) mmol/L Chloride (98-107) mmol/L Carbon Dioxide (22-30) mmol/L Anion Gap mmol/L BUN (9-20) mg/dL Creatinine (0.66-1.25) mg/dL Est GFR (CKD-EPI)AfAm (>60 ml/min/1.73 sqM) Est GFR (CKD-EPI)NonAf (>60 ml/min/1.73 sqM) Glucose (74-99) mg/dL POC Glucose (mg/dL) 305 H (70-110) mg/dL POC Glu Project Landscape Architect ID Vagts, Suzin Lactic Ac Sepsis Rflx Y Plasma Lactic Acid Chris (0.7-2.0) mmol/L Calcium (8.4-10.2) mg/dL Total Bilirubin (0.2-1.3) mg/dL AST (17-59) U/L ALT (4-49) U/L Alkaline Phosphatase (38-126) U/L Total Protein (6.3-8.2) g/dL Albumin (3.5-5.0) g/dL Acetone, Qual (Negative) Disposition <Katlin Estrada - Last Filed: 01/15/24 15:32> Is patient prescribed a controlled substance at d/c from ED?: No Time of Disposition: 19:56 <Toño Jj - Last Filed: 01/15/24 21:28> Clinical Impression: Dermatitis, Cellulitis Disposition: HOME SELF-CARE Condition: Good Instructions (If sedation given, give patient instructions): Contact Dermatitis (ED) Prescriptions: Cephalexin [Keflex] 500 mg PO Q12HR 5 Days #10 cap Referrals: [facility],Clinic [Primary Care Provider] - 1-2 days
[2024-01-15 16:02] VITALS: TEMP 97.7
[2024-01-15 17:20] LABS: Glucose,Whole Blood 305 mg/dL (70-110)
[2024-01-15 17:24] LABS: Basophils % (A) 1 %; Eosinophils # (A) 0.4 k/uL (0-0.7); Eosinophils % (A) 6 %; HCT 40.3 % (39.0-53.0); HGB 13.2 gm/dL (13.0-17.5); Lymphocytes # (A) 1.7 k/uL (1.0-4.8); Lymphocytes % (A) 28 %; MCH 30.3 pg (25.0-35.0); MCHC 32.8 g/dL (31.0-37.0); MCV 92.4 fL (80.0-100.0); Mean Platelet Volume 8.2; Monocytes # (A) 0.3 k/uL (0-1.0); Monocytes % (A) 5 %; Neutrophils # (A) 3.6 k/uL (1.3-7.7); Neutrophils % (A) 58 %; Platelet Count 290 k/uL (150-450); RBC 4.36 m/uL (4.30-5.90); RDW 12.7 % (11.5-15.5); WBC 6.1 k/uL (3.8-10.6)
[2024-01-15 17:42] LABS: ALT 17 U/L (4-49); AST 20 U/L (17-59); African American GFR (CKD) >90 (>60 ml/min/1.73 sqM); Albumin 4.1 g/dL (3.5-5.0); Alkaline Phosphatase 155 U/L (38-126); Anion Gap 9 mmol/L; Blood Urea Nitrogen 18 mg/dL (9-20); Calcium 9.5 mg/dL (8.4-10.2); Carbon Dioxide 25 mmol/L (22-30); Chloride 98 mmol/L (98-107); Glucose 334 mg/dL (74-99); Non-African American GFR(CKD) >90 (>60 ml/min/1.73 sqM); Potassium 4.7 mmol/L (3.5-5.1); Sodium 132 mmol/L (137-145); Total Bilirubin 0.4 mg/dL (0.2-1.3); Total Protein 7.1 g/dL (6.3-8.2)
--- NOTE | 2024-01-15 19:08 | US ---
EXAMINATION TYPE: US extremity nonvasculr [facility] DATE OF EXAM: 01/15/2024 COMPARISON: NONE CLINICAL INDICATION: Male, 58 years old with history of groin rash/induration. eval for abscess; left upper thigh abscess. TECHNIQUE: Grayscale imaging of the left upper thigh. FINDINGS: Scanned area of concern no abnormalities seen. No organizing fluid collection or mass. IMPRESSION: No finding to correlate with induration. No organizing fluid collection.
[2024-01-15] MEDS: CEPHALEXIN 500 MG CAP PO STA (20:09)
[2024-01-15 20:30] VITALS: BP 144/87; PULSE 74; RESP 16
== END 2024-01-15 20:14 | disposition home or self-care (01) ==
LOC: EC 15:08
DX: L30.9 Dermatitis, unspecified (principal); L03.314 Cellulitis of groin; E11.9 Type 2 diabetes mellitus without complications; Z88.0 Allergy status to penicillin; Z79.84 Long term (current) use of oral hypoglycemic drugs
CPT/HCPCS: 36415; 80053; 82009; 83605; 85025; 99284

== ENCOUNTER 2024-02-04 19:02 | Emergency (ER) | payer OTHER ==
[2024-02-04 20:11] VITALS: RESP 18; TEMP 98.4
--- NOTE | 2024-02-04 21:01 | ED ---
General Adult HPI - General Chief complaint: Allergic Reaction Stated complaint: possible allergic reaction to med Time Seen by Provider: 02/04/24 20:09 Source: patient, RN notes reviewed Mode of arrival: ambulatory Limitations: no limitations - History of Present Illness Initial comments: 58-year-old male presents to the emergency department for evaluation of cough and chest congestion. Patient states that he was started on Keflex around 5 days ago and notes that since then he has had worsening cough. Patient is concerned that he is he having a reaction to the medication. He states that h was placed on the antibiotic by his oil tester after he trimmed some skin on his foot. He states that this has been healing well. He denies fever, chills. - Related Data Home Medications Medication Instructions Recorded Confirmed Aspirin EC [Ecotrin Low Dose] 81 mg PO DAILY 06/20/21 03/15/22 Insulin Aspart [NovoLOG Flexpen] See Protocol SQ AC-TID 06/20/21 03/15/22 metFORMIN HCL [Glucophage] 1,000 mg PO AC-BID 06/20/21 03/15/22 Multivitamins, Thera [Multivitamin 1 tab PO DAILY 07/05/21 03/15/22 (formulary)] Previous Rx's Medication Instructions Recorded Vancomycin HCl in 5 % Dextrose 1.5 gm IV Q12HR #28 each 02/23/22 [Vancomycin 1 Gram/250 ml-D5w] Acetaminophen Tab [Tylenol] 650 mg PO Q6HR PRN tab 02/26/22 Insulin Glargine,Hum.rec.anlog 35 unit SQ HS #0 02/26/22 [Lantus Solostar Pen] Molnupiravir [Lagevrio (Eua)] 800 mg PO BID 5 Days #40 cap 09/02/22 Nirmatrelvir/Ritonavir [Paxlovid 1 each PO BID #1 each 10/23/23 300-100 mg Pack (Eua)] Ondansetron Odt [Zofran Odt] 4 mg PO Q8HR PRN #12 tab 10/30/23 Azithromycin [Zithromax] 500 mg PO DAILY #5 tab 12/25/23 Benzonatate [Tessalon Perles] 100 mg PO TID PRN #15 capsule 12/25/23 Loratadine-Pseudoeph 10-240 mg 1 tab PO DAILY #14 tab 12/25/23 [Claritin-D 24 Hour] Cephalexin [Keflex] 500 mg PO Q12HR 5 Days #10 cap 01/15/24 Allergies Allergy/AdvReac Type Severity Reaction Status Date / Time Penicillins Allergy Rash/Hives Verified 02/04/24 19:40 Review of Systems ROS Statement: Those systems with pertinent positive or pertinent negative responses have been documented in the HPI. ROS Other: All systems not noted in ROS Statement are negative. Past Medical History Past Medical History: Diabetes Mellitus History of Any Multi-Drug Resistant Organisms: None Reported Past Surgical History: Orthopedic Surgery Additional Past Surgical History / Comment(s): Foot surgery, PICC line, toe amputation Past Anesthesia/Blood Transfusion Reactions: No Reported Reaction Past Psychological History: No Psychological Hx Reported Smoking Status: Never smoker Past Alcohol Use History: Occasional Past Drug Use History: None Reported - Past Family History Father Family Medical History: Cancer Additional Family Medical History / Comment(s): stomach and lung CA, smoker General Exam Limitations: no limitations General appearance: alert, in no apparent distress Course Vital Signs 02/04/24 02/04/24 02/04/24 19:38 20:10 22:29 Temperature 98.4 F Pulse Rate 90 86 91 Respiratory 18 18 18 Rate Blood Pressure 123/79 129/69 138/91 O2 Sat by Pulse 94 L 95 95 Oximetry Medical Decision Making - Medical Decision Making Was pt. sent in by a medical professional or institution (JADA Estrada, [employer], urgent care, hospital, or custodial...) When possible be specific @ -No Did you speak to anyone other than the patient for history (EMS, parent, family, police, friend...)? What history was obtained from this source @ -No Did you review nursing and triage notes (agree or disagree)? Why? @ -I reviewed and agree with nursing and triage notes Were old charts reviewed (outside hosp., previous admission, EMS record, old EKG, old radiological studies, urgent care reports/EKG's, custodial records)? Report findings @ -No old charts were reviewed Differential Diagnosis (chest pain, altered mental status, abdominal pain women, abdominal pain men, vaginal bleeding, weakness, fever, dyspnea, syncope, headache, dizziness, GI bleed, back pain, seizure, CVA, palpatations, mental he alth, musculoskeletal)? @ -Viral URI, pneumonia, this is not all inclusive EKG interpreted by me (3pts min.). @ -None X-rays interpreted by me (1pt min.). @ -Chest x-ray shows no acute infiltrate CT interpreted by me (1pt min.). @ -None done U/S interpreted by me (1pt. min.). @ -None done What testing was considered but not performed or refused? (CT, X-rays, U/S, labs)? Why? @ -None What meds were considered but not given or refused? Why? @ -None Did you discuss the management of the patient with other professionals (professionals i.e. Dr., PA, COMBINATION MAN, lab, RT, psych nurse, social services counselor, margarine maker, teacher, senior major gifts officer, casework specialist)? Give summary @ -No Was smoking cessation discussed for >3mins.? @ -No Was critical care preformed (if so, how long)? @ -No Were there social determinants of health that impacted care today? How? (Homelessness, low income, unemployed, alcoholism, drug addiction, transportation, low edu. Level, literacy, decrease access to med. care, snf, rehab)? @ -No Was there de-escalation of care discussed even if they declined (Discuss DNR or withdrawal of care, Hospice)? DNR status @ -No What co-morbidities impacted this encounter? (DM, HTN, Smoking, COPD, CAD, Cancer, CVA, ARF, Chemo, Hep., AIDS, mental health diagnosis, sleep apnea, morbid obesity)? @ -None Was patient admitted / discharged? Hospital course, mention meds given and route, prescriptions, significant lab abnormalities, going to OR and other pertinent info. @ -Discharged. Patient presented to the emergency department for evaluation of cough and chest congestion which he feels is related to his recent antibiotic that he was prescribed. On examination, patient is in no apparent respiratory distress. Lungs clear to auscultation bilaterally. Chest x-ray obtained shows no acute infiltrate. Discussed that this is likely not related to the antibiotic use and that he should continue this medication until it is completed. Discussed symptomatic treatment at this time. Patient understanding agreeable plan. Patient stable at time of discharge. Case discussed with Dr. Bright. Undiagnosed new problem with uncertain prognosis? @ -No Drug Therapy requiring intensive monitoring for toxicity (Heparin, Nitro, Insulin, Cardizem)? @ -No Were any procedures done? @ -No Diagnosis/symptom? @ -Viral URI Acute, or Chronic, or Acute on Chronic? @ -Acute Uncomplicated (without systemic symptoms) or Complicated (systemic symptoms)? @ -Uncomplicated Side effects of treatment? @ -No Exacerbation, Progression, or Severe Exacerbation? @ -No Poses a threat to life or bodily function? How? (Chest pain, [place], [place], pneumonia, PE, COPD, DKA, ARF, appy, cholecystitis, CVA, Diverticulitis, Homicidal, Suicidal, threat to staff... and all critical care pts) @ -No Disposition Clinical Impression: Chest congestion Disposition: HOME SELF-CARE Condition: Stable Instructions (If sedation given, give patient instructions): Upper Respiratory Infection (ED) Additional Instructions: Please follow up with your primary care provider. Return to the emergency department for new or worsening symptoms. Is patient prescribed a controlled substance at d/c from ED?: No Referrals: Emanuel Lugo PAC [Primary Care Provider] - 1-2 days
--- NOTE | 2024-02-04 21:53 | XR ---
EXAMINATION TYPE: XR chest 2V DATE OF EXAM: 02/04/2024 9:06 PM CLINICAL INDICATION:Male, 58 years old with history of cough; [facility] COMPARISON: 12/25/2023 TECHNIQUE: XR chest 2V. Frontal and lateral views of the chest.. FINDINGS: Lines/Tubes/Devices: No indwelling lines are seen. Heart/mediastinum: Heart size is normal. CM silhouette is stable. Tortuosity and ectasia of the aort a. Pulmonary vascularity: Not increased, Lungs/Pleura: There is no evidence of pleural effusion, focal consolidation, or pneumothorax. Mild c hronic senescent changes. Musculoskeletal: No acute osseous abnormality demonstrated in the limits of the exam. Other findings: Mild partial eventration along the right hemidiaphragm. IMPRESSION: No acute cardiopulmonary abnormality. \
[2024-02-04 22:52] VITALS: BP 138/91; PULSE 91
== END 2024-02-04 22:30 | disposition home or self-care (01) ==
LOC: EC 19:02
DX: R09.89 Other specified symptoms and signs involving the circulatory and respiratory systems (principal); Z88.0 Allergy status to penicillin
CPT/HCPCS: 71046; 99283

== ENCOUNTER 2024-05-03 18:58 | Emergency (ER) | payer OTHER ==
--- NOTE | 2024-05-03 19:31 | ED ---
Skin/Abscess/FB HPI - General Source: patient, RN notes reviewed Mode of arrival: ambulatory Limitations: no limitations <Katlin Estrada - Last Filed: 05/03/24 19:30> <Ellis Cook - Last Filed: 05/28/24 19:48> - General Stated complaint: neck pain Time Seen by Provider: 05/03/24 19:30 - History of Present Illness Initial comments: Quick note: 59-year-old male presented to ER with a chief complaint of neck/posterior scalp pain. He states it has been there for a couple of weeks. He was seen by urgent care and given antibiotics without improvement. He describes it as a "knot" in his posterior neck. No injuries. (Katlin Estrada) 59-year-old male with chief complaint of a bump to the posterior scalp. States it has been there for multiple weeks. He was seen by urgent care and started on antibiotics but states that there has been no improvement. He denies any pain. There is no itching. He denies any injuries. No fever. States that he is just concerned because it has not seemed to go away. (Ellis Cook) - Related Data Home Medications Medication Instructions Recorded Confirmed Aspirin EC [Ecotrin Low Dose] 81 mg PO DAILY 06/20/21 03/15/22 Insulin Aspart [NovoLOG Flexpen] See Protocol SQ AC-TID 06/20/21 03/15/22 metFORMIN HCL [Glucophage] 1,000 mg PO AC-BID 06/20/21 03/15/22 Multivitamins, Thera [Multivitamin 1 tab PO DAILY 07/05/21 03/15/22 (formulary)] Previous Rx's Medication Instructions Recorded Vancomycin HCl in 5 % Dextrose 1.5 gm IV Q12HR #28 each 02/23/22 [Vancomycin 1 Gram/250 ml-D5w] Acetaminophen Tab [Tylenol] 650 mg PO Q6HR PRN tab 02/26/22 Insulin Glargine,Hum.rec.anlog 35 unit SQ HS #0 02/26/22 [Lantus Solostar Pen] Molnupiravir [Lagevrio (Eua)] 800 mg PO BID 5 Days #40 cap 09/02/22 Nirmatrelvir/Ritonavir [Paxlovid 1 each PO BID #1 each 10/23/23 300-100 mg Pack (Eua)] Ondansetron Odt [Zofran Odt] 4 mg PO Q8HR PRN #12 tab 10/30/23 Azithromycin [Zithromax] 500 mg PO DAILY #5 tab 12/25/23 Benzonatate [Tessalon Perles] 100 mg PO TID PRN #15 capsule 12/25/23 Loratadine-Pseudoeph 10-240 mg 1 tab PO DAILY #14 tab 12/25/23 [Claritin-D 24 Hour] Cephalexin [Keflex] 500 mg PO Q12HR 5 Days #10 cap 01/15/24 Allergies Allergy/AdvReac Type Severity Reaction Status Date / Time Penicillins Allergy Rash/Hives Verified 05/03/24 19:40 Review of Systems ROS Other: All systems not noted in ROS Statement are negative. <Katlin Estrada - Last Filed: 05/03/24 19:30> ROS Other: All systems not noted in ROS Statement are negative. <Ellis Cook - Last Filed: 05/28/24 19:48> ROS Statement: Those systems with pertinent positive or pertinent negative responses have been documented in the HPI. Past Medical History Past Medical History: Diabetes Mellitus History of Any Multi-Drug Resistant Organisms: None Reported Past Surgical History: Orthopedic Surgery Additional Past Surgical History / Comment(s): Foot surgery, PICC line, toe amputation Past Anesthesia/Blood Transfusion Reactions: No Reported Reaction Past Psychological History: No Psychological Hx Reported Smoking Status: Never smoker Past Alcohol Use History: Occasional Past Drug Use History: None Reported - Past Family History Father Family Medical History: Cancer Additional Family Medical History / Comment(s): stomach and lung CA, smoker <Katlin Estrada - Last Filed: 05/03/24 19:30> General Exam <Katlin Estrada - Last Filed: 05/03/24 19:30> Limitations: no limitations General appearance: alert, in no apparent distress Head exam: Present: atraumatic, other (Small bump to the posterior scalp, nontender, nonerythematous) Eye exam: Present: normal appearance, EOMI Neck exam: Present: normal inspection. Absent: meningismus Respiratory exam: Absent: respiratory distress Neurological exam: Present: alert, oriented X3 Psychiatric exam: Present: normal affect, normal mood Skin exam: Present: warm, dry, normal color <Ellis Cook - Last Filed: 05/28/24 19:48> - General Exam Comments Initial Comments: Visual Physical Exam Vital signs reviewed General: Well-appearing, nontoxic, no acute distress. Head: Normocephalic, atraumatic Eyes: PERRLA, EOMI ENT: Airway patent Chest: Nonlabored breathing Skin: No visual rash, normal skin tone Neuro: Alert and oriented 3 Musculoskeletal: No gross abnormalities (Katlin Estrada) Course Vital Signs 05/03/24 05/04/24 19:40 00:02 Temperature 98.0 F 98.2 F Pulse Rate 102 H 90 Respiratory 20 20 Rate Blood Pressure 109/76 119/75 O2 Sat by Pulse 97 95 Oximetry Medical Decision Making <Katlin Estrada - Last Filed: 05/03/24 19:30> <Ellis Cook - Last Filed: 05/28/24 19:48> - Medical Decision Making I performed the quick note portion of this chart. Electronically signed by Katlin Estrada PA-C (Katlin Estrada) Was pt. sent in by a medical professional or institution (JADA Estrada, [employer], urgent care, hospital, or [facility]...) When possible be specific @ -No Did you speak to anyone other than the patient for history (EMS, parent, family, police, friend...)? What history was obtained from this source @ -No Did you review nursing and triage notes (agree or disagree)? Why? @ -I reviewed and agree with nursing and triage notes Were old charts reviewed (outside hosp., previous admission, EMS record, old EK G, old radiological studies, urgent care reports/EKG's, [facility] records)? Report findings @ -No old charts were reviewed Differential Diagnosis (chest pain, altered mental status, abdominal pain women, abdominal pain men, vaginal bleeding, weakness, fever, dyspnea, syncope, headache, dizziness, GI bleed, back pain, seizure, CVA, palpatations, mental health, musculoskeletal)? @ -Differential includes cyst, lymph node, abscess, this is not an all- inclusive list EKG interpreted by me (3pts min.). @ -As above X-rays interpreted by me (1pt min.). @ -None done CT interpreted by me (1pt min.). @ -None done U/S interpreted by me (1pt. min.). @ -None done What testing was considered but not performed or refused? (CT, X-rays, U/S, labs)? Why? @ -None What meds were considered but not given or refused? Why? @ -None Did you discuss the management of the patient with other professionals (professionals i.e. Dr., PA, SALES PORTER, lab, RT, psych nurse, social media marketing analyst, applications system analyst, teacher, nursing officer, case finishing machine adjuster)? Give summary @ -No Was smoking cessation discussed for >3mins.? @ -No Was critical care preformed (if so, how long)? @ -No Were there social determinants of health that impacted care today? How? (Homelessness, low income, unemployed, alcoholism, drug addiction, transportation, low edu. Level, literacy, decrease access to med. care, correction, rehab)? @ -No Was there de-escalation of care discussed even if they declined (Discuss DNR or withdrawal of care, Hospice)? DNR status @ -No What co-morbidities impacted this encounter? (DM, HTN, Smoking, COPD, CAD, Cancer, CVA, ARF, Chemo, Hep., AIDS, mental health diagnosis, sleep apnea, morbid obesity)? @ -None Was patient admitted / discharged? Hospital course, mention meds given and route, prescriptions, significant lab abnormalities, going to OR and other pertinent info. @ -59-year-old male presenting with chief complaint of bump to the back of his head. Has been there for few weeks. It is nontender and nonpruritic. There was no injury. He has already been on antibiotics. On exam there is a very small bump, no concerning changes. He has a nps that he will follow- up with. Advised to some [id number] hydrocortisone cream as needed. Discharged home. Follow-up with PCP. Report back to ER with any new or worsening symptoms. Discussed return parameters and answered all questions. Patient conveyed verbal understanding and agreed to the plan. I discussed this case in detail with my attending Dr. Bright Undiagnosed new problem with uncertain prognosis? @ -No Drug Therapy requiring intensive monitoring for toxicity (Heparin, Nitro, Insulin, Cardizem)? @ -No Were any procedures done? @ -No Diagnosis/symptom? @ -Cyst Acute, or Chronic, or Acute on Chronic? @ -Acute Uncomplicated (without systemic symptoms) or Complicated (systemic symptoms)? @ -Uncomplicated Side effects of treatment? @ -No Exacerbation, Progression, or Severe Exacerbation? @ -No Poses a threat to life or bodily function? How? (Chest pain, [place], [place], pneumonia, PE, COPD, DKA, ARF, appy, cholecystitis, CVA, Diverticulitis, Homicidal, Suicidal, threat to staff... and all critical care pts) @ -No (Ellis Cook) Disposition <Katlin Estrada - Last Filed: 05/03/24 19:30> Is patient prescribed a controlled substance at d/c from ED?: No Time of Disposition: 23:55 <Ellis Cook - Last Filed: 05/28/24 19:48> Clinical Impression: Cyst Disposition: HOME SELF-CARE Condition: Good Instructions (If sedation given, give patient instructions): Cyst (ED) Additional Instructions: Follow-up with your PCP and nps. Report back to ER with any new or worsening symptoms. You can try using some [id number] hydrocortisone cream to help with the itching. Referrals: Luis Antonio Heaton DO [Primary Care Provider] - 1-2 days
[2024-05-03 19:46] VITALS: RESP 20
[2024-05-04 00:09] VITALS: BP 119/75; PULSE 90; TEMP 98.2
== END 2024-05-04 00:08 | disposition home or self-care (01) ==
LOC: EC 18:58 → SUPCPDRO 18:58 → EC 05-04 00:08
DX: L72.0 Epidermal cyst (principal); Z88.0 Allergy status to penicillin
CPT/HCPCS: 99283

== ENCOUNTER 2025-03-29 16:30 | Emergency (ER) | payer OTHER ==
[2025-03-29 17:02] VITALS: BP 136/77; PULSE 93; RESP 16; TEMP 98
--- NOTE | 2025-03-29 17:03 | ED ---
General Adult HPI - General Chief complaint: Recheck/Abnormal Lab/Rx Stated complaint: Swelling in right foot Time Seen by Provider: 03/29/25 17:03 Source: patient Mode of arrival: ambulatory Limitations: no limitations - History of Present Illness Initial comments: Quick note: 60-year-old male here with an order from his market risk specialist for CBC and CMP due to an infection in his right foot. - Related Data Home Medications Medication Instructions Recorded Confirmed Aspirin EC [Ecotrin Low Dose] 81 mg PO DAILY 06/20/21 03/15/22 Insulin Aspart [NovoLOG Flexpen] See Protocol SQ AC-TID 06/20/21 03/15/22 metFORMIN HCL [Glucophage] 1,000 mg PO AC-BID 06/20/21 03/15/22 Multivitamins, Thera [Multivitamin 1 tab PO DAILY 07/05/21 03/15/22 (formulary)] Previous Rx's Medication Instructions Recorded Vancomycin HCl in 5 % Dextrose 1.5 gm IV Q12HR #28 each 02/23/22 [Vancomycin 1 Gram/250 ml-D5w] Acetaminophen Tab [Tylenol] 650 mg PO Q6HR PRN tab 02/26/22 Insulin Glargine,Hum.rec.anlog 35 unit SQ HS #0 02/26/22 [Lantus Solostar Pen] Molnupiravir [Lagevrio (Eua)] 800 mg PO BID 5 Days #40 cap 09/02/22 Nirmatrelvir/Ritonavir [Paxlovid 1 each PO BID #1 each 10/23/23 300-100 mg Pack (Eua)] Ondansetron Odt [Zofran Odt] 4 mg PO Q8HR PRN #12 tab 10/30/23 Azithromycin [Zithromax] 500 mg PO DAILY #5 tab 12/25/23 Benzonatate [Tessalon Perles] 100 mg PO TID PRN #15 capsule 12/25/23 Loratadine-Pseudoeph 10-240 mg 1 tab PO DAILY #14 tab 12/25/23 [Claritin-D 24 Hour] Cephalexin [Keflex] 500 mg PO Q12HR 5 Days #10 cap 01/15/24 Ondansetron Odt [Zofran Odt] 4 mg PO Q8HR PRN #10 tab 02/21/25 Allergies Allergy/AdvReac Type Severity Reaction Status Date / Time Penicillins Allergy Rash/Hives Verified 02/21/25 06:37 Review of Systems ROS Statement: Those systems with pertinent positive or pertinent negative responses have been documented in the HPI. ROS Other: All systems not noted in ROS Statement are negative. Past Medical History Past Medical History: Diabetes Mellitus History of Any Multi-Drug Resistant Organisms: None Reported Past Surgical History: Orthopedic Surgery Additional Past Surgical History / Comment(s): 2x Foot surgery, PICC line, toe amputation Past Anesthesia/Blood Transfusion Reactions: No Reported Reaction Past Psychological History: No Psychological Hx Reported, Depression Smoking Status: Never smoker Past Alcohol Use History: Occasional Past Drug Use History: None Reported - Past Family History Father Family Medical History: Cancer Additional Family Medical History / Comment(s): stomach and lung CA, smoker General Exam - General Exam Comments Initial Comments: Visual Physical Exam Vital signs reviewed General: Well-appearing, nontoxic, no acute distress. Head: Normocephalic, atraumatic Eyes: PERRLA, EOMI ENT: Airway patent Chest: Nonlabored breathing Skin: No visual rash, normal skin tone Neuro: Alert and oriented 3 Musculoskeletal: No gross abnormalities Limitations: no limitations Course Vital Signs 03/29/25 17:00 Temperature 98 F Pulse Rate 93 Respiratory 16 Rate Blood Pressure 136/77 O2 Sat by Pulse 97 Oximetry Medical Decision Making - Medical Decision Making I performed the quick note portion of this visit, electronically signed Ellis Cook PA-C Patient later eloped from the waiting room prior to complete evaluation - Lab Data Result diagrams: 03/29/25 17:13 03/29/25 17:13 Lab Results 03/29/25 03/29/25 Range/Units 17:13 17:13 WBC 8.09 (4.50-10.00) 10*3/uL RBC 4.09 L (4.40-5.60) 10*6/uL Hgb 12.3 L (13.0-17.0) g/dL Hct 35.4 L (39.6-50.0) % MCV 86.6 (80.0-97.0) fL MCH 30.1 (27.0-32.0) pg MCHC 34.7 (32.0-37.0) g/dL Plt Count 269 (140-440) 10*3/uL MPV 10.4 (9.5-12.2) fL Immature Gran % (Auto) 0.2 % Neutrophils % 71.0 % Lymphocytes % 18.7 % Monocytes % 7.0 % Eosinophils % 2.5 % Basophils % 0.6 % Immature Gran # 0.02 (0.00-0.04) 10*3/uL Neutrophils # 5.74 (1.80-7.70) 10*3/uL Lymphocytes # 1.51 (0.90-5.00) 10*3/uL Monocytes # 0.57 (0.20-1.00) 10*3/uL Eosinophils # 0.20 (0.04-0.35) 10*3/uL Basophils # 0.05 (0.00-0.10) 10*3/uL Sodium 125 L (137-145) mmol/L Potassium 5.0 (3.5-5.1) mmol/L Chloride 93 L (98-107) mmol/L Carbon Dioxide 18 L (22-30) mmol/L Anion Gap 14 mmol/L BUN 31 H (9-20) mg/dL Creatinine 1.35 H (0.66-1.25) mg/dL Est GFR (CKD-EPI)AfAm 65 (>60 ml/min/1.73 sqM) Est GFR (CKD-EPI)NonAf 56 (>60 ml/min/1.73 sqM) Glucose 827 H* (74-99) mg/dL Calcium 9.4 (8.4-10.2) mg/dL Total Bilirubin 0.8 (0.2-1.3) mg/dL AST 17 (17-59) U/L ALT 15 (4-49) U/L Alkaline Phosphatase 156 H (38-126) U/L Total Protein 7.0 (6.3-8.2) g/dL Albumin 4.2 (3.5-5.0) g/dL Disposition Clinical Impression: Laboratory test Disposition: LEFT AGAINST MEDICAL ADVICE Condition: Undetermined Referrals: Mino Prieto, DPM [Primary Care Provider] - 1-2 days
[2025-03-29 17:26] LABS: Basophils # (A) 0.05 10*3/uL (0.00-0.10); Basophils % (A) 0.6 %; Eosinophils % (A) 2.5 %; HCT 35.4 % (39.6-50.0); HGB 12.3 g/dL (13.0-17.0); Lymphocytes # (A) 1.51 10*3/uL (0.90-5.00); Lymphocytes % (A) 18.7 %; MCH 30.1 pg (27.0-32.0); MCHC 34.7 g/dL (32.0-37.0); MCV 86.6 fL (80.0-97.0); Mean Platelet Volume 10.4 fL (9.5-12.2); Monocytes # (A) 0.57 10*3/uL (0.20-1.00); Neutrophils # (A) 5.74 10*3/uL (1.80-7.70); Platelet Count 269 10*3/uL (140-440); RBC 4.09 10*6/uL (4.40-5.60); RDW 12.8 % (11.5-14.5); WBC 8.09 10*3/uL (4.50-10.00)
[2025-03-29 17:56] LABS: ALT 15 U/L (4-49); AST 17 U/L (17-59); African American GFR (CKD) 65 (>60 ml/min/1.73 sqM); Albumin 4.2 g/dL (3.5-5.0); Alkaline Phosphatase 156 U/L (38-126); Anion Gap 14 mmol/L; Blood Urea Nitrogen 31 mg/dL (9-20); Calcium 9.4 mg/dL (8.4-10.2); Carbon Dioxide 18 mmol/L (22-30); Chloride 93 mmol/L (98-107); Non-African American GFR(CKD) 56 (>60 ml/min/1.73 sqM); Sodium 125 mmol/L (137-145); Total Bilirubin 0.8 mg/dL (0.2-1.3)
[2025-03-29 18:08] LABS: Glucose 827 mg/dL (74-99)
== END 2025-03-29 18:10 | disposition left against medical advice (07) ==
LOC: EC 16:30
DX: Z00.8 Encounter for other general examination (principal); Z88.0 Allergy status to penicillin; Z53.29 Procedure and treatment not carried out because of patient's decision for other reasons
CPT/HCPCS: 36415; 80053; 85025; 99283